=== PATIENT | female | born 1935 | race Caucasian/White ===

== ENCOUNTER 2017-04-10 16:26 | Emergency (ER) | payer OTHER ==
[2017-04-10 16:43] VITALS: BP 180/90; PULSE 82; TEMP 97.8; BMI 25.0
--- NOTE | 2017-04-10 17:18 | PDOC ---
History of Present Illness - General History Source: Patient Exam Limitations: No Limitations - History of Present Illness Initial Comments: 04/10/17 17:13 <Hugo Alvarez - Last Filed: 04/10/17 17:18> - General History Source: Patient Exam Limitations: No Limitations - History of Present Illness Initial Comments: 04/10/17 18:04 The patient is a 82 year old female presenting with her , with a significant past medical history of HTN, HLD, thyroid disease left sided weakness s/p intracranial bleed (2010), who presents to the emergency department with epitaxis onset today. She reports that her epitaxis is mostly localized in the right nostril, being intermittent in nature. The notes that they tried applying pressure to the top area of the nose and using ice in the attempts to stop the bleeding with little success. Upon presentation the bleeding had stopped. He notes that the patient is set to follow up with an ENT soon and recently saw her PMD a few days ago for a follow up. They deny any history of epitaxis. They do report that the patient has been sneezing and blowing her nose more than usual recently due to seasonal allergies. The patient denies chest pain, palpitations, shortness of breath, headache and dizziness. Denies fever, chills, nausea, vomit, diarrhea and constipation. Allergies: Sulfa Past surgical history: Intracranial bleed (2010) Social history: No alcohol, tobacco or drug use reported <Kiok Smith - Last Filed: 04/10/17 18:05> - General Chief Complaint: Nasal Bleeding Stated Complaint: INTERMITTENT EPISTAXIS SINCE LAST NIGHT Time Seen by Provider: 04/10/17 16:35 Past History - Past Medical History HTN: Yes Hypercholesterolemia: Yes Thyroid Disease: Yes Other medical history: HARD OF HEARING LEFT SIDE WEAKNESS INTRACRANIAL BLEED 2010 - Surgical History Neurologic Surgery: Yes - Psycho/Social/Smoking Cessation Hx Anxiety: No Suicidal Ideation: No Smoking History: Never smoked Have you smoked in the past 12 months: No Information on smoking cessation initiated: No Hx Alcohol Use: No Drug/Substance Use Hx: No Substance Use Type: None <Hugo Alvarez - Last Filed: 04/10/17 17:18> <Kiko Smith - Last Filed: 04/10/17 18:05> - Past Medical History Allergies/Adverse Reactions: Allergies Allergy/AdvReac Type Severity Reaction Status Date / Time Sulfa (Sulfonamide Allergy Hives Verified 04/10/17 16:29 Antibiotics) Home Medications: Ambulatory Orders Carvedilol 04/10/17 Levothyroxine [Synthroid -] 50 mcg PO DAILY 04/10/17 Lisinopril 04/10/17 Review of Systems - Review of Systems Able to Perform ROS?: Yes Comments:: 04/10/17 18:04 CONSTITUTIONAL: No reported: Fever, Chills, Diaphoresis, Generalized Weakness, Malaise, Loss of Appetite HEENT: Reported: Epistaxis No reported: Nasal Congestion, Throat Pain, Throat Swelling, Difficulty Swallowing, Mouth Swelling, Ear Pain, Eye Pain, Visual Changes CARDIOVASCULAR: No reported: Chest Pain, Syncope, Palpitations, Irregular Heart Rate, Lightheadedness, Peripheral Edema RESPIRATORY: No reported: Cough, Shortness of Breath, SOB with Exertion, Orthopnea, Wheezing , Stridor, Hemoptysis GASTROINTESTINAL: No reported: Abdominal pain, Abdominal Distension, Nausea, Vomiting, Diarrhea, Constipation, Melena, Hematochezia GENITOURINARY: No reported: Dysuria, Frequency, Urgency, Hesitancy, Flank Pain, Genital Pain MUSCULOSKELETAL: No reported: Myalgia, Arthralgia, Joint Swelling, Back pain, Neck Pain SKIN: No reported: Rash, Itching, Pallor HEMEATOLOGIC/IMMUNOLOGIC: No reported: Easy Bleeding, Easy Bruising, Lymphadenopathy, Frequent infections ENDOCRINE: No reported: Unexplained Weight Gain, Unexplained Weight Loss, Heat Intolerance , Cold Intolerance NEUROLOGIC: No reported: Headache, Focal Weakness, Paresthesias, Vertigo, Lightheadedness, Unsteady Gait, Seizure, Mental Status Changes, Incontinence PSYCHIATRIC: No reported: Anxiety, Depression <Kiko Smith - Last Filed: 04/10/17 18:05> *Physical Exam - Vital Signs Last Vital Signs Temp Pulse Resp BP Pulse Ox 97.8 F 82 18 180/90 98 04/10/17 16:28 04/10/17 16:28 04/10/17 16:28 04/10/17 16:28 04/10/17 16:28 <Hugo Alvarez - Last Filed: 04/10/17 17:18> - Vital Signs Last Vital Signs Temp Pulse Resp BP Pulse Ox 97.8 F 82 18 180/90 98 04/10/17 16:28 04/10/17 16:28 04/10/17 16:28 04/10/17 16:28 04/10/17 16:28 - Physical Exam Comments: 04/10/17 18:04 GENERAL: The patient is awake, alert, and fully oriented, Nontoxic - in no acute distress. EYES: extraocular movements intact, sclera anicteric, conjunctiva clear. ENT: nares with rusted blood in R nare, no active bleeding, no bleeding in posterior pharynx. LUNGS: Breath sounds equal, clear to auscultation bilaterally. HEART: Regular rate and rhythm, without murmur, rub or gallop. NEUROLOGICAL: No facial assymetry, Normal speech, moving all 4 extermities spontaneously and symmetrically. PSYCH: Normal mood, normal affect. SKIN: Warm, Dry, normal turgor <Kiko Smith - Last Filed: 04/10/17 18:05> Medical Decision Making - Medical Decision Making 04/10/17 17:13 82y F hx of htn present with intermittent epistaxis x 2, stoppdprior to evaluation, no symtoms of anemia. not on any a/c nor aspirin. suspect her epistaxis due to incerases sneezing/nose blowing due to seasonal allergies. no signs of posterior bleed. no current bleednig will d/c the pmd with fu return precautions were discussed I discussed the physical exam findings, ancillary test results and final diagnoses with the patient. I answered all of the patient's questions. The patient was satisfied with the care received and felt comfortable with the discharge plan and treatment plan. The patient will call their primary care physician within 24 hours to arrange follow-up and will return to the Emergency Department with any new, persistent or worsening symptoms. <Hugo Alvarez - Last Filed: 04/10/17 17:18> *DC/Admit/Observation/Transfer - Discharge Dispostion Admit: No <Hugo Alvarez - Last Filed: 04/10/17 17:18> - Attestations Scribe Attestion: 04/10/17 18:04 Documentation prepared by Kiko Smith, acting as biomedical electronics technician for Hugo Alvarez MD <Kiko Smith [place] - Last Filed: 04/10/17 18:05> Diagnosis at time of Disposition: Epistaxis - Discharge Dispostion Disposition: HOME Condition at time of disposition: Improved - Referrals Referrals: Nish Nix MD [Staff Physician] - - Patient Instructions Printed Discharge Instructions: DI for Nosebleed Additional Instructions: Return to the emergency department immediately with ANY new, persistent or worsening symptoms. Apply pressure and ice to nose if the bleeding recurs. If the bleeding persists beyond 20 minutes return to the emergency department for further management. You MUST call and follow up with your doctor tomorrow for further evaluation of your symptoms. Results were discussed with you. Please make sure your doctor reviews the results of your emergency evaluation.
== END 2017-04-10 17:24 | disposition home or self-care (01) ==
LOC: FER 16:26
DX: R04.0 Epistaxis (principal); E78.5 Hyperlipidemia, unspecified; E07.9 Disorder of thyroid, unspecified; I10 Essential (primary) hypertension; G82.20 Paraplegia, unspecified
CPT/HCPCS: 99281-25

== ENCOUNTER 2017-04-23 09:46 | Emergency (ER) | payer OTHER ==
[2017-04-23 09:50] VITALS: BP 156/99; PULSE 75; TEMP 98; BMI 25.0
--- NOTE | 2017-04-23 10:32 | PDOC ---
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 Saavedra 2 days later and was cauterized again (R nares) because it started to bleed Since that time she's had some intermittent bleeding from her right nares She saw Dr. Saavedra again yesterday and was cauterized again 7:30 this morning she started with much heavier bleeding, (R nares) prompting her to come to the emergency department She is on no blood thinners She is also spitting up some blood that is going down the back of her throat Past History - Past Medical History Allergies/Adverse Reactions: Allergies Allergy/AdvReac Type Severity Reaction Status Date / Time Sulfa (Sulfonamide Allergy Hives Verified 04/23/17 09:48 Antibiotics) Home Medications: Ambulatory Orders Carvedilol 04/10/17 Levothyroxine [Synthroid -] 50 mcg PO DAILY 04/10/17 Lisinopril 04/10/17 Amox-Tr/K Cl [Augmentin - 500Mg Tablet] 1 tab PO TID #21 tab 04/23/17 HTN: Yes Hypercholesterolemia: Yes Thyroid Disease: Yes - Surgical History Neurologic Surgery: Yes - Psycho/Social/Smoking Cessation Hx Anxiety: No Suicidal Ideation: No Smoking History: Never smoked Have you smoked in the past 12 months: No Hx Alcohol Use: No Drug/Substance Use Hx: No Substance Use Type: None *Physical Exam - Vital Signs Last Vital Signs Temp Pulse Resp BP Pulse Ox 98 F 75 18 156/99 100 04/23/17 09:47 04/23/17 09:47 04/23/17 09:47 04/23/17 09:47 04/23/17 09:47 - Physical Exam Comments: 04/23/17 10:30 Physical exam Last Vital Signs Temp Pulse Resp BP Pulse Ox 98 F 75 18 156/99 100 04/23/17 09:47 04/23/17 09:47 04/23/17 09:47 04/23/17 09:47 04/23/17 09:47 Patient is alert and answering questions Head is normocephalic and atraumatic ENT exam There is +active bleeding from the right nares There is a small trickle of blood from the left nares Blood is going down the back of the throat, and patient is coughing it up Lungs - clear Heart - regular Medical Decision Making - Medical Decision Making 04/23/17 10:31 The right nares was cleaned out thoroughly, and large clots were removed from the right nares On exam with a nasal speculum no further clots were seen An anterior Rhino Rocket nasal pack was placed in the right nares as per protocol, with 5 mL in the balloon Bacitracin ointment was placed on the Rhino Rocket packing prior to insertion, The pack was placed without difficulty Will reevaluate with anterior pack in place 04/23/17 11:47 On reevaluation, epistaxis has completely stopped with right anterior pack in place Mouth and oropharynx is completely benign, with no more blood seen Patient is no longer coughing Patient observed for a while with packing in place No evidence of further bleeding. Packing in place R nares without difficulty Well give antibiotic, and follow with Dr. Saavedra Monday in the office *DC/Admit/Observation/Transfer Diagnosis at time of Disposition: Epistaxis - Discharge Dispostion Disposition: HOME Condition at time of disposition: Improved - Prescriptions Prescriptions: Amox-Tr/K Cl [Augmentin - 500Mg Tablet] 1 tab PO TID #21 tab - Referrals Referrals: Jason Saavedra MD [Staff Physician] - - Patient Instructions Printed Discharge Instructions: DI for Nosebleed, Nosebleed Additional Instructions: Keep the nasal packing in place, do not attempt to remove it Do not pick or blow your nose, and sneeze with her mouth open Please follow-up with your ENT, Dr Savaedra, first thing on Monday for removal of packing Please return immediately if the bleeding starts up again Followup with your primary care physician in 24-48 hours Return immediately if you worsen in any way Take your medications as directed [id number] pill 3 times a day Please take a probiotic every day to prevent antibiotic associated diarrhea with this
[2017-04-23] MEDS ORDERED: AMOX TR/POT CLAV 500MG/125MG TABLETS (FP) PO ONE (11:49)
[2017-04-23] MEDS ORDERED: AMOX TR/POT CLAV 500MG/125MG TABLETS (FP) ONE (11:54)
== END 2017-04-23 11:58 | disposition home or self-care (01) ==
LOC: FER 09:46
PROC: 2Y41X5Z Packing of Nasal Region using Packing Material (ICD-10-PCS; principal; 2017-04-23)
DX: R04.0 Epistaxis (principal); I10 Essential (primary) hypertension; E78.00 Pure hypercholesterolemia, unspecified; E07.9 Disorder of thyroid, unspecified; R29.810 Facial weakness
CPT/HCPCS: 30901-25; 99281-25

== ENCOUNTER 2019-12-13 10:02 | Observation (INO) | payer OTHER ==
--- NOTE | 2019-12-13 10:40 | PDOC ---
History of Present Illness - History of Present Illness Initial Comments: 12/13/19 10:39 Ms. Alvarez is an 84 yo female w/ pmh of HTN, hypothyroidism, dementia, R intracranial hemorrhage (2010, no deficits besides dementia) who presents s/p fall at [facility]. Per who is with her patient fell at some time over night. Patient is at baseline per (AOx1). Patient denies any complaints at this time. The patient denies chest pain, shortness of breath, headache and dizziness. Denies fever, chills, nausea, vomit, diarrhea and constipation. Denies dysuria, frequency, urgency and hematuria. <Juliano Corral - Last Filed: 12/13/19 16:46> <Divine Hodgson - Last Filed: 12/14/19 21:31> - General Chief Complaint: Injury Stated Complaint: FALL Time Seen by Provider: 12/13/19 10:39 Past History - Past Medical History Anemia: No Asthma: No Cancer: No Cardiac Disorders: Yes (AFIB) CVA: Yes (H/O "brain bleed") COPD: No (on Atrovent, PE) CHF: No Dementia: No Diabetes: No GI Disorders: No Disorders: No HTN: Yes Hypercholesterolemia: Yes Liver Disease: No Seizures: No Thyroid Disease: Yes - Surgical History Abdominal Surgery: No Appendectomy: No Cardiac Surgery: No Cholecystectomy: No Lung Surgery: No Neurologic Surgery: Yes (brain bleed) Orthopedic Surgery: No - Psycho Social/Smoking Cessation Hx Smoking History: Never smoked Have you smoked in the past 12 months: No Information on smoking cessation initiated: No Hx Alcohol Use: No Drug/Substance Use Hx: No Substance Use Type: None <Juliano Corral - Last Filed: 12/13/19 16:46> <Divine Hodgson - Last Filed: 12/14/19 21:31> - Past Medical History Allergies/Adverse Reactions: Allergies Allergy/AdvReac Type Severity Reaction Status Date / Time Sulfa (Sulfonamide Allergy Hives Verified 07/11/19 11:57 Antibiotics) Home Medications: Ambulatory Orders Levothyroxine [Synthroid -] 100 mcg PO DAILY 04/10/17 Acetaminophen [Tylenol -] 650 mg PO Q6H PRN 12/13/19 Albuterol 0.083% Nebulizer Debra [Ventolin 0.083% Nebulizer Soln -] 1 neb NEB TID 12/13/19 Ascorbic Acid [Vitamin C] 1,000 mg PO DAILY 12/13/19 Atorvastatin Ca [Lipitor] 10 mg PO HS 12/13/19 Calcium Carb/Vitamin D3/Vit K1 [Calcium + D Soft Chewable Tab] 1 each PO DAILY 12/13/19 Carvedilol [Coreg -] 6.25 mg PO BID 12/13/19 Cholecalciferol (Vitamin D3) [Vitamin D3 -] 2,000 unit PO DAILY 12/13/19 Escitalopram Oxalate [Lexapro -] 5 mg PO DAILY 12/13/19 Escitalopram Oxalate [Lexapro -] 5 mg PO DAILY 12/13/19 Hydrochlorothiazide 12.5 mg PO DAILY 12/13/19 Ipratropium 0.02% Nebulizer [Atrovent] 1 neb NEB TID 12/13/19 Levothyroxine [Synthroid -] 100 mcg PO DAILY 12/13/19 Multivitamin [Multiple Vitamins] 1 each PO DAILY 12/13/19 Nystatin 1 applic TP BID 12/13/19 Review of Systems - Review of Systems Comments:: 12/13/19 10:40 History limited by patient status. <Juliano Corral - Last Filed: 12/13/19 16:46> - Review of Systems Able to Perform ROS?: No (dementia) <Divine Hodgson - Last Filed: 12/14/19 21:31> *Physical Exam - Vital Signs Last Vital Signs Temp Pulse Resp BP Pulse Ox 97.2 F L 86 12 114/67 95 12/13/19 10:10 12/13/19 10:10 12/13/19 10:10 12/13/19 10:10 12/13/19 10:24 - Physical Exam 12/13/19 10:40 GENERAL: Awake, alert, and oriented to baseline, in no acute distress HEAD: No signs of trauma, normocephalic, atraumatic EYES: PERRLA, EOMI, sclera anicteric, conjunctiva clear ENT: Auricles normal inspection, hearing grossly normal, nares patent, oropharynx clear without exudates. Moist mucosa NECK: Normal ROM, supple, no lymphadenopathy, JVD, or masses LUNGS: No distress, speaks full sentences, clear to auscultation bilaterally HEART: Regular rate and rhythm, normal S1 and S2, no murmurs, rubs or gallops, peripheral pulses normal and equal bilaterally. ABDOMEN: +Diffuse abdominal TTP. Soft, normoactive bowel sounds. No guarding, no rebound. No masses EXTREMITIES: Normal inspection, Normal range of motion, no edema. No clubbing or cyanosis. NEUROLOGICAL: Cranial nerves II through XII grossly intact. Normal speech, no focal sensorimotor deficits SKIN: Warm, Dry, normal turgor, no rashes or lesions noted. <Juliano Corral - Last Filed: 12/13/19 16:46> - Vital Signs Last Vital Signs Temp Pulse Resp BP Pulse Ox 98.2 F 78 20 140/81 96 12/14/19 20:58 12/14/19 20:58 12/14/19 20:58 12/14/19 20:58 12/14/19 17:00 <Divine Hodgson - Last Filed: 12/14/19 21:31> ED Treatment Course - LABORATORY CBC & Chemistry Diagram: 12/13/19 13:45 12/13/19 12:25 <Juliano Corral - Last Filed: 12/13/19 16:46> - LABORATORY CBC & Chemistry Diagram: 12/14/19 06:40 12/14/19 06:40 - ADDITIONAL ORDERS Additional order review: 12/13/19 12/13/19 13:45 12:34 RBC 4.21 Cancelled MCV 91.4 Cancelled MCHC 33.0 Cancelled RDW 19.0 H Cancelled MPV 9.1 Cancelled Neutrophils % 73.5 Cancelled Lymphocytes % 18.2 Cancelled Monocytes % 6.8 Cancelled Eosinophils % 0.7 Cancelled Basophils % 0.8 Cancelled - Medications Given in the ED: ED Medications Discontinued Medications Generic Name Dose Route Start Last Admin Trade Name Candidoq PRN Reason Stop Dose Admin Aspirin 162 mg 12/13/19 17:49 12/13/19 18:13 Asa - PO 12/13/19 17:50 162 mg ONCE ONE Administration Potassium Chloride 20 meq 12/14/19 10:00 12/14/19 09:53 K-Dur - PO 12/14/19 10:01 20 meq ONCE ONE Administration <Divine Hodgson - Last Filed: 12/14/19 21:31> Medical Decision Making - Medical Decision Making 12/13/19 11:37 Ms. Alvarez is an 84 yo female w/ pmh as described who presents s/p unwitnessed fall at [facility]. Patient also experiencing abdominal TTP. Will evaluate for causes and sequelae of fall with Head CT, CBC, CMP. Will also evaluate abdomen/pelvis with CT given tenderness. 12/13/19 15:22 Patient noted to have afib on EKG. Small Positive troponin likewise noted as below. Patient will be admitted for further workup and cardiology evaluation. CT head / C-spine negative. 12/13/19 15:41 Discussed irregular heart rate with patient's who reports he was aware and this was already identified "a few" weeks ago. Given positive troponin, believe patient should still come in the hospital for serial troponins and cardiology evaluation. Hospitalist paged. 12/13/19 16:46 Patient admitted to hospitalist for further evaluation. Laboratory Results - last 24 hr 12/13/19 12/13/19 12/13/19 11:30 12:25 12:34 WBC Cancelled Corrected WBC (auto) Cancelled RBC Cancelled Hgb Cancelled Hct Cancelled MCV Cancelled MCH Cancelled MCHC Cancelled RDW Cancelled Plt Count Cancelled MPV Cancelled Absolute Neuts (auto) Cancelled Neutrophils % Cancelled Lymphocytes % Cancelled Monocytes % Cancelled Eosinophils % Cancelled Basophils % Cancelled Nucleated RBC % Cancelled Platelet Estimate Cancelled Platelet Comment Cancelled Sodium Cancelled 142 Potassium Cancelled 3.9 Chloride Cancelled 101 Carbon Dioxide Cancelled 34 H Anion Gap Cancelled 7 L BUN Cancelled 24.3 H Creatinine Cancelled 0.7 Est GFR (CKD-EPI)AfAm Cancelled 91.57 Est GFR (CKD-EPI)NonAf Cancelled 79.00 Random Glucose Cancelled 84 Calcium Cancelled 9.6 Total Bilirubin Cancelled 0.7 AST Cancelled 66 H ALT Cancelled 48 Alkaline Phosphatase Cancelled 108 Creatine Kinase Cancelled 169 Creatine Kinase Index 3.4 CK-MB (CK-2) 5.8 H Troponin I Cancelled 0.27 H Total Protein Cancelled 7.4 Albumin Cancelled 3.1 L 12/13/19 13:45 WBC 10.2 H Corrected WBC (auto) RBC 4.21 Hgb 12.7 Hct 38.5 MCV 91.4 MCH 30.2 MCHC 33.0 RDW 19.0 H Plt Count 143 MPV 9.1 Absolute Neuts (auto) 7.5 Neutrophils % 73.5 Lymphocytes % 18.2 Monocytes % 6.8 Eosinophils % 0.7 Basophils % 0.8 Nucleated RBC % 0 Platelet Estimate Platelet Comment Sodium Potassium Chloride Carbon Dioxide Anion Gap BUN Creatinine Est GFR (CKD-EPI)AfAm Est GFR (CKD-EPI)NonAf Random Glucose Calcium Total Bilirubin AST ALT Alkaline Phosphatase Creatine Kinase Creatine Kinase Index CK-MB (CK-2) Troponin I Total Protein Albumin <Juliano Corral - Last Filed: 12/13/19 16:46> Discharge - Discharge Information Problems reviewed: Yes - Admission Yes <Juliano Corral - Last Filed: 12/13/19 16:46> - Admission Yes <Divine Hodgson - Last Filed: 12/14/19 21:31> - Discharge Information Clinical Impression/Diagnosis: Elevated troponin Afib Qualifiers: Atrial fibrillation type: unspecified Qualified Code(s): I48.91 - Unspecified atrial fibrillation Fall Qualifiers: Encounter type: initial encounter Qualified Code(s): W19.XXXA - Unspecified fall, initial encounter Abdominal pain Qualifiers: Abdominal location: unspecified location Qualified Code(s): R10.9 - Unspecified abdominal pain Condition: Guarded
--- NOTE | 2019-12-13 11:19 | PDOC ---
Attending Attestation - Resident Resident Name: Juliano Corral - ED Attending Attestation I have performed the following: I have examined & evaluated the patient, The case was reviewed & discussed with the resident, I agree w/resident's findings & plan - HPI HPI: 12/13/19 11:17 Ms. Alvarez is an 84 yo female w/ pmh of HTN, hypothyroidism, dementia, R intracranial hemorrhage (2010, no deficits besides dementia) who presents s/p unwitnessed fall found out of bed on the floor at [facility]. Per who is with her patient fell at some time over night. Patient is at baseline per (AOx1). Patient denies any complaints at this time. - Physicial Exam PE: 12/13/19 11:18 Vital Signs Temp Pulse Resp BP Pulse Ox 97.2 F L 86 12 114/67 95 12/13/19 10:10 12/13/19 10:10 12/13/19 10:10 12/13/19 10:10 12/13/19 10:24 Agree with the resident's HPI and PE as documented in the electronic medical record. NAD, demented, alert but oriented to person only EOMI, PERRL, nl conjunctiva, anicteric; neck supple. lungs clear, irreg rhythm , abdomen soft +diffusely tender. no rebound, guarding. Back nontender. PANDA x4, no focal neuro deficits. No peripheral edema. normal color for ethnicity, WWP. 12/13/19 11:18 12/13/19 11:18 12/13/19 17:48 - Medical Decision Making 12/13/19 13:13 Vital Signs Temp Pulse Resp BP Pulse Ox 97.2 F L 86 12 114/67 95 12/13/19 10:10 12/13/19 10:10 12/13/19 10:10 12/13/19 10:10 12/13/19 10:24 Differential diagnosis considered, ICH, subdural hematoma, epidural, contusion, closed head injury, cervical spine injury. Arrhythmia, ACS, dehydration, anemia , infection VS reviewed, wnl. EKG with right bundle branch block and A. fib new compared to prior EKG from 2010 and no documented history of irregular heart rhythm. CBC is unremarkable, no evidence of anemia. No infectious symptoms or etiology. Labs were remarkable for elevated troponin 0.27 with new EKG change of atrial fibrillation and right bundle branch block, will require telemetry monitoring as possible cardiac etiology of her fall ASA given, no head bleed Cervical spine with grade 1 retrolisthesis C4 over C5 and minor anterolisthesis C6 over 7, otherwise no gross fracture or subluxation CT head is negative for intracranial pathology or bleed, bilateral craniectomy is noted, large area encephalomalacia which is consistent with her prior head bleed. admit tele for r/o ACS, cardiac etiology, fall, medical management, unsafe for discharge impression and plan made aware to family. 12/13/19 15:23 12/13/19 15:32 12/13/19 17:49 Heart Score/ECG Review #1 ECG reviewed & interpreted by me at: 10:20 General ECG Interpretation: Normal Rate, Normal Intervals 12/13/19 13:05 atrial fibrillation at 64 bpm, RBBB, wide QRS, normal axis, nonspecific T wave abnormalities.
--- NOTE | 2019-12-13 13:16 | EKG ---
Test Reason : Blood Pressure : / mmHG Vent. Rate : 064 BPM Atrial Rate : 375 BPM P-R Int : 000 ms QRS Dur : 158 ms QT Int : 474 ms P-R-T Axes : 000 081 -31 degrees QTc Int : 489 ms ATRIAL FLUTTER WITH VARIABLE A-V BLOCK RIGHT BUNDLE BRANCH BLOCK NONSPECIFIC ST ABNORMALITY ABNORMAL ECG NO PREVIOUS ECGS AVAILABLE Confirmed by NATAN NAVARRETE MD ([id number]) on 12/13/2019 1:16:36 PM Referred By: Confirmed By:NATAN NAVARRETE MD
[2019-12-13 14:06] LABS: BASO % 0.8 % (0-2.0); EOS % 0.7 % (0-4.5); HEMATOCRIT 38.5 % (32.4-45.2); HEMOGLOBIN 12.7 GM/dL (10.7-15.3); LYMPH % 18.2 % (8-40); MCH 30.2 pg (25.7-33.7); MEAN CELL VOLUME 91.4 fl (80-96); MEAN PLT VOLUME 9.1 fl (7.5-11.1); MONO % 6.8 % (3.8-10.2); NEUT % 73.5 % (42.8-82.8); PLATELET COUNT 143 K/MM3 (134-434); RBC 4.21 M/mm3 (3.60-5.2); WHITE BLOOD COUNT 10.2 K/mm3 (4.0-10.0)
[2019-12-13 14:18] LABS: ALBUMIN 3.1 g/dl (3.4-5.0); BILIRUBIN,TOTAL 0.7 mg/dL (0.2-1); BLOOD UREA NITROGEN 24.3 mg/dL (7-18); CALCIUM 9.6 mg/dL (8.5-10.1); CREATININE 0.7 mg/dL (0.55-1.3); POTASSIUM 3.9 mmol/L (3.5-5.1); TOT PROT 7.4 g/dl (6.4-8.2)
--- NOTE | 2019-12-13 17:27 | HP ---
CHIEF COMPLAINT: Fall PCP: Dr. Frantz Montilla HISTORY OF PRESENT ILLNESS: Pt. is an 84 y.o. F w/ PMHX. of HTN, Hypothyroidism , dementia, and R. intracranial hemmorrhage (2010, no residual deficits) presents from [facility] after having an unwitnessed fall. Pt. was found by family in the morning, unclear how long Pt. was down. Per at bedside Pt. is at her baseline mental status. Pt. had recent hospital admission [address] [facility] for Pneumonia (15 days hospital course) and was sent to [facility] for rehab. Pt. endorses SOB and diffuse abdominal pain (unable to elicit further information about the pain). Pt. denies any chest pain, head ache, numbness/ tingling in extremities. Per Pt. at bedside Pt. 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 Colmenares, who agreed with her PCP that AC would have more risks than benefits because of Pt.s fall history and because of intracranial hemmorhage. ER course was notable for: (1)EKG, CT- A/P, Trop, UA/UCx. (2)Head CT, CSPine CT (3) Recent Travel: No PAST MEDICAL HISTORY: As above PAST SURGICAL HISTORY: "changed metal plate in head"(1954), 2010 intracranial hemmorage, Had cranial surgery @ 17. Social History: Smoking: denies Alcohol: on very special occasion Drugs: denies Allergies Sulfa (Sulfonamide Antibiotics) Allergy (Verified 07/11/19 11:57) Hives HOME MEDICATIONS: Home Medications Medication Instructions Recorded Levothyroxine [Synthroid -] 100 mcg PO DAILY 04/10/17 Acetaminophen [Tylenol -] 650 mg PO Q6H PRN 12/13/19 Albuterol 0.083% Nebulizer Debra 1 neb NEB TID 12/13/19 [Ventolin 0.083% Nebulizer Soln -] Ascorbic Acid [Vitamin C] 1,000 mg PO DAILY 12/13/19 Atorvastatin Ca [Lipitor] 10 mg PO HS 12/13/19 Calcium Carb/Vitamin D3/Vit K1 1 each PO DAILY 12/13/19 [Calcium + D Soft Chewable Tab] Carvedilol [Coreg -] 6.25 mg PO BID 12/13/19 Cholecalciferol (Vitamin D3) 2,000 unit PO DAILY 12/13/19 [Vitamin D3 -] Escitalopram Oxalate [Lexapro -] 5 mg PO DAILY 12/13/19 Escitalopram Oxalate [Lexapro -] 5 mg PO DAILY 12/13/19 Hydrochlorothiazide 12.5 mg PO TID 12/13/19 Ipratropium 0.02% Nebulizer 1 neb NEB TID 12/13/19 [Atrovent] Levothyroxine [Synthroid -] 100 mcg PO DAILY 12/13/19 Multivitamin [Multiple Vitamins] 1 each PO DAILY 12/13/19 Nystatin 1 applic TP BID 12/13/19 REVIEW OF SYSTEMS above PHYSICAL EXAMINATION Vital Signs - 24 hr 12/13/19 12/13/19 12/13/19 10:10 10:24 17:01 Temperature 97.2 F L 97.8 F Pulse Rate 75 Pulse Rate [ 86 78 Left Radial] Respiratory 12 17 Rate Blood Pressure 115/61 Blood Pressure 114/67 138/78 [Right Arm] O2 Sat by Pulse 96 95 96 Oximetry (%) GENERAL: Awake, alert, and oriented x 2, in no acute distress. HEAD: Normal with no signs of gross trauma. EYES: Pupils equal, round and reactive to light, extraocular movements intact, sclera anicteric, conjunctiva clear. EARS, NOSE, THROAT: Ears normal, nares patent, oropharynx clear without exudates. Moist mucous membranes. NECK: Normal range of motion, supple without lymphadenopathy, JVD LUNGS: Breath sounds equal, clear to auscultation bilaterally. No wheezes, and no crackles. No accessory muscle use. HEART: Irregular rate and rhythm, normal S1 and S2 without murmur ABDOMEN: Soft, mild diffuse tenderness, not distended, normoactive bowel sounds , no guarding, no rebound, no masses. MUSCULOSKELETAL: No CVA tenderness. UPPER EXTREMITIES: 2+ radial pulses, warm, well-perfused. No cyanosis. No clubbing. No peripheral edema. LOWER EXTREMITIES: 2+ dorsal pedal pulses, warm, well-perfused. Calf tenderness b/l to light touch. Trace edema. NEUROLOGICAL: Cranial nerves II-XII grossly intact. Normal speech. Gait not assessed. Finger to nose intact PSYCHIATRIC: Cooperative. Good eye contact. Appropriate mood and affect. SKIN: Warm, dry, normal turgor for age Laboratory Results - last 24 hr 12/13/19 12/13/19 12/13/19 11:30 12:25 12:34 WBC Cancelled Corrected WBC (auto) Cancelled RBC Cancelled Hgb Cancelled Hct Cancelled MCV Cancelled MCH Cancelled MCHC Cancelled RDW Cancelled Plt Count Cancelled MPV Cancelled Absolute Neuts (auto) Cancelled Neutrophils % Cancelled Lymphocytes % Cancelled Monocytes % Cancelled Eosinophils % Cancelled Basophils % Cancelled Nucleated RBC % Cancelled Platelet Estimate Cancelled Platelet Comment Cancelled Sodium Cancelled 142 Potassium Cancelled 3.9 Chloride Cancelled 101 Carbon Dioxide Cancelled 34 H Anion Gap Cancelled 7 L BUN Cancelled 24.3 H Creatinine Cancelled 0.7 Est GFR (CKD-EPI)AfAm Cancelled 91.57 Est GFR (CKD-EPI)NonAf Cancelled 79.00 Random Glucose Cancelled 84 Calcium Cancelled 9.6 Total Bilirubin Cancelled 0.7 AST Cancelled 66 H ALT Cancelled 48 Alkaline Phosphatase Cancelled 108 Creatine Kinase Cancelled 169 Creatine Kinase Index 3.4 CK-MB (CK-2) 5.8 H Troponin I Cancelled 0.27 H Total Protein Cancelled 7.4 Albumin Cancelled 3.1 L 12/13/19 13:45 WBC 10.2 H Corrected WBC (auto) RBC 4.21 Hgb 12.7 Hct 38.5 MCV 91.4 MCH 30.2 MCHC 33.0 RDW 19.0 H Plt Count 143 MPV 9.1 Absolute Neuts (auto) 7.5 Neutrophils % 73.5 Lymphocytes % 18.2 Monocytes % 6.8 Eosinophils % 0.7 Basophils % 0.8 Nucleated RBC % 0 Platelet Estimate Platelet Comment Sodium Potassium Chloride Carbon Dioxide Anion Gap BUN Creatinine Est GFR (CKD-EPI)AfAm Est GFR (CKD-EPI)NonAf Random Glucose Calcium Total Bilirubin AST ALT Alkaline Phosphatase Creatine Kinase Creatine Kinase Index CK-MB (CK-2) Troponin I Total Protein Albumin ASSESSMENT/PLAN: Pt. is an 84 y.o. F w/ PMHX. of HTN, HLD, Hypothyroidism, dementia, and R. intracranial hemmorrhage (2010, no residual deficits) presents from [facility] after having an unwitnessed fall. #Fall (unwitnessed) Head CT, Cspine CT and CT A/P- no acute pathology Telemetry monitoring Tend Trop; Initial 0.27 Rpt. EKG EKG: Afib, 64 bpm, wide QRS, nonspecific T wave abnormalities Physical Therapy #HTN #Hypothyroidism #HLD #Depression resume home medications #FEN encourage PO intake, gently IVF for 24 hours monitor electrolytes and replete as needed Sodium controlled diet #DVT Ppx. Hep SQ BID Visit type - Emergency Visit Emergency Visit: Yes ED Registration Date: 12/13/19 Care time: The patient presented to the Emergency Department on the above date and was hospitalized for further evaluation of their emergent condition. - New Patient This patient is new to me today: Yes Date on this admission: 12/13/19 - Critical Care Critical Care patient: No ATTENDING PHYSICIAN STATEMENT I saw and evaluated the patient. I reviewed the resident's note and discussed the case with the resident. I agree with the resident's findings and plan as documented. SUBJECTIVE: OBJECTIVE: ASSESSMENT AND PLAN:
[2019-12-13] MEDS ORDERED: ASPIRIN 81 MG CHEWABLE TABLETS PO ONE (17:49)
--- NOTE | 2019-12-13 17:54 | PN ---
Teaching Attending Note Name of Resident: Hill Meraz ATTENDING PHYSICIAN STATEMENT I saw and evaluated the patient. I reviewed the resident's note and discussed the case with the resident. I agree with the resident's findings and plan as documented. SUBJECTIVE: Patient is an 84 yo female with pmhx of HTN, hypothyroidism, dementia, R intracranial hemorrhage (2010, no deficits besides dementia; short term memory loss) who presents s/p fall at [facility]. Per who is with her patient fell at some time over night. Patient is at her baseline per (AOx1). was brought in to ED. for unwitnessed fall. OBJECTIVE: Vital Signs Temperature 97.8 F 12/13/19 17: Pulse Rate 78 12/13/19 17:01 Respiratory Rate 17 12/13/19 17: Blood Pressure 138/78 12/13/19 17: O2 Sat by Pulse Oximetry (%) 96 12/13/19 17:01 GENERAL: The patient is awake, alert, and fully oriented, in no acute distress. HEAD: Normal with no signs of trauma. EYES: PERRL, extraocular movements intact, sclera anicteric, conjunctiva clear. No ptosis. ENT: Ears normal, nares patent, oropharynx clear without exudates, moist mucous membranes. NECK: Trachea midline, full range of motion, supple. LUNGS: Breath sounds equal, clear to auscultation bilaterally, no wheezes, no crackles, no accessory muscle use. HEART: Regular rate and rhythm, S1, S2 postive, DUKE 2/6 , no rub or gallop. ABDOMEN: Soft, NT,ND, normoactive bowel sounds, no guarding, no rebound, no hepatosplenomegaly, no masses. EXTREMITIES: 2+ pulses, warm, well-perfused, no edema. NEUROLOGICAL: Cranial nerves II through XII grossly intact. Normal speech, gait not observed. PSYCH: Normal mood, normal affect. SKIN: Warm, dry, normal turgor, no rashes or lesions noted CBCD WBC 10.2 K/mm3 (4.0-10.0) H 12/13/19 13:45 RBC 4.21 M/mm3 (3.60-5.2) 12/13/19 13:45 Hgb 12.7 GM/dL (10.7-15.3) 12/13/19 13:45 Hct 38.5 % (32.4-45.2) 12/13/19 13:45 MCV 91.4 fl (80-96) 12/13/19 13:45 MCHC 33.0 g/dl (32.0-36.0) 12/13/19 13:45 RDW 19.0 % (11.6-15.6) H 12/13/19 13:45 Plt Count 143 K/MM3 (134-434) 12/13/19 13:45 MPV 9.1 fl (7.5-11.1) 12/13/19 13:45 CMP Sodium 142 mmol/L (136-145) 12/13/19 12:25 Potassium 3.9 mmol/L (3.5-5.1) 12/13/19 12:25 Chloride 101 mmol/L (98-107) 12/13/19 12:25 Carbon Dioxide 34 mmol/L (21-32) H 12/13/19 12:25 Anion Gap 7 MMOL/L (8-16) L 12/13/19 12:25 BUN 24.3 mg/dL (7-18) H 12/13/19 12:25 Creatinine 0.7 mg/dL (0.55-1.3) 12/13/19 12:25 Random Glucose 84 mg/dL (74-106) 12/13/19 12:25 Calcium 9.6 mg/dL (8.5-10.1) 12/13/19 12:25 Total Bilirubin 0.7 mg/dL (0.2-1) 12/13/19 12:25 AST 66 U/L (15-37) H 12/13/19 12:25 ALT 48 U/L (13-61) 12/13/19 12:25 Alkaline Phosphatase 108 U/L (45-117) 12/13/19 12:25 Total Protein 7.4 g/dl (6.4-8.2) 12/13/19 12:25 Albumin 3.1 g/dl (3.4-5.0) L 12/13/19 12:25 CARDIAC ENZYMES Creatine Kinase 169 U/L (26-192) 12/13/19 12:25 Troponin I 0.27 ng/ml (0.00-0.05) H 12/13/19 12:25 Current Medications Generic Name Dose Route Start Last Admin Trade Name Freq PRN Reason Stop Dose Admin Atorvastatin Calcium 10 mg 12/13/19 22:00 Lipitor - PO HS [facility] Carvedilol 6.25 mg 12/13/19 22:00 Coreg - PO BID EFRAÍN Escitalopram Oxalate 5 mg 12/14/19 10:00 Lexapro - PO DAILY [facility] Heparin Sodium (Porcine) 5,000 unit 12/13/19 22:00 Heparin - SQ BID EFRAÍN Levothyroxine Sodium 100 mcg 12/14/19 07:00 Synthroid - PO ACBK EFRAÍN Multivitamins/Minerals/Vitamin C 1 tab 12/14/19 10:00 Tab-A-Vit - PO DAILY [facility] Non-Formulary Medication 12.5 mg 12/13/19 22:00 Hydrochlorothiazide [Hydrochlorothiazide] PO TID EFRAÍN Nystatin 1 applic 12/13/19 22:00 Mycostatin Cream - TP BID [facility] Home Medications Medication Instructions Recorded Levothyroxine [Synthroid -] 100 mcg PO DAILY 04/10/17 Acetaminophen [Tylenol -] 650 mg PO Q6H PRN 12/13/19 Albuterol 0.083% Nebulizer Debra 1 neb NEB TID 12/13/19 [Ventolin 0.083% Nebulizer Soln -] Ascorbic Acid [Vitamin C] 1,000 mg PO DAILY 12/13/19 Atorvastatin Ca [Lipitor] 10 mg PO HS 12/13/19 Calcium Carb/Vitamin D3/Vit K1 1 each PO DAILY 12/13/19 [Calcium + D Soft Chewable Tab] Carvedilol [Coreg -] 6.25 mg PO BID 12/13/19 Cholecalciferol (Vitamin D3) 2,000 unit PO DAILY 12/13/19 [Vitamin D3 -] Escitalopram Oxalate [Lexapro -] 5 mg PO DAILY 12/13/19 Escitalopram Oxalate [Lexapro -] 5 mg PO DAILY 12/13/19 Hydrochlorothiazide 12.5 mg PO TID 12/13/19 Ipratropium 0.02% Nebulizer 1 neb NEB TID 12/13/19 [Atrovent] Levothyroxine [Synthroid -] 100 mcg PO DAILY 12/13/19 Multivitamin [Multiple Vitamins] 1 each PO DAILY 12/13/19 Nystatin 1 applic TP BID 12/13/19 Ct scan of the head : Bl craniectomies, large area of encephalomalacia in the right temporal, frontal, occipital and parietal lobe and a smaller focal area of encephamalacia in the left temporal lobe laterally CT of cervical spine: Grade 1 retrolithesis of C4-C5 and minimal anterolisthesis of C6 over C7, no gross fx or subluxation is seen. ASSESSMENT AND PLAN: Patient is an 84 yo female with pmhx of HTN, hypothyroidism, dementia, R intracranial hemorrhage (2010, no deficits besides dementia; short term memory loss) who presents s/p fall at [facility]. Per who is with her patient fell at some time over night. Patient is at her baseline per (AOx1). Patient denies any complaints at this time. #Troponemia: trend, cardio consult Dr. Morfin , s/p asa in ED. patient has hx of epistaxis will not continue aspirin for now, will monitor # Hx of right Intracranial hemorrhage (2010) for unknown cause as per patient's , with hx of left sided deficit # Unwitnessed fall coming from a [facility] for rehab, was hospitalized at [facility] for 2 weeks 2 weeks ago. #New onset afib x: on coreg ,lipitor ,s/p aspirin in ED. will hold off on any AC for now , since patient had a hx of epistaxis #Hypothyroidism: continue Levoxyl #hx of depression: on lexapro
[2019-12-13] MEDS ORDERED: ASPIRIN 81 MG CHEWABLE TABLETS ONE (18:09)
[2019-12-13 21:27] VITALS: BMI 23.3
[2019-12-13] MEDS ORDERED: PATIENT'S OWN MEDICATION (NON-FORMULARY) (Hydrochlorothiazide [Hydrochlorothiazide] 12.5 M PO SCH ×2 (22:00)
[2019-12-13] MEDS: ATORVASTATIN CA 10 MG TABLET (FP) PO SCH (22:12)
[2019-12-13] MEDS: CARVEDILOL 6.25 MG TABLET (FP) PO SCH (22:12)
[2019-12-13] MEDS: HEPARIN NA (PORCINE) 5,000 UNITS/ML 1ML VIAL SQ SCH (22:12)
[2019-12-14] MEDS: NYSTATIN 100,000 UNIT/GM TOPICAL CREAM 15 GM TUBE TP SCH ×3 (00:15→23:18)
[2019-12-14] MEDS: LEVOTHYROXINE NA 100 MCG TABLET (FP) PO SCH (06:22)
[2019-12-14 07:50] LABS: HEMATOCRIT 37.4 % (32.4-45.2); HEMOGLOBIN 12.6 GM/dL (10.7-15.3); MCH 30.3 pg (25.7-33.7); MCHC 33.7 g/dl (32.0-36.0); MEAN CELL VOLUME 89.9 fl (80-96); PLATELET COUNT 136 K/MM3 (134-434); RBC 4.16 M/mm3 (3.60-5.2); RDW 19.3 % (11.6-15.6); WHITE BLOOD COUNT 6.5 K/mm3 (4.0-10.0)
[2019-12-14 08:19] LABS: BLOOD UREA NITROGEN 23.8 mg/dL (7-18); CALCIUM 9.2 mg/dL (8.5-10.1); CREATININE 0.7 mg/dL (0.55-1.3); MAGNESIUM 2.3 mg/dL (1.8-2.4); PHOSPHOROUS 2.8 mg/dL (2.5-4.9); POTASSIUM 3.2 mmol/L (3.5-5.1)
[2019-12-14 08:30] LABS: INR 1.02 (0.83-1.09)
[2019-12-14] MEDS ORDERED: D5-1/2NS+40 MEQ KCL - 40 MEQ/1,000 ML INFUS.BAG IV SCH (09:30)
[2019-12-14] MEDS: ESCITALOPRAM OXALATE 10 MG TABLET PO SCH (09:52)
[2019-12-14] MEDS: MULTIVITAMINS (DAILY MVI) TABLET (FP) PO SCH (09:52)
[2019-12-14] MEDS: HEPARIN NA (PORCINE) 5,000 UNITS/ML 1ML VIAL SQ SCH ×2 (09:52→23:32)
[2019-12-14] MEDS: CARVEDILOL 6.25 MG TABLET (FP) PO SCH ×2 (09:53→23:17)
[2019-12-14] MEDS ORDERED: PATIENT'S OWN MEDICATION (NON-FORMULARY) (Escitalopram Oxalate [Lexapro -] 5 MG) PO SCH (10:00)
[2019-12-14] MEDS ORDERED: POTASSIUM CHLORIDE TABS 20 MEQ TABLET.ER (FP) PO ONE (10:00)
[2019-12-14] MEDS ORDERED: HYDROCHLOROTHIAZIDE 12.5 MG CAPSULE (FP) PO SCH (10:00)
--- NOTE | 2019-12-14 10:54 | CON.CARD ---
Consult Consult Specialty:: Cardiology Referred by:: Evert Reason for Consultation:: afib, elevated troponin. - History of Present Illness Chief Complaint: fall at [place] History of Present Illness: Patient is an 84 yo female with pmhx of HTN, hypothyroidism, dementia, R intracranial hemorrhage (2010, no deficits besides dementia; short term memory loss) who presents s/p fall at [facility]. She is unable to give a history. Noted with atrial fibrillation with controlled VR. Also noted with elevated troponin. She was recently hospitalized at [facility] for LLL pneumonia. Records reviewed by me. She was in atrial fibrillation at the time. Had barium swallow at the time which was negative. Not on AC due to falls and ICH requiring craniotomy. Echo at [facility] 11/12/19: severe LVH, normal EF. mild MR, minimal TR. - History Source History Provided By: Medical Record Limitations to Obtaining History: Dementia - Alcohol/Substance Use Hx Alcohol Use: No - Smoking History Smoking history: Never smoked Have you smoked in the past 12 months: No Home Medications - Allergies Allergies/Adverse Reactions: Allergies Allergy/AdvReac Type Severity Reaction Status Date / Time Sulfa (Sulfonamide Allergy Hives Verified 07/11/19 11:57 Antibiotics) - Home Medications Home Medications: Ambulatory Orders Levothyroxine [Synthroid -] 100 mcg PO DAILY 04/10/17 Acetaminophen [Tylenol -] 650 mg PO Q6H PRN 12/13/19 Albuterol 0.083% Nebulizer Debra [Ventolin 0.083% Nebulizer Soln -] 1 neb NEB TID 12/13/19 Ascorbic Acid [Vitamin C] 1,000 mg PO DAILY 12/13/19 Atorvastatin Ca [Lipitor] 10 mg PO HS 12/13/19 Calcium Carb/Vitamin D3/Vit K1 [Calcium + D Soft Chewable Tab] 1 each PO DAILY 12/13/19 Carvedilol [Coreg -] 6.25 mg PO BID 12/13/19 Cholecalciferol (Vitamin D3) [Vitamin D3 -] 2,000 unit PO DAILY 12/13/19 Escitalopram Oxalate [Lexapro -] 5 mg PO DAILY 12/13/19 Escitalopram Oxalate [Lexapro -] 5 mg PO DAILY 12/13/19 Hydrochlorothiazide 12.5 mg PO DAILY 12/13/19 Ipratropium 0.02% Nebulizer [Atrovent] 1 neb NEB TID 12/13/19 Levothyroxine [Synthroid -] 100 mcg PO DAILY 12/13/19 Multivitamin [Multiple Vitamins] 1 each PO DAILY 12/13/19 Nystatin 1 applic TP BID 12/13/19 Vital Signs: Vital Signs Temperature 98.0 F 12/14/19 09:51 Pulse Rate 75 12/14/19 09:51 Respiratory Rate 18 12/14/19 09:51 Blood Pressure 130/89 12/14/19 09:51 O2 Sat by Pulse Oximetry (%) 94 L 12/14/19 01:22 - Other Data Labs, Other Data: CBC, BMP 12/14/19 06:40 12/14/19 06:40 INR, PTT INR 1.02 (0.83-1.09) 12/14/19 06:40 Troponin, BNP 12/13/19 12/13/19 12/13/19 11:30 12:25 17:20 Troponin I Cancelled 0.27 H 0.30 H 12/13/19 12/14/19 23:20 06:40 Troponin I 0.34 H 0.35 H Troponin, BNP 12/13/19 12/13/19 12/13/19 11:30 12:25 17:20 Troponin I Cancelled 0.27 H 0.30 H 12/13/19 12/14/19 23:20 06:40 Troponin I 0.34 H 0.35 H Imaging - Results Chest X-ray: Report Reviewed EKG: Report Reviewed (aflutter, variable block, RBBB) Assessment/Plan Patient is an 84 yo female with pmhx of HTN, hypothyroidism, dementia, R intracranial hemorrhage (2010, no deficits besides dementia; short term memory loss) who presents s/p fall at [facility]. She is unable to give a history. Noted with atrial fibrillation with controlled VR. Also noted with elevated troponin. She was recently hospitalized at [facility] for LLL pneumonia. Records reviewed by me. She was in atrial fibrillation at the time. Had barium swallow at the time which was negative. Not on AC due to falls and ICH requiring craniotomy. Echo at [facility] 11/12/19: severe LVH, normal EF. mild MR, minimal TR. Elevated troponin -she has a nonischemic pattern -she is not a candidate for ischemia workup. Atrial fibrillation -rates are controlled. -she is a high risk of stroke candidate, does have history of remote ICH. Defer AC due to falls and traumatic ICH. -no need for repeat echo. DC telemetry Will see as needed.
--- NOTE | 2019-12-14 13:16 | EKG ---
Test Reason : Blood Pressure : / mmHG Vent. Rate : 065 BPM Atrial Rate : 312 BPM P-R Int : 000 ms QRS Dur : 156 ms QT Int : 480 ms P-R-T Axes : 000 094 018 degrees QTc Int : 499 ms POOR DATA QUALITY, INTERPRETATION MAY BE ADVERSELY AFFECTED ATRIAL FIBRILLATION RIGHT BUNDLE BRANCH BLOCK T WAVE ABNORMALITY, CONSIDER INFERIOR ISCHEMIA ABNORMAL ECG WHEN COMPARED WITH ECG OF 13-DEC-2019 10:18, ATRIAL FIBRILLATION HAS REPLACED ATRIAL FLUTTER CRITERIA FOR ANTEROSEPTAL INFARCT ARE NO LONGER PRESENT Confirmed by MARTHA OH MD ([id number]) on 12/14/2019 1:15:56 PM Referred By: Confirmed By:MARTHA OH MD
--- NOTE | 2019-12-14 15:54 | PN ---
Progress Note (short form) - Note Progress Note: Patient had an epistaxis today due to her picking her nose. nasal packing by the nurse. Vital Signs Temperature 98.2 F 12/14/19 14:00 Pulse Rate 72 12/14/19 14:00 Respiratory Rate 20 12/14/19 14:00 Blood Pressure 153/83 12/14/19 14:00 O2 Sat by Pulse Oximetry (%) 96 12/14/19 09:00 GENERAL: The patient is awake, alert, and oriented x1 with no acute distress. HEAD: Normal with no signs of trauma. EYES: PERRL, extraocular movements intact, sclera anicteric, conjunctiva clear. ENT: Ears normal, oropharynx clear without exudates, moist mucous membranes. NECK: Trachea midline, full range of motion, supple. LUNGS: Breath sounds equal, clear to auscultation bilaterally, no wheezes, no crackles, no accessory muscle use. HEART: irregular-iregular rate controlled , S1, S2 +, DUKE 2/6 no rub or gallop. ABDOMEN: Soft, NT,ND, normoactive bowel sounds, no guarding, no rebound, no hepatosplenomegaly, no masses. EXTREMITIES: 2+ pulses, warm, well-perfused, no edema. NEUROLOGICAL: Cranial nerves II through XII grossly intact. Normal speech, gait not observed. PSYCH: Normal mood, normal affect. SKIN: Warm, dry, normal turgor, no rashes or lesions noted CBCD WBC 6.5 K/mm3 (4.0-10.0) 12/14/19 06:40 RBC 4.16 M/mm3 (3.60-5.2) 12/14/19 06:40 Hgb 12.6 GM/dL (10.7-15.3) 12/14/19 06:40 Hct 37.4 % (32.4-45.2) 12/14/19 06:40 MCV 89.9 fl (80-96) 12/14/19 06:40 MCHC 33.7 g/dl (32.0-36.0) 12/14/19 06:40 RDW 19.3 % (11.6-15.6) H 12/14/19 06:40 Plt Count 136 K/MM3 (134-434) 12/14/19 06:40 MPV 9.0 fl (7.5-11.1) 12/14/19 06:40 CMP Sodium 139 mmol/L (136-145) 12/14/19 06:40 Potassium 3.2 mmol/L (3.5-5.1) L 12/14/19 06:40 Chloride 100 mmol/L (98-107) 12/14/19 06:40 Carbon Dioxide 35 mmol/L (21-32) H 12/14/19 06:40 Anion Gap 4 MMOL/L (8-16) L 12/14/19 06:40 BUN 23.8 mg/dL (7-18) H 12/14/19 06:40 Creatinine 0.7 mg/dL (0.55-1.3) 12/14/19 06:40 Random Glucose 91 mg/dL (74-106) 12/14/19 06:40 Calcium 9.2 mg/dL (8.5-10.1) 12/14/19 06:40 Total Bilirubin 0.7 mg/dL (0.2-1) 12/13/19 12:25 AST 66 U/L (15-37) H 12/13/19 12:25 ALT 48 U/L (13-61) 12/13/19 12:25 Alkaline Phosphatase 108 U/L (45-117) 12/13/19 12:25 Total Protein 7.4 g/dl (6.4-8.2) 12/13/19 12:25 Albumin 3.1 g/dl (3.4-5.0) L 12/13/19 12:25 CARDIAC ENZYMES Creatine Kinase 169 U/L (26-192) 12/13/19 12:25 Troponin I 0.35 ng/ml (0.00-0.05) H 12/14/19 06:40 Home Medications Medication Instructions Recorded Levothyroxine [Synthroid -] 100 mcg PO DAILY 04/10/17 Acetaminophen [Tylenol -] 650 mg PO Q6H PRN 12/13/19 Albuterol 0.083% Nebulizer Debra 1 neb NEB TID 12/13/19 [Ventolin 0.083% Nebulizer Soln -] Ascorbic Acid [Vitamin C] 1,000 mg PO DAILY 12/13/19 Atorvastatin Ca [Lipitor] 10 mg PO HS 12/13/19 Calcium Carb/Vitamin D3/Vit K1 1 each PO DAILY 12/13/19 [Calcium + D Soft Chewable Tab] Carvedilol [Coreg -] 6.25 mg PO BID 12/13/19 Cholecalciferol (Vitamin D3) 2,000 unit PO DAILY 12/13/19 [Vitamin D3 -] Escitalopram Oxalate [Lexapro -] 5 mg PO DAILY 12/13/19 Escitalopram Oxalate [Lexapro -] 5 mg PO DAILY 12/13/19 Hydrochlorothiazide 12.5 mg PO TID 12/13/19 Ipratropium 0.02% Nebulizer 1 neb NEB TID 12/13/19 [Atrovent] Levothyroxine [Synthroid -] 100 mcg PO DAILY 12/13/19 Multivitamin [Multiple Vitamins] 1 each PO DAILY 12/13/19 Nystatin 1 applic TP BID 12/13/19 Current Medications Generic Name Dose Route Start Last Admin Trade Name Freq PRN Reason Stop Dose Admin Atorvastatin Calcium 10 mg 12/13/19 22:00 12/13/19 22:12 Lipitor - PO 10 mg HS EFRAÍN Administration Carvedilol 6.25 mg 12/13/19 22:00 12/14/19 09:53 Coreg - PO 6.25 mg BID EFRAÍN Administration Escitalopram Oxalate 5 mg 12/14/19 10:00 12/14/19 09:52 Lexapro - PO 5 mg DAILY EFRAÍN Administration Heparin Sodium (Porcine) 5,000 unit 12/13/19 22:00 12/14/19 09:52 Heparin - SQ 5,000 unit BID EFRAÍN Administration Dextrose/Sodium Chloride 40 meq in 1,000 mls @ 75 mls/hr 12/14/19 09:30 D5-1/2ns+40 Meq Kcl - IV 12/14/19 22:49 ASDIR EFRAÍN Levothyroxine Sodium 100 mcg 12/14/19 07:00 12/14/19 06:22 Synthroid - PO 100 mcg ACBK EFRAÍN Administration Multivitamins/Minerals/Vitamin C 1 tab 12/14/19 10:00 12/14/19 09:52 Tab-A-Vit - PO 1 tab DAILY EFRAÍN Administration Nystatin 1 applic 12/13/19 22:00 12/14/19 09:53 Mycostatin Cream - TP 1 applic BID EFRAÍN Administration Ct scan of the head : Bl craniectomies, large area of encephalomalacia in the right temporal, frontal, occipital and parietal lobe and a smaller focal area of encephamalacia in the left temporal lobe laterally CT of cervical spine: Grade 1 retrolithesis of C4-C5 and minimal anterolisthesis of C6 over C7, no gross fx or subluxation is seen. ASSESSMENT AND PLAN: Patient is an 84 yo female with pmhx of HTN, hypothyroidism, dementia, R intracranial hemorrhage (2010, no deficits besides dementia; short term memory loss) who presents s/p fall at [facility]. Per who is with her patient fell at some time over night. Patient is at her baseline per (AOx1). Patient denies any complaints at this time. #Troponemia: trend, cardio consult Dr. Morfin , s/p asa in ED. patient has hx of epistaxis will not continue aspirin for now, has a nonischemic pattern as per cardi: Echo at [facility] 11/12/19: severe LVH, normal EF. mild MR, minimal TR. as per cardio : she is not a candidate for ischemia workup. # Hx of right Intracranial hemorrhage (2010) for unknown cause as per patient's , with hx of left sided deficit # Unwitnessed fall coming from [facility] for rehab, was hospitalized at [facility] for 2 weeks 2 weeks ago. #New onset afib x: on coreg ,lipitor ,s/p aspirin in ED. will hold off on any AC for now , since had an epistaxis today with hx of fall and ICH in the past. she is a high risk of stroke candidate, does have history of remote ICH. Defer AC due to falls and traumatic ICH. #Hypothyroidism: continue Levoxyl #hx of depression: on lexapro possible dc in a m Visit type - Emergency Visit Emergency Visit: Yes ED Registration Date: 12/13/19 Care time: The patient presented to the Emergency Department on the above date and was hospitalized for further evaluation of their emergent condition. - New Patient This patient is new to me today: No - Critical Care Critical Care patient: No - Discharge Referral Referred to [facility] Med P.C.: No
--- NOTE | 2019-12-14 22:09 | RAPID ---
Physical Examination Vital Signs: Vital Signs Temperature 98.2 F 12/14/19 20:58 Pulse Rate 78 12/14/19 20:58 Respiratory Rate 20 12/14/19 20:58 Blood Pressure 140/81 12/14/19 20:58 O2 Sat by Pulse Oximetry (%) 96 12/14/19 17:00 Rapid response called at 2204. Rapid response to bedside. Rapid response called for patient having profuse nosebleed. Ice pack applied to nose with improvement. Vitals: 136/94. 82HR Physical Exam: Head: NC/AC ENT: acive epistaxis from left nostril CBC, PT/INR ordered. will follow Rhino rocket applied with good effect Wrist restraints in place. Patient with episodes of epistaxis earlier in the day due to picking her nose Labs: CBC, BMP 12/14/19 06:40 12/14/19 06:40
[2019-12-14 22:27] LABS: HEMATOCRIT 33.6 % (32.4-45.2); HEMOGLOBIN 11.3 GM/dL (10.7-15.3); MCH 30.4 pg (25.7-33.7); MCHC 33.6 g/dl (32.0-36.0); MEAN CELL VOLUME 90.4 fl (80-96); MEAN PLT VOLUME 8.7 fl (7.5-11.1); PLATELET COUNT 140 K/MM3 (134-434); RBC 3.71 M/mm3 (3.60-5.2); RDW 19.6 % (11.6-15.6); WHITE BLOOD COUNT 8.5 K/mm3 (4.0-10.0)
[2019-12-14 22:51] LABS: INR 1.08 (0.83-1.09); PROTHROMBIN TIME (PATIENT) 12.8 SEC (9.7-13.0)
[2019-12-14] MEDS: ATORVASTATIN CA 10 MG TABLET (FP) PO SCH (23:17)
[2019-12-15] MEDS: LEVOTHYROXINE NA 100 MCG TABLET (FP) PO SCH (07:13)
[2019-12-15] MEDS: MULTIVITAMINS (DAILY MVI) TABLET (FP) PO SCH (09:56)
[2019-12-15] MEDS: ESCITALOPRAM OXALATE 10 MG TABLET PO SCH (09:56)
[2019-12-15] MEDS: CARVEDILOL 6.25 MG TABLET (FP) PO SCH ×2 (09:56→22:26)
[2019-12-15] MEDS: NYSTATIN 100,000 UNIT/GM TOPICAL CREAM 15 GM TUBE TP SCH ×2 (09:57→22:27)
--- NOTE | 2019-12-15 10:32 | PN ---
Teaching Attending Note Name of Resident: Hill Meraz ATTENDING PHYSICIAN STATEMENT I saw and evaluated the patient. I reviewed the resident's note and discussed the case with the resident. I agree with the resident's findings and plan as documented. SUBJECTIVE: Patient is comfortable with no acute distress, was on restraints since was picking on her nose she developed epistaxis. Vital Signs Temperature 98.7 F 12/15/19 09:53 Pulse Rate 88 12/15/19 09:53 Respiratory Rate 20 12/15/19 09:53 Blood Pressure 156/95 12/15/19 09:53 O2 Sat by Pulse Oximetry (%) 96 12/15/19 08:30 GENERAL: The patient is awake, alert, and oriented x1 with no acute distress. HEAD: Normal with no signs of trauma. EYES: PERRL, extraocular movements intact, sclera anicteric, conjunctiva clear. ENT: Ears normal, oropharynx clear without exudates, moist mucous membranes. NECK: Trachea midline, full range of motion, supple. LUNGS: Breath sounds equal, clear to auscultation bilaterally, no wheezes, no crackles, no accessory muscle use. HEART: irregular-iregular rate controlled , S1, S2 +, DUKE 2/6 no rub or gallop. ABDOMEN: Soft, NT,ND, normoactive bowel sounds, no guarding, no rebound, no hepatosplenomegaly, no masses. EXTREMITIES: 2+ pulses, warm, well-perfused, no edema. NEUROLOGICAL: Cranial nerves II through XII grossly intact. Normal speech, gait not observed. PSYCH: Normal mood, normal affect. SKIN: Warm, dry, normal turgor, no rashes or lesions noted CBCD WBC 8.5 K/mm3 (4.0-10.0) 12/14/19 22:16 RBC 3.71 M/mm3 (3.60-5.2) 12/14/19 22:16 Hgb 11.3 GM/dL (10.7-15.3) 12/14/19 22:16 Hct 33.6 % (32.4-45.2) 12/14/19 22:16 MCV 90.4 fl (80-96) 12/14/19 22:16 MCHC 33.6 g/dl (32.0-36.0) 12/14/19 22:16 RDW 19.6 % (11.6-15.6) H 12/14/19 22:16 Plt Count 140 K/MM3 (134-434) 12/14/19 22:16 MPV 8.7 fl (7.5-11.1) 12/14/19 22:16 CMP Sodium 139 mmol/L (136-145) 12/14/19 06:40 Potassium 3.2 mmol/L (3.5-5.1) L 12/14/19 06:40 Chloride 100 mmol/L (98-107) 12/14/19 06:40 Carbon Dioxide 35 mmol/L (21-32) H 12/14/19 06:40 Anion Gap 4 MMOL/L (8-16) L 12/14/19 06:40 BUN 23.8 mg/dL (7-18) H 12/14/19 06:40 Creatinine 0.7 mg/dL (0.55-1.3) 12/14/19 06:40 Random Glucose 91 mg/dL (74-106) 12/14/19 06:40 Calcium 9.2 mg/dL (8.5-10.1) 12/14/19 06:40 Total Bilirubin 0.7 mg/dL (0.2-1) 12/13/19 12:25 AST 66 U/L (15-37) H 12/13/19 12:25 ALT 48 U/L (13-61) 12/13/19 12:25 Alkaline Phosphatase 108 U/L (45-117) 12/13/19 12:25 Total Protein 7.4 g/dl (6.4-8.2) 12/13/19 12:25 Albumin 3.1 g/dl (3.4-5.0) L 12/13/19 12:25 CARDIAC ENZYMES Creatine Kinase 169 U/L (26-192) 12/13/19 12:25 Troponin I 0.35 ng/ml (0.00-0.05) H 12/14/19 06:40 Home Medications Medication Instructions Recorded Levothyroxine [Synthroid -] 100 mcg PO DAILY 04/10/17 Acetaminophen [Tylenol -] 650 mg PO Q6H PRN 12/13/19 Albuterol 0.083% Nebulizer Debra 1 neb NEB TID 12/13/19 [Ventolin 0.083% Nebulizer Soln -] Ascorbic Acid [Vitamin C] 1,000 mg PO DAILY 12/13/19 Atorvastatin Ca [Lipitor] 10 mg PO HS 12/13/19 Calcium Carb/Vitamin D3/Vit K1 1 each PO DAILY 12/13/19 [Calcium + D Soft Chewable Tab] Carvedilol [Coreg -] 6.25 mg PO BID 12/13/19 Cholecalciferol (Vitamin D3) 2,000 unit PO DAILY 12/13/19 [Vitamin D3 -] Escitalopram Oxalate [Lexapro -] 5 mg PO DAILY 12/13/19 Escitalopram Oxalate [Lexapro -] 5 mg PO DAILY 12/13/19 Hydrochlorothiazide 12.5 mg PO TID 12/13/19 Ipratropium 0.02% Nebulizer 1 neb NEB TID 12/13/19 [Atrovent] Levothyroxine [Synthroid -] 100 mcg PO DAILY 12/13/19 Multivitamin [Multiple Vitamins] 1 each PO DAILY 12/13/19 Nystatin 1 applic TP BID 12/13/19 Current Medications Generic Name Dose Route Start Last Admin Trade Name Candidoq PRN Reason Stop Dose Admin Atorvastatin Calcium 10 mg 12/13/19 22:00 12/14/19 23:17 Lipitor - PO 10 mg HS EFRAÍN Administration Carvedilol 6.25 mg 12/13/19 22:00 12/15/19 09:56 Coreg - PO 6.25 mg BID EFRAÍN Administration Escitalopram Oxalate 5 mg 12/14/19 10:00 12/15/19 09:56 Lexapro - PO 5 mg DAILY EFRAÍN Administration Levothyroxine Sodium 100 mcg 12/14/19 07:00 12/15/19 07:13 Synthroid - PO 100 mcg ACBK EFRAÍN Administration Multivitamins/Minerals/Vitamin C 1 tab 12/14/19 10:00 12/15/19 09:56 Tab-A-Vit - PO 1 tab DAILY EFRAÍN Administration Nystatin 1 applic 12/13/19 22:00 12/15/19 09:57 Mycostatin Cream - TP 1 applic BID EFRAÍN Administration Ct scan of the head : Bl craniectomies, large area of encephalomalacia in the right temporal, frontal, occipital and parietal lobe and a smaller focal area of encephamalacia in the left temporal lobe laterally CT of cervical spine: Grade 1 retrolithesis of C4-C5 and minimal anterolisthesis of C6 over C7, no gross fx or subluxation is seen. ASSESSMENT AND PLAN: Patient is an 84 yo female with pmhx of HTN, hypothyroidism, dementia, R intracranial hemorrhage (2010, no deficits besides dementia; short term memory loss) who presents s/p fall at [facility]. Per who is with her patient fell at some time over night. Patient is at her baseline per (AOx1). Patient denies any complaints at this time. #Troponemia: trend, cardio consult Dr. Morfin , s/p asa in ED. patient has hx of epistaxis will not continue aspirin for now, has a nonischemic pattern as per cardi: Echo at [facility] 11/12/19: severe LVH, normal EF. mild MR, minimal TR. as per cardio : she is not a candidate for ischemia workup. # Hx of right Intracranial hemorrhage (2010) for unknown cause as per patient's , with hx of left sided deficit # Unwitnessed fall coming from a senior care [facility] for rehab, was hospitalized at [facility] for 2 weeks 2 weeks ago. #New onset afib x: on coreg , lipitor ,s/p aspirin in ED. will hold off on any AC for now , since had an epistaxis today with hx of fall and ICH in the past. she is a high risk of stroke candidate, does have history of remote ICH. Defer AC due to falls and traumatic ICH. #Hypothyroidism: continue Levoxyl #hx of depression: on lexapro possible dc in am if no further epistaxis
--- NOTE | 2019-12-15 10:54 | PN ---
Physical Exam: SUBJECTIVE: Patient seen and examined. Rapid response called for nose bleed over night. Wrist restraints applied to prevent nose picking. Pt. was anticipated for DC today however needs 24 hours without restraints to be discharged. OBJECTIVE: Vital Signs Period Temp Pulse Resp BP Sys/Magana Pulse Ox Last 24 Hr 97.7 F-99.4 F 71-88 20-20 116-156/75-95 96-96 GENERAL: The patient is awake, alert, and oriented x1 with no acute distress. HEAD: Normal with no signs of trauma. EYES: PERRL, extraocular movements intact, sclera anicteric, conjunctiva clear. ENT: Ears normal, oropharynx clear without exudates, moist mucous membranes. NECK: Trachea midline, full range of motion, supple. LUNGS: Breath sounds equal, clear to auscultation bilaterally, no wheezes, no crackles, no accessory muscle use. HEART: irregular-iregular rate controlled , S1, S2 heard, no murmur appreciated , although reportedly 2/6 systolic murmur ABDOMEN: Soft, Diffuse tenderness to palpation to light touch, ND, normoactive bowel sounds EXTREMITIES: 2+ dorsal pedal pulses, warm, well-perfused, no edema. Diffuse lower extremity pain to light touch. NEUROLOGICAL: Cranial nerves II through XII grossly intact. Normal speech, gait not observed. PSYCH: Normal mood, normal affect. SKIN: Warm, dry, normal turgor Laboratory Results - last 24 hr 12/14/19 12/14/19 22:16 22:16 WBC 8.5 RBC 3.71 Hgb 11.3 Hct 33.6 MCV 90.4 MCH 30.4 MCHC 33.6 RDW 19.6 H Plt Count 140 MPV 8.7 PT with INR 12.80 INR 1.08 Active Medications Home Medications Medication Instructions Recorded Levothyroxine [Synthroid -] 100 mcg PO DAILY 04/10/17 Acetaminophen [Tylenol -] 650 mg PO Q6H PRN 12/13/19 Albuterol 0.083% Nebulizer Debra 1 neb NEB TID 12/13/19 [Ventolin 0.083% Nebulizer Soln -] Ascorbic Acid [Vitamin C] 1,000 mg PO DAILY 12/13/19 Atorvastatin Ca [Lipitor] 10 mg PO HS 12/13/19 Calcium Carb/Vitamin D3/Vit K1 1 each PO DAILY 12/13/19 [Calcium + D Soft Chewable Tab] Carvedilol [Coreg -] 6.25 mg PO BID 12/13/19 Cholecalciferol (Vitamin D3) 2,000 unit PO DAILY 12/13/19 [Vitamin D3 -] Escitalopram Oxalate [Lexapro -] 5 mg PO DAILY 12/13/19 Escitalopram Oxalate [Lexapro -] 5 mg PO DAILY 12/13/19 Hydrochlorothiazide 12.5 mg PO DAILY 12/13/19 Ipratropium 0.02% Nebulizer 1 neb NEB TID 12/13/19 [Atrovent] Levothyroxine [Synthroid -] 100 mcg PO DAILY 12/13/19 Multivitamin [Multiple Vitamins] 1 each PO DAILY 12/13/19 Nystatin 1 applic TP BID 12/13/19 Current Medications Atorvastatin Calcium (Lipitor -) 10 mg PO HS [facility] Last Admin: 12/14/19 23:17 Dose: 10 mg Carvedilol (Coreg -) 6.25 mg PO BID [facility] Last Admin: 12/15/19 09:56 Dose: 6.25 mg Escitalopram Oxalate (Lexapro -) 5 mg PO DAILY [facility] Last Admin: 12/15/19 09:56 Dose: 5 mg Levothyroxine Sodium (Synthroid -) 100 mcg PO ACBK [facility] Last Admin: 12/15/19 07:13 Dose: 100 mcg Multivitamins/Minerals/Vitamin C (Tab-A-Vit -) 1 tab PO DAILY [facility] Last Admin: 12/15/19 09:56 Dose: 1 tab Nystatin (Mycostatin Cream -) 1 applic TP BID [facility] Last Admin: 12/15/19 09:57 Dose: 1 applic ASSESSMENT/PLAN: Pt. is an 84 y.o. F w/ PMHX. of HTN, HLD, Hypothyroidism, dementia, and R. intracranial hemmorrhage (2010, no residual deficits) presents from [facility] after having an unwitnessed fall. #Fall (unwitnessed) Head CT, Cspine CT and CT A/P- no acute pathology Rpt. EKG EKG: Afib, 64 bpm, wide QRS, nonspecific T wave abnormalities Physical Therapy Hx of right Intracranial hemorrhage (2010) for unknown cause as per patient's , with hx of left sided deficit #Afib w/ Tropinemia D/c ASA because of Epistaxis Echo at [facility] 11/12/19: severe LVH, normal EF. mild MR, minimal TR. as per cardio : she is not a candidate for ischemia workup given Hx. of ICH and frequent falls. c/w Coreg Trop trending up; Initial 0.27--> now 0.35 however Pt.l is not a candidate for ischemic workup, will not c/w trend. d/c Telemetry monitoring as per Cardio #HTN #Hypothyroidism #HLD #Depression resume home medications #FEN encourage PO intake, gently IVF for 24 hours monitor electrolytes and replete as needed Sodium controlled diet #DVT Ppx. TEDs, because of epistaxis will hold off on AC #Dispo Pt. required restraints overnight, will need 24 hours without restraints prior to discharge. Avoid using restraints of possible. Pt. may need pharmacologic intervention if Pt. continues to pick nose. Visit type - Emergency Visit Emergency Visit: Yes ED Registration Date: 12/13/19 Care time: The patient presented to the Emergency Department on the above date and was hospitalized for further evaluation of their emergent condition. - New Patient This patient is new to me today: No - Critical Care Critical Care patient: No - Discharge Referral Referred to [facility] Med P.C.: No ATTENDING PHYSICIAN STATEMENT I saw and evaluated the patient. I reviewed the resident's note and discussed the case with the resident. I agree with the resident's findings and plan as documented. SUBJECTIVE: OBJECTIVE: ASSESSMENT AND PLAN:
[2019-12-15] MEDS: ATORVASTATIN CA 10 MG TABLET (FP) PO SCH (22:27)
[2019-12-16 07:17] LABS: HEMATOCRIT 29.5 % (32.4-45.2); HEMOGLOBIN 9.9 GM/dL (10.7-15.3); MCH 30.4 pg (25.7-33.7); MCHC 33.6 g/dl (32.0-36.0); MEAN CELL VOLUME 90.6 fl (80-96); MEAN PLT VOLUME 8.9 fl (7.5-11.1); PLATELET COUNT 133 K/MM3 (134-434); RBC 3.26 M/mm3 (3.60-5.2); RDW 19.7 % (11.6-15.6); WHITE BLOOD COUNT 6.4 K/mm3 (4.0-10.0)
[2019-12-16 07:20] LABS: BLOOD UREA NITROGEN 21.1 mg/dL (7-18); CALCIUM 8.5 mg/dL (8.5-10.1); CREATININE 0.7 mg/dL (0.55-1.3); POTASSIUM 3.5 mmol/L (3.5-5.1)
[2019-12-16] MEDS: LEVOTHYROXINE NA 100 MCG TABLET (FP) PO SCH (09:32)
[2019-12-16] MEDS: ESCITALOPRAM OXALATE 10 MG TABLET PO SCH (09:32)
[2019-12-16] MEDS: MULTIVITAMINS (DAILY MVI) TABLET (FP) PO SCH (09:32)
[2019-12-16] MEDS: NYSTATIN 100,000 UNIT/GM TOPICAL CREAM 15 GM TUBE TP SCH (09:33)
[2019-12-16] MEDS: CARVEDILOL 6.25 MG TABLET (FP) PO SCH (09:33)
[2019-12-16 10:07] VITALS: BP 119/72; PULSE 65; TEMP 98.4
--- NOTE | 2019-12-16 11:04 | DS ---
Physical Exam: SUBJECTIVE: Patient seen and examined. No acute events overnight. Pt. denies any acute complaints. OBJECTIVE: Vital Signs Period Temp Pulse Resp BP Sys/Magana Pulse Ox Last 24 Hr 97.7 F-98.4 F 59-86 16-22 113-143/60-72 94-98 PHYSICAL EXAM GENERAL: The patient is awake, alert, and oriented x1 with no acute distress. HEAD: Normal with no signs of trauma. EYES: PERRL, extraocular movements intact, sclera anicteric, conjunctiva clear. ENT: Ears normal, oropharynx clear without exudates, moist mucous membranes. NECK: Trachea midline, full range of motion, supple. LUNGS: Breath sounds equal, clear to auscultation bilaterally, no wheezes, no crackles, no accessory muscle use. HEART: irregular-iregular rate controlled , S1, S2 heard, no murmur appreciated , although reportedly 2/6 systolic murmur ABDOMEN: Soft, Diffuse tenderness to palpation to light touch, ND, normoactive bowel sounds EXTREMITIES: 2+ dorsal pedal pulses, warm, well-perfused, no edema. Diffuse lower extremity pain to light touch. NEUROLOGICAL: Cranial nerves II through XII grossly intact. Normal speech, gait not observed. PSYCH: Normal mood, normal affect. SKIN: Warm, dry, normal turgor LABS Laboratory Results - last 24 hr 12/16/19 12/16/19 05:10 05:10 WBC 6.4 RBC 3.26 L Hgb 9.9 L Hct 29.5 L MCV 90.6 MCH 30.4 MCHC 33.6 RDW 19.7 H Plt Count 133 L MPV 8.9 Sodium 140 Potassium 3.5 Chloride 105 Carbon Dioxide 31 Anion Gap 5 L BUN 21.1 H Creatinine 0.7 Est GFR (CKD-EPI)AfAm 91.57 Est GFR (CKD-EPI)NonAf 79.00 Random Glucose [address] scan of the head : Bl craniectomies, large area of encephalomalacia in the right temporal, frontal, occipital and parietal lobe and a smaller focal area of encephamalacia in the left temporal lobe laterally CT of cervical spine: Grade 1 retrolithesis of C4-C5 and minimal anterolisthesis of C6 over C7, no gross fx or subluxation is seen. HOSPITAL COURSE: Date of Admission:12/13/19 Date of Discharge: 12/16/19 Pt. is an 84 y.o. F w/ PMHX. of HTN, HLD, Hypothyroidism, dementia, and R. intracranial hemmorrhage (2010, no residual deficits) presents from [facility] after having an unwitnessed fall. Head CT and CT CSpine were negative for acute pathology. Cardiology consult (Dr. Morfin) was appreciated for EKG showing Afib. After discussion with Pt. it came to light that she had already been worked up by her home [facility] marketing research intern for Afib and it was determined that b/c of the history of frequent falls and ICH that she was not a candidate for anticoagulation or ischemia workup. Hospital course was complicated by an episode of nose bleeding after having received ASA in the ED. Emphasis to avoid ASA and AC was reiterated by Cardiology. Medication adjustments and specialist follow-up were as detailed below. Hospital course was discussed and agreed upon with Pt., family and medical staff. Minutes to complete discharge: 30 Discharge Summary Problems reviewed: Yes Reason For Visit: ATRIAL FIB ABDOMINAL PAIN FALL Current Active Problems Abdominal pain (Acute) Afib (Acute) Elevated troponin (Acute) Fall (Acute) Condition: Stable - Instructions Diet, Activity, Other Instructions: You came in because you had a fall at your Snf. We imaged you head and did not find anything immediately wrong. We had our Cloth Washer come to evaluate you and nothing was immediately wrong. You picked your nose while in the hospital and had a nose bleed. We stopped the nose bleed and observed you. Please continue taking all your medications as they were prescribed. Please follow up with your PCP within 1 week Please follow up with your Cloth Washer within [address] Kaur works with [facility] has also been provided. Please return to the ED if you are having any bleeding that wont stop, any worsening weakness, numbness/tingling, nausea, vomiting or any concerning symptoms. Referrals: Ming Kaur MD [Staff Physician] - 1 Week ON STAFF,NOT [Non Staff, Medical] - 1 Week Disposition: NURSING HOME FACILITY - Home Medications Comprehensive Discharge Medication List: Ambulatory Orders Acetaminophen [Tylenol .Regular Strength -] 650 mg PO Q6H PRN 12/13/19 Albuterol 0.083% Nebulizer Debra [Ventolin 0.083% Nebulizer Soln -] 1 neb NEB TID 12/13/19 Ascorbic Acid [Vitamin C] 1,000 mg PO DAILY 12/13/19 Atorvastatin Ca [Lipitor] 10 mg PO HS 12/13/19 Calcium Carb/Vitamin D3/Vit K1 [Calcium + D Soft Chewable Tab] 1 each PO DAILY 12/13/19 Carvedilol [Coreg -] 6.25 mg PO BID 12/13/19 Cholecalciferol (Vitamin D3) [Vitamin D -] 2,000 unit PO DAILY 12/13/19 Escitalopram Oxalate [Lexapro -] 5 mg PO DAILY 12/13/19 Escitalopram Oxalate [Lexapro -] 5 mg PO DAILY 12/13/19 Hydrochlorothiazide 12.5 mg PO DAILY 12/13/19 Ipratropium 0.02% Nebulizer [Atrovent 0.02% Nebulizer -] 1 neb NEB TID 12/13/19 Levothyroxine [Synthroid -] 100 mcg PO DAILY 12/13/19 Multivitamin [Multiple Vitamins] 1 each PO DAILY 12/13/19 Nystatin 1 applic TP BID 12/13/19 This patient is new to me today: No Emergency Visit: Yes ED Registration Date: 12/13/19 Care time: The patient presented to the Emergency Department on the above date and was hospitalized for further evaluation of their emergent condition. Critical Care patient: No - Discharge Referral Referred to [facility] Med P.C.: No ATTENDING PHYSICIAN STATEMENT I saw and evaluated the patient. I reviewed the resident's note and discussed the case with the resident. I agree with the resident's findings and plan as documented. SUBJECTIVE: OBJECTIVE: ASSESSMENT AND PLAN:
--- NOTE | 2019-12-16 16:32 | PN ---
Teaching Attending Note Name of Resident: Hill Meraz ATTENDING PHYSICIAN STATEMENT I saw and evaluated the patient. I reviewed the resident's note and discussed the case with the resident. I agree with the resident's findings and plan as documented. SUBJECTIVE: Patient is comfortable with no acute distress. Patient is stable. no epistaxis. Vital Signs Temperature 98.4 F 12/16/19 10:00 Pulse Rate 65 12/16/19 10:00 Respiratory Rate 22 H 12/16/19 10:00 Blood Pressure 119/72 12/16/19 10:00 O2 Sat by Pulse Oximetry (%) 98 12/16/19 09:00 GENERAL: The patient is awake, alert, and oriented x1 with no acute distress. HEAD: Normal with no signs of trauma. EYES: PERRL, extraocular movements intact, sclera anicteric, conjunctiva clear. ENT: Ears normal, oropharynx clear without exudates, moist mucous membranes. NECK: Trachea midline, full range of motion, supple. LUNGS: Breath sounds equal, clear to auscultation bilaterally, no wheezes, no crackles, no accessory muscle use. HEART: irregular-iregular rate controlled , S1, S2 +, DUKE 2/6 no rub or gallop. ABDOMEN: Soft, NT,ND, normoactive bowel sounds, no guarding, no rebound, no hepatosplenomegaly, no masses. EXTREMITIES: 2+ pulses, warm, well-perfused, no edema. NEUROLOGICAL: Cranial nerves II through XII grossly intact. Normal speech, gait not observed. PSYCH: Normal mood, normal affect. SKIN: Warm, dry, normal turgor, no rashes or lesions noted CBCD WBC 6.4 K/mm3 (4.0-10.0) 12/16/19 05:10 RBC 3.26 M/mm3 (3.60-5.2) L 12/16/19 05:10 Hgb 9.9 GM/dL (10.7-15.3) L 12/16/19 05:10 Hct 29.5 % (32.4-45.2) L 12/16/19 05:10 MCV 90.6 fl (80-96) 12/16/19 05:10 MCHC 33.6 g/dl (32.0-36.0) 12/16/19 05:10 RDW 19.7 % (11.6-15.6) H 12/16/19 05:10 Plt Count 133 K/MM3 (134-434) L 12/16/19 05:10 MPV 8.9 fl (7.5-11.1) 12/16/19 05:10 CMP Sodium 140 mmol/L (136-145) 12/16/19 05:10 Potassium 3.5 mmol/L (3.5-5.1) 12/16/19 05:10 Chloride 105 mmol/L (98-107) 12/16/19 05:10 Carbon Dioxide 31 mmol/L (21-32) 12/16/19 05:10 Anion Gap 5 MMOL/L (8-16) L 12/16/19 05:10 BUN 21.1 mg/dL (7-18) H 12/16/19 05:10 Creatinine 0.7 mg/dL (0.55-1.3) 12/16/19 05:10 Random Glucose 92 mg/dL (74-106) 12/16/19 05:10 Calcium 8.5 mg/dL (8.5-10.1) 12/16/19 05:10 Total Bilirubin 0.7 mg/dL (0.2-1) 12/13/19 12:25 AST 66 U/L (15-37) H 12/13/19 12:25 ALT 48 U/L (13-61) 12/13/19 12:25 Alkaline Phosphatase 108 U/L (45-117) 12/13/19 12:25 Total Protein 7.4 g/dl (6.4-8.2) 12/13/19 12:25 Albumin 3.1 g/dl (3.4-5.0) L 12/13/19 12:25 CARDIAC ENZYMES Creatine Kinase 169 U/L (26-192) 12/13/19 12:25 Troponin I 0.35 ng/ml (0.00-0.05) H 12/14/19 06:40 Home Medications Medication Instructions Recorded Levothyroxine [Synthroid -] 100 mcg PO DAILY 04/10/17 Acetaminophen [Tylenol -] 650 mg PO Q6H PRN 12/13/19 Albuterol 0.083% Nebulizer Debra 1 neb NEB TID 12/13/19 [Ventolin 0.083% Nebulizer Soln -] Ascorbic Acid [Vitamin C] 1,000 mg PO DAILY 12/13/19 Atorvastatin Ca [Lipitor] 10 mg PO HS 12/13/19 Calcium Carb/Vitamin D3/Vit K1 1 each PO DAILY 12/13/19 [Calcium + D Soft Chewable Tab] Carvedilol [Coreg -] 6.25 mg PO BID 12/13/19 Cholecalciferol (Vitamin D3) 2,000 unit PO DAILY 12/13/19 [Vitamin D3 -] Escitalopram Oxalate [Lexapro -] 5 mg PO DAILY 12/13/19 Escitalopram Oxalate [Lexapro -] 5 mg PO DAILY 12/13/19 Hydrochlorothiazide 12.5 mg PO TID 12/13/19 Ipratropium 0.02% Nebulizer 1 neb NEB TID 12/13/19 [Atrovent] Levothyroxine [Synthroid -] 100 mcg PO DAILY 12/13/19 Multivitamin [Multiple Vitamins] 1 each PO DAILY 12/13/19 Nystatin 1 applic TP BID 12/13/19 Current Medications Generic Name Dose Route Start Last Admin Trade Name Sarah PRN Reason Stop Dose Admin Atorvastatin Calcium 10 mg 12/13/19 22:00 12/14/19 23:17 Lipitor - PO 10 mg HS EFRAÍN Administration Carvedilol 6.25 mg 12/13/19 22:00 12/15/19 09:56 Coreg - PO 6.25 mg BID EFRAÍN Administration Escitalopram Oxalate 5 mg 12/14/19 10:00 12/15/19 09:56 Lexapro - PO 5 mg DAILY EFRAÍN Administration Levothyroxine Sodium 100 mcg 12/14/19 07:00 12/15/19 07:13 Synthroid - PO 100 mcg ACBK EFRAÍN Administration Multivitamins/Minerals/Vitamin C 1 tab 12/14/19 10:00 12/15/19 09:56 Tab-A-Vit - PO 1 tab DAILY EFRAÍN Administration Nystatin 1 applic 12/13/19 22:00 12/15/19 09:57 Mycostatin Cream - TP 1 applic BID EFRAÍN Administration Ct scan of the head : Bl craniectomies, large area of encephalomalacia in the right temporal, frontal, occipital and parietal lobe and a smaller focal area of encephamalacia in the left temporal lobe laterally CT of cervical spine: Grade 1 retrolithesis of C4-C5 and minimal anterolisthesis of C6 over C7, no gross fx or subluxation is seen. ASSESSMENT AND PLAN: Patient is an 84 yo female with pmhx of HTN, hypothyroidism, dementia, R intracranial hemorrhage (2010, no deficits besides dementia; short term memory loss) who presents s/p fall at [facility]. Per who is with her patient fell at some time over night. Patient is at her baseline per (AOx1). Patient denies any complaints at this time. #Troponemia: trend, cardio consult Dr. Morfin , s/p asa in ED. patient has hx of epistaxis will not continue aspirin for now, has a nonischemic pattern as per cardi: Echo at [facility] 11/12/19: severe LVH, normal EF. mild MR, minimal TR. as per cardio : she is not a candidate for ischemia workup. Patient denies any chest pain, no shortness of breath, discussed with the patient's that patient is ready for discharge back to [facility]. # Hx of right Intracranial hemorrhage (2010) for unknown cause as per patient's , with hx of left sided deficit # Unwitnessed fall coming from a retirement [facility] for rehab, was hospitalized at [facility] for 2 weeks 2 weeks ago. #New onset afib x: on coreg , lipitor ,s/p aspirin in ED. will hold off on any AC for now , since had an epistaxis today with hx of fall and ICH in the past. she is a high risk of stroke candidate, does have history of remote ICH. Defer AC due to falls and traumatic ICH. #Hypothyroidism: continue Levoxyl #hx of depression: on lexapro dc patient home, no aspirin or any ac since patient has hx of epistaxis with recent nose bleed. will not dc patient home on ac.
== END 2019-12-16 12:48 ==
LOC: JER 10:02 → JERBED 16:47 → J4W 19:16
PROVIDERS: ADMIT Internal Medicine; ATTEND Internal Medicine
PROC: 2Y41X5Z Packing of Nasal Region using Packing Material (ICD-10-PCS; principal; 2019-12-13)
PROC: 3E0337Z Introduction of Electrolytic and Water Balance Substance into Peripheral Vein, Percutaneous Approach (ICD-10-PCS; 2019-12-13)
DX: I48.91 Unspecified atrial fibrillation (principal); R77.8 Other specified abnormalities of plasma proteins; R10.9 Unspecified abdominal pain; R04.0 Epistaxis; I10 Essential (primary) hypertension; E78.5 Hyperlipidemia, unspecified; E03.9 Hypothyroidism, unspecified; F03.90 Unspecified dementia, unspecified severity, without behavioral disturbance, psychotic disturbance, mood disturbance, and anxiety; F32.9 Major depressive disorder, single episode, unspecified; Z86.79 Personal history of other diseases of the circulatory system; Z88.2 Allergy status to sulfonamides; W19.XXXA Unspecified fall, initial encounter; Z91.81 History of falling; Y93.9 Activity, unspecified; Y92.129 Unspecified place in nursing home as the place of occurrence of the external cause
CPT/HCPCS: 30901-25; 36415; 70450-TC; 71045-TC-FY; 72125-TC; 74177-TC; 80048; 80053; 82550; 82553; 83735; 84100; 84484; 85025; 85027; 85610; 93005; 93010; 97116-GP; 97161-GP; 99284-25; G0378; J1644; Q9967

== ENCOUNTER 2019-12-23 09:01 | Inpatient (IN) | payer OTHER ==
--- NOTE | 2019-12-23 09:07 | PDOC ---
History of Present Illness - General Chief Complaint: Shortness of Breath Stated Complaint: Shortness of Breath Time Seen by Provider: 12/23/19 09:05 - History of Present Illness Initial Comments: 12/23/19 09:06 Ms. Alvarez is an 84 yo female w/ pmh of HTN, hypothyroidism, dementia, R intracranial hemorrhage (2010, dementia at baseline following), afib, recently admitted 12/13-12/16 following fall w/ slightly elevated troponin noted and subsequent evaluation who presents from [place] for evaluation of worsening O2 requirements. Per [place] patient has had a known LLL pneumonia for the last week however was requiring increasing levels per [place] (5L this AM w/ 85% O2 sat) and was sent for further evaluation. Past History - Past Medical History Allergies/Adverse Reactions: Allergies Allergy/AdvReac Type Severity Reaction Status Date / Time Sulfa (Sulfonamide Allergy Hives Verified 07/11/19 11:57 Antibiotics) Home Medications: Ambulatory Orders Acetaminophen [Tylenol .Regular Strength -] 650 mg PO Q6H PRN 12/13/19 Albuterol 0.083% Nebulizer Debra [Ventolin 0.083% Nebulizer Soln -] 1 neb NEB TID 12/13/19 Ascorbic Acid [Vitamin C] 1,000 mg PO DAILY 12/13/19 Atorvastatin Ca [Lipitor] 10 mg PO HS 12/13/19 Calcium Carb/Vitamin D3/Vit K1 [Calcium + D Soft Chewable Tab] 1 each PO DAILY 12/13/19 Carvedilol [Coreg -] 6.25 mg PO BID 12/13/19 Cholecalciferol (Vitamin D3) [Vitamin D -] 2,000 unit PO DAILY 12/13/19 Escitalopram Oxalate [Lexapro -] 5 mg PO DAILY 12/13/19 Hydrochlorothiazide 12.5 mg PO DAILY 12/13/19 Ipratropium 0.02% Nebulizer [Atrovent 0.02% Nebulizer -] 1 neb NEB TID 12/13/19 Levothyroxine [Synthroid -] 100 mcg PO DAILY 12/13/19 Multivitamin [Multiple Vitamins] 1 each PO DAILY 12/13/19 Nystatin 1 applic TP BID 12/13/19 Guaifenesin/Dextromethorphan [Robitussin Cough-Chest Dm Liq] 10 ml PO QID Levofloxacin [Levaquin] 500 mg PO BID 12/23/19 Saccharomyces Boulardii [Florastor] 250 mg PO BID 12/23/19 Anemia: No Asthma: No Cancer: No Cardiac Disorders: Yes (AFIB) CVA: Yes (H/O "brain bleed") COPD: (on Atrovent, PE) CHF: No Dementia: No Diabetes: No GI Disorders: No Disorders: No HTN: Yes Hypercholesterolemia: Yes Liver Disease: No Seizures: No Thyroid Disease: Yes - Surgical History Abdominal Surgery: No Appendectomy: No Cardiac Surgery: No Cholecystectomy: No Lung Surgery: No Neurologic Surgery: Yes (brain bleed) Orthopedic Surgery: No - Psycho Social/Smoking Cessation Hx Smoking History: Never smoked Have you smoked in the past 12 months: No Hx Alcohol Use: No Drug/Substance Use Hx: No Substance Use Type: None Review of Systems - Review of Systems Comments:: 12/23/19 09:06 Unable to obtain further. *Physical Exam - Physical Exam 12/23/19 09:07 GENERAL: +On non-rebreather. Awake, alert, and oriented to baseline, in no acute distress HEAD: No signs of trauma, normocephalic, atraumatic EYES: PERRLA, EOMI, sclera anicteric, conjunctiva clear ENT: Auricles normal inspection, hearing grossly normal, nares patent, oropharynx clear without exudates. Moist mucosa NECK: Normal ROM, supple, no lymphadenopathy, JVD, or masses. LUNGS: +Diffusely coarse lung sounds appreciated throughout lung figueroa. No distress, speaks full sentences, clear to auscultation bilaterally HEART: Regular rate and rhythm, normal S1 and S2, no murmurs, rubs or gallops, peripheral pulses normal and equal bilaterally. ABDOMEN: Soft, nontender, normoactive bowel sounds. No guarding, no rebound. No masses EXTREMITIES: Normal inspection, Normal range of motion, no edema. No clubbing or cyanosis. NEUROLOGICAL: Cranial nerves II through XII grossly intact. Normal speech, no focal sensorimotor deficits SKIN: Warm, Dry, normal turgor, no rashes or lesions noted. ED Treatment Course - LABORATORY CBC & Chemistry Diagram: 12/23/19 09:20 12/23/19 09:20 Medical Decision Making - Medical Decision Making 12/23/19 10:39 Ms. Alvarez is an 84 yo female w/ pmh as described who presents for evaluation of increasing O2 requirements in setting of known pneumonia. Patient was on oral ABX outpatient; found to have L pleural effusion w/ compressive atelectasis on XR. Hospitalist paged for admission. 12/23/19 11:40 Patient admitted for further care. Discharge - Discharge Information Problems reviewed: Yes Clinical Impression/Diagnosis: Elevated troponin Pneumonia Qualifiers: Pneumonia type: due to unspecified organism Laterality: left Lung location: unspecified part of lung Qualified Code(s): J18.9 - Pneumonia, unspecified organism - Admission Yes - Follow up/Referral Referrals: Mani Colon MD [Primary Care Provider] - - Patient Discharge Instructions - Post Discharge Activity
[2019-12-23] MEDS ORDERED: PIPERACILLIN/TAZOB 3.375 GM 3.375 GM in DEXTROSE 5%-WATER - 50 ML IVPB ONE (09:38)
[2019-12-23] MEDS ORDERED: PIPERACILLIN/TAZOB 3.375 GM 3.375 GM/50 ML BAG IVPB ONE (09:44)
[2019-12-23 09:45] LABS: VENOUS PC02 51.1 mmHg (38-52); VENOUS PH 7.44 (7.31-7.41)
[2019-12-23 09:47] LABS: VENOUS PO2 < 49 mmHg (28-48)
[2019-12-23 09:57] LABS: BASO % 0.3 % (0-2.0); HEMATOCRIT 30.8 % (32.4-45.2); HEMOGLOBIN 10.3 GM/dL (10.7-15.3); LYMPH % 14.5 % (8-40); MCH 30.3 pg (25.7-33.7); MCHC 33.4 g/dl (32.0-36.0); MEAN CELL VOLUME 90.6 fl (80-96); MEAN PLT VOLUME 8.2 fl (7.5-11.1); MONO % 8.7 % (3.8-10.2); NEUT % 76.5 % (42.8-82.8); PLATELET COUNT 212 K/MM3 (134-434); RDW 19.9 % (11.6-15.6); WHITE BLOOD COUNT 6.6 K/mm3 (4.0-10.0)
[2019-12-23] MEDS ORDERED: ALBUTEROL SO4 2.5/IPRATROPIUM 0.5 INH SOL 3 ML VIAL.NEB. NEB ONE (10:10)
[2019-12-23 10:14] LABS: ALBUMIN 2.7 g/dl (3.4-5.0); BILIRUBIN,TOTAL 0.7 mg/dL (0.2-1); BLOOD UREA NITROGEN 21.5 mg/dL (7-18); CALCIUM 9.5 mg/dL (8.5-10.1); CREATININE 0.8 mg/dL (0.55-1.3); POTASSIUM 3.4 mmol/L (3.5-5.1); TOT PROT 6.2 g/dl (6.4-8.2)
[2019-12-23 10:21] LABS: INR 1.21 (0.83-1.09); PROTHROMBIN TIME (PATIENT) 14.3 SEC (9.7-13.0)
[2019-12-23 10:24] LABS: ACTIVATED PTT 32.4 SECONDS (25.2-36.5)
--- NOTE | 2019-12-23 12:33 | PDOC ---
Documentation entered by Hallie Spencer SCRIBE, acting as scribe for Arnol Shepard MD. Arnol Shepard MD: This documentation has been prepared by the Johanna sandoval Brenda, SCRIBE, under my direction and personally reviewed by me in its entirety. I confirm that the documentation accurately reflects all work, treatment, procedures, and medical decision making performed by me. Attending Attestation - Resident Resident Name: Julaino Corral - ED Attending Attestation I have performed the following: I have examined & evaluated the patient, The case was reviewed & discussed with the resident, I agree w/resident's findings & plan, Exceptions are as noted - HPI HPI: 12/23/19 09:42 The patient is an 84 year old female with a significant PMH of HTN, hypothyroidism, dementia, Right intracranial hemorrhage (2010) and Afib who presents from [facility] for worsening Oxygen requirements. As per half-way, the patient has had 1 week of pneumonia. As per , on the bedside, this has happened before and she has been hospitalized for it. Patient did not have her hearing aids, so was at bedside aiding with history. Allergies: Sulfa Past surgical history:intracranial hemorrhage Social history: No reported hx of tobacco use, alcohol use or illicit drug use. PCP: Mani Colon - Physicial Exam PE: 12/23/19 09:47 Vitals: Triage vital signs reviewed General Appearance: No acute distress, well nourished, well developed Head: Atraumatic Eyes: Pupils equal reactive round, extraocular movement intact Neck: Supple; No nuchal rigidity Chest Wall: Nontender Cardiac: (+) Irregular. No murmurs, no rubs, no gallops Lungs: (+) Wheezing. Clear to auscultation bilateral, good air movement bilaterally Abdomen: Soft, nondistended, normal bowel sounds, nontender to palpation Rectal: Exam deferred Extremities: Full range of motion to all extremities, no cyanosis, clubbing, or edema Skin: Warm and dry, no rashes or lesions, no rash, no petechiae Psych: Normal mood, normal affect - Medical Decision Making 12/23/19 17:12 84 years old with hypertension recently diagnosed with pneumonia on outpatient antibiotics presents with worsening shortness of breath and oxygen requirements We will cover with Zosyn and admit to medicine for further management Heart Score/ECG Review - ECG Impressions Comment:: 12/23/19 17:11 EKG performed at 1048 demonstrates atrial fibrillation right bundle branch block no ST elevations interpreted by me
--- NOTE | 2019-12-23 13:14 | EKG ---
Test Reason : Blood Pressure : / mmHG Vent. Rate : 078 BPM Atrial Rate : 227 BPM P-R Int : 000 ms QRS Dur : 138 ms QT Int : 414 ms P-R-T Axes : 000 070 -66 degrees QTc Int : 471 ms POOR DATA QUALITY, INTERPRETATION MAY BE ADVERSELY AFFECTED ATRIAL FIBRILLATION RIGHT BUNDLE BRANCH BLOCK ABNORMAL ECG WHEN COMPARED WITH ECG OF 13-DEC-2019 18:53, NO SIGNIFICANT CHANGE WAS FOUND Confirmed by Feliz Toussaint ([id number]) on 12/23/2019 1:14:36 PM Referred By: Confirmed By:Feliz Toussaint
--- NOTE | 2019-12-23 14:54 | HP ---
CHIEF COMPLAINT: Shortness of breath PCP: Dr. Frantz Montilla HISTORY OF PRESENT ILLNESS: Pt. is an 84 y.o. F w/ PMHX. of HTN, Hypothyroidism , dementia, A. Fib, and R. intracranial hemmorrhage (2010, no residual deficits ) presents from [facility] for increasing oxygen requirement. Pt. was diagnosed with Pneumonia 3-4 days ago by CXR and clinical symptoms and was being treated with Levaquin 500mg BID. History provided by at bedside who states that Pt. did not have a fever over the last week. Pt. had recent hospital admission 5 -6 weeks ago @ [facility] for Pneumonia (15 days hospital course requiring intubation nad 1+ L fluid removal in thoracocentesis) and was sent to [facility] for rehab. Per Pt. has been having intermittent episodes of "gurgling" in throat but had passed dysphagia screens both at [facility] and at [facility]. Per Pt. has been having decreased PO intake over the last couple days. Per Pt. is DNR but is amenable to intubation. Pt. had recent admission 10 days ago for an unwitnessed fall. Pt. unable to answer questions as Pt. was somnolent throughout entire encounter. Pt. was minimally arousable to tactile stimuli and arousable to painful stimuli. Discussed with that Pt. was alert and talking with him a few hours prior, per Pt. was tired and when he arrived she became more relaxed to finally fall asleep. ER course was notable for: (1)EKG, CT- A/P, Trop, UA/UCx. (2)Head CT, CSPine CT (3) Recent Travel: No PAST MEDICAL HISTORY: As above PAST SURGICAL HISTORY: "changed metal plate in head"(1954), 2010 intracranial hemmorage, Had cranial surgery @ 17. Social History: Smoking: denies Alcohol: on very special occasion Drugs: denies Allergies Sulfa (Sulfonamide Antibiotics) Allergy (Verified 07/11/19 11:57) Hives HOME MEDICATIONS: Home Medications Medication Instructions Recorded Acetaminophen [Tylenol .Regular 650 mg PO Q6H PRN 12/13/19 Strength -] Albuterol 0.083% Nebulizer Debra 1 neb NEB TID 12/13/19 [Ventolin 0.083% Nebulizer Soln -] Ascorbic Acid [Vitamin C] 1,000 mg PO DAILY 12/13/19 Atorvastatin Ca [Lipitor] 10 mg PO HS 12/13/19 Calcium Carb/Vitamin D3/Vit K1 1 each PO DAILY 12/13/19 [Calcium + D Soft Chewable Tab] Carvedilol [Coreg -] 6.25 mg PO BID 12/13/19 Cholecalciferol (Vitamin D3) 2,000 unit PO DAILY 12/13/19 [Vitamin D -] Escitalopram Oxalate [Lexapro -] 5 mg PO DAILY 12/13/19 Hydrochlorothiazide 12.5 mg PO DAILY 12/13/19 Ipratropium 0.02% Nebulizer 1 neb NEB TID 12/13/19 [Atrovent 0.02% Nebulizer -] Levothyroxine [Synthroid -] 100 mcg PO DAILY 12/13/19 Multivitamin [Multiple Vitamins] 1 each PO DAILY 12/13/19 Nystatin 1 applic TP BID 12/13/19 Guaifenesin/Dextromethorphan 10 ml PO QID 12/23/19 [Robitussin Cough-Chest Dm Liq] Levofloxacin [Levaquin] 500 mg PO BID 12/23/19 Saccharomyces Boulardii [Florastor] 250 mg PO BID 12/23/19 REVIEW OF SYSTEMS Unable to obtain PHYSICAL EXAMINATION Vital Signs - 24 hr 12/23/19 12/23/19 12/23/19 09:10 09:39 11:39 Temperature 98.2 F Pulse Rate 65 Respiratory 20 Rate Blood Pressure 156/87 O2 Sat by Pulse 100 85 L 100 Oximetry (%) GENERAL: Somnolent in no acute distress. HEAD: Normal with no signs of trauma. EYES: L Pupil equal, round and reactive to light, extraocular movements intact, sclera anicteric, conjunctiva clear. R. Eye Ptosis(unable to open, Pt. fighting) EARS, NOSE, THROAT: Ears normal, nares patent, oropharynx clear without exudates. Dry mucous membranes. LUNGS: Expiratory wheezing No accessory muscle use. HEART: Tachycardic irregular rate and rhythm, normal S1 and S2 without murmur ABDOMEN: Soft, nontender, not distended, normoactive bowel sounds, no guarding, no rebound, no masses. UPPER EXTREMITIES: 2+ radial pulses, warm, well-perfused. No cyanosis. No clubbing. LOWER EXTREMITIES: 2+ dorsal pedal pulses, warm, well-perfused. No calf tenderness. Trace edema. NEUROLOGICAL: Somnolent, Pt. moves all extremities, sensation to painful stimuli in tact. PSYCHIATRIC: Cooperative. Good eye contact. Appropriate mood and affect. SKIN: Warm, dry Laboratory Results - last 24 hr 12/23/19 12/23/19 12/23/19 09:20 09:20 09:20 WBC 6.6 RBC 3.40 L Hgb 10.3 L Hct 30.8 L MCV 90.6 MCH 30.3 MCHC 33.4 RDW 19.9 H Plt Count 212 D MPV 8.2 Absolute Neuts (auto) 5.0 Neutrophils % 76.5 Lymphocytes % 14.5 D Monocytes % 8.7 Eosinophils % 0.0 D Basophils % 0.3 Nucleated RBC % 0 PT with INR 14.30 H INR 1.21 H PTT (Actin FS) 32.4 VBG pH POC VBG pCO2 POC VBG pO2 VBG HCO3 VBG O2 Sat (Romelia) VBG Base Excess Sodium 140 Potassium 3.4 L Chloride 102 Carbon Dioxide 32 Anion Gap 7 L BUN 21.5 H Creatinine 0.8 Est GFR (CKD-EPI)AfAm 77.92 Est GFR (CKD-EPI)NonAf 67.23 Random Glucose 97 Lactic Acid Calcium 9.5 Total Bilirubin 0.7 AST 26 ALT 28 Alkaline Phosphatase 83 Troponin I 0.39 H Total Protein 6.2 L Albumin 2.7 L 12/23/19 12/23/19 09:20 09:20 WBC RBC Hgb Hct MCV MCH MCHC RDW Plt Count MPV Absolute Neuts (auto) Neutrophils % Lymphocytes % Monocytes % Eosinophils % Basophils % Nucleated RBC % PT with INR INR PTT (Actin FS) VBG pH 7.44 H POC VBG pCO2 51.1 POC VBG pO2 < 49 H VBG HCO3 34.0 H VBG O2 Sat (Romelia) 70.9 VBG Base Excess 8.9 H Sodium Potassium Chloride Carbon Dioxide Anion Gap BUN Creatinine Est GFR (CKD-EPI)AfAm Est GFR (CKD-EPI)NonAf Random Glucose Lactic Acid 1.4 Calcium Total Bilirubin AST ALT Alkaline Phosphatase Troponin I Total Protein Albumin ASSESSMENT/PLAN: Pt. is an 84 y.o. F w/ PMHX. of HTN, Hypothyroidism, dementia, A. Fib, and R. intracranial hemmorrhage (2010, no residual deficits) presents from [facility] for increasing oxygen requirement. #Aspiration Pneumonitis vs. Community acquired Pneumonia Pt. received ~3 days of Levaquin at [facility], will c/w Zosyn as Pt. currently does not have elevated WBC or fever, likely aspiration event. CXR: L. pleural effusion, cannot r/o LLL pneumonia or atelectasis, f/u Chest CT ID Consult to Dr. Andujar appreciated Physical therapy Supplemental O2 as needed Fall Risk precautions will give NS @ 75ml f/u Dysphagia screen, consult to Mimi London appreciated as Pt. may need formal MBS f/u MRSA Screen #Tropninemia c/w telemetry monitoring Initial troponin: 0.39, will trend EKG unchanged from last admission, prolonged QTc: 471, Wide QRS, Afib 78 bpm Pt. was discharged with troponin of 0.35 during last admission. Pt. was seen by cardiology and it was determined Pt. was not a candidate for ACS workup and not a candidate for AC (Hx. of ICH) #HFpEF #Afib #HTN #Hypothyroidism #HLD #Depression resume home medications will hold HCTZ given dry mucus membranes #FEN NS @ 75ml, use with caution as Pt. has Hx. of HFpEF monitor electrolytes and replete as needed, mildy hypokalemic to 3.4, will give 3 runs and follow up BMP in AM. Sodium controlled diet #DVT Ppx. SCDs given Hx. of ICH Visit type - Emergency Visit Emergency Visit: Yes ED Registration Date: 12/23/19 Care time: The patient presented to the Emergency Department on the above date and was hospitalized for further evaluation of their emergent condition. - New Patient This patient is new to me today: Yes Date on this admission: 12/23/19 - Critical Care Critical Care patient: No ATTENDING PHYSICIAN STATEMENT I saw and evaluated the patient. I reviewed the resident's note and discussed the case with the resident. I agree with the resident's findings and plan as documented. SUBJECTIVE: OBJECTIVE: ASSESSMENT AND PLAN:
[2019-12-23] MEDS ORDERED: SODIUM CHLORIDE 1,000 ML IV SCH (15:00)
[2019-12-23] MEDS ORDERED: ACETAMINOPHEN 325 MG TABLET (FP) PO PRN ×2 (16:52→17:09)
--- NOTE | 2019-12-23 16:57 | PN ---
Progress Note (short form) - Note Progress Note: ID CONSULT DICTATED R/O HCAP/ SEPSIS RECURRENT L PARAPNEUMONIC EFFUSION AWAIT C/S EMPIRIC ZOSYN DISCUSSED WITH AT BEDSIDE
--- NOTE | 2019-12-23 17:49 | PN ---
Teaching Attending Note Name of Resident: Hill Meraz ATTENDING PHYSICIAN STATEMENT I saw and evaluated the patient. I reviewed the resident's note and discussed the case with the resident. I agree with the resident's findings and plan as documented. SUBJECTIVE: CC: Hypoxia at [place] HPI : 84 y/o lady with h/o ICH, dementia, Falls, A fib, HTN, hypothyroidism, who presented from [facility] with increased O2 requirements. She was diagnosed wit hPNA , few days ago at the [place]. She was started on 2 L of O2 and Levaquin. today her O2 requirements increased to 4 L , so she was transferred here. is not at bedside, but Kt Morgan confirmed with him absence of fever , cough, diarrhea, or complaints of pain. He reported poor po intake. He reports Breanne is tired and has been sleeping today, and this is her base line Of note, she was admitted recently to [facility] for a fall . Also, she was admitted a month ago to [facility] for PNA and a pleural effusion was drained In ER , Cxray was performed. which showed L pleural effusion. her Sat O2 was 85 % on RA. 100 % on 3 L OBJECTIVE: NAd , sleeping, rests eye opening. became awake when she was rolled to her side. dry MM. L pupil is round and reactive to light , she resists R eye opening. CV: irreg irreg . no MRG Lungs: crackles on L side anteriorly and posteriorly. decreased breath sounds at L base . clear R lung Abd: soft, NT, ND , NL BS Ext: No edema or erythema. no fungal infection among toes Not cooperative with neuro exam ASSESSMENT AND PLAN: 84 y/o lady with h/o ICH, dementia, Falls, A fib, HTN, hypothyroidism, who presented from [facility] with increased O2 requirements. 1- Recurrent PNa with effusion . - CT of chest with R base infiltrate and L sided infiltrates with L loculated pleural effusion. - No signs of sepsis - Zosyn - will consult pulmonary for pleural effusion - cont O2 supplementation - aspiration precautions - speech eval - looks volume depleted, hold HCTZ and start low dose IVF 2- Elevated trop:cant tell if there is cp . EKG reviewed. NO change form before. - monitor on tele and trend trop 3- H/o A fib : - cont coreg. Not on any AC due to falls and h/o ICH 4- Hypothyroidism: cont synthroid. 5- H/o deplression : cont Lexapro HLOC. DNR only. d/w by Dr. Meraz.
[2019-12-23] MEDS ORDERED: PIPERACILLIN/TAZOB 3.375 GM 3.375 GM in DEXTROSE 5%-WATER - 50 ML IVPB SCH (18:00)
[2019-12-23] MEDS ORDERED: DEXTROSE 5%-WATER - 50 ML IVPB ONE (18:04)
[2019-12-23] MEDS ORDERED: PIPERACILLIN/TAZOBACTAM 3.375 GM VIAL IVPB ONE (18:04)
[2019-12-23] MEDS: PIPERACILLIN/TAZOB 3.375 GM 3.375 GM in DEXTROSE 5%-WATER - 50 ML IVPB SCH (18:14)
[2019-12-23] MEDS: KCL 10 MEQ IVPB 10 MEQ/100 ML INFUS.BAG IVPB SCH ×3 (18:14→21:45)
[2019-12-23] MEDS: ATORVASTATIN CA 10 MG TABLET (FP) PO SCH (21:16)
[2019-12-23] MEDS: HEPARIN NA (PORCINE) 5,000 UNITS/ML 1ML VIAL SQ SCH (21:16)
[2019-12-23] MEDS: CARVEDILOL 6.25 MG TABLET (FP) PO SCH (21:16)
[2019-12-23] MEDS: NYSTATIN 100,000 UNIT/GM TOPICAL CREAM 15 GM TUBE TP SCH (21:43)
[2019-12-24] MEDS ORDERED: PIPERACILLIN/TAZOBACTAM 3.375 GM VIAL IVPB ONE ×4 (03:30→22:57)
[2019-12-24] MEDS ORDERED: DEXTROSE 5%-WATER - 50 ML IVPB ONE ×4 (03:30→22:57)
[2019-12-24] MEDS: PIPERACILLIN/TAZOB 3.375 GM 3.375 GM in DEXTROSE 5%-WATER - 50 ML IVPB SCH ×3 (03:32→19:03)
[2019-12-24] MEDS: HEPARIN NA (PORCINE) 5,000 UNITS/ML 1ML VIAL SQ SCH ×3 (06:34→23:05)
[2019-12-24] MEDS: LEVOTHYROXINE NA 100 MCG TABLET (FP) PO SCH (06:34)
[2019-12-24 07:18] LABS: BASO % 0.1 % (0-2.0); EOS % 0.1 % (0-4.5); HEMATOCRIT 29.9 % (32.4-45.2); HEMOGLOBIN 9.9 GM/dL (10.7-15.3); LYMPH % 13.4 % (8-40); MCH 30.1 pg (25.7-33.7); MCHC 33.1 g/dl (32.0-36.0); MEAN CELL VOLUME 90.9 fl (80-96); MEAN PLT VOLUME 8.1 fl (7.5-11.1); MONO % 6.7 % (3.8-10.2); NEUT % 79.7 % (42.8-82.8); PLATELET COUNT 214 K/MM3 (134-434); RBC 3.29 M/mm3 (3.60-5.2); RDW 19.7 % (11.6-15.6); WHITE BLOOD COUNT 6.8 K/mm3 (4.0-10.0)
[2019-12-24 08:14] LABS: ALBUMIN 2.4 g/dl (3.4-5.0); BILIRUBIN,TOTAL 0.9 mg/dL (0.2-1); BLOOD UREA NITROGEN 17.5 mg/dL (7-18); CREATININE 0.8 mg/dL (0.55-1.3); MAGNESIUM 2.2 mg/dL (1.8-2.4); POTASSIUM 3.4 mmol/L (3.5-5.1); TOT PROT 5.8 g/dl (6.4-8.2)
[2019-12-24] MEDS: CARVEDILOL 6.25 MG TABLET (FP) PO SCH ×2 (11:12→23:05)
[2019-12-24] MEDS: LACTOBACILLUS ACIDOPHILUS 1 TABLET PO SCH (11:13)
[2019-12-24] MEDS: ESCITALOPRAM OXALATE 10 MG TABLET PO SCH (11:13)
[2019-12-24] MEDS: NYSTATIN 100,000 UNIT/GM TOPICAL CREAM 15 GM TUBE TP SCH ×2 (11:14→23:30)
--- NOTE | 2019-12-24 11:17 | CONSULT ---
Admitting History and Physical - Primary Care Physician PCP: Graham Faria - Admission History of Present Illness: Per EMR HISTORY OF PRESENT ILLNESS: Pt. is an 84 y.o. F w/ PMHX. of HTN, Hypothyroidism , dementia, A. Fib, and R. intracranial hemmorrhage (2010, no residual deficits ) presents from [facility] for increasing oxygen requirement. Pt. was diagnosed with Pneumonia 3-4 days ago by CXR and clinical symptoms and was being treated with Levaquin 500mg BID. History provided by at bedside who states that Pt. did not have a fever over the last week. Pt. had recent hospital admission 5 -6 weeks ago @ [facility] for Pneumonia (15 days hospital course requiring intubation nad 1+ L fluid removal in thoracocentesis) and was sent to [facility] for rehab. Per Pt. has been having intermittent episodes of "gurgling" in throat but had passed dysphagia screens both at [facility] and at [facility]. Per Pt. has been having decreased PO intake over the last couple days. Per Pt. is DNR but is amenable to intubation. Pt. had recent admission 10 days ago for an unwitnessed fall. Pt. unable to answer questions as Pt. was somnolent throughout entire encounter. Pt. was minimally arousable to tactile stimuli and arousable to painful stimuli. Discussed with that Pt. was alert and talking with him a few hours prior, per Pt. was tired and when he arrived she became more relaxed to finally fall asleep. Selected Entries 12/23/19 12/23/19 12/23/19 09:39 14:58 17:00 Breakfast Supper Temperature 98.2 F 97.6 F 97.8 F 12/23/19 12/23/19 12/24/19 18:00 22:00 01:48 Breakfast Supper 0 Temperature 97.4 F L 97.7 F 12/24/19 12/24/19 06:00 09:59 Breakfast 0 Supper 0 Temperature 97.8 F Laboratory Tests 12/23/19 12/24/19 09:20 06:05 WBC 6.6 6.8 Pt's served as informant-Pt with h/o head injury, coma, "plate in head" when she was a teenager. 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 Verbal and appropriate with ST memory deficits, TANANA, ambulatory with recent deterioration in balance. Swallowing w/u was (-) at [facility] and pt ate well at [facility], until recently, with SOB/gurgly throat. 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 History - Admission Reason For Visit: ELEVATED TROPONIN LEVEL,PNEUMONIA - Diagnostics X-ray: Report Reviewed CT Scan: Report Reviewed - General Mental Status: Awake and Alert, Able to Follow Commands, Forgetful, Confused Attention: Mild Impairment Ability to Follow Directions: Fair Head/Neck Control: Good - Hearing Hearing: Impaired Hearing: Impaired, Deaf, Both Hearing Aide: Yes With Patient: Yes Speech Evaluation - Communication Primary Language: [id number] Communication: Yes: Simple Responses - Speech Production Intelligibility: Yes: WNL - Speech Characteristics Voice Loudness: Normal Voice Pitch: Yes: Normal Voice Phonatory-based Quality: Yes: Normal Speech Pattern: Normal Nasal Resonance: Normal Articulation: Yes: Precise - Language/Auditory Comprehension Follows: Yes: 1 Stage Simple Commands - Swallow Evaluation/Bedside Assessment Current Nutritional Intake: Dysphagia Pureed, [place] Textured Liquids Oral Secretions: Yes: WFL Dentition: Yes: Adequate Facial Symmetry at Rest: Symmetrical Facial Symmetry on Retraction: Symmetrical Against Resistance Opening: Normal Against Resistance Closing: Normal Pucker Lips: Normal Smile: Normal Lingual Movement: Normal, Symmetric Lingual Speed of Movement: Normal Lingual Movement Strgth Against Opposition: Normal Lingual Movement Characteristics: Normal Velopharyngeal Movement: Normal Laryngeal Movement: Labored,delay initiation Rate of Intake: Slow/Holding Bolus Size: Small Labial Seal: WFL Oral Prep Time: Increased A-P Transit: Impaired Pocketing: Present Bilaterally Timing of Swallow: Delayed Coughing/Throat Clear: No Change in Voice: No Recommendations - Speech Evaluation, Impression/Plan Impression: TANANA, confused, STM deficits. r/o aspiration - Disposition Discharge to: To be Determined - Dysphagia Impressions/Plan Dysphagia Impressions: Risk of Aspiration, Ongoing Evaluation *Silent aspiration: cannot be R/O at bedside Dysphagia Treatment Plan: Small Bites, Chin Tuck/Down, Clear Pocket Food, Trial Feedings, Facilitative Feeding, Safe Rate, Elevate HOB during feed, Other ( monitor po tolerance) Recommendations: Modified Barium Swallow - Recommendations Diet Consistency: Dysphagia Pureed Medication Administration: Crushed with applesauce Liquids: [place] Thick Supplement: Magic Cup, Ensure Pudding
--- NOTE | 2019-12-24 12:05 | EKG ---
Test Reason : Blood Pressure : / mmHG Vent. Rate : 068 BPM Atrial Rate : 129 BPM P-R Int : 000 ms QRS Dur : 154 ms QT Int : 462 ms P-R-T Axes : 000 088 -32 degrees QTc Int : 491 ms ATRIAL FIBRILLATION RIGHT BUNDLE BRANCH BLOCK ANTERIOR INFARCT (CITED ON OR BEFORE 23-DEC-2019) T WAVE ABNORMALITY, CONSIDER INFERIOR ISCHEMIA ABNORMAL ECG Confirmed by MD RUI, LUCIANA ([id number]) on 12/24/2019 12:05:46 PM Referred By: Confirmed By:LUCIANA FABIAN MD
--- NOTE | 2019-12-24 13:13 | CON.PULM ---
Consult Consult Specialty:: PULMONARY Referred by:: Dr Faria Reason for Consultation:: pleural effusion - History of Present Illness Chief Complaint: lethargy History of Present Illness: 84yo female with h/o HTN, hypothyroidism, atrial fibrillation, h/o ICH, dementia , recent hospitalization for pneumonia/respiratory failure requiring intubation discharged to [facility] who was admitted for decreased PO intake and increasing lethargy. History obtained from at bedside as pt unable to provide further history at this time due to lethargy. No fevers recorded but chest imaging showing bilateral effusions L>R with possible basilar infiltrates. states that pt passed dysphagia screenings, does not cough or choke while eating. No history of asthma or COPD, is a never smoker. 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 - Allergies Allergies/Adverse Reactions: Allergies Allergy/AdvReac Type Severity Reaction Status Date / Time Sulfa (Sulfonamide Allergy Hives Verified 07/11/19 11:57 Antibiotics) - Home Medications Home Medications: Ambulatory Orders Acetaminophen [Tylenol .Regular Strength -] 650 mg PO Q6H PRN 12/13/19 Albuterol 0.083% Nebulizer Debra [Ventolin 0.083% Nebulizer Soln -] 1 neb NEB TID 12/13/19 Ascorbic Acid [Vitamin C] 1,000 mg PO DAILY 12/13/19 Atorvastatin Ca [Lipitor] 10 mg PO HS 12/13/19 Calcium Carb/Vitamin D3/Vit K1 [Calcium + D Soft Chewable Tab] 1 each PO DAILY 12/13/19 Carvedilol [Coreg -] 6.25 mg PO BID 12/13/19 Cholecalciferol (Vitamin D3) [Vitamin D -] 2,000 unit PO DAILY 12/13/19 Escitalopram Oxalate [Lexapro -] 5 mg PO DAILY 12/13/19 Hydrochlorothiazide 12.5 mg PO DAILY 12/13/19 Ipratropium 0.02% Nebulizer [Atrovent 0.02% Nebulizer -] 1 neb NEB TID 12/13/19 Levothyroxine [Synthroid -] 100 mcg PO DAILY 12/13/19 Multivitamin [Multiple Vitamins] 1 each PO DAILY 12/13/19 Nystatin 1 applic TP BID 12/13/19 Guaifenesin/Dextromethorphan [Robitussin Cough-Chest Dm Liq] 10 ml PO QID Levofloxacin [Levaquin] 500 mg PO BID 12/23/19 Saccharomyces Boulardii [Florastor] 250 mg PO BID 12/23/19 Review of Systems Unable to obtain ROS, reason: pt nonverbal Physical Exam Vital Sings: Vital Signs Temperature 97.9 F 12/24/19 09:02 Pulse Rate 59 L 12/24/19 09:02 Respiratory Rate 12/24/19 09:02 Blood Pressure 124/67 12/24/19 09:02 O2 Sat by Pulse Oximetry (%) 99 12/24/19 09:00 Constitutional: Yes: Mild Distress Eyes: Yes: Conjunctiva Clear, EOM Intact HENT: Yes: Atraumatic, Normocephalic Neck: Yes: Supple, Trachea Midline Cardiovascular: Yes: Regular Rate and Rhythm Respiratory: Yes: Diminished (decreased breath sounds at the bases) ...Clubbing: No Gastrointestinal: Yes: Normal Bowel Sounds, Soft Edema: No Neurological: Yes: Lethargy Labs: CBC, BMP 12/24/19 06:05 12/24/19 06:05 Imaging - Results Chest X-ray: Report Reviewed, Image Reviewed Cat Scan: Report Reviewed, Image Reviewed (bilateral effusions L>R, basilar atelectasis vs infiltrates) Problem List - Problems (1) Pleural effusion Code(s): J90 - PLEURAL EFFUSION, NOT ELSEWHERE CLASSIFIED (2) Pneumonia Code(s): J18.9 - PNEUMONIA, UNSPECIFIED ORGANISM Qualifiers: Pneumonia type: due to unspecified organism Laterality: left Lung location: unspecified part of lung Qualified Code(s): J18.9 - Pneumonia, unspecified organism Assessment/Plan r/o Pneumonia Acute on Chronic Diastolic Heart Failure Pleural Effusions +Troponins likely Demand Ischemia HTN Hypothyoridism Dementia h/o ICH - empiric antibiotics - f/u cultures - would get diagnostic thoracentesis to differentiate between parapneumonic effusion vs CHF - O2 to keep SpO2 >90% - PO as tolerated - aspiration precautions - rate control - DVT prophylaxis Thank you for this consult Ruel Bob MD
--- NOTE | 2019-12-24 15:57 | PN ---
Teaching Attending Note Name of Resident: Tino Godinez ATTENDING PHYSICIAN STATEMENT I saw and evaluated the patient. I reviewed the resident's note and discussed the case with the resident. I agree with the resident's findings and plan as documented. SUBJECTIVE: No events. at bedside. He reports intermittent decreased level of consciousness which is similar to previous episodes of PNA. poor po intake OBJECTIVE: NAd, awake, minimal verbal response . resistant to exam CV: irreg irreg. no MRG Lungs: clear today . decreased breath sounds at L base . Abd: soft, NT, ND , NL BS Ext: No edema or erythema. ASSESSMENT AND PLAN: 84 y/o lady with h/o ICH, dementia, Falls, A fib, HTN, hypothyroidism, who presented from [facility] with increased O2 requirements. 1- Recurrent PNA with effusion - Read of Chest CT noted. - cont Zosyn - Appreciate Dr. Bob help. diagnostic L sided thoracentesis 2- B/L Pleural effusions L > R. CT with ground glass opacities in lungs. ? pulm edema . ? heart failure - dc IVf and monitor - Get Echo . No recent one in records - diagnostic thoracentesis 3- Elevated trop:flat trend. monitor 3- H/o A fib : - cont coreg. Not on any AC due to falls and h/o ICH 4- Hypothyroidism: cont synthroid. 5- H/o deplression: cont Lexapro HLOC. DNR only. confirmed with he will bring legal proxy paperwork .
--- NOTE | 2019-12-24 16:54 | PN ---
Physical Exam: SUBJECTIVE: Patient seen and examined NAEON Nonverbal, lethargic-appearing OBJECTIVE: Vital Signs Period Temp Pulse Resp BP Sys/Magana Pulse Ox Last 24 Hr 97.3 F-97.9 F 59-85 20-20 105-147/62-95 93-99 GENERAL: The patient is somnolent, nonverbal no acute distress. HEAD: Normal with no signs of trauma. Moderate temporal wasting EYES: sclera anicteric, conjunctiva clear. No ptosis. ENT: Ears normal, nares patent, oropharynx clear without exudates, dry mucous membranes. NECK: Trachea midline, supple. LUNGS: Decreased BS to Left lung, mild crackles of left-side w/ mild wheezes, no accessory muscle use. On 3L NC HEART: Regular rate and rhythm, S1, S2 without murmur, rub or gallop. ABDOMEN: Soft, nontender, nondistended, normoactive bowel sounds, no guarding, no rebound. EXTREMITIES: 2+ pulses, warm, well-perfused, no edema. NEUROLOGICAL: Not responding to questioning, withdrawing to painful stimuli SKIN: Warm, dry, normal turgor, no rashes or lesions noted Laboratory Results - last 24 hr 12/23/19 12/23/19 12/24/19 16:40 20:35 06:05 WBC 6.8 RBC 3.29 L Hgb 9.9 L Hct 29.9 L MCV 90.9 MCH 30.1 MCHC 33.1 RDW 19.7 H Plt Count 214 MPV 8.1 Absolute Neuts (auto) 5.4 Neutrophils % 79.7 Lymphocytes % 13.4 Monocytes % 6.7 Eosinophils % 0.1 D Basophils % 0.1 Nucleated RBC % 0 Sodium Potassium Chloride Carbon Dioxide Anion Gap BUN Creatinine Est GFR (CKD-EPI)AfAm Est GFR (CKD-EPI)NonAf Random Glucose Calcium Phosphorus Magnesium Total Bilirubin AST ALT Alkaline Phosphatase Creatine Kinase 25 L Troponin I 0.47 H 0.44 H Total Protein Albumin 12/24/19 12/24/19 12/24/19 06:05 06:05 15:30 WBC RBC Hgb Hct MCV MCH MCHC RDW Plt Count MPV Absolute Neuts (auto) Neutrophils % Lymphocytes % Monocytes % Eosinophils % Basophils % Nucleated RBC % Sodium 142 Potassium 3.4 L Chloride 103 Carbon Dioxide 31 Anion Gap 8 BUN 17.5 Creatinine 0.8 Est GFR (CKD-EPI)AfAm 77.92 Est GFR (CKD-EPI)NonAf 67.23 Random Glucose 100 Calcium 9.0 Phosphorus 3.0 Magnesium 2.2 Total Bilirubin 0.9 AST 16 ALT 21 Alkaline Phosphatase 74 Creatine Kinase Troponin I 0.37 H 0.38 H 0.39 H Total Protein 5.8 L Albumin 2.4 L Active Medications Generic Name Dose Route Start Last Admin Trade Name Freq PRN Reason Stop Dose Admin Acetaminophen 650 mg 12/23/19 17:09 Tylenol - PO Q6H PRN FEVER Atorvastatin Calcium 10 mg 12/23/19 22:00 12/23/19 21:16 Lipitor - PO 10 mg HS EFRAÍN Administration Carvedilol 6.25 mg 12/23/19 22:00 12/24/19 11:12 Coreg - PO 6.25 mg BID EFRAÍN Administration Escitalopram Oxalate 5 mg 12/24/19 10:00 12/24/19 11:13 Lexapro - PO 5 mg DAILY EFRAÍN Administration Heparin Sodium (Porcine) 5,000 unit 12/23/19 22:00 12/24/19 14:25 Heparin - SQ 5,000 unit TID EFRAÍN Administration Piperacillin Sod/Tazobactam 50 mls @ 100 mls/hr 12/23/19 18:00 12/24/19 11:14 Sod 3.375 gm/ Dextrose IVPB 100 mls/hr Q8H-IV EFRAÍN Administration Protocol Lactobacillus Acidophilus 1 tab 12/24/19 10:00 12/24/19 11:13 Bacid - PO 1 tab DAILY EFRAÍN Administration Levothyroxine Sodium 100 mcg 12/24/19 07:00 12/24/19 06:34 Synthroid - PO 100 mcg ACBK EFRAÍN Administration Nystatin 1 applic 12/23/19 22:00 12/24/19 11:14 Mycostatin Cream - TP 1 applic BID EFRAÍN Administration ASSESSMENT/PLAN: 84F w/ PMHX. of HTN, Hypothyroidism, dementia, A. Fib, and R. intracranial hemmorrhage (2010, no residual deficits) presents [facility] for increasing oxygen requirement after recent LLL PNA. Admitted for recurrent PNA. Imaging showing a significant Left-sided pleural effusion. # recurrent PNA w/ Left-sided effusion --possibly 2/2 aspiration PNA - s/p ~3 days of Levaquin at [facility] - abx regimen: --zosyn --day 2 > CXR: L. pleural effusion, cannot r/o LLL pneumonia or atelectasis > CT chest: mod Left-sided and small Right-sided pleural effusion, bibasilar compressive atelectasis, 1.5 x 0.4cm nonspecific nodule of RML > ID(James) Consult > Pulm(Bob) Consult --diagnostic thoracentesis Supplemental O2 as needed # AMS --likely 2/2 sepsis - S&S(Lita) eval: --dysphagia pureed, nectar thick # Tropninemia > EKG unchanged from last admission, prolonged QTc: 471, Wide QRS, Afib 78 bpm > troponin: 0.39, 0.47, 0.44, 0.37, 0.38, 0.39 - tele # AFib - No A/C d/t recurrent falls #HFpEF #HTN - cw coreg - held HCTZ #Hypothyroidism - cw levothyroxin #HLD - cw atorvastatin #Depression - cw escitalopram #FEN - dysphagia diet with nectar-thick #DVT Ppx. SCDs given Hx #Dispo - tele - DNR, but can intubate Visit type - Emergency Visit Emergency Visit: No - New Patient This patient is new to me today: No - Critical Care Critical Care patient: No ATTENDING PHYSICIAN STATEMENT I saw and evaluated the patient. I reviewed the resident's note and discussed the case with the resident. I agree with the resident's findings and plan as documented. SUBJECTIVE: OBJECTIVE: ASSESSMENT AND PLAN:
[2019-12-24] MEDS: KCL 10 MEQ IVPB 10 MEQ/100 ML INFUS.BAG IVPB SCH ×2 (18:01→23:00)
--- NOTE | 2019-12-24 19:12 | PN ---
Progress Note, Physician History of Present Illness: POORLY RESPONSIVE BREATHING NON-LABORED AFEBRILE PULMONARY EVALUATION APPRECIATED - Current Medication List Current Medications: Active Medications Acetaminophen (Tylenol -) 650 mg PO Q6H PRN PRN Reason: FEVER Atorvastatin Calcium (Lipitor -) 10 mg PO HS [facility] Last Admin: 12/23/19 21:16 Dose: 10 mg Carvedilol (Coreg -) 6.25 mg PO BID [facility] Last Admin: 12/24/19 11:12 Dose: 6.25 mg Escitalopram Oxalate (Lexapro -) 5 mg PO DAILY [facility] Last Admin: 12/24/19 11:13 Dose: 5 mg Heparin Sodium (Porcine) (Heparin -) 5,000 unit SQ TID [facility] Last Admin: 12/24/19 14:25 Dose: 5,000 unit Piperacillin Sod/Tazobactam (Sod 3.375 gm/ Dextrose) 50 mls @ 100 mls/hr IVPB Q8H-IV [facility]; Protocol Last Admin: 12/24/19 19:03 Dose: 100 mls/hr Potassium Chloride (Potassium Chloride 10 Meq Premix Ivpb -) 10 meq in 100 mls @ 100 mls/hr IVPB Q60M [facility] Stop: 12/24/19 19:44 Last Admin: 12/24/19 18:01 Dose: 100 mls/hr Lactobacillus Acidophilus (Bacid -) 1 tab PO DAILY [facility] Last Admin: 12/24/19 11:13 Dose: 1 tab Levothyroxine Sodium (Synthroid -) 100 mcg PO ACBK [facility] Last Admin: 12/24/19 06:34 Dose: 100 mcg Nystatin (Mycostatin Cream -) 1 applic TP BID [facility] Last Admin: 12/24/19 11:14 Dose: 1 applic - Objective Vital Signs: Vital Signs Temperature 97.3 F L 12/24/19 15:25 Pulse Rate 73 12/24/19 15:25 Respiratory Rate 20 12/24/19 15:25 Blood Pressure 105/62 12/24/19 15:25 O2 Sat by Pulse Oximetry (%) 99 12/24/19 09:00 Constitutional: Yes: No Distress Cardiovascular: Yes: Regular Rate and Rhythm, S1, S2 Respiratory: Yes: Diminished, Other (POOR INSPIRATORY EFFORT) Gastrointestinal: Yes: Normal Bowel Sounds, Soft Labs: CBC, BMP 12/24/19 06:05 12/24/19 06:05 INR, PTT INR 1.21 (0.83-1.09) H 12/23/19 09:20 Assessment/Plan RECURRENT L PARAPNEUMONIC EFFUSION R/O PNEUMONIA FOR DIAGNOSTIC/THERAPUTIC THORACENTESIS CONTINUE ZOSYN DISCUSSED WITH AT BEDSIDE
[2019-12-24] MEDS: ATORVASTATIN CA 10 MG TABLET (FP) PO SCH (23:30)
[2019-12-25] MEDS: KCL 10 MEQ IVPB 10 MEQ/100 ML INFUS.BAG IVPB SCH (00:34)
[2019-12-25] MEDS ORDERED: PIPERACILLIN/TAZOBACTAM 3.375 GM VIAL IVPB ONE ×3 (01:55→16:52)
[2019-12-25] MEDS ORDERED: DEXTROSE 5%-WATER - 50 ML IVPB ONE ×3 (01:55→16:53)
[2019-12-25] MEDS: PIPERACILLIN/TAZOB 3.375 GM 3.375 GM in DEXTROSE 5%-WATER - 50 ML IVPB SCH ×3 (01:56→17:25)
[2019-12-25 07:11] LABS: HEMATOCRIT 31.1 % (32.4-45.2); HEMOGLOBIN 10.5 GM/dL (10.7-15.3); MCH 30.8 pg (25.7-33.7); MCHC 33.8 g/dl (32.0-36.0); MEAN CELL VOLUME 91.3 fl (80-96); PLATELET COUNT 246 K/MM3 (134-434); RDW 20.2 % (11.6-15.6); WHITE BLOOD COUNT 7.3 K/mm3 (4.0-10.0)
[2019-12-25] MEDS: LEVOTHYROXINE NA 100 MCG TABLET (FP) PO SCH (07:15)
[2019-12-25 07:49] LABS: BLOOD UREA NITROGEN 17.6 mg/dL (7-18); CALCIUM 8.7 mg/dL (8.5-10.1); MAGNESIUM 2.1 mg/dL (1.8-2.4); PHOSPHOROUS 2.2 mg/dL (2.5-4.9); POTASSIUM 3.5 mmol/L (3.5-5.1)
--- NOTE | 2019-12-25 09:27 | PN ---
Teaching Attending Note Name of Resident: Tino Godinez ATTENDING PHYSICIAN STATEMENT I saw and evaluated the patient. I reviewed the resident's note and discussed the case with the resident. I agree with the resident's findings and plan as documented. SUBJECTIVE: Patient is lying in bed, confused, at bedside. OBJECTIVE: Vital Signs Temperature 97.7 F 12/25/19 01:41 Pulse Rate 74 12/25/19 06:45 Respiratory Rate 18 12/25/19 01:41 Blood Pressure 142/88 12/25/19 06:45 O2 Sat by Pulse Oximetry (%) 100 12/24/19 21:00 GENERAL: The patient is confused, but in no acute distress. HEAD: Normal with no signs of trauma. EYES: PERRL, extraocular movements intact, sclera anicteric, conjunctiva clear. ENT: Ears normal, oropharynx clear without exudates, moist mucous membranes. NECK: Trachea midline, full range of motion, supple. LUNGS: decreased BS BL , no wheezes, no crackles, no accessory muscle use. HEART: irRegular-irregular , S1, S2 +, DUKE 2/6 , no rub or gallop. ABDOMEN: Soft, NT,ND, normoactive bowel sounds, no guarding, no rebound, no hepatosplenomegaly, no masses. EXTREMITIES: 2+ pulses, warm, well-perfused, no edema. NEUROLOGICAL: Cranial nerves II through XII grossly intact. gait not observed. PSYCH: Normal mood, normal affect. SKIN: Warm, dry, normal turgor, no rashes or lesions noted CBCD WBC 7.3 K/mm3 (4.0-10.0) 12/25/19 06:20 RBC 3.40 M/mm3 (3.60-5.2) L 12/25/19 06:20 Hgb 10.5 GM/dL (10.7-15.3) L 12/25/19 06:20 Hct 31.1 % (32.4-45.2) L 12/25/19 06:20 MCV 91.3 fl (80-96) 12/25/19 06:20 MCHC 33.8 g/dl (32.0-36.0) 12/25/19 06:20 RDW 20.2 % (11.6-15.6) H 12/25/19 06:20 Plt Count 246 K/MM3 (134-434) 12/25/19 06:20 MPV 8.0 fl (7.5-11.1) 12/25/19 06:20 CMP Sodium 140 mmol/L (136-145) 12/25/19 06:20 Potassium 3.5 mmol/L (3.5-5.1) 12/25/19 06:20 Chloride 104 mmol/L (98-107) 12/25/19 06:20 Carbon Dioxide 30 mmol/L (21-32) 12/25/19 06:20 Anion Gap 6 MMOL/L (8-16) L 12/25/19 06:20 BUN 17.6 mg/dL (7-18) 12/25/19 06:20 Creatinine 1.0 mg/dL (0.55-1.3) 12/25/19 06:20 Random Glucose 108 mg/dL (74-106) H 12/25/19 06:20 Calcium 8.7 mg/dL (8.5-10.1) 12/25/19 06:20 Total Bilirubin 0.9 mg/dL (0.2-1) 12/24/19 06:05 AST 16 U/L (15-37) 12/24/19 06:05 ALT 21 U/L (13-61) 12/24/19 06:05 Alkaline Phosphatase 74 U/L (45-117) 12/24/19 06:05 Total Protein 5.8 g/dl (6.4-8.2) L 12/24/19 06:05 Albumin 2.4 g/dl (3.4-5.0) L 12/24/19 06:05 CARDIAC ENZYMES Creatine Kinase 25 U/L (26-192) L 12/23/19 16:40 Troponin I 0.35 ng/ml (0.00-0.05) H 12/24/19 21:05 Current Medications Generic Name Dose Route Start Last Admin Trade Name Freq PRN Reason Stop Dose Admin Acetaminophen 650 mg 12/23/19 17:09 Tylenol - PO Q6H PRN FEVER Atorvastatin Calcium 10 mg 12/23/19 22:00 12/24/19 23:30 Lipitor - PO 10 mg HS EFRAÍN Administration Carvedilol 6.25 mg 12/23/19 22:00 12/24/19 23:05 Coreg - PO 6.25 mg BID EFRAÍN Administration Escitalopram Oxalate 5 mg 12/24/19 10:00 12/24/19 11:13 Lexapro - PO 5 mg DAILY EFRAÍN Administration Heparin Sodium (Porcine) 5,000 unit 12/23/19 22:00 12/24/19 23:05 Heparin - SQ 5,000 unit TID EFRAÍN Administration Piperacillin Sod/Tazobactam 50 mls @ 100 mls/hr 12/23/19 18:00 12/25/19 01:56 Sod 3.375 gm/ Dextrose IVPB 100 mls/hr Q8H-IV EFRAÍN Administration Protocol Lactobacillus Acidophilus 1 tab 12/24/19 10:00 12/24/19 11:13 Bacid - PO 1 tab DAILY EFRAÍN Administration Levothyroxine Sodium 100 mcg 12/24/19 07:00 12/25/19 07:15 Synthroid - PO 100 mcg ACBK EFRAÍN Administration Nystatin 1 applic 12/23/19 22:00 12/24/19 23:30 Mycostatin Cream - TP 1 applic BID EFRAÍN Administration Home Medications Medication Instructions Recorded Acetaminophen [Tylenol .Regular 650 mg PO Q6H PRN 12/13/19 Strength -] Albuterol 0.083% Nebulizer Debra 1 neb NEB TID 12/13/19 [Ventolin 0.083% Nebulizer Soln -] Ascorbic Acid [Vitamin C] 1,000 mg PO DAILY 12/13/19 Atorvastatin Ca [Lipitor] 10 mg PO HS 12/13/19 Calcium Carb/Vitamin D3/Vit K1 1 each PO DAILY 12/13/19 [Calcium + D Soft Chewable Tab] Carvedilol [Coreg -] 6.25 mg PO BID 12/13/19 Cholecalciferol (Vitamin D3) 2,000 unit PO DAILY 12/13/19 [Vitamin D -] Escitalopram Oxalate [Lexapro -] 5 mg PO DAILY 12/13/19 Hydrochlorothiazide 12.5 mg PO ASDIR 12/13/19 Ipratropium 0.02% Nebulizer 1 neb NEB QID 12/13/19 [Atrovent 0.02% Nebulizer -] Levothyroxine [Synthroid -] 100 mcg PO DAILY 12/13/19 Multivitamin [Multiple Vitamins] 1 each PO DAILY 12/13/19 Nystatin 1 applic TP BID 12/13/19 Guaifenesin/Dextromethorphan 10 ml PO QID 12/23/19 [Robitussin Cough-Chest Dm Liq] Levofloxacin [Levaquin] 500 mg PO BID 12/23/19 Saccharomyces Boulardii [Florastor] 250 mg PO BID 12/23/19 Microbiology 12/23/19 09:20 Blood - Peripheral Venous Blood Culture - Preliminary NO GROWTH OBTAINED AFTER 24 HOURS, INCUBATION TO CONTINUE FOR 4 DAYS. 12/23/19 09:20 Blood - Peripheral Venous Blood Culture - Preliminary NO GROWTH OBTAINED AFTER 24 HOURS, INCUBATION TO CONTINUE FOR 4 DAYS. ASSESSMENT AND PLAN: Patient is an 84yof with PMHx of ICH, dementia, Falls, A fib, HTN, hypothyroidism, who presented from [facility] with increased O2 requirements. # Recurrent PNA with effusion going for thoracocentesis by IR today , cont Gloriasyn , pulm on the case # B/L Pleural effusions L > R. CT with ground glass opacities in lungs. going for Thoracocentesis # Elevated trop:flat trend. monitor # H/o A fib : cont coreg. Not on any AC due to falls and h/o ICH # Hypothyroidism: cont synthroid. # H/o deplression: cont Lexapro DNR only. confirmed with he will bring legal proxy paperwork .
[2019-12-25] MEDS: LACTOBACILLUS ACIDOPHILUS 1 TABLET PO SCH (10:51)
[2019-12-25] MEDS: CARVEDILOL 6.25 MG TABLET (FP) PO SCH ×2 (10:51→21:43)
[2019-12-25] MEDS: ESCITALOPRAM OXALATE 10 MG TABLET PO SCH (10:52)
[2019-12-25] MEDS: NYSTATIN 100,000 UNIT/GM TOPICAL CREAM 15 GM TUBE TP SCH ×2 (10:52→21:50)
[2019-12-25 14:35] LABS: BF WBC & OTHER NUCLEATED CELLS 389 /mm3
--- NOTE | 2019-12-25 14:40 | PN ---
Progress Note (short form) - Note Progress Note: PULMONARY More alert per at bedside. For thoracentesis. Vital Signs Period Temp Pulse Resp BP Sys/Magana Pulse Ox Last 24 Hr 97.3 F-97.9 F 72-77 18-20 105-144/62-88 90-100 Gen: NAD at rest Heart: RRR Lung: decreased breath sounds at the bases Abd: soft, nontender Ext: no edema CBC, BMP 12/25/19 06:20 12/25/19 06:20 Active Medications Acetaminophen (Tylenol -) 650 mg PO Q6H PRN PRN Reason: FEVER Atorvastatin Calcium (Lipitor -) 10 mg PO HS [facility] Last Admin: 12/24/19 23:30 Dose: 10 mg Carvedilol (Coreg -) 6.25 mg PO BID [facility] Last Admin: 12/25/19 10:51 Dose: 6.25 mg Escitalopram Oxalate (Lexapro -) 5 mg PO DAILY [facility] Last Admin: 12/25/19 10:52 Dose: 5 mg Heparin Sodium (Porcine) (Heparin -) 5,000 unit SQ TID [facility] Last Admin: 12/24/19 23:05 Dose: 5,000 unit Piperacillin Sod/Tazobactam (Sod 3.375 gm/ Dextrose) 50 mls @ 100 mls/hr IVPB Q8H-IV EFRAÍN; Protocol Last Admin: 12/25/19 11:04 Dose: 100 mls/hr Lactobacillus Acidophilus (Bacid -) 1 tab PO DAILY [facility] Last Admin: 12/25/19 10:51 Dose: 1 tab Levothyroxine Sodium (Synthroid -) 100 mcg PO ACBK [facility] Last Admin: 12/25/19 07:15 Dose: 100 mcg Nystatin (Mycostatin Cream -) 1 applic TP BID [facility] Last Admin: 12/25/19 10:52 Dose: 1 applic A/P r/o Pneumonia Acute on Chronic Diastolic Heart Failure Pleural Effusions +Troponins likely Demand Ischemia HTN Hypothyoridism Dementia h/o ICH - f/u pleural fluid cell count, chemistries, cultures, cytology - empiric antibiotics - f/u cultures - O2 to keep SpO2 >90% - PO as tolerated - aspiration precautions - rate control - DVT prophylaxis Problem List - Problems (1) Pleural effusion Code(s): J90 - PLEURAL EFFUSION, NOT ELSEWHERE CLASSIFIED (2) Pneumonia Code(s): J18.9 - PNEUMONIA, UNSPECIFIED ORGANISM Qualifiers: Pneumonia type: due to unspecified organism Laterality: left Lung location: unspecified part of lung Qualified Code(s): J18.9 - Pneumonia, unspecified organism
[2019-12-25 15:16] LABS: BODY FLUID MONOCYTE 5 %
[2019-12-25 15:17] LABS: BODY FLUID MACROPHAGES 40 %; BODY FLUID MESOTHELIAL 8 %
--- NOTE | 2019-12-25 15:28 | PN ---
Physical Exam: SUBJECTIVE: Patient seen and examined FRANCISCA Saying "that's enough!" during physical exam OBJECTIVE: Vital Signs Period Temp Pulse Resp BP Sys/Magana Pulse Ox Last 24 Hr 97.3 F-97.9 F 72-77 18-20 105-144/62-88 90-100 GENERAL: The patient is somnolent, nonverbal no acute distress. HEAD: Normal with no signs of trauma. Moderate temporal wasting EYES: sclera anicteric, conjunctiva clear. No ptosis. ENT: Ears normal, nares patent, oropharynx clear without exudates, dry mucous membranes. NECK: Trachea midline, supple. LUNGS: Decreased BS to Left lung, mild crackles of left-side w/ mild wheezes, no accessory muscle use. On 3L NC HEART: Regular rate and rhythm, S1, S2 without murmur, rub or gallop. ABDOMEN: Soft, nontender, nondistended, normoactive bowel sounds, no guarding, no rebound. EXTREMITIES: 2+ pulses, warm, well-perfused, no edema. NEUROLOGICAL: Not responding to questioning, withdrawing to painful stimuli SKIN: Warm, dry, normal turgor, no rashes or lesions noted Laboratory Results - last 24 hr 12/24/19 12/24/19 12/24/19 06:05 15:30 21:05 WBC RBC Hgb Hct MCV MCH MCHC RDW Plt Count MPV Sodium 142 Potassium 3.4 L Chloride 103 Carbon Dioxide 31 Anion Gap 8 BUN 17.5 Creatinine 0.8 Est GFR (CKD-EPI)AfAm 77.92 Est GFR (CKD-EPI)NonAf 67.23 Random Glucose 100 Calcium 9.0 Phosphorus 3.0 Magnesium 2.2 Total Bilirubin 0.9 AST 16 ALT 21 Alkaline Phosphatase 74 Troponin I 0.37 H 0.39 H 0.35 H Total Protein 5.8 L Albumin 2.4 L TSH 16.80 H Fluid Source Fluid WBC Fluid RBC Fluid Neutrophils Fluid Lymphocytes Pleural Monocytes Pleural Macrophages Pleural Mesothelial 12/25/19 12/25/19 12/25/19 06:20 06:20 11:40 WBC 7.3 RBC 3.40 L Hgb 10.5 L Hct 31.1 L MCV 91.3 MCH 30.8 MCHC 33.8 RDW 20.2 H Plt Count 246 MPV 8.0 Sodium 140 Potassium 3.5 Chloride 104 Carbon Dioxide 30 Anion Gap 6 L BUN 17.6 Creatinine 1.0 Est GFR (CKD-EPI)AfAm 59.49 Est GFR (CKD-EPI)NonAf 51.33 Random Glucose 108 H Calcium 8.7 Phosphorus 2.2 L Magnesium 2.1 Total Bilirubin AST ALT Alkaline Phosphatase Troponin I Total Protein Albumin TSH Fluid Source Pleural Fluid WBC 389 Fluid RBC 2714 Fluid Neutrophils 10 Fluid Lymphocytes 37 Pleural Monocytes 5 Pleural Macrophages 40 Pleural Mesothelial 8 Active Medications Generic Name Dose Route Start Last Admin Trade Name Freq PRN Reason Stop Dose Admin Acetaminophen 650 mg 12/23/19 17:09 Tylenol - PO Q6H PRN FEVER Atorvastatin Calcium 10 mg 12/23/19 22:00 12/24/19 23:30 Lipitor - PO 10 mg HS EFRAÍN Administration Calcium Acetate 667 mg 12/25/19 17:30 Phoslo - PO TIDCM EFRAÍN Carvedilol 6.25 mg 12/23/19 22:00 12/25/19 10:51 Coreg - PO 6.25 mg BID EFRAÍN Administration Escitalopram Oxalate 5 mg 12/24/19 10:00 12/25/19 10:52 Lexapro - PO 5 mg DAILY EFRAÍN Administration Heparin Sodium (Porcine) 5,000 unit 12/23/19 22:00 12/24/19 23:05 Heparin - SQ 5,000 unit TID EFRAÍN Administration Piperacillin Sod/Tazobactam 50 mls @ 100 mls/hr 12/23/19 18:00 12/25/19 11:04 Sod 3.375 gm/ Dextrose IVPB 100 mls/hr Q8H-IV EFRAÍN Administration Protocol Potassium Chloride 10 meq in 100 mls @ 100 mls/hr 12/25/19 15:30 Potassium Chloride 10 Meq Premix Ivpb - IVPB 12/25/19 17:29 Q60M EFRANÍ Lactobacillus Acidophilus 1 tab 12/24/19 10:00 12/25/19 10:51 Bacid - PO 1 tab DAILY EFRAÍN Administration Levothyroxine Sodium 100 mcg 12/24/19 07:00 12/25/19 07:15 Synthroid - PO 100 mcg ACBK EFRAÍN Administration Nystatin 1 applic 12/23/19 22:00 12/25/19 10:52 Mycostatin Cream - TP 1 applic BID EFRAÍN Administration ASSESSMENT/PLAN: 84F w/ PMHX. of HTN, Hypothyroidism, dementia, A. Fib, and R. intracranial hemmorrhage (2011, no residual deficits) presents from [facility] for increasing oxygen requirement after recent LLL PNA. Admitted for recurrent PNA. Imaging showing a significant Left-sided pleural effusion. S/p thoracentesis(12/25/19) # recurrent PNA w/ Left-sided effusion --possibly 2/2 aspiration PNA - s/p thoracentesis(12/25/19) - s/p ~3 days of Levaquin at [facility] > thoracentesis studies: > gram stain --pending > cytology --pending > pleural fluid --pending - abx regimen: --zosyn --day 3 > CXR: L. pleural effusion, cannot r/o LLL pneumonia or atelectasis > CT chest: mod Left-sided and small Right-sided pleural effusion, bibasilar compressive atelectasis, 1.5 x 0.4cm nonspecific nodule of RML > ID(James) Consult --cw abx --fu thoracentesis > Pulm(Paulino) Consult --diagnostic thoracentesis Supplemental O2 as needed # AMS --likely 2/2 sepsis - S&S(Lita) eval: --dysphagia pureed, nectar thick # Tropninemia > EKG unchanged from last admission, prolonged QTc: 471, Wide QRS, Afib 78 bpm > troponin: 0.39, 0.47, 0.44, 0.37, 0.38, 0.39 - tele # AFib - No A/C d/t recurrent falls #HFpEF #HTN - cw coreg - held HCTZ #Hypothyroidism - cw levothyroxin #HLD - cw atorvastatin #Depression - cw escitalopram #FEN - dysphagia diet with nectar-thick #DVT Ppx. SCDs given Hx #Dispo - tele - DNR, but can intubate Visit type - Emergency Visit Emergency Visit: No - New Patient This patient is new to me today: No - Critical Care Critical Care patient: No ATTENDING PHYSICIAN STATEMENT I saw and evaluated the patient. I reviewed the resident's note and discussed the case with the resident. I agree with the resident's findings and plan as documented. SUBJECTIVE: OBJECTIVE: ASSESSMENT AND PLAN:
[2019-12-25] MEDS ORDERED: KCL 10 MEQ IVPB 10 MEQ/100 ML INFUS.BAG IVPB SCH (15:30)
[2019-12-25] MEDS ORDERED: NAPH,MB-DB/K PH,MBDB POWDER PACKET PO ONE (16:00)
--- NOTE | 2019-12-25 16:10 | ECHO ---
Name: ASHU CORDON Exam:Adult Echocardiogram Study Date: 12/25/2019 02:32 PM Age: 84 yrs Reason For Study: EVAL EF Height: 64 in Weight: 130 lb BSA: 1.6 m2 MMode/2D Measurements & Calculations IVSd: 2.5 cm Ao root diam: 2.8 cm LVIDd: 3.2 cm LA dimension: 4.2 cm LVIDs: 2.1 cm ACS: 2.0 cm LVPWd: 2.0 cm EDV(Teich): 39.8 ml LVOT diam: 2.0 cm ESV(Teich): 14.8 ml LAV (MOD-bp): 85.8 ml TAPSE: 1.4 cm RV S Vipul: 6.1 cm/sec Doppler Measurements & Calculations MV E max vipul: 84.9 cm/sec AI max vipul: 137.0 cm/sec MV A max vipul: 25.2 cm/sec AI max P.5 mmHg MV E/A: 3.4 MV dec time: 0.19 sec LV V1 max P.9 mmHg MR max vipul: 429.4 cm/sec LV V1 mean P.7 mmHg MR max P.7 mmHg LV V1 max: 98.5 cm/sec LV V1 mean: 58.6 cm/sec LV V1 VTI: 18.1 cm SV(LVOT): 55.2 ml TR max vipul: 212.3 cm/sec TR max P.9 mmHg PA V2 max: 66.5 cm/sec PI end-d vipul: 150.7 cm/sec PA max P.8 mmHg PA acc time: 0.10 sec Med Peak E' Vipul: 3.0 cm/sec PA pr(Accel): 34.6 mmHg Med E/e': 28.5 Lat Peak E' Vipul: 3.5 cm/sec Lat E/e': 24.6 Procedure A two-dimensional transthoracic echocardiogram with color flow and Doppler was performed. Left Ventricle There is severe concentric left ventricular hypertrophy. The left ventricular ejection fraction is no rmal. The left ventricular wall motion is normal. Right Ventricle The right ventricle is not well visualized. Atria The left atrium is moderately dilated. The right atrium is moderately dilated. Mitral Valve There is mild mitral valve thickening. There is no mitral valve stenosis. There is moderate mitral regurgitation. Tricuspid Valve There is mild tricuspid valve thickening. There is no tricuspid stenosis. There is mild tricuspid regurgitation. Right ventricular systolic pressure is normal. Aortic Valve The aortic valve is not well visualized. No hemodynamically significant valvular aortic stenosis. Mod erate aortic regurgitation. Pulmonic Valve The pulmonic valve is not well visualized. There is no pulmonic valvular stenosis. Mild pulmonic valv ular regurgitation. Great Vessels The aortic root is normal size. Pericardium/Pleura There is a mild pericardial effusion. Interpretation Summary There is severe concentric left ventricular hypertrophy. The left ventricular ejection fraction is normal. The left ventricular wall motion is normal. There is a mild pericardial effusion. The left atrium is moderately dilated. The right atrium is moderately dilated. There is moderate mitral regurgitation. Moderate aortic regurgitation. There is mild tricuspid regurgitation. Right ventricular systolic pressure is normal. Mild pulmonic valvular regurgitation. MD Alejandro Stovall 12/25/2019 04:09 PM
[2019-12-25] MEDS ORDERED: CALCIUM ACETATE 667 MG CAPSULE (FP) PO SCH (17:30)
[2019-12-25] MEDS: HEPARIN NA (PORCINE) 5,000 UNITS/ML 1ML VIAL SQ SCH (21:43)
[2019-12-25] MEDS: ATORVASTATIN CA 10 MG TABLET (FP) PO SCH (21:43)
[2019-12-25] MEDS ORDERED: POTASSIUM CHLORIDE ORAL LIQUID 20 MEQ/15 ML PO SCH (22:00)
[2019-12-26] MEDS ORDERED: DEXTROSE 5%-WATER - 50 ML IVPB ONE ×3 (01:13→16:56)
[2019-12-26] MEDS ORDERED: PIPERACILLIN/TAZOBACTAM 3.375 GM VIAL IVPB ONE ×3 (01:13→16:56)
[2019-12-26] MEDS: PIPERACILLIN/TAZOB 3.375 GM 3.375 GM in DEXTROSE 5%-WATER - 50 ML IVPB SCH ×3 (01:51→17:07)
[2019-12-26] MEDS: HEPARIN NA (PORCINE) 5,000 UNITS/ML 1ML VIAL SQ SCH ×3 (06:13→21:18)
[2019-12-26] MEDS: LEVOTHYROXINE NA 100 MCG TABLET (FP) PO SCH (06:13)
[2019-12-26 07:17] LABS: HEMATOCRIT 31.5 % (32.4-45.2); HEMOGLOBIN 10.4 GM/dL (10.7-15.3); MCH 30.3 pg (25.7-33.7); MCHC 33.2 g/dl (32.0-36.0); MEAN CELL VOLUME 91.4 fl (80-96); MEAN PLT VOLUME 8.1 fl (7.5-11.1); PLATELET COUNT 240 K/MM3 (134-434); RBC 3.45 M/mm3 (3.60-5.2); RDW 20.2 % (11.6-15.6)
[2019-12-26 07:47] LABS: ALBUMIN 2.3 g/dl (3.4-5.0); CALCIUM 8.1 mg/dL (8.5-10.1); CREATININE 0.8 mg/dL (0.55-1.3); MAGNESIUM 2.2 mg/dL (1.8-2.4); PHOSPHOROUS 2.4 mg/dL (2.5-4.9); POTASSIUM 3.4 mmol/L (3.5-5.1)
--- NOTE | 2019-12-26 08:50 | PN ---
Teaching Attending Note Name of Resident: Tino Godinez ATTENDING PHYSICIAN STATEMENT I saw and evaluated the patient. I reviewed the resident's note and discussed the case with the resident. I agree with the resident's findings and plan as documented. SUBJECTIVE: Patient is lying in bed confused and looks tired and weak Vital Signs Temperature 97.9 F 12/26/19 06:00 Pulse Rate 60 12/26/19 06:00 Respiratory Rate 18 12/26/19 06:00 Blood Pressure 149/86 12/26/19 06:00 O2 Sat by Pulse Oximetry (%) 100 12/26/19 08:18 GENERAL: The patient is confused, but in no acute distress. HEAD: Normal with no signs of trauma. EYES: PERRL, extraocular movements intact, sclera anicteric, conjunctiva clear. ENT: Ears normal, oropharynx clear without exudates, moist mucous membranes. NECK: Trachea midline, full range of motion, supple. LUNGS: decreased BS BL , no wheezes, no crackles, no accessory muscle use. HEART: irRegular-irregular with rate controlled, S1, S2 +, DUKE 2/6 , no rub or gallop. ABDOMEN: Soft, NT,ND, normoactive bowel sounds, no guarding, no rebound, no hepatosplenomegaly, no masses. EXTREMITIES: 2+ pulses, warm, well-perfused, no edema. NEUROLOGICAL: Cranial nerves II through XII grossly intact. gait not observed. PSYCH: Normal mood, normal affect. SKIN: Warm, dry, normal turgor, no rashes or lesions noted CBCD WBC 7.0 K/mm3 (4.0-10.0) 12/26/19 06:22 RBC 3.45 M/mm3 (3.60-5.2) L 12/26/19 06:22 Hgb 10.4 GM/dL (10.7-15.3) L 12/26/19 06:22 Hct 31.5 % (32.4-45.2) L 12/26/19 06:22 MCV 91.4 fl (80-96) 12/26/19 06:22 MCHC 33.2 g/dl (32.0-36.0) 12/26/19 06:22 RDW 20.2 % (11.6-15.6) H 12/26/19 06:22 Plt Count 240 K/MM3 (134-434) 12/26/19 06:22 MPV 8.1 fl (7.5-11.1) 12/26/19 06:22 CMP Sodium 142 mmol/L (136-145) 12/26/19 06:22 Potassium 3.4 mmol/L (3.5-5.1) L 12/26/19 06:22 Chloride 107 mmol/L (98-107) 12/26/19 06:22 Carbon Dioxide 30 mmol/L (21-32) 12/26/19 06:22 Anion Gap 5 MMOL/L (8-16) L 12/26/19 06:22 BUN 15.0 mg/dL (7-18) 12/26/19 06:22 Creatinine 0.8 mg/dL (0.55-1.3) 12/26/19 06:22 Random Glucose 88 mg/dL (74-106) 12/26/19 06:22 Calcium 8.1 mg/dL (8.5-10.1) L 12/26/19 06:22 Total Bilirubin 0.9 mg/dL (0.2-1) 12/24/19 06:05 AST 16 U/L (15-37) 12/24/19 06:05 ALT 21 U/L (13-61) 12/24/19 06:05 Alkaline Phosphatase 74 U/L (45-117) 12/24/19 06:05 Total Protein 5.8 g/dl (6.4-8.2) L 12/24/19 06:05 Albumin 2.3 g/dl (3.4-5.0) L 12/26/19 06:22 CARDIAC ENZYMES Creatine Kinase 25 U/L (26-192) L 12/23/19 16:40 Troponin I 0.35 ng/ml (0.00-0.05) H 12/24/19 21:05 Current Medications Generic Name Dose Route Start Last Admin Trade Name Freq PRN Reason Stop Dose Admin Acetaminophen 650 mg 12/23/19 17:09 Tylenol - PO Q6H PRN FEVER Atorvastatin Calcium 10 mg 12/23/19 22:00 12/25/19 21:43 Lipitor - PO 10 mg HS EFRAÍN Administration Carvedilol 6.25 mg 12/23/19 22:00 12/25/19 21:43 Coreg - PO 6.25 mg BID EFRAÍN Administration Escitalopram Oxalate 5 mg 12/24/19 10:00 12/25/19 10:52 Lexapro - PO 5 mg DAILY EFRAÍN Administration Heparin Sodium (Porcine) 5,000 unit 12/23/19 22:00 12/26/19 06:13 Heparin - SQ 5,000 unit TID EFRAÍN Administration Piperacillin Sod/Tazobactam 50 mls @ 100 mls/hr 12/23/19 18:00 12/26/19 01:51 Sod 3.375 gm/ Dextrose IVPB 100 mls/hr Q8H-IV EFRAÍN Administration Protocol Lactobacillus Acidophilus 1 tab 12/24/19 10:00 12/25/19 10:51 Bacid - PO 1 tab DAILY EFRAÍN Administration Levothyroxine Sodium 100 mcg 12/24/19 07:00 12/26/19 06:13 Synthroid - PO 100 mcg ACBK EFRAÍN Administration Nystatin 1 applic 12/23/19 22:00 12/25/19 21:50 Mycostatin Cream - TP 1 applic BID EFRAÍN Administration Potassium Chloride 20 meq 12/26/19 08:30 Potassium Chloride Oral Liquid PO 12/26/19 20:31 Q6H [facility] Potassium Phos/Sodium Phos 1 packet 12/26/19 08:24 Phos-Nak Packet - PO 12/26/19 08:25 ONCE ONE Home Medications Medication Instructions Recorded Acetaminophen [Tylenol .Regular 650 mg PO Q6H PRN 12/13/19 Strength -] Albuterol 0.083% Nebulizer Debra 1 neb NEB TID 12/13/19 [Ventolin 0.083% Nebulizer Soln -] Ascorbic Acid [Vitamin C] 1,000 mg PO DAILY 12/13/19 Atorvastatin Ca [Lipitor] 10 mg PO HS 12/13/19 Calcium Carb/Vitamin D3/Vit K1 1 each PO DAILY 12/13/19 [Calcium + D Soft Chewable Tab] Carvedilol [Coreg -] 6.25 mg PO BID 12/13/19 Cholecalciferol (Vitamin D3) 2,000 unit PO DAILY 12/13/19 [Vitamin D -] Escitalopram Oxalate [Lexapro -] 5 mg PO DAILY 12/13/19 Hydrochlorothiazide 12.5 mg PO ASDIR 12/13/19 Ipratropium 0.02% Nebulizer 1 neb NEB QID 12/13/19 [Atrovent 0.02% Nebulizer -] Levothyroxine [Synthroid -] 100 mcg PO DAILY 12/13/19 Multivitamin [Multiple Vitamins] 1 each PO DAILY 12/13/19 Nystatin 1 applic TP BID 12/13/19 Guaifenesin/Dextromethorphan 10 ml PO QID 12/23/19 [Robitussin Cough-Chest Dm Liq] Levofloxacin [Levaquin] 500 mg PO BID 12/23/19 Saccharomyces Boulardii [Florastor] 250 mg PO BID 12/23/19 Microbiology 12/23/19 09:20 Blood - Peripheral Venous Blood Culture - Preliminary NO GROWTH OBTAINED AFTER 24 HOURS, INCUBATION TO CONTINUE FOR 4 DAYS. 12/23/19 09:20 Blood - Peripheral Venous Blood Culture - Preliminary NO GROWTH OBTAINED AFTER 24 HOURS, INCUBATION TO CONTINUE FOR 4 DAYS. ASSESSMENT AND PLAN: Patient is an 84yof with PMHx of ICH, dementia, Falls, A fib, HTN, hypothyroidism, who presented from [facility] with increased O2 requirements. # Recurrent PNA with effusion s/p thoracocentesis by IR , cont Zosyn , pulm on the case, will continue to monitor, CXr to be repeated # B/L Pleural effusions L > R. CT with ground glass opacities in lungs. s/p Thoracocentesis # Elevated trop:flat trend. monitor # H/o A fib rate controlled : cont coreg. Not on any AC due to falls and h/o ICH # Hypothyroidism: cont synthroid. # H/o depression: cont Lexapro DNR only. confirmed with he will bring legal proxy paperwork .
[2019-12-26] MEDS ORDERED: NAPH,MB-DB/K PH,MBDB POWDER PACKET PO ONE (09:00)
[2019-12-26] MEDS: LACTOBACILLUS ACIDOPHILUS 1 TABLET PO SCH (09:42)
[2019-12-26] MEDS: POTASSIUM CHLORIDE ORAL LIQUID 20 MEQ/15 ML PO SCH ×3 (09:42→21:18)
[2019-12-26] MEDS: ESCITALOPRAM OXALATE 10 MG TABLET PO SCH (09:43)
[2019-12-26] MEDS: CARVEDILOL 6.25 MG TABLET (FP) PO SCH ×2 (09:43→21:18)
[2019-12-26] MEDS: NYSTATIN 100,000 UNIT/GM TOPICAL CREAM 15 GM TUBE TP SCH ×2 (09:44→21:28)
--- NOTE | 2019-12-26 11:57 | PN ---
Progress Note (short form) - Note Progress Note: PULMONARY s/p thoracentesis draining 900mL serosanguinous fluid. Chemistries pending. Vital Signs Period Temp Pulse Resp BP Sys/Magana Pulse Ox Last 24 Hr 97 F-97.9 F 60-74 18-18 129-149/66-86 90-100 Gen: NAD at rest Heart: RRR Lung: decreased breath sounds at the bases Abd: soft, nontender Ext: no edema CBC, BMP 12/26/19 06:22 12/26/19 06:22 Active Medications Acetaminophen (Tylenol -) 650 mg PO Q6H PRN PRN Reason: FEVER Atorvastatin Calcium (Lipitor -) 10 mg PO HS [facility] Last Admin: 12/25/19 21:43 Dose: 10 mg Carvedilol (Coreg -) 6.25 mg PO BID [facility] Last Admin: 12/26/19 09:43 Dose: 6.25 mg Escitalopram Oxalate (Lexapro -) 5 mg PO DAILY [facility] Last Admin: 12/26/19 09:43 Dose: 5 mg Heparin Sodium (Porcine) (Heparin -) 5,000 unit SQ TID [facility] Last Admin: 12/26/19 06:13 Dose: 5,000 unit Piperacillin Sod/Tazobactam (Sod 3.375 gm/ Dextrose) 50 mls @ 100 mls/hr IVPB Q8H-IV [facility]; Protocol Last Admin: 12/26/19 09:44 Dose: 100 mls/hr Lactobacillus Acidophilus (Bacid -) 1 tab PO DAILY [facility] Last Admin: 12/26/19 09:42 Dose: 1 tab Levothyroxine Sodium (Synthroid -) 100 mcg PO ACBK [facility] Last Admin: 12/26/19 06:13 Dose: 100 mcg Nystatin (Mycostatin Cream -) 1 applic TP BID [facility] Last Admin: 12/26/19 09:44 Dose: 1 applic Potassium Chloride (Potassium Chloride Oral Liquid) 20 meq PO Q6H [facility] Stop: 12/26/19 20:31 Last Admin: 12/26/19 09:42 Dose: 20 meq A/P r/o Pneumonia Acute on Chronic Diastolic Heart Failure Pleural Effusions +Troponins likely Demand Ischemia HTN Hypothyoridism Dementia h/o ICH - f/u pleural fluid chemistries, cultures, cytology - empiric antibiotics - f/u cultures - O2 to keep SpO2 >90% - PO as tolerated - aspiration precautions - rate control - DVT prophylaxis Problem List - Problems (1) Pleural effusion Code(s): J90 - PLEURAL EFFUSION, NOT ELSEWHERE CLASSIFIED (2) Pneumonia Code(s): J18.9 - PNEUMONIA, UNSPECIFIED ORGANISM Qualifiers: Pneumonia type: due to unspecified organism Laterality: left Lung location: unspecified part of lung Qualified Code(s): J18.9 - Pneumonia, unspecified organism
--- NOTE | 2019-12-26 13:15 | PN ---
Progress Note, SAMPLE CLERK - Note Progress Note: Selected Entries 12/25/19 12/25/19 12/25/19 01:41 14:00 22:00 Temperature 97.7 F 97.9 F 97.8 F 12/26/19 12/26/19 12/26/19 01:24 06:00 10:53 Temperature 97.7 F 97.9 F 97 F L Laboratory Tests 12/26/19 06:22 WBC 7.0 Accepting little by mouth stating "I don't want anymore" Speech precise, euphonic. Overtly tolerating diet. MBS to upgrade diet.
[2019-12-26 16:08] LABS: BODY FLUID ALBUMIN 0.9 g/dL (Not Estab.)
--- NOTE | 2019-12-26 16:51 | PN ---
Physical Exam: SUBJECTIVE: Patient seen and examined NAEON. Tolerated thoracentesis yesterday. OBJECTIVE: Vital Signs Period Temp Pulse Resp BP Sys/Magana Pulse Ox Last 24 Hr 97 F-99 F 60-74 18-20 122-149/67-86 90-100 GENERAL: The patient is somnolent, nonverbal no acute distress. HEAD: Normal with no signs of trauma. Moderate temporal wasting EYES: sclera anicteric, conjunctiva clear. No ptosis. ENT: Ears normal, nares patent, oropharynx clear without exudates, dry mucous membranes. NECK: Trachea midline, supple. LUNGS: Decreased BS to Left lung, mild crackles of left-side w/ mild wheezes, no accessory muscle use. On 2L NC HEART: Regular rate and rhythm, S1, S2 without murmur, rub or gallop. ABDOMEN: Soft, nontender, nondistended, normoactive bowel sounds, no guarding, no rebound. EXTREMITIES: 2+ pulses, warm, well-perfused, no edema. NEUROLOGICAL: Not responding to questioning, withdrawing to painful stimuli SKIN: Warm, dry, normal turgor, no rashes or lesions noted Laboratory Results - last 24 hr 12/25/19 12/26/19 12/26/19 11:40 06:22 06:22 WBC 7.0 RBC 3.45 L Hgb 10.4 L Hct 31.5 L MCV 91.4 MCH 30.3 MCHC 33.2 RDW 20.2 H Plt Count 240 MPV 8.1 Sodium 142 Potassium 3.4 L Chloride 107 Carbon Dioxide 30 Anion Gap 5 L BUN 15.0 Creatinine 0.8 Est GFR (CKD-EPI)AfAm 77.92 Est GFR (CKD-EPI)NonAf 67.23 Random Glucose 88 Calcium 8.1 L Phosphorus 2.4 L Magnesium 2.2 LD Total 226 Albumin 2.3 L Fluid Glucose 120 Fluid Total Protein 1.8 Fluid Albumin 0.9 Body Fluid LDH Source 61 Fluid Amylase 26 Fluid Triglycerides 14 Active Medications Generic Name Dose Route Start Last Admin Trade Name Freq PRN Reason Stop Dose Admin Acetaminophen 650 mg 12/23/19 17:09 Tylenol - PO Q6H PRN FEVER Atorvastatin Calcium 10 mg 12/23/19 22:00 12/25/19 21:43 Lipitor - PO 10 mg HS EFRAÍN Administration Carvedilol 6.25 mg 12/23/19 22:00 12/26/19 09:43 Coreg - PO 6.25 mg BID EFRAÍN Administration Escitalopram Oxalate 5 mg 12/24/19 10:00 12/26/19 09:43 Lexapro - PO 5 mg DAILY EFRAÍN Administration Heparin Sodium (Porcine) 5,000 unit 12/23/19 22:00 12/26/19 15:17 Heparin - SQ 5,000 unit TID EFRAÍN Administration Piperacillin Sod/Tazobactam 50 mls @ 100 mls/hr 12/23/19 18:00 12/26/19 09:44 Sod 3.375 gm/ Dextrose IVPB 100 mls/hr Q8H-IV EFRAÍN Administration Protocol Lactobacillus Acidophilus 1 tab 12/24/19 10:00 12/26/19 09:42 Bacid - PO 1 tab DAILY EFRAÍN Administration Levothyroxine Sodium 100 mcg 12/24/19 07:00 12/26/19 06:13 Synthroid - PO 100 mcg ACBK EFRAÍN Administration Nystatin 1 applic 12/23/19 22:00 12/26/19 09:44 Mycostatin Cream - TP 1 applic BID EFRAÍN Administration Potassium Chloride 20 meq 12/26/19 08:30 12/26/19 15:17 Potassium Chloride Oral Liquid PO 12/26/19 20:31 20 meq Q6H EFRAÍN Administration ASSESSMENT/PLAN: 84F w/ PMHX. of HTN, Hypothyroidism, dementia, A. Fib, and R. intracranial hemmorrhage (2010, no residual deficits) presents from [facility] for increasing oxygen requirement after recent LLL PNA. Admitted for recurrent PNA. Imaging showing a significant Left-sided pleural effusion. S/p thoracentesis(12/25/19) # recurrent PNA w/ Left-sided effusion --possibly 2/2 aspiration PNA - s/p thoracentesis(12/25/19) - s/p ~3 days of Levaquin at [facility] > thoracentesis studies: > gram stain --pending > cytology --pending > pleural fluid: glucose 120, total protein 1.8, Alb 0.9, LDH 61, Amylase 26 , TG 14 > CMP: glucose 88, Alb 2.3, LDH 226 - abx regimen: --zosyn --day 4 > CXR: L. pleural effusion, cannot r/o LLL pneumonia or atelectasis > CT chest: mod Left-sided and small Right-sided pleural effusion, bibasilar compressive atelectasis, 1.5 x 0.4cm nonspecific nodule of RML > ID(James) Consult --cw abx --fu thoracentesis > Pulm(Bob) Consult --diagnostic thoracentesis Supplemental O2 as needed # AMS --likely 2/2 sepsis - S&S(Lita) eval: --dysphagia pureed, nectar thick # Tropninemia > EKG unchanged from last admission, prolonged QTc: 471, Wide QRS, Afib 78 bpm > troponin: 0.39, 0.47, 0.44, 0.37, 0.38, 0.39 - tele # AFib - No A/C d/t recurrent falls #HFpEF - coreg #HTN - cw coreg - held HCTZ #Hypothyroidism - cw levothyroxin #HLD - cw atorvastatin #Depression - cw escitalopram #FEN - dysphagia diet with nectar-thick #DVT Ppx. SCDs given Hx #Dispo - tele - DNR, but can intubate Visit type - Emergency Visit Emergency Visit: No - New Patient This patient is new to me today: No - Critical Care Critical Care patient: No ATTENDING PHYSICIAN STATEMENT I saw and evaluated the patient. I reviewed the resident's note and discussed the case with the resident. I agree with the resident's findings and plan as documented. SUBJECTIVE: OBJECTIVE: ASSESSMENT AND PLAN:
[2019-12-26] MEDS: ATORVASTATIN CA 10 MG TABLET (FP) PO SCH (21:18)
--- NOTE | 2019-12-26 21:26 | PN ---
Progress Note, Physician History of Present Illness: MORE RESPONSIVE BREATHING NON-LABORED AFEBRILE S/P THORACENTESIS - Current Medication List Current Medications: Active Medications Acetaminophen (Tylenol -) 650 mg PO Q6H PRN PRN Reason: FEVER Atorvastatin Calcium (Lipitor -) 10 mg PO HS [facility] Last Admin: 12/25/19 21:43 Dose: 10 mg Carvedilol (Coreg -) 6.25 mg PO BID [facility] Last Admin: 12/26/19 09:43 Dose: 6.25 mg Escitalopram Oxalate (Lexapro -) 5 mg PO DAILY [facility] Last Admin: 12/26/19 09:43 Dose: 5 mg Heparin Sodium (Porcine) (Heparin -) 5,000 unit SQ TID [facility] Last Admin: 12/26/19 15:17 Dose: 5,000 unit Piperacillin Sod/Tazobactam (Sod 3.375 gm/ Dextrose) 50 mls @ 100 mls/hr IVPB Q8H-IV [facility]; Protocol Last Admin: 12/26/19 17:07 Dose: 100 mls/hr Lactobacillus Acidophilus (Bacid -) 1 tab PO DAILY [facility] Last Admin: 12/26/19 09:42 Dose: 1 tab Levothyroxine Sodium (Synthroid -) 100 mcg PO ACBK [facility] Last Admin: 12/26/19 06:13 Dose: 100 mcg Nystatin (Mycostatin Cream -) 1 applic TP BID [facility] Last Admin: 12/26/19 09:44 Dose: 1 applic - Objective Vital Signs: Vital Signs Temperature 97.7 F 12/26/19 18:00 Pulse Rate 85 12/26/19 18:00 Respiratory Rate 20 12/26/19 18:00 Blood Pressure 131/87 12/26/19 18:00 O2 Sat by Pulse Oximetry (%) 100 12/26/19 08:18 Constitutional: Yes: No Distress Cardiovascular: Yes: Regular Rate and Rhythm, S1, S2 Respiratory: Yes: Diminished Gastrointestinal: Yes: Normal Bowel Sounds, Soft Labs: CBC, BMP 12/26/19 06:22 12/26/19 06:22 INR, PTT INR 1.21 (0.83-1.09) H 12/23/19 09:20 Assessment/Plan RECURRENT L PARAPNEUMONIC EFFUSION R/O PNEUMONIA S/P THORACENTESIS CONTINUE ZOSYN AWAIT C/S
[2019-12-27] MEDS ORDERED: PIPERACILLIN/TAZOBACTAM 3.375 GM VIAL IVPB ONE ×3 (01:44→17:17)
[2019-12-27] MEDS ORDERED: DEXTROSE 5%-WATER - 50 ML IVPB ONE ×3 (01:44→17:18)
[2019-12-27] MEDS: PIPERACILLIN/TAZOB 3.375 GM 3.375 GM in DEXTROSE 5%-WATER - 50 ML IVPB SCH ×3 (02:15→17:20)
[2019-12-27] MEDS: HEPARIN NA (PORCINE) 5,000 UNITS/ML 1ML VIAL SQ SCH ×3 (06:28→21:43)
[2019-12-27] MEDS: LEVOTHYROXINE NA 100 MCG TABLET (FP) PO SCH (06:28)
[2019-12-27 07:38] LABS: HEMATOCRIT 30.1 % (32.4-45.2); MCH 30.3 pg (25.7-33.7); MCHC 33.1 g/dl (32.0-36.0); MEAN CELL VOLUME 91.4 fl (80-96); MEAN PLT VOLUME 7.9 fl (7.5-11.1); PLATELET COUNT 232 K/MM3 (134-434); RBC 3.29 M/mm3 (3.60-5.2); RDW 20.6 % (11.6-15.6); WHITE BLOOD COUNT 6.8 K/mm3 (4.0-10.0)
[2019-12-27 08:05] LABS: BLOOD UREA NITROGEN 22.6 mg/dL (7-18); CALCIUM 8.1 mg/dL (8.5-10.1); MAGNESIUM 2.3 mg/dL (1.8-2.4); PHOSPHOROUS 1.9 mg/dL (2.5-4.9); POTASSIUM 3.8 mmol/L (3.5-5.1)
--- NOTE | 2019-12-27 09:25 | PN ---
Teaching Attending Note Name of Resident: Tino Godinez ATTENDING PHYSICIAN STATEMENT I saw and evaluated the patient. I reviewed the resident's note and discussed the case with the resident. I agree with the resident's findings and plan as documented. SUBJECTIVE: Patient is looking better, more responsive, opens her eyes. Vital Signs Temperature 97.8 F 12/27/19 06:00 Pulse Rate 67 12/27/19 06:00 Respiratory Rate 17 12/27/19 06:00 Blood Pressure 152/78 12/27/19 06:00 O2 Sat by Pulse Oximetry (%) 98 12/26/19 21:00 GENERAL: The patient is confused, but in no acute distress. HEAD: Normal with no signs of trauma. EYES: PERRL, extraocular movements intact, sclera anicteric, conjunctiva clear. ENT: Ears normal, oropharynx clear without exudates, moist mucous membranes. NECK: Trachea midline, full range of motion, supple. LUNGS: decreased BS BL , no wheezes, no crackles, no accessory muscle use. HEART: irRegular-irregular rate is controlled , S1, S2 +, DUKE 2/6 , no rub or gallop. ABDOMEN: Soft, NT,ND, normoactive bowel sounds, no guarding, no rebound, no hepatosplenomegaly, no masses. EXTREMITIES: 2+ pulses, warm, well-perfused, no edema. NEUROLOGICAL: Cranial nerves II through XII grossly intact. gait not observed. PSYCH: Normal mood, normal affect. SKIN: Warm, dry, normal turgor, no rashes or lesions noted CBCD WBC 6.8 K/mm3 (4.0-10.0) 12/27/19 06:50 RBC 3.29 M/mm3 (3.60-5.2) L 12/27/19 06:50 Hgb 10.0 GM/dL (10.7-15.3) L 12/27/19 06:50 Hct 30.1 % (32.4-45.2) L 12/27/19 06:50 MCV 91.4 fl (80-96) 12/27/19 06:50 MCHC 33.1 g/dl (32.0-36.0) 12/27/19 06:50 RDW 20.6 % (11.6-15.6) H 12/27/19 06:50 Plt Count 232 K/MM3 (134-434) 12/27/19 06:50 MPV 7.9 fl (7.5-11.1) 12/27/19 06:50 CMP Sodium 145 mmol/L (136-145) 12/27/19 06:50 Potassium 3.8 mmol/L (3.5-5.1) 12/27/19 06:50 Chloride 109 mmol/L (98-107) H 12/27/19 06:50 Carbon Dioxide 31 mmol/L (21-32) 12/27/19 06:50 Anion Gap 4 MMOL/L (8-16) L 12/27/19 06:50 BUN 22.6 mg/dL (7-18) H 12/27/19 06:50 Creatinine 1.0 mg/dL (0.55-1.3) 12/27/19 06:50 Random Glucose 92 mg/dL (74-106) 12/27/19 06:50 Calcium 8.1 mg/dL (8.5-10.1) L 12/27/19 06:50 Total Bilirubin 0.9 mg/dL (0.2-1) 12/24/19 06:05 AST 16 U/L (15-37) 12/24/19 06:05 ALT 21 U/L (13-61) 12/24/19 06:05 Alkaline Phosphatase 74 U/L (45-117) 12/24/19 06:05 Total Protein 5.8 g/dl (6.4-8.2) L 12/24/19 06:05 Albumin 2.3 g/dl (3.4-5.0) L 12/26/19 06:22 CARDIAC ENZYMES Creatine Kinase 25 U/L (26-192) L 12/23/19 16:40 Troponin I 0.35 ng/ml (0.00-0.05) H 12/24/19 21:05 Home Medications Medication Instructions Recorded Acetaminophen [Tylenol .Regular 650 mg PO Q6H PRN 12/13/19 Strength -] Albuterol 0.083% Nebulizer Debra 1 neb NEB TID 12/13/19 [Ventolin 0.083% Nebulizer Soln -] Ascorbic Acid [Vitamin C] 1,000 mg PO DAILY 12/13/19 Atorvastatin Ca [Lipitor] 10 mg PO HS 12/13/19 Calcium Carb/Vitamin D3/Vit K1 1 each PO DAILY 12/13/19 [Calcium + D Soft Chewable Tab] Carvedilol [Coreg -] 6.25 mg PO BID 12/13/19 Cholecalciferol (Vitamin D3) 2,000 unit PO DAILY 12/13/19 [Vitamin D -] Escitalopram Oxalate [Lexapro -] 5 mg PO DAILY 12/13/19 Hydrochlorothiazide 12.5 mg PO ASDIR 12/13/19 Ipratropium 0.02% Nebulizer 1 neb NEB QID 12/13/19 [Atrovent 0.02% Nebulizer -] Levothyroxine [Synthroid -] 100 mcg PO DAILY 12/13/19 Multivitamin [Multiple Vitamins] 1 each PO DAILY 12/13/19 Nystatin 1 applic TP BID 12/13/19 Guaifenesin/Dextromethorphan 10 ml PO QID 12/23/19 [Robitussin Cough-Chest Dm Liq] Levofloxacin [Levaquin] 500 mg PO BID 12/23/19 Saccharomyces Boulardii [Florastor] 250 mg PO BID 12/23/19 Current Medications Generic Name Dose Route Start Last Admin Trade Name Freq PRN Reason Stop Dose Admin Acetaminophen 650 mg 12/23/19 17:09 Tylenol - PO Q6H PRN FEVER Atorvastatin Calcium 10 mg 12/23/19 22:00 12/26/19 21:18 Lipitor - PO 10 mg HS EFRAÍN Administration Carvedilol 6.25 mg 12/23/19 22:00 12/26/19 21:18 Coreg - PO 6.25 mg BID EFRAÍN Administration Escitalopram Oxalate 5 mg 12/24/19 10:00 12/26/19 09:43 Lexapro - PO 5 mg DAILY EFRAÍN Administration Heparin Sodium (Porcine) 5,000 unit 12/23/19 22:00 12/27/19 06:28 Heparin - SQ 5,000 unit TID EFRAÍN Administration Piperacillin Sod/Tazobactam 50 mls @ 100 mls/hr 12/23/19 18:00 12/27/19 02:15 Sod 3.375 gm/ Dextrose IVPB 100 mls/hr Q8H-IV ERFAÍN Administration Protocol Potassium Phosphate 15 mm/ 255 mls @ 62.5 mls/hr 12/27/19 09:30 Sodium Chloride IVPB 12/27/19 13:34 ONCE ONE Lactobacillus Acidophilus 1 tab 12/24/19 10:00 12/26/19 09:42 Bacid - PO 1 tab DAILY EFRAÍN Administration Levothyroxine Sodium 100 mcg 12/24/19 07:00 12/27/19 06:28 Synthroid - PO 100 mcg ACBK EFRAÍN Administration Nystatin 1 applic 12/23/19 22:00 12/26/19 21:28 Mycostatin Cream - TP 1 applic BID EFRAÍN Administration Microbiology 12/23/19 09:20 Blood - Peripheral Venous Blood Culture - Preliminary NO GROWTH OBTAINED AFTER 24 HOURS, INCUBATION TO CONTINUE FOR 4 DAYS. 12/23/19 09:20 Blood - Peripheral Venous Blood Culture - Preliminary NO GROWTH OBTAINED AFTER 24 HOURS, INCUBATION TO CONTINUE FOR 4 DAYS. ASSESSMENT AND PLAN: Patient is an 84yof with PMHx of ICH, dementia, Falls, A fib, HTN, hypothyroidism, who presented from [facility] with increased O2 requirements. # Recurrent PNA with effusion s/p thoracocentesis by IR , cont Zosyn , pulm on the case. looks transudative, continue IV zosyn as per iD # B/L Pleural effusions L > R. CT with ground glass opacities in lungs. s/p Thoracocentesis # Elevated trop:flat trend. monitor # H/o A fib : cont coreg. Not on any AC due to falls and h/o ICH and has a hx of epistaxis , even will bleed on aspirin # Hypothyroidism: cont synthroid. # H/o depression: cont Lexapro DNR only. confirmed with who is the legal proxy .
[2019-12-27] MEDS ORDERED: POTASSIUM PHOSPHATE 15 MM in SODIUM CHLORIDE 250 ML IVPB ONE (09:30)
[2019-12-27] MEDS: ESCITALOPRAM OXALATE 10 MG TABLET PO SCH (09:36)
[2019-12-27] MEDS: LACTOBACILLUS ACIDOPHILUS 1 TABLET PO SCH (09:36)
[2019-12-27] MEDS: CARVEDILOL 6.25 MG TABLET (FP) PO SCH ×2 (09:37→21:42)
[2019-12-27] MEDS: NYSTATIN 100,000 UNIT/GM TOPICAL CREAM 15 GM TUBE TP SCH ×2 (09:37→21:44)
--- NOTE | 2019-12-27 10:40 | PN ---
Progress Note, [facility] - Note Progress Note: Selected Entries 12/25/19 12/25/19 12/25/19 01:41 14:00 22:00 Temperature 97.7 F 97.9 F 97.8 F 12/26/19 12/26/19 12/26/19 01:24 06:00 10:53 Temperature 97.7 F 97.9 F 97 F L Laboratory Tests 12/26/19 06:22 WBC 7.0 Selected Entries 12/26/19 12/26/19 12/26/19 01:24 06:00 10:53 Diet Tolerated Supper Temperature 97.7 F 97.9 F 97 F L 12/26/19 12/26/19 12/26/19 14:00 18:00 21:00 Diet Tolerated Fair Supper 50% Temperature 99 F 97.7 F 98 F 12/27/19 12/27/19 12/27/19 02:00 06:00 10:00 Diet Tolerated Poor Supper Temperature 97.4 F L 97.8 F 98 F Laboratory Tests 12/25/19 12/26/19 12/27/19 06:20 06:22 06:50 WBC 7.3 7.0 6.8 Reported to be quite lethargic. Arousable for me but sleepy. Accepting little by mouth stating "I don't want anymore" Speech precise, euphonic. Overtly tolerating diet. MBS to upgrade diet.
--- NOTE | 2019-12-27 13:14 | PN ---
Progress Note (short form) - Note Progress Note: Drowsy but arousable. Breathing is non-labored. No acute events overnight. Intake & Output 12/24/19 12/25/19 12/26/19 12/27/19 23:59 23:59 23:59 23:59 Intake Total 1350 250 360 190 Balance 1350 250 360 190 Weight 128 lb 6 oz 126 lb Last Vital Signs Temp Pulse Resp BP Pulse Ox 98 F 65 18 150/74 99 12/27/19 10:00 12/27/19 10:00 12/27/19 10:00 12/27/19 10:00 12/27/19 10:00 Active Medications Acetaminophen (Tylenol -) 650 mg PO Q6H PRN PRN Reason: FEVER Atorvastatin Calcium (Lipitor -) 10 mg PO HS [facility] Last Admin: 12/26/19 21:18 Dose: 10 mg Carvedilol (Coreg -) 6.25 mg PO BID [facility] Last Admin: 12/27/19 09:37 Dose: 6.25 mg Escitalopram Oxalate (Lexapro -) 5 mg PO DAILY [facility] Last Admin: 12/27/19 09:36 Dose: 5 mg Heparin Sodium (Porcine) (Heparin -) 5,000 unit SQ TID [facility] Last Admin: 12/27/19 06:28 Dose: 5,000 unit Piperacillin Sod/Tazobactam (Sod 3.375 gm/ Dextrose) 50 mls @ 100 mls/hr IVPB Q8H-IV [facility]; Protocol Last Admin: 12/27/19 09:36 Dose: 100 mls/hr Potassium Phosphate 15 mm/ (Sodium Chloride) 255 mls @ 62.5 mls/hr IVPB ONCE ONE Stop: 12/27/19 13:34 Last Admin: 12/27/19 11:04 Dose: 62.5 mls/hr Lactobacillus Acidophilus (Bacid -) 1 tab PO DAILY [facility] Last Admin: 12/27/19 09:36 Dose: 1 tab Levothyroxine Sodium (Synthroid -) 100 mcg PO ACBK [facility] Last Admin: 12/27/19 06:28 Dose: 100 mcg Nystatin (Mycostatin Cream -) 1 applic TP BID [facility] Last Admin: 12/27/19 09:37 Dose: 1 applic Gen: Drowsy, NAD at rest Heart: RRR Lung: decreased breath sounds at the bases Abd: soft, nontender Ext: no edema Laboratory Results - last 24 hr 12/25/19 12/27/19 12/27/19 11:40 06:50 06:50 WBC 6.8 RBC 3.29 L Hgb 10.0 L Hct 30.1 L MCV 91.4 MCH 30.3 MCHC 33.1 RDW 20.6 H Plt Count 232 MPV 7.9 Sodium 145 Potassium 3.8 Chloride 109 H Carbon Dioxide 31 Anion Gap 4 L BUN 22.6 H Creatinine 1.0 Est GFR (CKD-EPI)AfAm 59.49 Est GFR (CKD-EPI)NonAf 51.33 Random Glucose 92 Calcium 8.1 L Phosphorus 1.9 L Magnesium 2.3 Fluid Glucose 120 Fluid Total Protein 1.8 Fluid Albumin 0.9 Body Fluid LDH Source 61 Fluid Amylase 26 Fluid Triglycerides 14 Problem List - Problems (1) Pleural effusion Code(s): J90 - PLEURAL EFFUSION, NOT ELSEWHERE CLASSIFIED (2) Pneumonia Code(s): J18.9 - PNEUMONIA, UNSPECIFIED ORGANISM Qualifiers: Pneumonia type: due to unspecified organism Laterality: left Lung location: unspecified part of lung Qualified Code(s): J18.9 - Pneumonia, unspecified organism A/P r/o Pneumonia Acute on Chronic Diastolic Heart Failure Pleural Effusions +Troponins likely Demand Ischemia HTN Hypothyoridism Dementia h/o ICH - f/u cultures, cytology - empiric antibiotics - O2 to keep SpO2 >90% - PO as tolerated - aspiration precautions - rate control - DVT prophylaxis Dr Levy
--- NOTE | 2019-12-27 15:57 | PATH ---
Cytology Non-Gynecological Report Patient Name: ASHU CORDON Med. Rec. #: [id number] /Age/Gender: 1935 (Age: 84) / F Account: [id number] Location: 4 TELEMETRY U Taken: 12/25/2019 Received: 12/26/2019 Reported: 12/27/2019 Physicians: Samantha Lee M.D. Specimen(s) Received A: PLEURAL FLUID B: PLEURAL FLUID Clinical History Pleural effusion Final Diagnosis A-B. PLEURAL FLUID, THORACENTESIS: SATISFACTORY FOR EVALUATION NO MALIGNANT CELLS IDENTIFIED. MESOTHELIAL CELLS, MACROPHAGES, AND FEW LYMPHOCYTES PRESENT. Electronically Signed Aleksandra Do M.D. Gross Description A. Approximately 50 cc of yellow fluid received fixed in 50% alcohol. One cytofunnel prepared and Pap stained. One cellblock prepared. B. Approximately 1000 cc of yellow fluid received fresh. One cytofunnel prepared and Pap stained. One cellblock prepared.
--- NOTE | 2019-12-27 17:43 | PN ---
Physical Exam: SUBJECTIVE: Patient seen and examined NAEON Irritable OBJECTIVE: Vital Signs Period Temp Pulse Resp BP Sys/Magana Pulse Ox Last 24 Hr 97.4 F-98 F 65-85 17-20 104-152/58-87 98-99 GENERAL: The patient is somnolent, nonverbal no acute distress. HEAD: Normal with no signs of trauma. Moderate temporal wasting EYES: sclera anicteric, conjunctiva clear. No ptosis. ENT: Ears normal, nares patent, oropharynx clear without exudates, dry mucous membranes. NECK: Trachea midline, supple. LUNGS: Decreased BS to Left lung, mild crackles of left-side w/ mild wheezes, no accessory muscle use. On 2L NC HEART: Regular rate and rhythm, S1, S2 without murmur, rub or gallop. ABDOMEN: Soft, nontender, nondistended, normoactive bowel sounds, no guarding, no rebound. EXTREMITIES: 2+ pulses, warm, well-perfused, no edema. NEUROLOGICAL: Not responding to questioning, withdrawing to painful stimuli SKIN: Warm, dry, normal turgor, no rashes or lesions noted Laboratory Results - last 24 hr 12/27/19 12/27/19 06:50 06:50 WBC 6.8 RBC 3.29 L Hgb 10.0 L Hct 30.1 L MCV 91.4 MCH 30.3 MCHC 33.1 RDW 20.6 H Plt Count 232 MPV 7.9 Sodium 145 Potassium 3.8 Chloride 109 H Carbon Dioxide 31 Anion Gap 4 L BUN 22.6 H Creatinine 1.0 Est GFR (CKD-EPI)AfAm 59.49 Est GFR (CKD-EPI)NonAf 51.33 Random Glucose 92 Calcium 8.1 L Phosphorus 1.9 L Magnesium 2.3 Active Medications Generic Name Dose Route Start Last Admin Trade Name Freq PRN Reason Stop Dose Admin Acetaminophen 650 mg 12/23/19 17:09 Tylenol - PO Q6H PRN FEVER Atorvastatin Calcium 10 mg 12/23/19 22:00 12/26/19 21:18 Lipitor - PO 10 mg HS EFRAÍN Administration Carvedilol 6.25 mg 12/23/19 22:00 12/27/19 09:37 Coreg - PO 6.25 mg BID EFRAÍN Administration Escitalopram Oxalate 5 mg 12/24/19 10:00 12/27/19 09:36 Lexapro - PO 5 mg DAILY EFRAÍN Administration Heparin Sodium (Porcine) 5,000 unit 12/23/19 22:00 12/27/19 15:22 Heparin - SQ Not Given TID EFRAÍN Piperacillin Sod/Tazobactam 50 mls @ 100 mls/hr 12/23/19 18:00 12/27/19 17:20 Sod 3.375 gm/ Dextrose IVPB 100 mls/hr Q8H-IV EFRAÍN Administration Protocol Lactobacillus Acidophilus 1 tab 12/24/19 10:00 12/27/19 09:36 Bacid - PO 1 tab DAILY EFRAÍN Administration Levothyroxine Sodium 100 mcg 12/24/19 07:00 12/27/19 06:28 Synthroid - PO 100 mcg ACBK EFRAÍN Administration Nystatin 1 applic 12/23/19 22:00 12/27/19 09:37 Mycostatin Cream - TP 1 applic BID EFRAÍN Administration ASSESSMENT/PLAN: 84F w/ PMHX. of HTN, Hypothyroidism, dementia, A. Fib, and R. intracranial hemmorrhage (2010, no residual deficits) presents from [facility] for increasing oxygen requirement after recent LLL PNA. Admitted for recurrent PNA. Imaging showing a significant Left-sided pleural effusion. S/p thoracentesis(12/25/19) # recurrent PNA w/ Left-sided effusion --possibly 2/2 aspiration PNA - s/p thoracentesis(12/25/19) - s/p ~3 days of Levaquin at [facility] > thoracentesis studies: > gram stain --pending > cytology --pending > pleural fluid: glucose 120, total protein 1.8, Alb 0.9, LDH 61, Amylase 26 , TG 14 > CMP: glucose 88, Alb 2.3, LDH 226 - abx regimen: --zosyn --day 5 > CXR: L. pleural effusion, cannot r/o LLL pneumonia or atelectasis > CT chest: mod Left-sided and small Right-sided pleural effusion, bibasilar compressive atelectasis, 1.5 x 0.4cm nonspecific nodule of RML > ID(James) Consult --cw abx --fu thoracentesis > Pulm(Bob) Consult --diagnostic thoracentesis Supplemental O2 as needed # AMS --likely 2/2 sepsis - S&S(Lita) eval: --dysphagia pureed, nectar thick # Tropninemia > EKG unchanged from last admission, prolonged QTc: 471, Wide QRS, Afib 78 bpm > troponin: 0.39, 0.47, 0.44, 0.37, 0.38, 0.39 - tele # AFib - No A/C d/t recurrent falls #HFpEF - coreg #HTN - cw coreg - held HCTZ #Hypothyroidism - cw levothyroxin #HLD - cw atorvastatin #Depression - cw escitalopram #FEN - dysphagia diet with nectar-thick --> chopped w/ extra gravy, thin liquid #DVT Ppx. SCDs given Hx #Dispo - tele - DNR, but can intubate Visit type - Emergency Visit Emergency Visit: No - New Patient This patient is new to me today: No - Critical Care Critical Care patient: No ATTENDING PHYSICIAN STATEMENT I saw and evaluated the patient. I reviewed the resident's note and discussed the case with the resident. I agree with the resident's findings and plan as documented. SUBJECTIVE: OBJECTIVE: ASSESSMENT AND PLAN:
[2019-12-27] MEDS: ATORVASTATIN CA 10 MG TABLET (FP) PO SCH (21:42)
[2019-12-28] MEDS ORDERED: DEXTROSE 5%-WATER - 50 ML IVPB ONE ×3 (00:53→17:21)
[2019-12-28] MEDS ORDERED: PIPERACILLIN/TAZOBACTAM 3.375 GM VIAL IVPB ONE ×3 (00:53→17:21)
[2019-12-28] MEDS: PIPERACILLIN/TAZOB 3.375 GM 3.375 GM in DEXTROSE 5%-WATER - 50 ML IVPB SCH ×3 (02:14→17:31)
[2019-12-28] MEDS: HEPARIN NA (PORCINE) 5,000 UNITS/ML 1ML VIAL SQ SCH ×3 (06:34→21:48)
[2019-12-28] MEDS: LEVOTHYROXINE NA 100 MCG TABLET (FP) PO SCH (06:37)
[2019-12-28 08:15] LABS: HEMATOCRIT 30.1 % (32.4-45.2); MCH 30.3 pg (25.7-33.7); MCHC 33.1 g/dl (32.0-36.0); MEAN CELL VOLUME 91.7 fl (80-96); MEAN PLT VOLUME 8.1 fl (7.5-11.1); PLATELET COUNT 259 K/MM3 (134-434); RBC 3.28 M/mm3 (3.60-5.2); RDW 20.4 % (11.6-15.6); WHITE BLOOD COUNT 8.1 K/mm3 (4.0-10.0)
[2019-12-28 08:43] LABS: BLOOD UREA NITROGEN 27.4 mg/dL (7-18); CALCIUM 8.3 mg/dL (8.5-10.1); CREATININE 0.9 mg/dL (0.55-1.3); MAGNESIUM 2.4 mg/dL (1.8-2.4); PHOSPHOROUS 2.4 mg/dL (2.5-4.9)
[2019-12-28] MEDS: ESCITALOPRAM OXALATE 10 MG TABLET PO SCH (09:09)
[2019-12-28] MEDS: CARVEDILOL 6.25 MG TABLET (FP) PO SCH ×3 (09:09→21:51)
[2019-12-28] MEDS: NYSTATIN 100,000 UNIT/GM TOPICAL CREAM 15 GM TUBE TP SCH ×2 (09:09→21:49)
[2019-12-28] MEDS: LACTOBACILLUS ACIDOPHILUS 1 TABLET PO SCH (09:09)
--- NOTE | 2019-12-28 11:48 | PN ---
Progress Note, Physician History of Present Illness: MORE RESPONSIVE BREATHING NON-LABORED AFEBRILE S/P THORACENTESIS LOOKS TRANSUDATIVE PRO 1.8 LDH 61 GRAM STAIN, C/S NEGATIVE - Current Medication List Current Medications: Active Medications Acetaminophen (Tylenol -) 650 mg PO Q6H PRN PRN Reason: FEVER Atorvastatin Calcium (Lipitor -) 10 mg PO HS [facility] Last Admin: 12/27/19 21:42 Dose: 10 mg Carvedilol (Coreg -) 6.25 mg PO BID [facility] Last Admin: 12/28/19 09:09 Dose: 6.25 mg Escitalopram Oxalate (Lexapro -) 5 mg PO DAILY [facility] Last Admin: 12/28/19 09:09 Dose: 5 mg Heparin Sodium (Porcine) (Heparin -) 5,000 unit SQ TID [facility] Last Admin: 12/28/19 06:34 Dose: Not Given Piperacillin Sod/Tazobactam (Sod 3.375 gm/ Dextrose) 50 mls @ 100 mls/hr IVPB Q8H-IV [facility]; Protocol Last Admin: 12/28/19 09:03 Dose: 100 mls/hr Lactobacillus Acidophilus (Bacid -) 1 tab PO DAILY [facility] Last Admin: 12/28/19 09:09 Dose: 1 tab Levothyroxine Sodium (Synthroid -) 100 mcg PO ACBK [facility] Last Admin: 12/28/19 06:37 Dose: 100 mcg Nystatin (Mycostatin Cream -) 1 applic TP BID [facility] Last Admin: 12/28/19 09:09 Dose: 1 applic - Objective Vital Signs: Vital Signs Temperature 97.5 F L 12/28/19 02:23 Pulse Rate 82 12/28/19 02:23 Respiratory Rate 18 12/28/19 02:23 Blood Pressure 118/75 12/28/19 02:23 O2 Sat by Pulse Oximetry (%) 94 L 12/27/19 20:22 Constitutional: Yes: No Distress Eyes: Yes: Conjunctiva Clear Cardiovascular: Yes: Regular Rate and Rhythm, S1, S2 Respiratory: Yes: Diminished Gastrointestinal: Yes: Normal Bowel Sounds, Soft. No: Tenderness Edema: No Labs: CBC, BMP 12/28/19 06:12 12/28/19 06:12 INR, PTT INR 1.21 (0.83-1.09) H 12/23/19 09:20 Assessment/Plan RECURRENT L PARAPNEUMONIC EFFUSION R/O PNEUMONIA S/P THORACENTESIS TRANSUDATIVE CONTINUE ZOSYN AWAIT C/S
--- NOTE | 2019-12-28 12:40 | PN ---
Progress Note (short form) - Note Progress Note: Patient is awake, and family at bedside. looks comfortable Vital Signs Temperature 97.5 F L 12/28/19 02:23 Pulse Rate 82 12/28/19 02:23 Respiratory Rate 18 12/28/19 02:23 Blood Pressure 118/75 12/28/19 02:23 O2 Sat by Pulse Oximetry (%) 94 L 12/27/19 20:22 GENERAL: The patient is mildly confused unable to fully assess, but in no acute distress. HEAD: Normal with no signs of trauma. EYES: PERRL, extraocular movements intact, sclera anicteric, conjunctiva clear. ENT: Ears normal, oropharynx clear without exudates, moist mucous membranes. NECK: Trachea midline, full range of motion, supple. LUNGS: decreased BS BL , no wheezes, no crackles, no accessory muscle use. HEART: irRegular-irregular rate controlled, S1, S2 +, DUKE 2/6 , no rub or gallop. ABDOMEN: Soft, NT,ND, normoactive bowel sounds, no guarding, no rebound, no hepatosplenomegaly, no masses. EXTREMITIES: 2+ pulses, warm, well-perfused, no edema. NEUROLOGICAL: Cranial nerves II through XII grossly intact. gait not observed. SKIN: Warm, dry, normal turgor, no rashes or lesions noted CBCD WBC 8.1 K/mm3 (4.0-10.0) 12/28/19 06:12 RBC 3.28 M/mm3 (3.60-5.2) L 12/28/19 06:12 Hgb 10.0 GM/dL (10.7-15.3) L 12/28/19 06:12 Hct 30.1 % (32.4-45.2) L 12/28/19 06:12 MCV 91.7 fl (80-96) 12/28/19 06:12 MCHC 33.1 g/dl (32.0-36.0) 12/28/19 06:12 RDW 20.4 % (11.6-15.6) H 12/28/19 06:12 Plt Count 259 K/MM3 (134-434) 12/28/19 06:12 MPV 8.1 fl (7.5-11.1) 12/28/19 06:12 CMP Sodium 146 mmol/L (136-145) H 12/28/19 06:12 Potassium 4.0 mmol/L (3.5-5.1) 12/28/19 06:12 Chloride 111 mmol/L (98-107) H 12/28/19 06:12 Carbon Dioxide 29 mmol/L (21-32) 12/28/19 06:12 Anion Gap 6 MMOL/L (8-16) L 12/28/19 06:12 BUN 27.4 mg/dL (7-18) H 12/28/19 06:12 Creatinine 0.9 mg/dL (0.55-1.3) 12/28/19 06:12 Random Glucose 86 mg/dL (74-106) 12/28/19 06:12 Calcium 8.3 mg/dL (8.5-10.1) L 12/28/19 06:12 Total Bilirubin 0.9 mg/dL (0.2-1) 12/24/19 06:05 AST 16 U/L (15-37) 12/24/19 06:05 ALT 21 U/L (13-61) 12/24/19 06:05 Alkaline Phosphatase 74 U/L (45-117) 12/24/19 06:05 Total Protein 5.8 g/dl (6.4-8.2) L 12/24/19 06:05 Albumin 2.3 g/dl (3.4-5.0) L 12/26/19 06:22 CARDIAC ENZYMES Creatine Kinase 25 U/L (26-192) L 12/23/19 16:40 Troponin I 0.35 ng/ml (0.00-0.05) H 12/24/19 21:05 Home Medications Medication Instructions Recorded Acetaminophen [Tylenol .Regular 650 mg PO Q6H PRN 12/13/19 Strength -] Albuterol 0.083% Nebulizer Debra 1 neb NEB TID 12/13/19 [Ventolin 0.083% Nebulizer Soln -] Ascorbic Acid [Vitamin C] 1,000 mg PO DAILY 12/13/19 Atorvastatin Ca [Lipitor] 10 mg PO HS 12/13/19 Calcium Carb/Vitamin D3/Vit K1 1 each PO DAILY 12/13/19 [Calcium + D Soft Chewable Tab] Carvedilol [Coreg -] 6.25 mg PO BID 12/13/19 Cholecalciferol (Vitamin D3) 2,000 unit PO DAILY 12/13/19 [Vitamin D -] Escitalopram Oxalate [Lexapro -] 5 mg PO DAILY 12/13/19 Hydrochlorothiazide 12.5 mg PO ASDIR 12/13/19 Ipratropium 0.02% Nebulizer 1 neb NEB QID 12/13/19 [Atrovent 0.02% Nebulizer -] Levothyroxine [Synthroid -] 100 mcg PO DAILY 12/13/19 Multivitamin [Multiple Vitamins] 1 each PO DAILY 12/13/19 Nystatin 1 applic TP BID 12/13/19 Guaifenesin/Dextromethorphan 10 ml PO QID 12/23/19 [Robitussin Cough-Chest Dm Liq] Levofloxacin [Levaquin] 500 mg PO BID 12/23/19 Saccharomyces Boulardii [Florastor] 250 mg PO BID 12/23/19 Current Medications Generic Name Dose Route Start Last Admin Trade Name Freq PRN Reason Stop Dose Admin Acetaminophen 650 mg 12/23/19 17:09 Tylenol - PO Q6H PRN FEVER Atorvastatin Calcium 10 mg 12/23/19 22:00 12/27/19 21:42 Lipitor - PO 10 mg HS EFRAÍN Administration Carvedilol 6.25 mg 12/23/19 22:00 12/28/19 09:09 Coreg - PO 6.25 mg BID EFRAÍN Administration Escitalopram Oxalate 5 mg 12/24/19 10:00 12/28/19 09:09 Lexapro - PO 5 mg DAILY EFRAÍN Administration Heparin Sodium (Porcine) 5,000 unit 12/23/19 22:00 12/28/19 06:34 Heparin - SQ Not Given TID EFRAÍN Piperacillin Sod/Tazobactam 50 mls @ 100 mls/hr 12/23/19 18:00 12/28/19 09:03 Sod 3.375 gm/ Dextrose IVPB 100 mls/hr Q8H-IV EFRAÍN Administration Protocol Lactobacillus Acidophilus 1 tab 12/24/19 10:00 12/28/19 09:09 Bacid - PO 1 tab DAILY EFRAÍN Administration Levothyroxine Sodium 100 mcg 12/24/19 07:00 12/28/19 06:37 Synthroid - PO 100 mcg ACBK EFRAÍN Administration Nystatin 1 applic 12/23/19 22:00 12/28/19 09:09 Mycostatin Cream - TP 1 applic BID EFRAÍN Administration Microbiology 12/23/19 09:20 Blood - Peripheral Venous Blood Culture - Preliminary NO GROWTH OBTAINED AFTER 24 HOURS, INCUBATION TO CONTINUE FOR 4 DAYS. 12/23/19 09:20 Blood - Peripheral Venous Blood Culture - Preliminary NO GROWTH OBTAINED AFTER 24 HOURS, INCUBATION TO CONTINUE FOR 4 DAYS. MBS: trial of chopped diet with extra gravy. Food may need to be mashed. Thin liquid Dietary consult to review patient's dietary requests . CXR repeat: large heart with unfolded aorta and Degenerative spine and shoulder changes. left base has become denser compatible with fluid, atelectasis and or infiltrate, with mild congestion ASSESSMENT AND PLAN: Patient is an 84yof with PMHx of ICH, dementia, Falls, A fib, HTN, hypothyroidism, who presented from [facility] with increased O2 requirements. # Recurrent PNA with effusion s/p thoracocentesis by IR , cont Zosyn ,as per ID , fluid is transudative , pulm/id on the case # s/p Thoracocentesis with b/l Pleural effusions L > R. CT with ground glass opacities in lungs. # Elevated trop:flat trend. monitor # H/o A fib : cont coreg. Not on any AC due to falls and h/o ICH and hx of epistaxis # Hypothyroidism: cont synthroid. # H/x depression: cont Lexapro DNR only. as per who is the proxy Visit type - Emergency Visit Emergency Visit: Yes ED Registration Date: 12/23/19 Care time: The patient presented to the Emergency Department on the above date and was hospitalized for further evaluation of their emergent condition. - New Patient This patient is new to me today: No - Critical Care Critical Care patient: No - Discharge Referral Referred to [facility] Med P.C.: No
[2019-12-28] MEDS ORDERED: FUROSEMIDE 40 MG/4 ML INJECTABLE VIAL IVPUSH ONE (14:51)
--- NOTE | 2019-12-28 14:51 | PN ---
Progress Note (short form) - Note Progress Note: PULMONARY Pleural fluid consistent with transudate. Pt somnolent but arousable. Vital Signs Period Temp Pulse Resp BP Sys/Magana Pulse Ox Last 24 Hr 97.2 F-97.5 F 77-86 18-20 112-137/53-97 94-96 Gen: NAD at rest Heart: RRR Lung: decreased breath sounds at the bases Abd: soft, nontender Ext: no edema CBC, BMP 12/28/19 06:12 12/28/19 06:12 Active Medications Acetaminophen (Tylenol -) 650 mg PO Q6H PRN PRN Reason: FEVER Atorvastatin Calcium (Lipitor -) 10 mg PO HS [facility] Last Admin: 12/27/19 21:42 Dose: 10 mg Carvedilol (Coreg -) 6.25 mg PO BID [facility] Last Admin: 12/28/19 09:09 Dose: 6.25 mg Escitalopram Oxalate (Lexapro -) 5 mg PO DAILY [facility] Last Admin: 12/28/19 09:09 Dose: 5 mg Heparin Sodium (Porcine) (Heparin -) 5,000 unit SQ TID [facility] Last Admin: 12/28/19 14:35 Dose: Not Given Piperacillin Sod/Tazobactam (Sod 3.375 gm/ Dextrose) 50 mls @ 100 mls/hr IVPB Q8H-IV [facility]; Protocol Last Admin: 12/28/19 09:03 Dose: 100 mls/hr Lactobacillus Acidophilus (Bacid -) 1 tab PO DAILY [facility] Last Admin: 12/28/19 09:09 Dose: 1 tab Levothyroxine Sodium (Synthroid -) 100 mcg PO ACBK [facility] Last Admin: 12/28/19 06:37 Dose: 100 mcg Nystatin (Mycostatin Cream -) 1 applic TP BID [facility] Last Admin: 12/28/19 09:09 Dose: 1 applic A/P Acute on Chronic Diastolic Heart Failure Pleural Effusions +Troponins likely Demand Ischemia HTN Hypothyoridism Dementia h/o ICH - trial of lasix - monitor urine output, creatinine - f/u pleural fluid cytology - on empiric antibiotics - O2 to keep SpO2 >90% - PO as tolerated - aspiration precautions - rate control - DVT prophylaxis Problem List - Problems (1) Pleural effusion Code(s): J90 - PLEURAL EFFUSION, NOT ELSEWHERE CLASSIFIED (2) Pneumonia Code(s): J18.9 - PNEUMONIA, UNSPECIFIED ORGANISM Qualifiers: Pneumonia type: due to unspecified organism Laterality: left Lung location: unspecified part of lung Qualified Code(s): J18.9 - Pneumonia, unspecified organism
[2019-12-28] MEDS: ATORVASTATIN CA 10 MG TABLET (FP) PO SCH (21:48)
[2019-12-29] MEDS ORDERED: DEXTROSE 5%-WATER - 50 ML IVPB ONE ×3 (01:05→17:21)
[2019-12-29] MEDS ORDERED: PIPERACILLIN/TAZOBACTAM 3.375 GM VIAL IVPB ONE ×3 (01:05→17:21)
[2019-12-29] MEDS: PIPERACILLIN/TAZOB 3.375 GM 3.375 GM in DEXTROSE 5%-WATER - 50 ML IVPB SCH ×3 (01:26→17:25)
[2019-12-29] MEDS: LEVOTHYROXINE NA 100 MCG TABLET (FP) PO SCH (08:00)
[2019-12-29] MEDS ORDERED: SODIUM CHLORIDE NASAL SPRAY 44 ML BOTTLE NS PRN (08:53)
[2019-12-29] MEDS: HEPARIN NA (PORCINE) 5,000 UNITS/ML 1ML VIAL SQ SCH ×3 (08:58→22:36)
--- NOTE | 2019-12-29 09:30 | PN ---
Physical Exam: SUBJECTIVE: Patient seen and examined at bedside. Minimally responsive. OBJECTIVE: Vital Signs Period Temp Pulse Resp BP Sys/Magana Pulse Ox Last 24 Hr 97.2 F-98.3 F 52-83 20-20 103-133/53-72 96-96 GENERAL: The patient is somnolent, nonverbal. No acute distress. HEAD: Normal with no signs of trauma. Temporal wasting noted. EYES: Sclera anicteric, conjunctiva clear. ENT:Ooropharynx clear without exudates, Dry mucous membranes. NECK: Trachea midline, supple without lymphadnopathy. LUNGS: Decreased bibasilar breath sounds. No accessory muscle use. On 2L nasasl [place] HEART: Regular rate and rhythm, S1, S2 without murmur, rub or gallop. ABDOMEN: Soft, nontender, nondistended, normoactive bowel sounds. EXTREMITIES: 2+ radial, DP pulses, warm, well-perfused. No edema. NEUROLOGICAL: Somnolent, withdrawing to painful stimuli. SKIN: Warm, dry. Active Medications Generic Name Dose Route Start Last Admin Trade Name Freq PRN Reason Stop Dose Admin Acetaminophen 650 mg 12/23/19 17:09 Tylenol - PO Q6H PRN FEVER Atorvastatin Calcium 10 mg 12/23/19 22:00 12/28/19 21:48 Lipitor - PO 10 mg HS [facility]N Administration Carvedilol 6.25 mg 12/23/19 22:00 12/28/19 21:51 Coreg - PO Not Given BID EFRAÍN Escitalopram Oxalate 5 mg 12/24/19 10:00 12/28/19 09:09 Lexapro - PO 5 mg DAILY [facility] Administration Heparin Sodium (Porcine) 5,000 unit 12/23/19 22:00 12/29/19 08:58 Heparin - SQ Not Given TID EFRAÍN Piperacillin Sod/Tazobactam 50 mls @ 100 mls/hr 12/23/19 18:00 12/29/19 01:26 Sod 3.375 gm/ Dextrose IVPB 100 mls/hr Q8H-IV [facility] Administration Protocol Lactobacillus Acidophilus 1 tab 12/24/19 10:00 12/28/19 09:09 Bacid - PO 1 tab DAILY [facility] Administration Levothyroxine Sodium 100 mcg 12/24/19 07:00 12/29/19 08:00 Synthroid - PO 100 mcg ACBK EF[facility] Administration Nystatin 1 applic 12/23/19 22:00 12/28/19 21:49 Mycostatin Cream - TP 1 applic BID EFRA[facility]N Administration Sodium Chloride 2 spray 12/29/19 08:53 [place] Nasal [place] - NS BID PRN NASAL CONGESTION ASSESSMENT/PLAN: Patient is an 84 year old female with history of dementia, right intracranial hemorrhagic stroke, hypertension, hypothyroidism, Afib, presents with complaint of shortness of breath. Recurrent pneumonia with left sided effusion -s/p thoracentesis(12/25/19); transudative effusion - CT chest reveals moderate left sided and small right sided pleural effusions, bibasilar compressive atelectasis. 1.5 x 0.4cm nonspecific nodule on right middle lobe noted. -Zosyn 3.375 grams Q8 hours IV. Day #7 -Lasix 20mg IV PUSH (day #2 trial of Lasix) - ID consult appreciated - Pulmonology consult appreciated Tropninemia -EKG reveals Afib at 78 bpm. Unchanged from prior admission. -Troponin peaked at 0.47. Likely demand ischemia - Continue telemetry monitoring AFib -Not on anticoagulation due to history of recurrent falls -Currently rate controlled. Continue Coreg. HFpEF, Hypertension -Continue Coreg -HCTZ held in setting of sepsis. Hypothyroidism -Continue Levothyroxin Hyperlipidemia -Continue Atorvastatin Depression -Continue Escitalopram FEN -No IV fluids indicated -Follow BMP -Chopped diet w/ extra gravy, thin liquids Prophylaxis -SCDs bilateral lower extremities Disposition Continue care in Telemetry floor Patient is DNR Visit type - Emergency Visit Emergency Visit: Yes ED Registration Date: 12/23/19 Care time: The patient presented to the Emergency Department on the above date and was hospitalized for further evaluation of their emergent condition. - New Patient This patient is new to me today: Yes Date on this admission: 12/29/19 - Critical Care Critical Care patient: No - Discharge Referral Referred to [facility] No ATTENDING PHYSICIAN STATEMENT I saw and evaluated the patient. I reviewed the resident's note and discussed the case with the resident. I agree with the resident's findings and plan as documented. SUBJECTIVE: OBJECTIVE: ASSESSMENT AND PLAN:
[2019-12-29] MEDS ORDERED: NAPH,MB-DB/K PH,MBDB POWDER PACKET PO ONE (10:00)
[2019-12-29] MEDS: CARVEDILOL 6.25 MG TABLET (FP) PO SCH ×2 (10:20→22:42)
[2019-12-29] MEDS: ESCITALOPRAM OXALATE 10 MG TABLET PO SCH (10:20)
[2019-12-29] MEDS: LACTOBACILLUS ACIDOPHILUS 1 TABLET PO SCH (10:21)
[2019-12-29] MEDS: NYSTATIN 100,000 UNIT/GM TOPICAL CREAM 15 GM TUBE TP SCH ×2 (13:14→22:41)
[2019-12-29] MEDS ORDERED: FUROSEMIDE 40 MG/4 ML INJECTABLE VIAL IVPUSH ONE (13:27)
--- NOTE | 2019-12-29 13:27 | PN ---
Progress Note (short form) - Note Progress Note: PULMONARY Pt somnolent but arousable. Vital Signs Period Temp Pulse Resp BP Sys/Magana Pulse Ox Last 24 Hr 97.4 F-98.3 F 52-83 20-20 103-131/53-90 96-96 Intake & Output 12/26/19 12/27/19 12/28/19 12/29/19 23:59 23:59 23:59 23:59 Intake Total 360 565 565 170 Output Total 100 Balance 360 465 565 170 Weight 57.153 kg 56.971 kg Gen: NAD at rest Heart: RRR Lung: decreased breath sounds at the bases Abd: soft, nontender Ext: no edema CBC, BMP 12/28/19 06:12 12/28/19 06:12 Active Medications Acetaminophen (Tylenol -) 650 mg PO Q6H PRN PRN Reason: FEVER Atorvastatin Calcium (Lipitor -) 10 mg PO HS [facility] Last Admin: 12/28/19 21:48 Dose: 10 mg Carvedilol (Coreg -) 6.25 mg PO BID [facility] Last Admin: 12/29/19 10:20 Dose: 6.25 mg Escitalopram Oxalate (Lexapro -) 5 mg PO DAILY [facility] Last Admin: 12/29/19 10:20 Dose: 5 mg Heparin Sodium (Porcine) (Heparin -) 5,000 unit SQ TID [facility] Last Admin: 12/29/19 13:14 Dose: Not Given Piperacillin Sod/Tazobactam (Sod 3.375 gm/ Dextrose) 50 mls @ 100 mls/hr IVPB Q8H-IV [facility]; Protocol Last Admin: 12/29/19 10:20 Dose: 100 mls/hr Lactobacillus Acidophilus (Bacid -) 1 tab PO DAILY [facility] Last Admin: 12/29/19 10:21 Dose: 1 tab Levothyroxine Sodium (Synthroid -) 100 mcg PO ACBK [facility] Last Admin: 12/29/19 08:00 Dose: 100 mcg Nystatin (Mycostatin Cream -) 1 applic TP BID [facility] Last Admin: 12/29/19 13:14 Dose: 1 applic Sodium Chloride ([place] Nasal [place] -) 2 spray NS BID PRN PRN Reason: NASAL CONGESTION A/P Acute on Chronic Diastolic Heart Failure Pleural Effusions +Troponins likely Demand Ischemia HTN Hypothyoridism Dementia h/o ICH - trial of lasix - monitor urine output, creatinine - repeat CXR in AM - f/u pleural fluid cytology - on empiric antibiotics - O2 to keep SpO2 >90% - PO as tolerated - aspiration precautions - rate control - DVT prophylaxis Problem List - Problems (1) Pleural effusion Code(s): J90 - PLEURAL EFFUSION, NOT ELSEWHERE CLASSIFIED (2) Pneumonia Code(s): J18.9 - PNEUMONIA, UNSPECIFIED ORGANISM Qualifiers: Pneumonia type: due to unspecified organism Laterality: left Lung location: unspecified part of lung Qualified Code(s): J18.9 - Pneumonia, unspecified organism
--- NOTE | 2019-12-29 17:09 | PN ---
Progress Note, Physician History of Present Illness: LETHARGIC IN BED DEVELOPED EPISTAXIS BREATHING NON-LABORED AFEBRILE S/P THORACENTESIS C/S NEGATIVE - Current Medication List Current Medications: Active Medications Acetaminophen (Tylenol -) 650 mg PO Q6H PRN PRN Reason: FEVER Atorvastatin Calcium (Lipitor -) 10 mg PO HS [facility] Last Admin: 12/28/19 21:48 Dose: 10 mg Carvedilol (Coreg -) 6.25 mg PO BID [facility] Last Admin: 12/29/19 10:20 Dose: 6.25 mg Escitalopram Oxalate (Lexapro -) 5 mg PO DAILY [facility] Last Admin: 12/29/19 10:20 Dose: 5 mg Heparin Sodium (Porcine) (Heparin -) 5,000 unit SQ TID [facility] Last Admin: 12/29/19 13:14 Dose: Not Given Piperacillin Sod/Tazobactam (Sod 3.375 gm/ Dextrose) 50 mls @ 100 mls/hr IVPB Q8H-IV [facility]; Protocol Last Admin: 12/29/19 10:20 Dose: 100 mls/hr Lactobacillus Acidophilus (Bacid -) 1 tab PO DAILY [facility] Last Admin: 12/29/19 10:21 Dose: 1 tab Levothyroxine Sodium (Synthroid -) 100 mcg PO ACBK [facility] Last Admin: 12/29/19 08:00 Dose: 100 mcg Nystatin (Mycostatin Cream -) 1 applic TP BID [facility] Last Admin: 12/29/19 13:14 Dose: 1 applic Sodium Chloride ([place] Nasal [place] -) 2 spray NS BID PRN PRN Reason: NASAL CONGESTION - Objective Vital Signs: Vital Signs Temperature 97.4 F L 12/29/19 16:12 Pulse Rate 76 12/29/19 16:12 Respiratory Rate 20 12/29/19 09:04 Blood Pressure 95/57 L 12/29/19 16:12 O2 Sat by Pulse Oximetry (%) 96 12/29/19 09:04 Constitutional: Yes: No Distress Cardiovascular: Yes: Regular Rate and Rhythm Respiratory: Yes: Diminished Gastrointestinal: Yes: Normal Bowel Sounds, Soft Edema: No Labs: CBC, BMP 12/28/19 06:12 12/28/19 06:12 INR, PTT INR 1.21 (0.83-1.09) H 12/23/19 09:20 Assessment/Plan RECURRENT L PARAPNEUMONIC EFFUSION R/O PNEUMONIA S/P THORACENTESIS TRANSUDATIVE CONTINUE ZOSYN DISCUSSED WITH AT BEDSIDE
--- NOTE | 2019-12-29 18:45 | PN ---
Teaching Attending Note Name of Resident: Aneesh Gordon ATTENDING PHYSICIAN STATEMENT I saw and evaluated the patient. I reviewed the resident's note and discussed the case with the resident. I agree with the resident's findings and plan as documented. SUBJECTIVE: Patient is comfortable with no acute distress. lying in bed the at bedside. Vital Signs Temperature 97.4 F L 12/29/19 16:12 Pulse Rate 76 12/29/19 16:12 Respiratory Rate 20 12/29/19 09:04 Blood Pressure 95/57 L 12/29/19 16:12 O2 Sat by Pulse Oximetry (%) 96 12/29/19 09:04 GENERAL: The patient is mildly confused unable to fully assess, but in no acute distress. HEAD: Normal with no signs of trauma. EYES: PERRL, extraocular movements intact, sclera anicteric, conjunctiva clear. ENT: Ears normal, oropharynx clear without exudates, moist mucous membranes. NECK: Trachea midline, full range of motion, supple. LUNGS: decreased BS BL , no wheezes, no crackles, no accessory muscle use. HEART: irRegular-irregular rate controlled, S1, S2 +, [place] 2/6 , no rub or gallop. ABDOMEN: Soft, NT,ND, normoactive bowel sounds, no guarding, no rebound, no hepatosplenomegaly, no masses. EXTREMITIES: 2+ pulses, warm, well-perfused, no edema. NEUROLOGICAL: Cranial nerves II through XII grossly intact. gait not observed. SKIN: Warm, dry, normal turgor, no rashes or lesions noted CBCD WBC 8.1 K/mm3 (4.0-10.0) 12/28/19 06:12 RBC 3.28 M/mm3 (3.60-5.2) L 12/28/19 06:12 Hgb 10.0 GM/dL (10.7-15.3) L 12/28/19 06:12 Hct 30.1 % (32.4-45.2) L 12/28/19 06:12 MCV 91.7 fl (80-96) 12/28/19 06:12 MCHC 33.1 g/dl (32.0-36.0) 12/28/19 06:12 RDW 20.4 % (11.6-15.6) H 12/28/19 06:12 Plt Count 259 K/MM3 (134-434) 12/28/19 06:12 MPV 8.1 fl (7.5-11.1) 12/28/19 06:12 CMP Sodium 146 mmol/L (136-145) H 12/28/19 06:12 Potassium 4.0 mmol/L (3.5-5.1) 12/28/19 06:12 Chloride 111 mmol/L (98-107) H 12/28/19 06:12 Carbon Dioxide 29 mmol/L (21-32) 12/28/19 06:12 Anion Gap 6 MMOL/L (8-16) L 12/28/19 06:12 BUN 27.4 mg/dL (7-18) H 12/28/19 06:12 Creatinine 0.9 mg/dL (0.55-1.3) 12/28/19 06:12 Random Glucose 86 mg/dL (74-106) 12/28/19 06:12 Calcium 8.3 mg/dL (8.5-10.1) L 12/28/19 06:12 Total Bilirubin 0.9 mg/dL (0.2-1) 12/24/19 06:05 AST 16 U/L (15-37) 12/24/19 06:05 ALT 21 U/L (13-61) 12/24/19 06:05 Alkaline Phosphatase 74 U/L (45-117) 12/24/19 06:05 Total Protein 5.8 g/dl (6.4-8.2) L 12/24/19 06:05 Albumin 2.3 g/dl (3.4-5.0) L 12/26/19 06:22 CARDIAC ENZYMES Creatine Kinase 25 U/L (26-192) L 12/23/19 16:40 Troponin I 0.35 ng/ml (0.00-0.05) H 12/24/19 21:05 Current Medications Generic Name Dose Route Start Last Admin Trade Name Freq PRN Reason Stop Dose Admin Acetaminophen 650 mg 12/23/19 17:09 Tylenol - PO Q6H PRN FEVER Atorvastatin Calcium 10 mg 12/23/19 22:00 12/28/19 21:48 Lipitor - PO 10 mg HS EFRAÍN Administration Carvedilol 6.25 mg 12/23/19 22:00 12/29/19 10:20 Coreg - PO 6.25 mg BID EFRAÍN Administration Escitalopram Oxalate 5 mg 12/24/19 10:00 12/29/19 10:20 Lexapro - PO 5 mg DAILY EF[facility]ÍN Administration Heparin Sodium (Porcine) 5,000 unit 12/23/19 22:00 12/29/19 13:14 Heparin - SQ Not Given TID EF[facility]N Piperacillin Sod/Tazobactam 50 mls @ 100 mls/hr 12/23/19 18:00 12/29/19 17:25 Sod 3.375 gm/ Dextrose IVPB 100 mls/hr Q8H-IV [facility]N Administration Protocol Lactobacillus Acidophilus 1 tab 12/24/19 10:00 12/29/19 10:21 Bacid - PO 1 tab DAILY [facility]N Administration Levothyroxine Sodium 100 mcg 12/24/19 07:00 12/29/19 08:00 Synthroid - PO 100 mcg ACBK [facility]N Administration Nystatin 1 applic 12/23/19 22:00 12/29/19 13:14 Mycostatin Cream - TP 1 applic BID [facility]N Administration Sodium Chloride 2 spray 12/29/19 08:53 [place] Nasal [place] - NS BID PRN NASAL CONGESTION Home Medications Medication Instructions Recorded Acetaminophen [Tylenol .Regular 650 mg PO Q6H PRN 12/13/19 Strength -] Albuterol 0.083% Nebulizer Debra 1 neb NEB TID 12/13/19 [Ventolin 0.083% Nebulizer Soln -] Ascorbic Acid [Vitamin C] 1,000 mg PO DAILY 12/13/19 Atorvastatin Ca [Lipitor] 10 mg PO HS 12/13/19 Calcium Carb/Vitamin D3/Vit K1 1 each PO DAILY 12/13/19 [Calcium + D Soft Chewable Tab] Carvedilol [Coreg -] 6.25 mg PO BID 12/13/19 Cholecalciferol (Vitamin D3) 2,000 unit PO DAILY 12/13/19 [Vitamin D -] Escitalopram Oxalate [Lexapro -] 5 mg PO DAILY 12/13/19 Hydrochlorothiazide 12.5 mg PO ASDIR 12/13/19 Ipratropium 0.02% Nebulizer 1 neb NEB QID 12/13/19 [Atrovent 0.02% Nebulizer -] Levothyroxine [Synthroid -] 100 mcg PO DAILY 12/13/19 Multivitamin [Multiple Vitamins] 1 each PO DAILY 12/13/19 Nystatin 1 applic TP BID 12/13/19 Guaifenesin/Dextromethorphan 10 ml PO QID 12/23/19 [Robitussin Cough-Chest Dm Liq] Levofloxacin [Levaquin] 500 mg PO BID 12/23/19 Saccharomyces Boulardii [Florastor] 250 mg PO BID 12/23/19 Microbiology 12/23/19 09:20 Blood - Peripheral Venous Blood Culture - Preliminary NO GROWTH OBTAINED AFTER 24 HOURS, INCUBATION TO CONTINUE FOR 4 DAYS. 12/23/19 09:20 Blood - Peripheral Venous Blood Culture - Preliminary NO GROWTH OBTAINED AFTER 24 HOURS, INCUBATION TO CONTINUE FOR 4 DAYS. MBS: trial of chopped diet with extra gravy. Food may need to be mashed. Thin liquid Dietary consult to review patient's dietary requests . CXR repeat: large heart with unfolded aorta and Degenerative spine and shoulder changes. left base has become denser compatible with fluid, atelectasis and or infiltrate, with mild congestion ASSESSMENT AND PLAN: Patient is an 84yof with PMHx of ICH, dementia, Falls, A fib, HTN, hypothyroidism, who presented from [facility] with increased O2 requirements. # Recurrent PNA with effusion s/p thoracocentesis by IR , cont Zosyn ,as per ID , fluid is transudative , pulm/id on the case # s/p Thoracocentesis with b/l Pleural effusions L > R. CT with ground glass opacities in lungs. # Elevated trop:flat trend. monitor # H/o A fib : cont coreg. Not on any AC due to falls and h/o ICH and hx of epistaxis # Hypothyroidism: cont synthroid. # H/x depression: cont Lexapro DNR only. as per who is the proxy will discuss with ID regarding antibiotic and discharge plan in am
[2019-12-29] MEDS: ATORVASTATIN CA 10 MG TABLET (FP) PO SCH (22:42)
[2019-12-30] MEDS ORDERED: DEXTROSE 5%-WATER - 50 ML IVPB ONE ×2 (00:50→08:24)
[2019-12-30] MEDS ORDERED: PIPERACILLIN/TAZOBACTAM 3.375 GM VIAL IVPB ONE ×2 (00:50→08:24)
[2019-12-30] MEDS: PIPERACILLIN/TAZOB 3.375 GM 3.375 GM in DEXTROSE 5%-WATER - 50 ML IVPB SCH ×2 (01:07→09:09)
[2019-12-30] MEDS: HEPARIN NA (PORCINE) 5,000 UNITS/ML 1ML VIAL SQ SCH ×2 (06:32→14:05)
[2019-12-30] MEDS: LEVOTHYROXINE NA 100 MCG TABLET (FP) PO SCH (06:32)
[2019-12-30 06:50] VITALS: TEMP 97.3
[2019-12-30 07:42] LABS: HEMATOCRIT 29.2 % (32.4-45.2); HEMOGLOBIN 9.5 GM/dL (10.7-15.3); MCH 30.2 pg (25.7-33.7); MCHC 32.6 g/dl (32.0-36.0); MEAN CELL VOLUME 92.6 fl (80-96); PLATELET COUNT 257 K/MM3 (134-434); RBC 3.16 M/mm3 (3.60-5.2); RDW 20.8 % (11.6-15.6); WHITE BLOOD COUNT 9.7 K/mm3 (4.0-10.0)
[2019-12-30 07:58] LABS: ALBUMIN 2.4 g/dl (3.4-5.0); BILIRUBIN,TOTAL 0.7 mg/dL (0.2-1); BLOOD UREA NITROGEN 21.1 mg/dL (7-18); CALCIUM 8.6 mg/dL (8.5-10.1); CREATININE 0.9 mg/dL (0.55-1.3); MAGNESIUM 2.5 mg/dL (1.8-2.4); PHOSPHOROUS 2.3 mg/dL (2.5-4.9); POTASSIUM 3.5 mmol/L (3.5-5.1); TOT PROT 5.8 g/dl (6.4-8.2)
[2019-12-30] MEDS: NYSTATIN 100,000 UNIT/GM TOPICAL CREAM 15 GM TUBE TP SCH (09:09)
[2019-12-30] MEDS: LACTOBACILLUS ACIDOPHILUS 1 TABLET PO SCH (09:10)
[2019-12-30] MEDS: ESCITALOPRAM OXALATE 10 MG TABLET PO SCH (09:10)
[2019-12-30] MEDS: CARVEDILOL 6.25 MG TABLET (FP) PO SCH (09:10)
[2019-12-30] MEDS ORDERED: POTASSIUM PHOSPHATE 15 MM in SODIUM CHLORIDE 250 ML IVPB ONE (09:30)
[2019-12-30] MEDS ORDERED: NAPH,MB-DB/K PH,MBDB POWDER PACKET PO ONE (11:26)
--- NOTE | 2019-12-30 12:47 | PN ---
Progress Note (short form) - Note Progress Note: Awake and alert. NAD on RA. at the bedside. Some dry cough. Afebrile. Intake & Output 12/27/19 12/28/19 12/29/19 12/30/19 23:59 23:59 23:59 23:59 Intake Total 565 565 345 80 Output Total 100 Balance 465 565 345 80 Weight 125 lb 9.6 oz 112 lb 12.8 oz Last Vital Signs Temp Pulse Resp BP Pulse Ox 97.3 F L 62 18 102/90 98 12/30/19 06:00 12/30/19 10:00 12/30/19 10:00 12/30/19 10:00 12/30/19 08:38 Active Medications Acetaminophen (Tylenol -) 650 mg PO Q6H PRN PRN Reason: FEVER Atorvastatin Calcium (Lipitor -) 10 mg PO HS [facility] Last Admin: 12/29/19 22:42 Dose: 10 mg Carvedilol (Coreg -) 6.25 mg PO BID [facility] Last Admin: 12/30/19 09:10 Dose: 6.25 mg Escitalopram Oxalate (Lexapro -) 5 mg PO DAILY [facility] Last Admin: 12/30/19 09:10 Dose: 5 mg Heparin Sodium (Porcine) (Heparin -) 5,000 unit SQ TID [facility] Last Admin: 12/30/19 06:32 Dose: Not Given Potassium Phosphate 15 mm/ (Sodium Chloride) 255 mls @ 62.5 mls/hr IVPB ONCE ONE Stop: 12/30/19 13:34 Last Admin: 12/30/19 10:48 Dose: 62.5 mls/hr Lactobacillus Acidophilus (Bacid -) 1 tab PO DAILY [facility] Last Admin: 12/30/19 09:10 Dose: 1 tab Levothyroxine Sodium (Synthroid -) 100 mcg PO ACBK [facility] Last Admin: 12/30/19 06:32 Dose: 100 mcg Nystatin (Mycostatin Cream -) 1 applic TP BID [facility] Last Admin: 12/30/19 09:09 Dose: 1 applic Sodium Chloride ([place] Nasal [place] -) 2 spray NS BID PRN PRN Reason: NASAL CONGESTION Last Admin: 12/30/19 09:08 Dose: 2 spray Gen: NAD at rest Heart: RRR Lung: decreased breath sounds at the bases Abd: soft, nontender Ext: no edema Laboratory Results - last 24 hr 12/30/19 12/30/19 06:50 06:50 WBC 9.7 RBC 3.16 L Hgb 9.5 L Hct 29.2 L MCV 92.6 MCH 30.2 MCHC 32.6 RDW 20.8 H Plt Count 257 MPV 8.0 Sodium 147 H Potassium 3.5 Chloride 111 H Carbon Dioxide 32 Anion Gap 4 L BUN 21.1 H Creatinine 0.9 Est GFR (CKD-EPI)AfAm 67.57 Est GFR (CKD-EPI)NonAf 58.30 Random Glucose 95 Calcium 8.6 Phosphorus 2.3 L Magnesium 2.5 H Total Bilirubin 0.7 AST 27 ALT 19 Alkaline Phosphatase 66 Total Protein 5.8 L Albumin 2.4 L Problem List - Problems (1) Pleural effusion Code(s): J90 - PLEURAL EFFUSION, NOT ELSEWHERE CLASSIFIED (2) Pneumonia Code(s): J18.9 - PNEUMONIA, UNSPECIFIED ORGANISM Qualifiers: Pneumonia type: due to unspecified organism Laterality: left Lung location: unspecified part of lung Qualified Code(s): J18.9 - Pneumonia, unspecified organism A/P Acute on Chronic Diastolic Heart Failure Pleural Effusion: Transudative: Likely parapneumonic +Troponins likely Demand Ischemia HTN Hypothyoridism Dementia h/o ICH - f/u pleural fluid cytology - Currently off ABX - O2 to keep SpO2 >90% - PO as tolerated - aspiration precautions - rate control - DVT prophylaxis - DC planning Dr Levy
[2019-12-30] MEDS ORDERED: POTASSIUM PHOSPHATE 15 MM in DEXTROSE 5%-WATER - 250 ML IVPB ONE (13:42)
[2019-12-30] MEDS ORDERED: DEXTROSE 5%-WATER - 1,000 ML IV SCH (14:00)
--- NOTE | 2019-12-30 14:14 | PN ---
Teaching Attending Note Name of Resident: Tino Godinez ATTENDING PHYSICIAN STATEMENT I saw and evaluated the patient. I reviewed the resident's note and discussed the case with the resident. I agree with the resident's findings and plan as documented. SUBJECTIVE: Vital Signs Temperature 97.3 F L 12/30/19 06:00 Pulse Rate 62 12/30/19 10:00 Respiratory Rate 18 12/30/19 10:00 Blood Pressure 102/90 12/30/19 10:00 O2 Sat by Pulse Oximetry (%) 98 12/30/19 08:38 GENERAL: The patient is mildly confused unable to fully assess, but in no acute distress. HEAD: Normal with no signs of trauma. EYES: PERRL, extraocular movements intact, sclera anicteric, conjunctiva clear. ENT: Ears normal, oropharynx clear without exudates, moist mucous membranes. NECK: Trachea midline, full range of motion, supple. LUNGS: decreased BS BL , no wheezes, no crackles, no accessory muscle use. HEART: irRegular-irregular rate controlled, S1, S2 +, DUKE 2/6 , no rub or gallop. ABDOMEN: Soft, NT,ND, normoactive bowel sounds, no guarding, no rebound, no hepatosplenomegaly, no masses. EXTREMITIES: 2+ pulses, warm, well-perfused, no edema. NEUROLOGICAL: Cranial nerves II through XII grossly intact. gait not observed. SKIN: Warm, dry, normal turgor, no rashes or lesions noted CBCD WBC 9.7 K/mm3 (4.0-10.0) 12/30/19 06:50 RBC 3.16 M/mm3 (3.60-5.2) L 12/30/19 06:50 Hgb 9.5 GM/dL (10.7-15.3) L 12/30/19 06:50 Hct 29.2 % (32.4-45.2) L 12/30/19 06:50 MCV 92.6 fl (80-96) 12/30/19 06:50 MCHC 32.6 g/dl (32.0-36.0) 12/30/19 06:50 RDW 20.8 % (11.6-15.6) H 12/30/19 06:50 Plt Count 257 K/MM3 (134-434) 12/30/19 06:50 MPV 8.0 fl (7.5-11.1) 12/30/19 06:50 CMP Sodium 147 mmol/L (136-145) H 12/30/19 06:50 Potassium 3.5 mmol/L (3.5-5.1) 12/30/19 06:50 Chloride 111 mmol/L (98-107) H 12/30/19 06:50 Carbon Dioxide 32 mmol/L (21-32) 12/30/19 06:50 Anion Gap 4 MMOL/L (8-16) L 12/30/19 06:50 BUN 21.1 mg/dL (7-18) H 12/30/19 06:50 Creatinine 0.9 mg/dL (0.55-1.3) 12/30/19 06:50 Random Glucose 95 mg/dL (74-106) 12/30/19 06:50 Calcium 8.6 mg/dL (8.5-10.1) 12/30/19 06:50 Total Bilirubin 0.7 mg/dL (0.2-1) 12/30/19 06:50 AST 27 U/L (15-37) 12/30/19 06:50 ALT 19 U/L (13-61) 12/30/19 06:50 Alkaline Phosphatase 66 U/L (45-117) 12/30/19 06:50 Total Protein 5.8 g/dl (6.4-8.2) L 12/30/19 06:50 Albumin 2.4 g/dl (3.4-5.0) L 12/30/19 06:50 CARDIAC ENZYMES Creatine Kinase 25 U/L (26-192) L 12/23/19 16:40 Troponin I 0.35 ng/ml (0.00-0.05) H 12/24/19 21:05 Home Medications Medication Instructions Recorded Acetaminophen [Tylenol .Regular 650 mg PO Q6H PRN 12/13/19 Strength -] Albuterol 0.083% Nebulizer Debra 1 neb NEB TID 12/13/19 [Ventolin 0.083% Nebulizer Soln -] Ascorbic Acid [Vitamin C] 1,000 mg PO DAILY 12/13/19 Atorvastatin Ca [Lipitor] 10 mg PO HS 12/13/19 Calcium Carb/Vitamin D3/Vit K1 1 each PO DAILY 12/13/19 [Calcium + D Soft Chewable Tab] Carvedilol [Coreg -] 6.25 mg PO BID 12/13/19 Cholecalciferol (Vitamin D3) 2,000 unit PO DAILY 12/13/19 [Vitamin D -] Escitalopram Oxalate [Lexapro -] 5 mg PO DAILY 12/13/19 Hydrochlorothiazide 12.5 mg PO ASDIR 12/13/19 Ipratropium 0.02% Nebulizer 1 neb NEB QID 12/13/19 [Atrovent 0.02% Nebulizer -] Levothyroxine [Synthroid -] 100 mcg PO DAILY 12/13/19 Multivitamin [Multiple Vitamins] 1 each PO DAILY 12/13/19 Nystatin 1 applic TP BID 12/13/19 Guaifenesin/Dextromethorphan 10 ml PO QID 12/23/19 [Robitussin Cough-Chest Dm Liq] Levofloxacin [Levaquin] 500 mg PO BID 12/23/19 Saccharomyces Boulardii [Florastor] 250 mg PO BID 12/23/19 Current Medications Generic Name Dose Route Start Last Admin Trade Name Freq PRN Reason Stop Dose Admin Acetaminophen 650 mg 12/23/19 17:09 Tylenol - PO Q6H PRN FEVER Atorvastatin Calcium 10 mg 12/23/19 22:00 12/29/19 22:42 Lipitor - PO 10 mg HS EFRAÍN Administration Carvedilol 6.25 mg 12/23/19 22:00 12/30/19 09:10 Coreg - PO 6.25 mg BID EFRAÍN Administration Escitalopram Oxalate 5 mg 12/24/19 10:00 12/30/19 09:10 Lexapro - PO 5 mg DAILY EFRAÍN Administration Heparin Sodium (Porcine) 5,000 unit 12/23/19 22:00 12/30/19 06:32 Heparin - SQ Not Given TID EFRAÍN Dextrose 1,000 mls @ 75 mls/hr 12/30/19 14:00 D5w - IV Q13H EFRAÍN Lactobacillus Acidophilus 1 tab 12/24/19 10:00 12/30/19 09:10 Bacid - PO 1 tab DAILY EFRAÍN Administration Levothyroxine Sodium 100 mcg 12/24/19 07:00 12/30/19 06:32 Synthroid - PO 100 mcg ACBK EFRAÍN Administration Nystatin 1 applic 12/23/19 22:00 12/30/19 09:09 Mycostatin Cream - TP 1 applic BID EFRAÍN Administration Sodium Chloride 2 spray 12/29/19 08:53 12/30/19 09:08 [place] Nasal [place] - NS 2 spray BID PRN Administration NASAL CONGESTION Microbiology 12/23/19 09:20 Blood - Peripheral Venous Blood Culture - Preliminary NO GROWTH OBTAINED AFTER 24 HOURS, INCUBATION TO CONTINUE FOR 4 DAYS. 12/23/19 09:20 Blood - Peripheral Venous Blood Culture - Preliminary NO GROWTH OBTAINED AFTER 24 HOURS, INCUBATION TO CONTINUE FOR 4 DAYS. MBS: trial of chopped diet with extra gravy. Food may need to be mashed. Thin liquid Dietary consult to review patient's dietary requests . CXR repeat: large heart with unfolded aorta and Degenerative spine and shoulder changes. left base has become denser compatible with fluid, atelectasis and or infiltrate, with mild congestion ASSESSMENT AND PLAN: Patient is an 84yof with PMHx of ICH, dementia, Falls, A fib, HTN, hypothyroidism, who presented from [facility] with increased O2 requirements. # Recurrent PNA with effusion s/p thoracocentesis by IR , as per ID , no further antibiotic is needed, fluid is transudative , pulm/id on the case, cleared by pulmonary. # s/p Thoracocentesis with b/l Pleural effusions L > R. CT with ground glass opacities in lungs. # Elevated trop:flat trend. monitor # H/o A fib : cont coreg. Not on any AC due to falls and h/o ICH and hx of epistaxis # Hypothyroidism: cont synthroid. # H/x depression: cont Lexapro #Hypophosphotemia: will replete #mild elevation of sodium : will hydrate her prior to discharge today. DNR only. as per who is the proxy
--- NOTE | 2019-12-30 15:57 | DS ---
Physical Exam: SUBJECTIVE: Patient seen and examined OBJECTIVE: Vital Signs Period Temp Pulse Resp BP Sys/Magana Pulse Ox Last 24 Hr 97.3 F-97.5 F 62-85 18-20 95-125/50-90 98-99 PHYSICAL EXAM GENERAL: The patient is somnolent, nonverbal no acute distress. HEAD: Normal with no signs of trauma. Moderate temporal wasting EYES: sclera anicteric, conjunctiva clear. No ptosis. ENT: Ears normal, nares patent, oropharynx clear without exudates, dry mucous membranes. NECK: Trachea midline, supple. LUNGS: Decreased BS to Left lung, mild crackles of left-side w/ mild wheezes, no accessory muscle use. On 2L NC HEART: Regular rate and rhythm, S1, S2 without murmur, rub or gallop. ABDOMEN: Soft, nontender, nondistended, normoactive bowel sounds, no guarding, no rebound. EXTREMITIES: 2+ pulses, warm, well-perfused, no edema. NEUROLOGICAL: Not responding to questioning, withdrawing to painful stimuli SKIN: Warm, dry, normal turgor, no rashes or lesions noted LABS Laboratory Results - last 24 hr 12/30/19 12/30/19 06:50 06:50 WBC 9.7 RBC 3.16 L Hgb 9.5 L Hct 29.2 L MCV 92.6 MCH 30.2 MCHC 32.6 RDW 20.8 H Plt Count 257 MPV 8.0 Sodium 147 H Potassium 3.5 Chloride 111 H Carbon Dioxide 32 Anion Gap 4 L BUN 21.1 H Creatinine 0.9 Est GFR (CKD-EPI)AfAm 67.57 Est GFR (CKD-EPI)NonAf 58.30 Random Glucose 95 Calcium 8.6 Phosphorus 2.3 L Magnesium 2.5 H Total Bilirubin 0.7 AST 27 ALT 19 Alkaline Phosphatase 66 Total Protein 5.8 L Albumin 2.4 L HOSPITAL COURSE: Date of Admission:12/23/19 Date of Discharge: 12/30/19 84F w/ PMHX. of HTN, Hypothyroidism, dementia, A. Fib, and R. intracranial hemmorrhage (2010, no residual deficits) presents from [facility] for increasing oxygen requirement after recent LLL PNA. Admitted for recurrent PNA. Imaging showing a significant Left-sided pleural effusion. S/p thoracentesis(12/25/19). Studies suggestive of transudative pleural effusion. Received Zosyn x7d. S&S evaluation determined diet to be chopped. Cardio evaluated d/t troponinemmia, thought to be 2/2 demand. Has known Afib, no A/C dt recurrent falls. Stable for transfer back to SNF. Minutes to complete discharge: 32 Discharge Summary Problems reviewed: Yes Reason For Visit: ELEVATED TROPONIN LEVEL,PNEUMONIA Current Active Problems Elevated troponin (Acute) Pleural effusion (Acute) Pneumonia (Acute) Condition: Stable - Instructions Diet, Activity, Other Instructions: You were evaluated in the hospital for increased lethargy and increased oxygenation needs. Imaging showed pleural effusion (collection of fluid) of the left lung. You underwent a procedure to remove excess fluids. You were given intravenous antibiotics for 7 days. You were able oxygenate well on room air. You are stable for discharge back to fdc facility. MEDICATIONS: - Continue with your home medications as previously prescribed Additional Instructions: - Diet: Chopped Diet with extra gravy, thin liquids Be sure to drink plenty of water, and remain well hydrated. Please follow-up with the Physicians below: - Primary Care Physician: to discuss your recent hospitalization - Receiver(Paulino): to discuss your recurrent Left-sided pleural effusion, and continue following your pulmonary nodule Please seek immediate medical evaluation if you experience: - increased shortness of breath - worsening confusion Referrals: Mani Colon MD [Primary Care Provider] - Ruel Bob MD, MD [Staff Physician] - Disposition: RESIDENTIAL FACILITY - Home Medications Comprehensive Discharge Medication List: Ambulatory Orders Acetaminophen [Tylenol .Regular Strength -] 650 mg PO Q6H PRN 12/13/19 Albuterol 0.083% Nebulizer Debra [Ventolin 0.083% Nebulizer Soln -] 1 neb NEB TID 12/13/19 Ascorbic Acid [Vitamin C] 1,000 mg PO DAILY 12/13/19 Atorvastatin Ca [Lipitor] 10 mg PO HS 12/13/19 Calcium Carb/Vitamin D3/Vit K1 [Calcium + D Soft Chewable Tab] 1 each PO DAILY 12/13/19 Carvedilol [Coreg -] 6.25 mg PO BID 12/13/19 Cholecalciferol (Vitamin D3) [Vitamin D -] 2,000 unit PO DAILY 12/13/19 Escitalopram Oxalate [Lexapro -] 5 mg PO DAILY 12/13/19 Hydrochlorothiazide 12.5 mg PO ASDIR 12/13/19 Ipratropium 0.02% Nebulizer [Atrovent 0.02% Nebulizer -] 1 neb NEB QID 12/13/19 Levothyroxine [Synthroid -] 100 mcg PO DAILY 12/13/19 Multivitamin [Multiple Vitamins] 1 each PO DAILY 12/13/19 Nystatin 1 applic TP BID 12/13/19 Guaifenesin/Dextromethorphan [Robitussin Cough-Chest Dm Liq] 10 ml PO QID Saccharomyces Boulardii [Florastor] 250 mg PO BID 12/23/19 This patient is new to me today: No Emergency Visit: No Critical Care patient: No - Discharge Referral Referred to [facility] Med P.C[facility] No ATTENDING PHYSICIAN STATEMENT I saw and evaluated the patient. I reviewed the resident's note and discussed the case with the resident. I agree with the resident's findings and plan as documented. SUBJECTIVE: OBJECTIVE: ASSESSMENT AND PLAN:
[2019-12-30 16:49] VITALS: BMI 19.8
[2019-12-30 17:17] VITALS: BP 107/64; PULSE 81
== END 2019-12-30 19:27 | DRG 177 ==
LOC: JER 09:01 → JERBED 10:52 → J4W 16:10
PROVIDERS: ADMIT Internal Medicine; ATTEND Internal Medicine
PROC: 0W9B3ZX Drainage of Left Pleural Cavity, Percutaneous Approach, Diagnostic (ICD-10-PCS; principal; 2019-12-25)
DX: J69.0 Pneumonitis due to inhalation of food and vomit (principal); I50.33 Acute on chronic diastolic (congestive) heart failure; I24.8 Other forms of acute ischemic heart disease; J98.11 Atelectasis; J90 Pleural effusion, not elsewhere classified; I11.0 Hypertensive heart disease with heart failure; F03.90 Unspecified dementia, unspecified severity, without behavioral disturbance, psychotic disturbance, mood disturbance, and anxiety; E03.9 Hypothyroidism, unspecified; I48.91 Unspecified atrial fibrillation; E78.5 Hyperlipidemia, unspecified; F32.9 Major depressive disorder, single episode, unspecified; E87.6 Hypokalemia; E83.39 Other disorders of phosphorus metabolism
CPT/HCPCS: 36415; 71045-TC-FY; 71250-TC; 74230-TC-FY; 76942; 80048; 80053; 82040; 82042; 82150; 82465; 82550; 82803; 82945; 83605; 83615; 83735; 83986; 84100; 84157; 84443; 84478; 84484; 85025; 85027; 85610; 85730; 87040; 87070; 87075; 87081; 87102; 87116; 87205; 87206; 87210; 88108; 88305-TC; 92611-GN; 93005; 93010; 93306-TC; 97161-GP; 99283-25; J1644; J7030

== ENCOUNTER 2020-01-16 16:54 | Inpatient (IN) | payer OTHER ==
[2020-01-16] MEDS ORDERED: SODIUM CHLORIDE 0.9% 500 ML INFUS.BAG IV ONE ×2 (17:16→17:18)
--- NOTE | 2020-01-16 17:21 | PDOC ---
History of Present Illness - History of Present Illness Initial Comments: The pt is an 84F w/ a history of HTN, hypothyroidism, dementia, R intracranial hemorrhage (2010) recent dx of a-fib (no AC 2/2 fall risk) who presents from [facility] on the [place] for evaluation of lethargy and SOB. The pt was reportedly at her normal mental baseline this AM. She went to PT and was noted to be SOB and lethargic shortly into her session. History limited from pt as she is currently limited verbal, her states she is near her mental baseline but appears more lethargic now. 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) COPD: Yes CHF: No Dementia: Yes Diabetes: No GI Disorders: No Disorders: No HTN: Yes Hypercholesterolemia: Yes Liver Disease: No Seizures: No Thyroid Disease: Yes (hypo) - Surgical History Abdominal Surgery: No Appendectomy: No Cardiac Surgery: No Cholecystectomy: No Lung Surgery: No Neurologic Surgery: Yes (right brain bleed) Orthopedic Surgery: No - Psycho Social/Smoking Cessation Hx Smoking History: Never smoked Have you smoked in the past 12 months: No Hx Alcohol Use: No Drug/Substance Use Hx: No Substance Use Type: None <Yandel Shepard - Last Filed: 01/16/20 19:47> <Thai Olmstead - Last Filed: 01/24/20 01:11> - Past Medical History Allergies/Adverse Reactions: Allergies Allergy/AdvReac Type Severity Reaction Status Date / Time Sulfa (Sulfonamide Allergy Hives Verified 01/16/20 17:52 Antibiotics) Home Medications: Ambulatory Orders Acetaminophen [Tylenol .Regular Strength -] 650 mg PO Q6H PRN 12/13/19 Albuterol 0.083% Nebulizer Debra [Ventolin 0.083% Nebulizer Soln -] 1 neb NEB TID 12/13/19 Ascorbic Acid [Vitamin C] 1,000 mg PO DAILY 12/13/19 Atorvastatin Ca [Lipitor] 10 mg PO HS 12/13/19 Calcium Carb/Vitamin D3/Vit K1 [Calcium + D Soft Chewable Tab] 1 each PO DAILY 12/13/19 Carvedilol [Coreg -] 6.25 mg PO BID 12/13/19 Cholecalciferol (Vitamin D3) [Vitamin D -] 2,000 unit PO DAILY 12/13/19 Escitalopram Oxalate [Lexapro -] 5 mg PO DAILY 12/13/19 Hydrochlorothiazide 12.5 mg PO ASDIR 12/13/19 Ipratropium 0.02% Nebulizer [Atrovent 0.02% Nebulizer -] 1 neb NEB QID 12/13/19 Levothyroxine [Synthroid -] 100 mcg PO DAILY 12/13/19 Multivitamin [Multiple Vitamins] 1 each PO DAILY 12/13/19 Nystatin 1 applic TP BID 12/13/19 Guaifenesin/Dextromethorphan [Robitussin Cough-Chest Dm Liq] 10 ml PO QID Saccharomyces Boulardii [Florastor] 250 mg PO BID 12/23/19 Review of Systems - Review of Systems Able to Perform ROS?: No (2/2 medical condition) <Yandel Shepard - Last Filed: 01/16/20 19:47> *Physical Exam - Physical Exam GENERAL: Awake, alert, follows simple commands HEAD: No signs of trauma, normocephalic, atraumatic EYES: PERRLA, EOMI, sclera anicteric, conjunctiva clear ENT: Hearing grossly normal, nares patent, oropharynx clear without exudates. Dry mucosa LUNGS: Decreased breath sounds at left base, crackles at L mid and upper lung figueroa, clear lung sounds on R HEART: Bradycardia, irregularly irregular, no murmurs appreciated ABDOMEN: Soft, nontender, normoactive bowel sounds. No guarding, no rebound EXTREMITIES: Moves all extremities independently NEUROLOGICAL: Cranial nerves II through XII grossly intact. Appropriate speech, no focal sensorimotor deficits SKIN: Warm, Dry 01/16/20 17:19 <Yandel Shepard - Last Filed: 01/16/20 19:47> - Vital Signs Last Vital Signs Temp Pulse Resp BP Pulse Ox 97.0 F L 82 20 108/63 98 01/23/20 22:00 01/23/20 22:00 01/23/20 22:00 01/23/20 22:00 01/23/20 21:00 <Thai Olmstead - Last Filed: 01/24/20 01:11> ED Treatment Course - LABORATORY CBC & Chemistry Diagram: 01/16/20 17:05 01/16/20 17:05 - RADIOLOGY Radiology Studies Ordered: Category Date Time Status CHEST X-RAY PORTABLE* [RAD] Stat Radiology 01/16/20 17:16 Ordered <Yandel Shepard - Last Filed: 01/16/20 19:47> - LABORATORY CBC & Chemistry Diagram: 01/23/20 06:15 01/23/20 06:15 - ADDITIONAL ORDERS Additional order review: 01/16/20 17:05 Blood Culture - Final Blood - Peripheral Venous NO GROWTH AFTER 5 DAYS INCUBATION 01/16/20 17:05 Blood Culture - Final Blood - Peripheral Venous NO GROWTH AFTER 5 DAYS INCUBATION 01/16/20 17:05 RBC 2.72 L MCV 93.3 MCHC 31.7 L RDW 20.4 H MPV 8.8 Neutrophils % 74.2 Lymphocytes % 14.9 Monocytes % 8.6 Eosinophils % 1.7 D Basophils % 0.6 D - Medications Given in the ED: ED Medications Discontinued Medications Generic Name Dose Route Start Last Admin Trade Name Freq PRN Reason Stop Dose Admin Albumin Human 12.5 gm 01/22/20 17:15 01/22/20 18:09 Albumin Human 25% - IVPB 01/22/20 18:46 Not Given Q30M EFRAÍN Calcium Gluconate 1,000 mg 01/21/20 10:30 01/21/20 11:32 Calcium Gluconate 10% - IVPB 01/21/20 10:31 1,000 mg ONCE ONE Administration Carvedilol 3.125 mg 01/17/20 10:00 01/19/20 22:08 Coreg - PO 3.125 mg BID EFRAÍN Administration Furosemide 20 mg 01/21/20 10:00 01/23/20 12:19 Lasix - PO 20 mg DAILY EFRAÍN Administration Furosemide 20 mg 01/20/20 16:13 01/20/20 16:23 Lasix - PO 01/20/20 16:14 20 mg ONCE ONE Administration Furosemide 20 mg 01/22/20 17:28 01/22/20 18:08 Lasix Injection - IVPUSH 01/22/20 17:29 20 mg ONCE ONE Administration Heparin Sodium (Porcine) 5,000 unit 01/16/20 22:00 01/17/20 00:01 Heparin - SQ Not Given TID EFRAÍN Piperacillin Sod/Tazobactam 100 mls @ 200 mls/hr 01/16/20 17:45 01/16/20 17: 52 Sod 4.5 gm/ Dextrose IVPB 01/16/20 18:14 200 mls/hr ONCE ONE Administration Protocol Sodium Chloride 1,000 mls @ 42 mls/hr 01/16/20 22:00 01/17/20 01:33 Normal Saline - IV Not Given ASDIR EFRAÍN Iron Sucrose 200 mg/ Sodium 100 mls @ 100 mls/hr 01/17/20 19:00 01/17/20 23: 32 Chloride IVPB 01/17/20 19:59 100 mls/hr ONCE ONE Administration Piperacillin Sod/Tazobactam 50 mls @ 100 mls/hr 01/21/20 10:45 01/22/20 10:40 Sod 2.25 gm/ Dextrose IVPB 01/22/20 10:44 100 mls/hr Q8H-IV EFRAÍN Administration Protocol Sodium Chloride 250 mls @ 250 mls/hr 01/21/20 13:50 01/21/20 14:45 Normal Saline - IV 01/21/20 14:49 250 mls/hr ASDIR STA Administration Sodium Chloride 250 mls @ 250 mls/hr 01/22/20 10:59 01/22/20 11:07 Normal Saline - IV 01/22/20 11:58 250 mls/hr ASDIR STA Administration Levothyroxine Sodium 100 mcg 01/17/20 07:00 01/17/20 06:32 Synthroid - PO Not Given DAILY@0700 [facility] Sodium Chloride 250 ml 01/16/20 17:18 01/16/20 17:24 Normal Saline - IV 01/16/20 17:19 250 ml ONCE ONE Administration Vancomycin HCl 1,000 mg 01/16/20 17:51 01/16/20 18:04 Vancomycin (Pre-Docked) IVPB 01/16/20 17:52 1,000 mg ONCE ONE Administration Protocol <Thai Olmstead - Last Filed: 01/24/20 01:11> Medical Decision Making - Medical Decision Making The pt is an 84F w/ a history of HTN, hypothyroidism, dementia, R intracranial hemorrhage (2010) recent dx of a-fib (no AC 2/2 fall risk) who presents from [facility] on the [place] for evaluation of lethargy and SOB. Pt DNR/DNI Per discussion with , pt would not want to be externally paced or resuscitated. Pt amicable to medical treatment, including Atropine/Abx/IVF etc. ED Course Sepsis labs sent ECG CXR Pt on Vanc/Zosyn at [facility], will continue here Case discussed with Dr. Whitney, hold Coreg today ECG w/ a-fib and intermittent a-flutter w/ variable block; HR 54; QTc 453; no KWAKU; abn ecg 01/16/20 17:32 No leukocytosis Anemia noted, near baseline, will not transfuse at this time Lytes overall unremarkable Cr near baseline Trop I 0.33, pt with previous elevated Troponins, near those levels BNP elevated CXR w/ significant L pleural effusion Plan for admission for pleural effusion, bradycardia, elevated Troponin Pt signed out to [facility] Admitting 01/16/20 19:47 <Yandel Shepard - Last Filed: 01/16/20 19:47> - Medical Decision Making 01/24/20 01:11 I have seen and evaluated the patient. I agree with the resident's note as well as management and care <Thai Olmstead - Last Filed: 01/24/20 01:11> Discharge - Discharge Information Problems reviewed: Yes - Admission Yes <Yandel Shepard - Last Filed: 01/16/20 19:47> <Thai Olmstead - Last Filed: 01/24/20 01:11> - Discharge Information Clinical Impression/Diagnosis: Pleural effusion, Elevated troponin Atrial flutter Qualifiers: Atrial flutter type: unspecified Qualified Code(s): I48.92 - Unspecified atrial flutter Condition: Fair
[2020-01-16] MEDS ORDERED: PIPERACILLIN/TAZOB 4.5 GM 4.5 GM in DEXTROSE 5%-WATER 100 ML IVPB ONE (17:45)
[2020-01-16 17:48] LABS: BASO % 0.6 % (0-2.0); EOS % 1.7 % (0-4.5); HEMATOCRIT 25.4 % (32.4-45.2); HEMOGLOBIN 8.1 GM/dL (10.7-15.3); LYMPH % 14.9 % (8-40); MCH 29.6 pg (25.7-33.7); MCHC 31.7 g/dl (32.0-36.0); MEAN CELL VOLUME 93.3 fl (80-96); MEAN PLT VOLUME 8.8 fl (7.5-11.1); MONO % 8.6 % (3.8-10.2); NEUT % 74.2 % (42.8-82.8); PLATELET COUNT 157 K/MM3 (134-434); RBC 2.72 M/mm3 (3.60-5.2); RDW 20.4 % (11.6-15.6); WHITE BLOOD COUNT 7.3 K/mm3 (4.0-10.0)
[2020-01-16] MEDS ORDERED: VANCOMYCIN 1 GM in D5W (PRE-DOCKED) 1,000 MG/250 ML IVPB ONE (17:51)
[2020-01-16] MEDS ORDERED: PIPERACILLIN/TAZOB 4.5 GM 4.5 GM/100 ML BAG IVPB ONE (17:52)
[2020-01-16] MEDS ORDERED: VANCOMYCIN 1 GRAM (PRE-DOCKED) 1,000 MG/250 ML BAG IVPB ONE (17:52)
[2020-01-16 17:55] LABS: VENOUS PH 7.39 (7.31-7.41)
[2020-01-16 17:56] LABS: VENOUS PC02 48.4 mmHg (38-52); VENOUS PO2 < 49 mmHg (28-48)
[2020-01-16 18:03] LABS: INR 1.12 (0.83-1.09); PROTHROMBIN TIME (PATIENT) 13.2 SEC (9.7-13.0)
[2020-01-16 18:06] LABS: ACTIVATED PTT 33.3 SECONDS (25.2-36.5)
[2020-01-16 18:28] LABS: ALBUMIN 2.2 g/dl (3.4-5.0); BILIRUBIN,TOTAL 0.4 mg/dL (0.2-1); BLOOD UREA NITROGEN 27.8 mg/dL (7-18); CALCIUM 8.8 mg/dL (8.5-10.1); N-TERMINAL BNP 9707.6 pg/ml (5-450); POTASSIUM 4.4 mmol/L (3.5-5.1); TOT PROT 5.7 g/dl (6.4-8.2)
--- NOTE | 2020-01-16 21:33 | PN ---
Teaching Attending Note Name of Resident: Giselle Reyna ATTENDING PHYSICIAN STATEMENT I saw and evaluated the patient. I reviewed the resident's note and discussed the case with the resident. I agree with the resident's findings and plan as documented. SUBJECTIVE: 84-year-old woman with hypertension, hypothyroidism, dementia, history of right intracranial hemorrhage in 2010, recent diagnosis of atrial fibrillation not on anticoagulation due to fall risk, recently admitted for left pleural effusion drain on 12/25/2019 which turned out to be transudate of effusion with negative cultures and cytology was negative for malignant cells, brought in from [facility] on [facility] after she was thought to be more lethargic than her baseline. Imaging of chest was performed and noted to have recurrent left pleural effusion and was started on vancomycin and Zosyn empirically. There is no mention of productive cough, fever, or significant shortness of breath. Only symptom was altered mentation. OBJECTIVE: Last Vital Signs Temp Pulse Resp BP Pulse Ox 97.9 F 54 L 16 115/62 100 01/16/20 17:42 01/16/20 17:42 01/16/20 17:42 01/16/20 17:42 01/16/20 17:42 Physical exam showed an elderly, frail woman in no apparent distress, nontoxic- appearing and no respiratory distress. There were no rhonchi appreciated and no cough that was observed. Lungs are clear to auscultation anteriorly. Cardiovascular exam showed S1, S2 normal rate and rhythm no murmurs appreciated. Soft abdomen, nontender with normal bowel sounds. Lower extremities had ecchymosis bueno bilaterally. Abnormal Lab Results 01/16/20 01/16/20 01/16/20 17:05 17:05 17:05 RBC 2.72 L Hgb 8.1 L Hct 25.4 L MCHC 31.7 L RDW 20.4 H PT with INR 13.20 H INR 1.12 H POC VBG pO2 VBG O2 Sat (Romelia) VBG Base Excess Chloride Anion Gap BUN AST Alkaline Phosphatase Troponin I 0.33 H B-Natriuretic Peptide Total Protein Albumin 01/16/20 01/16/20 17:05 17:05 RBC Hgb Hct MCHC RDW PT with INR INR POC VBG pO2 < 49 H VBG O2 Sat (Romelia) 62.0 L VBG Base Excess 4.2 H Chloride 109 H Anion Gap 3 L BUN 27.8 H AST 40 H Alkaline Phosphatase 120 H Troponin I B-Natriuretic Peptide 9707.6 H Total Protein 5.7 L Albumin 2.2 L Chest x-ray from 01/16/2020 was reviewed and there was a progressive left pleural effusion with atelectasis or infiltrate, sclerotic prominent knob with tracheal deviation to the right and some minimal atelectasis in the right upper lobe. EKG was noted for atrial fibrillation versus a flutter with right bundle branch block ASSESSMENT AND PLAN: 84-year-old woman with recurrent left-sided pleural effusion, recent drainage from 12/25/2019 showed transitive exudate. Unclear with etiology of pleural effusion is however noted to have significant hypoalbuminemia and proteinemia which may contribute to decreased oncotic pressures and high propensity for recurrent pleural effusion. Negative cultures and no malignant cells to suggest infectious or malignant etiology. Should send UA and rule out significant proteinuria. Transthoracic echocardiogram from 12/25/2019 did not show significant heart failure which might contributed to pleural effusion. At this time due to paucity of cough, shortness of breath, fevers, leukocytosis do not suspect pneumonia and would not treat with antibiotics at this time and less patient develops clinical manifestations of infection. Patient would benefit from repeat thoracocentesis at this time, would consider pleurodesis in light of frequent recurrence of pleural effusion. Noted to have chronic troponinemia which was previously evaluated by cardiology and thought to be secondary to demand and less likely ACS. At this time troponin is unchanged from baseline and low suspicion for any acute cardiac occurrences. Admit to [facility] Urine analysis Monitor vital signs closely Supplemental oxygen as needed Monitor pulse oximetry Pulmonary consult for left pleural effusion drainage IR for possible pleurodesis #Anemianormocytic, chronic however worsened from baseline Monitor CBC TSH was noted to be 16.8 on 12/24/2019 raising concern for possibly uncontrolled hypothyroidism. May be contributing to patient's altered mental status at her correction and possibly increasing risk of falls Would continue with home dose levothyroxine and send free T4, repeat TSH #Atrial fibrillation. Noted to be bradycardic, possibly overmedicated from Coreg. May be contributing to her fall risk as well as altered mentation Would hold beta-danitza at this time Off of anticoagulation due to risk of falls Consider aspirin #DVT prophylaxisheparin subcutaneously #Advanced directivesdocumented to be DNR only as per her who is documented to be proxy. Must obtain documentation from her correction during the day.
--- NOTE | 2020-01-16 21:46 | HP ---
CHIEF COMPLAINT: dyspnea PCP: at [facility] HISTORY OF PRESENT ILLNESS: 84 y.o. F PMH HTN, hypothyroidism, dementia, A-fib (recent diagnosis), R-ICH in 2010 presenting from [facility] for dyspnea & lethargy. The patient had a recent admission 12/23-12/30 2019 for L transudative pleural effusion; s/p pleuracentesis , and vanc/ zosyn course. History limited 2/2 patient dementia; states she is minimally verbal at baseline but responds to yes/no questions; denies any pain. This visit chest XR showing recurrent large progressive L pleural effusion. The patient has been afebrile. As per ED note patient started on vanc / zosyn in [facility]; given 1 dose of each in ED. Patient also noted to be in a- fib w/ episode of poss flutter on admission. No sick contacts at living facility. ER course was notable for: (1) vanc/zosyn x1 dose (2) EKG: a-fib, intermittent a-flutter w/ variable block; HR 54; QTc 453; no ST changes (3) bradycardia to 50s Recent Travel: no PAST MEDICAL HISTORY: as per hpi PAST SURGICAL HISTORY: neurosurgery in 1954, 2010 intracranial hemmorage evac Social History: Smoking: denies Alcohol:denies Drugs: denies Allergies Sulfa (Sulfonamide Antibiotics) Allergy (Verified 01/16/20 17:52) Hives HOME MEDICATIONS: Home Medications Medication Instructions Recorded Acetaminophen [Tylenol .Regular 650 mg PO Q6H PRN 12/13/19 Strength -] Albuterol 0.083% Nebulizer Debra 1 neb NEB TID 12/13/19 [Ventolin 0.083% Nebulizer Soln -] Ascorbic Acid [Vitamin C] 1,000 mg PO DAILY 12/13/19 Atorvastatin Ca [Lipitor] 10 mg PO HS 12/13/19 Calcium Carb/Vitamin D3/Vit K1 1 each PO DAILY 12/13/19 [Calcium + D Soft Chewable Tab] Carvedilol [Coreg -] 6.25 mg PO BID 12/13/19 Cholecalciferol (Vitamin D3) 2,000 unit PO DAILY 12/13/19 [Vitamin D -] Escitalopram Oxalate [Lexapro -] 5 mg PO DAILY 12/13/19 Hydrochlorothiazide 12.5 mg PO ASDIR 12/13/19 Ipratropium 0.02% Nebulizer 1 neb NEB QID 12/13/19 [Atrovent 0.02% Nebulizer -] Levothyroxine [Synthroid -] 100 mcg PO DAILY 12/13/19 Multivitamin [Multiple Vitamins] 1 each PO DAILY 12/13/19 Nystatin 1 applic TP BID 12/13/19 Guaifenesin/Dextromethorphan 10 ml PO QID 12/23/19 [Robitussin Cough-Chest Dm Liq] Saccharomyces Boulardii [Florastor] 250 mg PO BID 12/23/19 REVIEW OF SYSTEMS CONSTITUTIONAL: Absent: fever, chills, diaphoresis, generalized weakness, malaise, loss of appetite, weight change HEENT: Absent: rhinorrhea, nasal congestion, throat pain, throat swelling, difficulty swallowing, mouth swelling, ear pain, eye pain, visual changes CARDIOVASCULAR: Absent: chest pain, syncope, palpitations, irregular heart rate, lightheadedness , peripheral edema RESPIRATORY: shortness of breath, dyspnea with exertion Absent: cough, orthopnea, wheezing, stridor, hemoptysis GASTROINTESTINAL: Absent: abdominal pain, abdominal distension, nausea, vomiting, diarrhea, constipation, melena, hematochezia GENITOURINARY: Absent: dysuria, frequency, urgency, hesitancy, hematuria, flank pain, genital pain MUSCULOSKELETAL: Absent: myalgia, arthralgia, joint swelling, back pain, neck pain SKIN: Absent: rash, itching, pallor HEMATOLOGIC/IMMUNOLOGIC: Absent: easy bleeding, easy bruising, lymphadenopathy, frequent infections ENDOCRINE: Absent: unexplained weight gain, unexplained weight loss, heat intolerance, cold intolerance NEUROLOGIC: mental status changes Absent: headache, focal weakness or paresthesias, dizziness, unsteady gait, seizure, bladder or bowel incontinence PHYSICAL EXAMINATION Vital Signs - 24 hr 01/16/20 01/16/20 17:16 17:42 Temperature 97.9 F 97.9 F Pulse Rate 54 L Respiratory 16 Rate Blood Pressure 115/62 O2 Sat by Pulse 100 Oximetry (%) GENERAL: not oriented but alert. HEENT: NCAT PERRLA MMM LUNGS: Diminshed breath sounds @ L base; + rhonchi L base. No accessory muscle use. HEART: Bradycardic, normal S1 and S2 without murmur, rub or gallop. ABDOMEN: Soft, nontender, not distended, normoactive bowel sounds. EXTREMITIES: 2+ pulses, warm, well-perfused. No peripheral edema. NEUROLOGICAL: unable to assess SKIN: Multiple small hematomas noted anterior shins b/l. Laboratory Results - last 24 hr 01/16/20 01/16/20 01/16/20 17:05 17:05 17:05 WBC 7.3 RBC 2.72 L Hgb 8.1 L Hct 25.4 L MCV 93.3 MCH 29.6 MCHC 31.7 L RDW 20.4 H Plt Count 157 D MPV 8.8 Absolute Neuts (auto) 5.4 Neutrophils % 74.2 Lymphocytes % 14.9 Monocytes % 8.6 Eosinophils % 1.7 D Basophils % 0.6 D Nucleated RBC % 0 PT with INR 13.20 H INR 1.12 H PTT (Actin FS) 33.3 VBG pH POC VBG pCO2 POC VBG pO2 VBG HCO3 VBG O2 Sat (Romelia) VBG Base Excess Sodium Potassium Chloride Carbon Dioxide Anion Gap BUN Creatinine Est GFR (CKD-EPI)AfAm Est GFR (CKD-EPI)NonAf Random Glucose Lactic Acid Calcium Total Bilirubin AST ALT Alkaline Phosphatase Troponin I 0.33 H B-Natriuretic Peptide Total Protein Albumin Influenza A (Rapid) Influenza B (Rapid) 01/16/20 01/16/20 01/16/20 17:05 17:05 17:05 WBC RBC Hgb Hct MCV MCH MCHC RDW Plt Count MPV Absolute Neuts (auto) Neutrophils % Lymphocytes % Monocytes % Eosinophils % Basophils % Nucleated RBC % PT with INR INR PTT (Actin FS) VBG pH 7.39 POC VBG pCO2 48.4 POC VBG pO2 < 49 H VBG HCO3 28.9 VBG O2 Sat (Romelia) 62.0 L VBG Base Excess 4.2 H Sodium 142 Potassium 4.4 Chloride 109 H Carbon Dioxide 30 Anion Gap 3 L BUN 27.8 H Creatinine 1.0 Est GFR (CKD-EPI)AfAm 59.49 Est GFR (CKD-EPI)NonAf 51.33 Random Glucose 103 Lactic Acid 1.2 Calcium 8.8 Total Bilirubin 0.4 AST 40 H ALT 45 Alkaline Phosphatase 120 H Troponin I B-Natriuretic Peptide 9707.6 H Total Protein 5.7 L Albumin 2.2 L Influenza A (Rapid) Influenza B (Rapid) 01/16/20 18:55 WBC RBC Hgb Hct MCV MCH MCHC RDW Plt Count MPV Absolute Neuts (auto) Neutrophils % Lymphocytes % Monocytes % Eosinophils % Basophils % Nucleated RBC % PT with INR INR PTT (Actin FS) VBG pH POC VBG pCO2 POC VBG pO2 VBG HCO3 VBG O2 Sat (Romelia) VBG Base Excess Sodium Potassium Chloride Carbon Dioxide Anion Gap BUN Creatinine Est GFR (CKD-EPI)AfAm Est GFR (CKD-EPI)NonAf Random Glucose Lactic Acid Calcium Total Bilirubin AST ALT Alkaline Phosphatase Troponin I B-Natriuretic Peptide Total Protein Albumin Influenza A (Rapid) Negative Influenza B (Rapid) Negative ASSESSMENT/PLAN: 84 y.o. F PMH HTN, hypothyroidism, dementia, A-fib (recent diagnosis), R-ICH in 2010 presenting from [facility] for dyspnea. #Recurrent transudative left sided pleural effusion -CXR showing left sided progressive pl eff (transudative)- consider cardiac etiology, pt also w/ hypoalbuminemia -no leukocytosis, afebrile -BNP 9000s -pathology from pleurocentesis 12/25/2019 shows no malignant cells; + mesothelial cells, macrophages and few lymphocytes present -observe off abx for now, patient has completed vanc & zosyn course during last visit & received 1 dose vanc/ zosyn tonight in ED -ID consulted-- Dr. Ramirez -Pul Dr. Levy consulted -f/u cultures-- sputum, blood & urine -urine ag for legionella/ s. pneumo #Bradycardia -EKG: a-fib, intermittent a-flutter w/ variable block; HR 54; QTc 453; no ST changes -last visit HR range 60-80s -50s now in ED -holding home anti htn meds -cardio consulted-- Dr. Kaur -monitor on tele #A-fib -patient bradycardic; holding home coreg -high riskstroke candidate, history of remote ICH. Defer AC due to falls and traumatic ICH as per cardio -Dr. Kaur consulted -tele monitoring #Elevated trops -patient has chronically elevated trops, last discharge trop 0.35 -now 0.33 -cardio aware, no need to trend -repeat EKG in AM #Anemia -Hgb drop by 1.4g/dL since last visit -f/u iron studies, ferritin, transferrin, reticulocytes -B12, folate -stool for occult blood -monitor cbc #Hypothyroidism -continue synthroid -f/u TSH, T4 #FEN -no standing fluids -trend lytes replete prn -NPO pending pulm intervention #PPX -scds; hx of ICH & reported 1 episode epistaxis in ED by nursing staff #Dispo telemetry floor *Spoke with patient's , states he would like patient to be DNR but NOT DNI. Will be visiting in the morning and will sign DNR form. Visit type - Emergency Visit Emergency Visit: Yes ED Registration Date: 01/16/20 Care time: The patient presented to the Emergency Department on the above date and was hospitalized for further evaluation of their emergent condition. - New Patient This patient is new to me today: Yes Date on this admission: 01/17/20 - Critical Care Critical Care patient: No ATTENDING PHYSICIAN STATEMENT I saw and evaluated the patient. I reviewed the resident's note and discussed the case with the resident. I agree with the resident's findings and plan as documented. SUBJECTIVE: OBJECTIVE: ASSESSMENT AND PLAN:
[2020-01-16] MEDS ORDERED: SODIUM CHLORIDE 1,000 ML IV SCH (22:00)
[2020-01-16] MEDS ORDERED: HEPARIN NA (PORCINE) 5,000 UNITS/ML 1ML VIAL SQ SCH (22:00)
[2020-01-17 01:54] VITALS: BMI 20.2
[2020-01-17] MEDS ORDERED: ACETAMINOPHEN 325 MG TABLET (FP) PO PRN ×2 (02:32→06:54)
[2020-01-17] MEDS ORDERED: guaiFENesin/D-METHORPHAN HB 10 ML UNIT-DOSE CUPS PO PRN (07:00)
[2020-01-17] MEDS ORDERED: LEVOTHYROXINE NA 100 MCG TABLET (FP) PO SCH (07:00)
[2020-01-17 07:28] LABS: BASO % 0.7 % (0-2.0); EOS % 1.2 % (0-4.5); HEMATOCRIT 28.1 % (32.4-45.2); HEMOGLOBIN 9.1 GM/dL (10.7-15.3); LYMPH % 9.3 % (8-40); MCH 30.1 pg (25.7-33.7); MCHC 32.3 g/dl (32.0-36.0); MEAN CELL VOLUME 93.1 fl (80-96); MEAN PLT VOLUME 8.4 fl (7.5-11.1); MONO % 8.8 % (3.8-10.2); PLATELET COUNT 168 K/MM3 (134-434); RBC 3.02 M/mm3 (3.60-5.2); RDW 20.1 % (11.6-15.6); RETICULOCYTES 3.01 % (0.5-1.5); WHITE BLOOD COUNT 8.5 K/mm3 (4.0-10.0)
[2020-01-17] MEDS: IPRATROPIUM BR 0.02% 0.5 MG/2.5 ML VIAL.NEB. NEB SCH ×4 (07:40→21:00)
[2020-01-17] MEDS: ALBUTEROL SO4 0.083% IH SOL 2.5 MG/3 ML VIAL.NEB. NEB SCH ×3 (07:40→21:00)
[2020-01-17 08:17] LABS: ALBUMIN 2.4 g/dl (3.4-5.0); BILIRUBIN,TOTAL 0.5 mg/dL (0.2-1); CALCIUM 8.6 mg/dL (8.5-10.1); CREATININE 0.8 mg/dL (0.55-1.3); POTASSIUM 3.8 mmol/L (3.5-5.1)
[2020-01-17] MEDS ORDERED: PATIENT'S OWN MEDICATION (NON-FORMULARY) (Calcium Carb/Vitamin D3/Vit K1 [Calcium + D Soft PO SCH (10:00)
[2020-01-17] MEDS ORDERED: DEXTROMETHORPHAN PO SCH (10:00)
[2020-01-17] MEDS ORDERED: GUAIFENESIN PO SCH (10:00)
[2020-01-17] MEDS ORDERED: [UNRECOGNIZED DRUG - OTHER] PO SCH (10:00)
[2020-01-17] MEDS ORDERED: SACCHAROMYCES BOULARDII 250 MG PO SCH (10:00)
[2020-01-17] MEDS: ESCITALOPRAM OXALATE 10 MG TABLET PO SCH (10:42)
[2020-01-17] MEDS: CARVEDILOL 3.125 MG TABLET (FP) PO SCH ×2 (10:43→23:33)
[2020-01-17] MEDS: LEVOTHYROXINE NA 150 MCG TABLET PO SCH (10:43)
[2020-01-17] MEDS: NYSTATIN 100,000 UNIT/GM TOPICAL CREAM 15 GM TUBE TP SCH ×2 (10:48→23:39)
[2020-01-17] MEDS: CALCIUM 500MG/VIT-D 200 UNITS COMBO TABLET (FP) PO SCH (10:49)
[2020-01-17] MEDS: ASCORBIC ACID 500 MG TABLET (FP) PO SCH (10:49)
[2020-01-17] MEDS: CHOLECALCIFEROL (VIT D3) 1,000 UNIT (25 MCG) TABLET PO SCH (10:49)
[2020-01-17] MEDS: MULTIVITAMINS (DAILY MVI) TABLET (FP) PO SCH (10:49)
--- NOTE | 2020-01-17 10:57 | EKG ---
Test Reason : Blood Pressure : / mmHG Vent. Rate : 073 BPM Atrial Rate : 330 BPM P-R Int : 000 ms QRS Dur : 150 ms QT Int : 446 ms P-R-T Axes : 000 071 263 degrees QTc Int : 491 ms ATRIAL FLUTTER WITH VARIABLE A-V BLOCK RIGHT BUNDLE BRANCH BLOCK CANNOT RULE OUT INFERIOR INFARCT , AGE UNDETERMINED NONSPECIFIC ST ABNORMALITY ABNORMAL ECG Confirmed by NATAN NAVARRETE MD ([id number]) on 01/17/2020 10:57:46 AM Referred By: MADIHA AGUIRRE Confirmed By:NATAN NAVARRETE MD
--- NOTE | 2020-01-17 10:59 | PN ---
Progress Note (short form) - Note Progress Note: ID CONSULT DICTATED RECURRENT L PLEURAL EFFUSION HX TRANSUDATIVE EFFUSION OBS OBSERVE OFF ANTIBIOTICS PULM/ IR EVALUATION FOR POSSIBLE REPEAT DIAGNOSTIC/ THERAPUTIC THORACENTESIS
--- NOTE | 2020-01-17 11:52 | EKG ---
Test Reason : Blood Pressure : / mmHG Vent. Rate : 054 BPM Atrial Rate : 326 BPM P-R Int : 000 ms QRS Dur : 148 ms QT Int : 478 ms P-R-T Axes : 000 071 154 degrees QTc Int : 453 ms ATRIAL FLUTTER WITH VARIABLE A-V BLOCK RIGHT BUNDLE BRANCH BLOCK SEPTAL INFARCT (CITED ON OR BEFORE 23-DEC-2019) NONSPECIFIC ST ABNORMALITY ABNORMAL ECG Confirmed by NATAN NAVARRETE MD ([id number]) on 01/17/2020 11:51:44 AM Referred By: Confirmed By:NATAN NAVARRETE MD
--- NOTE | 2020-01-17 12:01 | PN ---
Progress Note (short form) - Note Progress Note: PULMONARY CONSULTATION DICTATED 01/17/19 IMP DYSPNEA RECURRENT LEFT PLEURAL EFFUSION CHF AFIB H/O ICH DEMENTIA HYPOTHYROID PLAN THORACENETSIS O2 NEEDED CARDIOLOGY EVALUATION RATE CONTROL DR LIMON Problem List - Problems (1) Dyspnea Code(s): R06.00 - DYSPNEA, UNSPECIFIED (2) Pleural effusion Code(s): J90 - PLEURAL EFFUSION, NOT ELSEWHERE CLASSIFIED (3) Afib Code(s): I48.91 - UNSPECIFIED ATRIAL FIBRILLATION Qualifiers: Atrial fibrillation type: unspecified Qualified Code(s): I48.91 - Unspecified atrial fibrillation
--- NOTE | 2020-01-17 12:05 | CONS ---
INFECTIOUS DISEASE CONSULTATION DATE OF CONSULTATION: DATE OF DICTATION: 01/17/2020 HISTORY: The patient is an 84-year-old female who is evaluated for recurrent pleural effusion. History was obtained from the chart as she cannot give a history to dementia. The patient has a history of recurrent, left-sided pleural effusion. She has had several recent hospitalizations. She was hospitalized at another facility in October 2019, at which time a thoracentesis was performed. She was found to have a transudative effusion. In the interim, she has had 2 recent [facility] admissions most recently from December 23 through December 30. At that time, she had undergone a diagnostic/therapeutic thoracentesis. It was found to be transudative. Gram stain of the fluid was negative. Routine culture and sensitivity, AFB, and fungal cultures were negative. Presently, she is awake, but she is not verbally responsive. This has been her baseline. She is a resident of a [facility] facility. She is now admitted with worsening shortness of breath and decreased mental status with increased lethargy. She had apparently been okay in the morning and developed symptoms after having physical therapy. She had [facility] doses of [facility]com[facility] and [facility]osyn at the [facility]. No reports of high-grade fever or shaking chills, purulent sputum production, hemoptysis, or vomiting. PAST MEDICAL HISTORY: Positive for recurrent, left, parapneumonic effusion transudative, history of healthcare-acquired pneumonia, atrial fibrillation, hypertension, hyperlipidemia, hypothyroidism, history of right intracranial hemorrhage 2010, dementia. ALLERGIES: SULFA. MEDICATIONS: Include Tylenol, albuterol, Lipitor, carvedilol, Synthroid. SOCIAL HISTORY: She resides in a [facility] facility. She is dependent in activities of daily living. No active tobacco or alcohol use. LABORATORY DATA: White count 8.5, hematocrit 28.1, platelet count 168, creatinine 0.8. Influenza swab negative. Blood cultures pending. SYSTEMS REVIEW: Neurologic: Positive for dementia and history of hemorrhagic stroke. Cardiac: Positive atrial fibrillation. Respiratory: As per HPI. Gastrointestinal: Negative vomiting or diarrhea. Genitourinary: Negative for urinary tract infection. PHYSICAL EXAMINATION: General: She is chronically ill-appearing. She is not verbally responsive. Vital Signs: Temperature 97.7, blood pressure 144/79, pulse 80 regular, respirations 18 per minute. HEENT: Sclerae anicteric. Heart: Sounds S1, S2. Irregular. Lungs: Decreased breath sounds bilaterally left greater than right. Abdomen: Soft and nontender. Extremities: 1+ edema. IMPRESSION: 1. Recurrent, left, parapneumonic effusion. 2. History of dementia. PLAN: Chest x-ray shows marked reaccumulation of left parapneumonic effusion as compared to her chest x-ray from December 30, 2019. Suspect she has recurrent transudative effusion. No symptoms or signs to suggest pulmonary infection at this time. Would observe off antibiotic therapy. Obtain Pulmonary and Interventional Radiology evaluation for possible repeat diagnostic/therapeutic thoracentesis. Thank you for the kind referral. NATAN RUBI M.D. [id number]
--- NOTE | 2020-01-17 13:11 | CON.CARD ---
Consult Consult Specialty:: Cardiology Referred by:: Nimo Reason for Consultation:: Atrial fibrillation and shortness of breath - History of Present Illness Chief Complaint: Shortness of breath History of Present Illness: The patient is an 84-year-old female with dementia, hypertension, hypothyroidism , intracranial hemorrhage 2014, multiple falls, atrial fibrillation, not anticoagulated because of falls and prior intracranial bleed, [facility] of [facility] and lethargy. The patient seems to be quite comfortable. She is supine in bed in no apparent distress. Breathing quite comfortably. Offering no specific complaints. 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 - Allergies Allergies/Adverse Reactions: Allergies Allergy/AdvReac Type Severity Reaction Status Date / Time Sulfa (Sulfonamide Allergy Hives Verified 01/16/20 17:52 Antibiotics) - Home Medications Home Medications: Ambulatory Orders Acetaminophen [Tylenol .Regular Strength -] 650 mg PO Q6H PRN 12/13/19 Albuterol 0.083% Nebulizer Debra [Ventolin 0.083% Nebulizer Soln -] 1 neb NEB TID 12/13/19 Ascorbic Acid [Vitamin C] 1,000 mg PO DAILY 12/13/19 Atorvastatin Ca [Lipitor] 10 mg PO HS 12/13/19 Calcium Carb/Vitamin D3/Vit K1 [Calcium + D Soft Chewable Tab] 1 each PO DAILY 12/13/19 Carvedilol [Coreg -] 6.25 mg PO BID 12/13/19 Cholecalciferol (Vitamin D3) [Vitamin D -] 2,000 unit PO DAILY 12/13/19 Escitalopram Oxalate [Lexapro -] 5 mg PO DAILY 12/13/19 Hydrochlorothiazide 12.5 mg PO ASDIR 12/13/19 Ipratropium 0.02% Nebulizer [Atrovent 0.02% Nebulizer -] 1 neb NEB QID 12/13/19 Levothyroxine [Synthroid -] 100 mcg PO DAILY 12/13/19 Multivitamin [Multiple Vitamins] 1 each PO DAILY 12/13/19 Nystatin 1 applic TP BID 12/13/19 Guaifenesin/Dextromethorphan [Robitussin Cough-Chest Dm Liq] 10 ml PO QID Saccharomyces Boulardii [Florastor] 250 mg PO BID 12/23/19 Review of Systems - Review of Systems Constitutional: reports: Lethargy, Weakness Eyes: reports: No Symptoms HENT: reports: No Symptoms Neck: reports: No Symptoms Cardiovascular: reports: No Symptoms Respiratory: reports: SOB Gastrointestinal: reports: No Symptoms Genitourinary: reports: No Symptoms Breasts: reports: No Symptoms Reported Musculoskeletal: reports: No Symptoms Integumentary: reports: No Symptoms Neurological: reports: No Symptoms Endocrine: reports: No Symptoms Hematology/Lymphatic: reports: No Symptoms Psychiatric: reports: No Symptoms Vital Signs: Vital Signs Temperature 97.0 F L 01/17/20 09:00 Pulse Rate 80 01/17/20 09:00 Respiratory Rate 18 01/17/20 09:00 Blood Pressure 128/83 01/17/20 09:00 O2 Sat by Pulse Oximetry (%) 93 L 01/17/20 09:00 Constitutional: Yes: No Distress, Calm, Cachectic Eyes: Yes: WNL HENT: Yes: WNL, Atraumatic, Normocephalic Neck: Yes: WNL, Supple, Trachea Midline Respiratory: Yes: Other (Decreased breath sounds on the left base, fair air movement, poor inspiratory effort.) Gastrointestinal: Yes: WNL, Normal Bowel Sounds, Soft Renal/: Yes: WNL Cardiovascular: Yes: Pulse Irregular JVD: No Carotid Bruit: No PMI: Non-Displaced Heart Sounds: Yes: S1, S2 Murmur: Yes: Systolic Murmur, Grade 2 Musculoskeletal: Yes: WNL Extremities: Yes: WNL Edema: No Peripheral Pulses: 1+ Left Carotid, 1+ Right Carotid, 1+ Left Femoral, 1+ Right Femoral, 1+ Left Popliteal, 1+ Right Popliteal, 1+ Left Doralis Pedis, 1+ Right Dorsalis Pedis Neurological: Yes: Alert Psychiatric: Yes: Alert - Other Data Labs, Other Data: CBC, BMP 01/17/20 06:20 01/17/20 06:20 INR, PTT INR 1.12 (0.83-1.09) H 01/16/20 17:05 Troponin, BNP 01/16/20 01/16/20 17:05 17:05 Troponin I 0.33 H B-Natriuretic Peptide 9707.6 H Troponin, BNP 01/16/20 01/16/20 17:05 17:05 Troponin I 0.33 H B-Natriuretic Peptide 9707.6 H Assessment/Plan The patient is an 84-year-old female with dementia, hypertension, hypothyroidism , intracranial hemorrhage 2013, multiple falls, atrial fibrillation, not anticoagulated because of falls and prior intracranial bleed, [facility] with shortness of breath and lethargy. The patient seems to be quite comfortable. She is supine in bed in no apparent distress. Breathing quite comfortably. Offering no specific complaints. The patient is clinically and symptomatically better. Hemodynamically stable. Ventricular rates are well controlled in atrial fibrillation. Give Lasix 40 mg p.o. daily. Continue the other medications as currently. No need for further cardiac work-up at this point. Conservative cardiac care Cardiac stable. Please do not hesitate to call us as needed
--- NOTE | 2020-01-17 13:39 | CONS ---
PULMONARY CONSULTATION DATE OF CONSULTATION: 01/17/2020 REFERRING PHYSICIAN: Rosalva Hicks MD HISTORY: History is obtained from the patient's and medical records. Patient has dementia. Patient is an 84-year-old white female with past medical of hypertension, hypothyroidism, dementia, history of right intracranial hemorrhage in 2010, history of recently diagnosed atrial fibrillation not on anticoagulation secondary to increased physical falls. Recently hospitalized at [facility] secondary to shortness of breath. At that time, she was noted to have a large left pleural effusion. She subsequently underwent a thoracentesis, which revealed pleural fluid chemistries were consistent with transudate. [facility] and for the past few days or so has been having increasing shortness of breath. She presented back to [facility] ER and was noted to have increasing left pleural effusion. She was also noted to be more lethargic. Patient was placed on antibiotic therapy at [facility], vancomycin and Zosyn. She was evaluated on this hospitalization by Infectious Disease antibiotic was discontinued. PAST MEDICAL HISTORY: Again includes hypertension, hypothyroidism, left pleural effusion status post thoracentesis consistent with pleural fluid consistent with transudate, dementia, history of right intracranial hemorrhage 2010, atrial fibrillation recently diagnosed. REVIEW OF SYSTEMS: Unable to obtain. CURRENT MEDICATIONS: Include Tylenol, Lexapro, Robitussin DM, albuterol, Coreg, Lipitor, Tab-A-Rowan, Mycostatin, Synthroid, vitamin C, and vitamin D3. PHYSICAL EXAMINATION: General: Patient is an elderly female awake, nonverbal in no acute distress. Vital Signs: She is afebrile. Heart rate is 80 and irregular, O2 saturation is 93% on 2 L nasal cannula, respiratory rate is 18. HEENT: Normocephalic, atraumatic. Neck: Supple. Heart: Irregular irregular. S1, S2. Chest: Poor inspiratory effort. Diminished breath sounds on the left. Abdomen: Soft. Bowel sounds are positive. Extremities: No cyanosis or edema. LABORATORIES: WBC is 8.5, hemoglobin 9.1, hematocrit 28.1 with a platelet count of 168,000, INR is 1.12. Chemistries; BUN 24, creatinine 0.1, albumin 2.4. Chest CT from December 23, 2019, reveals a moderate sized left-sided and small right pleural effusion, opacification of the left lower lobe bronchus, ground-glass attenuation of upper and lower lobes bilaterally, and a 1.5 x 0.4-cm elliptical-shaped opacity in the right middle lobe. IMPRESSION: 1. Dyspnea secondary to recurrent left pleural effusion, transudate from previous thoracentesis. 2. Congestive heart failure. 3. Atrial fibrillation. 4. History of intracerebral hemorrhage. 5. Dementia. 6. Hypothyroidism. PLAN: Diagnostic and therapeutic thoracentesis. Supplemental O2 as needed. Consider Cardiology evaluation. Further recommendations following results of pleural fluid chemistries. JANICE LIMON M.D. [id number] MTDD
--- NOTE | 2020-01-17 14:57 | PN ---
Teaching Attending Note Name of Resident: Roberto Lyon ATTENDING PHYSICIAN STATEMENT I saw and evaluated the patient. I reviewed the resident's note and discussed the case with the resident. I agree with the resident's findings and plan as documented. SUBJECTIVE: OBJECTIVE: ASSESSMENT AND PLAN:
--- NOTE | 2020-01-17 16:01 | PN ---
Teaching Attending Note Name of Resident: Roberto Lyon ATTENDING PHYSICIAN STATEMENT I saw and evaluated the patient. I reviewed the resident's note and discussed the case with the resident. I agree with the resident's findings and plan as documented. SUBJECTIVE: Patient looks lethargic OBJECTIVE: Vital Signs Temperature 97.0 F L 01/17/20 09:00 Pulse Rate 80 01/17/20 09:00 Respiratory Rate 18 01/17/20 09:00 Blood Pressure 128/83 01/17/20 09:00 O2 Sat by Pulse Oximetry (%) 93 L 01/17/20 09:00 General: Elderly female not in distress HEENT: Mucous membranes, no anemia, no jaundice, PERRLA, no nystagmus Neck: No JVD, supple, no bruit, thyroid palpably normal, normal carotid pulsations. Chest: Nontender, decreased air entry on left side CVS: S1-S2 regularno murmur/gallop/rub Abdomen: Nondistended, soft, bowel sounds present. 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 CBC, BMP 01/17/20 06:20 01/17/20 06:20 Active Medications Acetaminophen (Tylenol -) 650 mg PO Q6H PRN PRN Reason: PAIN LEVEL 6-10 Albuterol Sulfate (Ventolin 0.083% Nebulizer Soln -) 1 amp NEB RTID [facility] Last Admin: 01/17/20 13:19 Dose: 1 amp Ascorbic Acid (Vitamin C -) 1,000 mg PO DAILY [facility] Last Admin: 01/17/20 10:49 Dose: Not Given Atorvastatin Calcium (Lipitor -) 10 mg PO [facility] Calcium Carbonate/Cholecalciferol (Os-Fuad 500+D -) 1 tab PO DAILY [facility] Last Admin: 01/17/20 10:49 Dose: Not Given Carvedilol (Coreg -) 3.125 mg PO BID [facility] Last Admin: 01/17/20 10:43 Dose: 3.125 mg Cholecalciferol (Vitamin D3 -) 2,000 unit PO DAILY [facility] Last Admin: 01/17/20 10:49 Dose: Not Given Escitalopram Oxalate (Lexapro -) 5 mg PO DAILY [facility] Last Admin: 01/17/20 10:42 Dose: 5 mg Guaifenesin (Robitussin Dm -) 10 ml PO Q6H PRN PRN Reason: COUGH Ipratropium [place] (Atrovent 0.02% Nebulizer -) 1 amp NEB RQID [facility] Last Admin: 01/17/20 15:26 Dose: Not Given Levothyroxine Sodium (Synthroid -) 150 mcg PO DAILY@0700 [facility] Last Admin: 01/17/20 10:43 Dose: 150 mcg Multivitamins/Minerals/Vitamin C (Tab-A-Vit -) 1 tab PO DAILY [facility] Last Admin: 01/17/20 10:49 Dose: Not Given Nystatin (Mycostatin Cream -) 1 applic TP BID [facility] Last Admin: 01/17/20 10:48 Dose: Not Given ASSESSMENT AND PLAN:84-year-old woman with hypertension, hypothyroidism, dementia, history of right intracranial hemorrhage in 2010, recent diagnosis of atrial fibrillation not on anticoagulation due to fall risk, recently admitted for left pleural effusion drain on 12/25/2019 which turned out to be transudate of effusion with negative cultures and cytology was negative for malignant cells , brought in from [facility] on [address] after she was thought to be more lethargic than her baseline. Imaging of chest was performed and noted to have recurrent left pleural effusion . Problem List - Problems (1) Pleural effusion Assessment/Plan: Recurrent pleural effusion recently popped up respiratory failure, pulmonary consult, IR guided pleural tap at present no indication of antibiotic. Problems reviewed: Yes Code(s): J90 - PLEURAL EFFUSION, NOT ELSEWHERE CLASSIFIED (2) Atrial flutter Assessment/Plan: Not on anticoagulation due to frequent fall at present rate controlled. Problems reviewed: Yes Code(s): I48.92 - UNSPECIFIED ATRIAL FLUTTER Qualifiers: Atrial flutter type: unspecified Qualified Code(s): I48.92 - Unspecified atrial flutter (3) COPD (chronic obstructive pulmonary disease) Assessment/Plan: Compensated continue all home medications. Problems reviewed: Yes Code(s): J44.9 - CHRONIC OBSTRUCTIVE PULMONARY DISEASE, UNSPECIFIED (4) Hypothyroid Assessment/Plan: Continue all home medication Problems reviewed: Yes Code(s): E03.9 - HYPOTHYROIDISM, UNSPECIFIED (5) Depressed Assessment/Plan: Continue Lexapro Problems reviewed: Yes Code(s): F32.9 - MAJOR DEPRESSIVE DISORDER, SINGLE EPISODE, UNSPECIFIED
--- NOTE | 2020-01-17 18:11 | PN ---
Physical Exam: SUBJECTIVE: Patient seen and examined OBJECTIVE: Vital Signs Period Temp Pulse Resp BP Sys/Magana Pulse Ox Last 24 Hr 97.0 F-97.7 F 57-80 18-18 125-144/57-83 93-94 GENERAL: lethargic difficult hearing , follow commands HEENT: NCAT/ PERRLA/ dry MM LUNGS: decrese breath sound sat the bases HEART: IRR IRR , normal S1 and S2 without murmur, rub or gallop. ABDOMEN: Soft, nontender, not distended, normoactive bowel sounds. EXTREMITIES: 2+ pulses, warm, well-perfused. No peripheral edema. NEUROLOGICAL: unable to assess SKIN: Multiple small hematomas noted anterior shins b/l. Laboratory Results - last 24 hr 01/16/20 01/16/20 01/16/20 17:05 17:05 17:05 WBC RBC Hgb Hct MCV MCH MCHC RDW Plt Count MPV Absolute Neuts (auto) Neutrophils % Lymphocytes % Monocytes % Eosinophils % Basophils % Nucleated RBC % Retic Count PT with INR 13.20 H INR 1.12 H PTT (Actin FS) 33.3 Sodium 142 Potassium 4.4 Chloride 109 H Carbon Dioxide 30 Anion Gap 3 L BUN 27.8 H Creatinine 1.0 Est GFR (CKD-EPI)AfAm 59.49 Est GFR (CKD-EPI)NonAf 51.33 Random Glucose 103 Lactic Acid Calcium 8.8 Iron TIBC Iron Saturation Unsaturated IBC Ferritin Total Bilirubin 0.4 AST 40 H ALT 45 Alkaline Phosphatase 120 H Troponin I 0.33 H B-Natriuretic Peptide 9707.6 H Total Protein 5.7 L Albumin 2.2 L Vitamin B12 Serum Folate TSH Thyroxine (T4) Stool Occult Blood Influenza A (Rapid) Influenza B (Rapid) 01/16/20 01/16/20 01/17/20 17:05 18:55 06:20 WBC 8.5 RBC 3.02 L Hgb 9.1 L Hct 28.1 L MCV 93.1 MCH 30.1 MCHC 32.3 RDW 20.1 H Plt Count 168 MPV 8.4 Absolute Neuts (auto) 6.8 Neutrophils % 80.0 Lymphocytes % 9.3 D Monocytes % 8.8 Eosinophils % 1.2 Basophils % 0.7 Nucleated RBC % 0 Retic Count 3.01 H PT with INR INR PTT (Actin FS) Sodium Potassium Chloride Carbon Dioxide Anion Gap BUN Creatinine Est GFR (CKD-EPI)AfAm Est GFR (CKD-EPI)NonAf Random Glucose Lactic Acid 1.2 Calcium Iron TIBC Iron Saturation Unsaturated IBC Ferritin Total Bilirubin AST ALT Alkaline Phosphatase Troponin I B-Natriuretic Peptide Total Protein Albumin Vitamin B12 Serum Folate TSH Thyroxine (T4) Stool Occult Blood Influenza A (Rapid) Negative Influenza B (Rapid) Negative 01/17/20 01/17/20 06:20 13:30 WBC RBC Hgb Hct MCV MCH MCHC RDW Plt Count MPV Absolute Neuts (auto) Neutrophils % Lymphocytes % Monocytes % Eosinophils % Basophils % Nucleated RBC % Retic Count PT with INR INR PTT (Actin FS) Sodium 139 Potassium 3.8 Chloride 110 H Carbon Dioxide 29 Anion Gap 0 L BUN 24.0 H Creatinine 0.8 Est GFR (CKD-EPI)AfAm 77.92 Est GFR (CKD-EPI)NonAf 67.23 Random Glucose 91 Lactic Acid Calcium 8.6 Iron 21 L TIBC 291 Iron Saturation 7 L Unsaturated IBC 270 Ferritin 82.5 Total Bilirubin 0.5 AST 29 ALT 39 Alkaline Phosphatase 127 H Troponin I B-Natriuretic Peptide Total Protein 6.0 L Albumin 2.4 L Vitamin B12 908 Serum Folate 12 TSH 14.50 H Thyroxine (T4) 6.5 Stool Occult Blood Negative Influenza A (Rapid) Influenza B (Rapid) Active Medications Generic Name Dose Route Start Last Admin Trade Name Freq PRN Reason Stop Dose Admin Acetaminophen 650 mg 01/17/20 06:54 Tylenol - PO Q6H PRN PAIN LEVEL 6-10 Albuterol Sulfate 1 amp 01/17/20 08:00 01/17/20 13:19 Ventolin 0.083% Nebulizer Soln - NEB 1 amp RTID EF[facility] Administration Ascorbic Acid 1,000 mg 01/17/20 10:00 01/17/20 10:49 Vitamin C - PO Not Given DAILY [facility] Atorvastatin Calcium 10 mg 01/17/20 22:00 Lipitor - PO HS [facility] Calcium Carbonate/Cholecalciferol 1 tab 01/17/20 10:00 01/17/20 10:49 Os-Fuad 500+D - PO Not Given DAILY [facility] Carvedilol 3.125 mg 01/17/20 10:00 01/17/20 10:43 Coreg - PO 3.125 mg BID EFRA[facility] Administration Cholecalciferol 2,000 unit 01/17/20 10:00 01/17/20 10:49 Vitamin D3 - PO Not Given DAILY [facility] Escitalopram Oxalate 5 mg 01/17/20 10:00 01/17/20 10:42 Lexapro - PO 5 mg DAILY [facility] Administration Guaifenesin 10 ml 01/17/20 07:00 Robitussin Dm - PO Q6H PRN COUGH Ipratropium [place] 1 amp 01/17/20 08:00 01/17/20 15:26 Atrovent 0.02% Nebulizer - NEB Not Given RQID [facility] Levothyroxine Sodium 150 mcg 01/17/20 08:45 01/17/20 10:43 Synthroid - PO 150 mcg DAILY@0700 [facility] Administration Multivitamins/Minerals/Vitamin C 1 tab 01/17/20 10:00 01/17/20 10:49 Tab-A-Vit - PO Not Given DAILY [facility] Nystatin 1 applic 01/17/20 10:00 01/17/20 10:48 Mycostatin Cream - TP Not Given BID [facility] CBC, BMP 01/17/20 06:20 01/17/20 06:20 ASSESSMENT/PLAN: 84 y.o. F PMH HTN, hypothyroidism, dementia, A-fib (recent diagnosis), R-ICH in 2010 presenting from [facility] for dyspnea. #Recurrent transudative left sided pleural effusion for throacosentesis today * CXR showing left sided progressive pl eff (transudative)- consider cardiac etiology, pt also w/ hypoalbuminemia * no leukocytosis, afebrile, BNP 9000s * pathology from pleurocentesis 12/25/2019 shows no malignant cells; + mesothelial cells, macrophages and few lymphocytes present * observe off abx for now, patient has completed vanc & zosyn course during last visit & received 1 dose vanc/ zosyn tonight in ED * ID consulted-- Dr. Ramirez * Pulm Dr. Levy consulted * f/u cultures-- sputum, blood & urine * urine ag for legionella/ s. pneumo #Bradycardia, resolved -EKG: a-fib, intermittent a-flutter w/ variable block; HR 54; QTc 453; no ST changes -last visit HR range 60-80s -50s now in ED -holding home anti htn meds -cardio consulted-- Dr. Kaur -monitor on tele #A-fib * patient bradycardic; decrease coreg to 3.125 BiD * high riskstroke candidate, history of remote ICH. Defer AC due to falls and traumatic ICH as per cardio * Dr. 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 Will be visiting in the morning and will sign DNR form. Visit type - Emergency Visit Emergency Visit: Yes ED Registration Date: 01/16/20 Care time: The patient presented to the Emergency Department on the above date and was hospitalized for further evaluation of their emergent condition. - New Patient This patient is new to me today: Yes Date on this admission: 01/17/20 - Critical Care Critical Care patient: No ATTENDING PHYSICIAN STATEMENT I saw and evaluated the patient. I reviewed the resident's note and discussed the case with the resident. I agree with the resident's findings and plan as documented. SUBJECTIVE: OBJECTIVE: ASSESSMENT AND PLAN:
[2020-01-17] MEDS ORDERED: IRON SUCROSE INJECTION 200 MG in SODIUM CHLORIDE 90 ML IVPB ONE (19:00)
[2020-01-17] MEDS: ATORVASTATIN CA 10 MG TABLET (FP) PO SCH (23:33)
[2020-01-18] MEDS: LEVOTHYROXINE NA 150 MCG TABLET PO SCH (06:30)
[2020-01-18 07:40] LABS: BASO % 0.5 % (0-2.0); EOS % 1.3 % (0-4.5); HEMATOCRIT 25.3 % (32.4-45.2); HEMOGLOBIN 8.1 GM/dL (10.7-15.3); LYMPH % 14.7 % (8-40); MCH 29.8 pg (25.7-33.7); MCHC 31.9 g/dl (32.0-36.0); MEAN CELL VOLUME 93.3 fl (80-96); MEAN PLT VOLUME 8.8 fl (7.5-11.1); MONO % 11.8 % (3.8-10.2); NEUT % 71.7 % (42.8-82.8); PLATELET COUNT 154 K/MM3 (134-434); RBC 2.71 M/mm3 (3.60-5.2); RDW 20.4 % (11.6-15.6); WHITE BLOOD COUNT 7.6 K/mm3 (4.0-10.0)
[2020-01-18] MEDS: ALBUTEROL SO4 0.083% IH SOL 2.5 MG/3 ML VIAL.NEB. NEB SCH ×3 (08:00→20:35)
[2020-01-18] MEDS: IPRATROPIUM BR 0.02% 0.5 MG/2.5 ML VIAL.NEB. NEB SCH ×4 (08:00→20:35)
[2020-01-18 08:08] LABS: ALBUMIN 2.1 g/dl (3.4-5.0); BILIRUBIN,TOTAL 0.4 mg/dL (0.2-1); BLOOD UREA NITROGEN 22.7 mg/dL (7-18); CALCIUM 8.5 mg/dL (8.5-10.1); CREATININE 0.7 mg/dL (0.55-1.3); MAGNESIUM 2.3 mg/dL (1.8-2.4); PHOSPHOROUS 2.4 mg/dL (2.5-4.9); POTASSIUM 4.3 mmol/L (3.5-5.1); TOT PROT 5.4 g/dl (6.4-8.2)
--- NOTE | 2020-01-18 08:29 | PN ---
Progress Note, Physician Chief Complaint: Patient is more alert communicating denies any shortness of breath - Current Medication List Current Medications: Active Medications Acetaminophen (Tylenol -) 650 mg PO Q6H PRN PRN Reason: PAIN LEVEL 6-10 Albuterol Sulfate (Ventolin 0.083% Nebulizer Soln -) 1 amp NEB RTID [facility] Last Admin: 01/17/20 21:00 Dose: 1 amp Ascorbic Acid (Vitamin C -) 1,000 mg PO DAILY [facility] Last Admin: 01/17/20 10:49 Dose: Not Given Atorvastatin Calcium (Lipitor -) 10 mg PO HS [facility] Last Admin: 01/17/20 23:33 Dose: 10 mg Calcium Carbonate/Cholecalciferol (Os-Fuad 500+D -) 1 tab PO DAILY [facility] Last Admin: 01/17/20 10:49 Dose: Not Given Carvedilol (Coreg -) 3.125 mg PO BID [facility] Last Admin: 01/17/20 23:33 Dose: 3.125 mg Cholecalciferol (Vitamin D3 -) 2,000 unit PO DAILY [facility] Last Admin: 01/17/20 10:49 Dose: Not Given Escitalopram Oxalate (Lexapro -) 5 mg PO DAILY [facility] Last Admin: 01/17/20 10:42 Dose: 5 mg Guaifenesin (Robitussin Dm -) 10 ml PO Q6H PRN PRN Reason: COUGH Ipratropium [place] (Atrovent 0.02% Nebulizer -) 1 amp NEB RQID [facility] Last Admin: 01/17/20 21:00 Dose: 1 amp Levothyroxine Sodium (Synthroid -) 150 mcg PO DAILY@0700 [facility] Last Admin: 01/18/20 06:30 Dose: 150 mcg Multivitamins/Minerals/Vitamin C (Tab-A-Vit -) 1 tab PO DAILY [facility] Last Admin: 01/17/20 10:49 Dose: Not Given Nystatin (Mycostatin Cream -) 1 applic TP BID [facility] Last Admin: 01/17/20 23:39 Dose: 1 applic - Objective Vital Signs: Vital Signs Temperature 98.0 F 01/18/20 06:00 Pulse Rate 78 01/18/20 06:00 Respiratory Rate 20 01/18/20 06:00 Blood Pressure 112/60 01/18/20 06:00 O2 Sat by Pulse Oximetry (%) 94 L 01/17/20 21:00 General: Elderly female not in distress HEENT: Mucous membranes, no anemia, no jaundice, PERRLA, no nystagmus Neck: No JVD, supple, no bruit, thyroid palpably normal, normal carotid pulsations. Chest: Nontender, decreased air entry on left side CVS: S1-S2 regularno murmur/gallop/rub Abdomen: Nondistended, soft, bowel sounds present. 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 Code(s): J90 - PLEURAL EFFUSION, NOT ELSEWHERE CLASSIFIED (2) Atrial flutter Assessment/Plan: Not on anticoagulation due to frequent fall at present rate controlled. Code(s): I48.92 - UNSPECIFIED ATRIAL FLUTTER Qualifiers: Atrial flutter type: unspecified Qualified Code(s): I48.92 - Unspecified atrial flutter (3) COPD (chronic obstructive pulmonary disease) Assessment/Plan: Compensated continue all home medications. Code(s): J44.9 - CHRONIC OBSTRUCTIVE PULMONARY DISEASE, UNSPECIFIED (4) Hypothyroid Assessment/Plan: Continue all home medication Code(s): E03.9 - HYPOTHYROIDISM, UNSPECIFIED (5) Depressed Assessment/Plan: Continue Lexapro Code(s): F32.9 - MAJOR DEPRESSIVE DISORDER, SINGLE EPISODE, UNSPECIFIED
[2020-01-18] MEDS ORDERED: PT OWN MED DRAWER 7, Y5N ONE (09:46)
[2020-01-18] MEDS: ASCORBIC ACID 500 MG TABLET (FP) PO SCH (10:14)
[2020-01-18] MEDS: CARVEDILOL 3.125 MG TABLET (FP) PO SCH ×2 (10:15→21:41)
[2020-01-18] MEDS: ESCITALOPRAM OXALATE 10 MG TABLET PO SCH (10:15)
[2020-01-18] MEDS: MULTIVITAMINS (DAILY MVI) TABLET (FP) PO SCH (10:17)
[2020-01-18] MEDS: CALCIUM 500MG/VIT-D 200 UNITS COMBO TABLET (FP) PO SCH (10:17)
[2020-01-18] MEDS: CHOLECALCIFEROL (VIT D3) 1,000 UNIT (25 MCG) TABLET PO SCH (10:17)
[2020-01-18] MEDS: NYSTATIN 100,000 UNIT/GM TOPICAL CREAM 15 GM TUBE TP SCH ×2 (10:17→21:47)
--- NOTE | 2020-01-18 10:43 | PN ---
Progress Note, Physician History of Present Illness: pulmonary sleepy on o2 vm,-resp distress. pt s/p left thoracentesis with removal 1.25 liters w/o complications. - Current Medication List Current Medications: Active Medications Acetaminophen (Tylenol -) 650 mg PO Q6H PRN PRN Reason: PAIN LEVEL 6-10 Albuterol Sulfate (Ventolin 0.083% Nebulizer Soln -) 1 amp NEB RTID [facility] Last Admin: 01/17/20 21:00 Dose: 1 amp Ascorbic Acid (Vitamin C -) 1,000 mg PO DAILY [facility] Last Admin: 01/18/20 10:14 Dose: 1,000 mg Atorvastatin Calcium (Lipitor -) 10 mg PO HS [facility] Last Admin: 01/17/20 23:33 Dose: 10 mg Calcium Carbonate/Cholecalciferol (Os-Fuad 500+D -) 1 tab PO DAILY [facility] Last Admin: 01/18/20 10:17 Dose: 1 tab Carvedilol (Coreg -) 3.125 mg PO BID [facility] Last Admin: 01/18/20 10:15 Dose: 3.125 mg Cholecalciferol (Vitamin D3 -) 2,000 unit PO DAILY [facility] Last Admin: 01/18/20 10:17 Dose: 2,000 unit Escitalopram Oxalate (Lexapro -) 5 mg PO DAILY [facility] Last Admin: 01/18/20 10:15 Dose: 5 mg Guaifenesin (Robitussin Dm -) 10 ml PO Q6H PRN PRN Reason: COUGH Ipratropium [place] (Atrovent 0.02% Nebulizer -) 1 amp NEB RQID [facility] Last Admin: 01/17/20 21:00 Dose: 1 amp Levothyroxine Sodium (Synthroid -) 150 mcg PO DAILY@0700 [facility] Last Admin: 01/18/20 06:30 Dose: 150 mcg Multivitamins/Minerals/Vitamin C (Tab-A-Vit -) 1 tab PO DAILY [facility] Last Admin: 01/18/20 10:17 Dose: 1 tab Nystatin (Mycostatin Cream -) 1 applic TP BID [facility] Last Admin: 01/18/20 10:17 Dose: 1 applic - Objective Vital Signs: Vital Signs Temperature 98.0 F 01/18/20 06:00 Pulse Rate 78 01/18/20 06:00 Respiratory Rate 20 01/18/20 06:00 Blood Pressure 112/60 01/18/20 06:00 O2 Sat by Pulse Oximetry (%) 94 L 01/17/20 21:00 Constitutional: Yes: Thin, Other (sleepy) Eyes: Yes: WNL HENT: Yes: WNL Neck: Yes: WNL Cardiovascular: Yes: Pulse Irregular, S1, S2 Respiratory: Yes: Diminished Gastrointestinal: Yes: Normal Bowel Sounds, Soft Extremities: Yes: WNL Edema: No Labs: CBC, BMP 01/18/20 05:32 01/18/20 05:32 INR, PTT INR 1.12 (0.83-1.09) H 01/16/20 17:05 Problem List - Problems (1) Dyspnea Code(s): R06.00 - DYSPNEA, UNSPECIFIED (2) Pleural effusion Code(s): J90 - PLEURAL EFFUSION, NOT ELSEWHERE CLASSIFIED (3) Afib Code(s): I48.91 - UNSPECIFIED ATRIAL FIBRILLATION Qualifiers: Atrial fibrillation type: unspecified Qualified Code(s): I48.91 - Unspecified atrial fibrillation Assessment/Plan IMP DYSPNEA RECURRENT LEFT PLEURAL EFFUSION CHF AFIB H/O ICH DEMENTIA HYPOTHYROID PLAN LASIX O2 NEEDED RATE CONTROL PLEURAL FLUIDS CELL CT,CHEMISTRIES PENDING DR LIMON Problem List - Problems (1) Dyspnea Code(s): R06.00 - DYSPNEA, UNSPECIFIED (2) Pleural effusion Code(s): J90 - PLEURAL EFFUSION, NOT ELSEWHERE CLASSIFIED (3) Afib Code(s): I48.91 - UNSPECIFIED ATRIAL FIBRILLATION Qualifiers: Atrial fibrillation type: unspecified Qualified Code(s): I48.91 - Unspecified atrial fibrillation
[2020-01-18] MEDS: ATORVASTATIN CA 10 MG TABLET (FP) PO SCH (21:41)
[2020-01-19] MEDS: LEVOTHYROXINE NA 150 MCG TABLET PO SCH (06:21)
[2020-01-19 07:27] LABS: BLOOD UREA NITROGEN 20.3 mg/dL (7-18); CALCIUM 8.4 mg/dL (8.5-10.1); CREATININE 0.7 mg/dL (0.55-1.3); POTASSIUM 3.9 mmol/L (3.5-5.1)
[2020-01-19 07:58] LABS: BASO % 0.5 % (0-2.0); EOS % 0.8 % (0-4.5); HEMATOCRIT 27.2 % (32.4-45.2); HEMOGLOBIN 8.5 GM/dL (10.7-15.3); MCH 29.5 pg (25.7-33.7); MCHC 31.3 g/dl (32.0-36.0); MEAN CELL VOLUME 94.3 fl (80-96); MEAN PLT VOLUME 9.1 fl (7.5-11.1); MONO % 10.2 % (3.8-10.2); NEUT % 79.5 % (42.8-82.8); PLATELET COUNT 180 K/MM3 (134-434); RBC 2.88 M/mm3 (3.60-5.2); RDW 19.9 % (11.6-15.6); WHITE BLOOD COUNT 9.4 K/mm3 (4.0-10.0)
--- NOTE | 2020-01-19 08:04 | PN ---
Progress Note, Physician Chief Complaint: Patient is more alert communicating denies any shortness of breath - Current Medication List Current Medications: Active Medications Acetaminophen (Tylenol -) 650 mg PO Q6H PRN PRN Reason: PAIN LEVEL 6-10 Albuterol Sulfate (Ventolin 0.083% Nebulizer Soln -) 1 amp NEB RTID [facility] Last Admin: 01/18/20 20:35 Dose: 1 amp Ascorbic Acid (Vitamin C -) 1,000 mg PO DAILY [facility] Last Admin: 01/18/20 10:14 Dose: 1,000 mg Atorvastatin Calcium (Lipitor -) 10 mg PO HS [facility] Last Admin: 01/18/20 21:41 Dose: 10 mg Calcium Carbonate/Cholecalciferol (Os-Fuad 500+D -) 1 tab PO DAILY [facility] Last Admin: 01/18/20 10:17 Dose: 1 tab Carvedilol (Coreg -) 3.125 mg PO BID [facility] Last Admin: 01/18/20 21:41 Dose: 3.125 mg Cholecalciferol (Vitamin D3 -) 2,000 unit PO DAILY [facility] Last Admin: 01/18/20 10:17 Dose: 2,000 unit Escitalopram Oxalate (Lexapro -) 5 mg PO DAILY [facility] Last Admin: 01/18/20 10:15 Dose: 5 mg Guaifenesin (Robitussin Dm -) 10 ml PO Q6H PRN PRN Reason: COUGH Ipratropium [place] (Atrovent 0.02% Nebulizer -) 1 amp NEB RQID [facility] Last Admin: 01/18/20 20:35 Dose: 1 amp Levothyroxine Sodium (Synthroid -) 150 mcg PO DAILY@0700 [facility] Last Admin: 01/19/20 06:21 Dose: 150 mcg Multivitamins/Minerals/Vitamin C (Tab-A-Vit -) 1 tab PO DAILY [facility] Last Admin: 01/18/20 10:17 Dose: 1 tab Nystatin (Mycostatin Cream -) 1 applic TP BID [facility] Last Admin: 01/18/20 21:47 Dose: 1 applic - Objective Vital Signs: Vital Signs Temperature 97.7 F 01/19/20 02:00 Pulse Rate 83 01/19/20 06:00 Respiratory Rate 20 01/19/20 06:00 Blood Pressure 121/68 01/19/20 06:00 O2 Sat by Pulse Oximetry (%) 97 01/18/20 21:00 General: Elderly female not in distress HEENT: Mucous membranes, no anemia, no jaundice, PERRLA, no nystagmus Neck: No JVD, supple, no bruit, thyroid palpably normal, normal carotid pulsations. Chest: Nontender, decreased air entry on left side CVS: S1-S2 regularno murmur/gallop/rub Abdomen: Nondistended, soft, bowel sounds present. Extremities: No edema., No cough tenderness, pulses present INTERNAL MEDICINE PHYSICIAN ASSISTANT: Confused, no gross motor sensory deficit Labs: CBC, BMP 01/19/20 05:30 INR, PTT INR 1.12 (0.83-1.09) H 01/16/20 17:05 Problem List - Problems (1) Pleural effusion Assessment/Plan: Recurrent pleural effusion recently worked up, cytology culture everything was negative underwent therapeutic paracentesis 1.25 L was removed on Monday repeat chest x-ray shows no pneumothorax we will follow-up at present no indication of antibiotic. Code(s): J90 - PLEURAL EFFUSION, NOT ELSEWHERE CLASSIFIED (2) Atrial flutter Assessment/Plan: Not on anticoagulation due to frequent fall at present rate controlled. Problems reviewed: Yes Code(s): I48.92 - UNSPECIFIED ATRIAL FLUTTER Qualifiers: Atrial flutter type: unspecified Qualified Code(s): I48.92 - Unspecified atrial flutter (3) COPD (chronic obstructive pulmonary disease) Assessment/Plan: Compensated continue all home medications. Problems reviewed: Yes Code(s): J44.9 - CHRONIC OBSTRUCTIVE PULMONARY DISEASE, UNSPECIFIED (4) Hypothyroid Assessment/Plan: Continue all home medication Problems reviewed: Yes Code(s): E03.9 - HYPOTHYROIDISM, UNSPECIFIED (5) Depressed Assessment/Plan: Continue Lexapro Problems reviewed: Yes Code(s): F32.9 - MAJOR DEPRESSIVE DISORDER, SINGLE EPISODE, UNSPECIFIED (6) Hypotension (arterial) Assessment/Plan: Yesterday had episode of hypotension, now improved Problems reviewed: Yes Code(s): I95.9 - HYPOTENSION, UNSPECIFIED Assessment/Plan If patient remains stable already cleared by cardiology can be discharged back to long term once cleared by pulmonary consult.
[2020-01-19] MEDS: IPRATROPIUM BR 0.02% 0.5 MG/2.5 ML VIAL.NEB. NEB SCH ×4 (08:15→20:15)
[2020-01-19] MEDS: ALBUTEROL SO4 0.083% IH SOL 2.5 MG/3 ML VIAL.NEB. NEB SCH ×3 (08:15→20:15)
[2020-01-19] MEDS: ASCORBIC ACID 500 MG TABLET (FP) PO SCH (10:27)
[2020-01-19] MEDS: CARVEDILOL 3.125 MG TABLET (FP) PO SCH ×2 (10:29→22:08)
[2020-01-19] MEDS: ESCITALOPRAM OXALATE 10 MG TABLET PO SCH (10:30)
[2020-01-19] MEDS: MULTIVITAMINS (DAILY MVI) TABLET (FP) PO SCH (10:30)
[2020-01-19] MEDS: CALCIUM 500MG/VIT-D 200 UNITS COMBO TABLET (FP) PO SCH (10:32)
[2020-01-19] MEDS: NYSTATIN 100,000 UNIT/GM TOPICAL CREAM 15 GM TUBE TP SCH ×2 (10:32→22:09)
[2020-01-19] MEDS: CHOLECALCIFEROL (VIT D3) 1,000 UNIT (25 MCG) TABLET PO SCH (10:32)
--- NOTE | 2020-01-19 10:59 | PN ---
Progress Note, Physician History of Present Illness: PULMONARY ALERT,COMFORTABLE,SOB IMPROVING - Current Medication List Current Medications: Active Medications Acetaminophen (Tylenol -) 650 mg PO Q6H PRN PRN Reason: PAIN LEVEL 6-10 Albuterol Sulfate (Ventolin 0.083% Nebulizer Soln -) 1 amp NEB RTID [facility] Last Admin: 01/19/20 08:15 Dose: 1 amp Ascorbic Acid (Vitamin C -) 1,000 mg PO DAILY [facility] Last Admin: 01/19/20 10:27 Dose: 1,000 mg Atorvastatin Calcium (Lipitor -) 10 mg PO HS [facility] Last Admin: 01/18/20 21:41 Dose: 10 mg Calcium Carbonate/Cholecalciferol (Os-Fuad 500+D -) 1 tab PO DAILY [facility] Last Admin: 01/19/20 10:32 Dose: 1 tab Carvedilol (Coreg -) 3.125 mg PO BID [facility] Last Admin: 01/19/20 10:29 Dose: 3.125 mg Cholecalciferol (Vitamin D3 -) 2,000 unit PO DAILY [facility] Last Admin: 01/19/20 10:32 Dose: 2,000 unit Escitalopram Oxalate (Lexapro -) 5 mg PO DAILY [facility] Last Admin: 01/19/20 10:30 Dose: 5 mg Guaifenesin (Robitussin Dm -) 10 ml PO Q6H PRN PRN Reason: COUGH Ipratropium [place] (Atrovent 0.02% Nebulizer -) 1 amp NEB RQID [facility] Last Admin: 01/19/20 08:15 Dose: 1 amp Levothyroxine Sodium (Synthroid -) 150 mcg PO DAILY@0700 [facility] Last Admin: 01/19/20 06:21 Dose: 150 mcg Multivitamins/Minerals/Vitamin C (Tab-A-Vit -) 1 tab PO DAILY [facility] Last Admin: 01/19/20 10:30 Dose: 1 tab Nystatin (Mycostatin Cream -) 1 applic TP BID [facility] Last Admin: 01/19/20 10:32 Dose: 1 applic - Objective Vital Signs: Vital Signs Temperature 98.9 F 01/19/20 08:58 Pulse Rate 82 01/19/20 08:58 Respiratory Rate 20 01/19/20 08:58 Blood Pressure 118/72 01/19/20 08:58 O2 Sat by Pulse Oximetry (%) 97 01/18/20 21:00 Constitutional: Yes: Calm, Thin Eyes: Yes: WNL HENT: Yes: WNL Neck: Yes: WNL Cardiovascular: Yes: Pulse Irregular, S1, S2 Respiratory: Yes: Diminished (DECREASED BS LEFT BASE) Gastrointestinal: Yes: Normal Bowel Sounds, Soft Extremities: Yes: WNL Edema: No Labs: CBC, BMP 01/19/20 05:30 01/19/20 05:30 INR, PTT INR 1.12 (0.83-1.09) H 01/16/20 17:05 Problem List - Problems (1) Dyspnea Code(s): R06.00 - DYSPNEA, UNSPECIFIED (2) Pleural effusion Code(s): J90 - PLEURAL EFFUSION, NOT ELSEWHERE CLASSIFIED (3) Afib Code(s): I48.91 - UNSPECIFIED ATRIAL FIBRILLATION Qualifiers: Atrial fibrillation type: unspecified Qualified Code(s): I48.91 - Unspecified atrial fibrillation Assessment/Plan IMP DYSPNEA RECURRENT LEFT PLEURAL EFFUSION PREVIOUSLY TRANSUDATE CHF AFIB H/O ICH DEMENTIA HYPOTHYROID PLAN LASIX O2 NEEDED RATE CONTROL PLEURAL FLUIDS CELL CT,CHEMISTRIES PENDING DR LIMON Problem List - Problems (1) Dyspnea Code(s): R06.00 - DYSPNEA, UNSPECIFIED (2) Pleural effusion Code(s): J90 - PLEURAL EFFUSION, NOT ELSEWHERE CLASSIFIED (3) Afib Code(s): I48.91 - UNSPECIFIED ATRIAL FIBRILLATION Qualifiers: Atrial fibrillation type: unspecified Qualified Code(s): I48.91 - Unspecified atrial fibrillation
[2020-01-19] MEDS ORDERED: SODIUM CHLORIDE 1,000 ML IV STA (14:55)
[2020-01-19] MEDS: ATORVASTATIN CA 10 MG TABLET (FP) PO SCH (22:08)
[2020-01-20] MEDS: LEVOTHYROXINE NA 150 MCG TABLET PO SCH (06:29)
[2020-01-20 07:04] LABS: BASO % 0.3 % (0-2.0); EOS % 0.3 % (0-4.5); HEMATOCRIT 26.7 % (32.4-45.2); HEMOGLOBIN 8.4 GM/dL (10.7-15.3); LYMPH % 8.2 % (8-40); MCH 29.2 pg (25.7-33.7); MCHC 31.3 g/dl (32.0-36.0); MEAN CELL VOLUME 93.2 fl (80-96); MONO % 9.6 % (3.8-10.2); NEUT % 81.6 % (42.8-82.8); PLATELET COUNT 171 K/MM3 (134-434); RBC 2.86 M/mm3 (3.60-5.2); RDW 20.2 % (11.6-15.6); WHITE BLOOD COUNT 12.2 K/mm3 (4.0-10.0)
[2020-01-20 07:30] LABS: CALCIUM 8.7 mg/dL (8.5-10.1); CREATININE 0.7 mg/dL (0.55-1.3); POTASSIUM 4.1 mmol/L (3.5-5.1)
[2020-01-20] MEDS: ALBUTEROL SO4 0.083% IH SOL 2.5 MG/3 ML VIAL.NEB. NEB SCH ×3 (07:33→20:00)
[2020-01-20] MEDS: IPRATROPIUM BR 0.02% 0.5 MG/2.5 ML VIAL.NEB. NEB SCH ×4 (07:33→20:00)
--- NOTE | 2020-01-20 08:17 | PN ---
Physical Exam: SUBJECTIVE: Patient seen and examined at bed [place] , laying in bed on NAD , sat 96 % on NC , denies any chest pain, fever , chills, S/P thoracosentesis cleared by pulmonary and cardiology to be dc to group home recommend lasix maintinance dose 20 mg daily as tolerated cxr worsening OBJECTIVE: Vital Signs Period Temp Pulse Resp BP Sys/Magana Pulse Ox Last 24 Hr 97.6 F-98.9 F 82-99 20-20 106-121/47-72 92-97 GENERAL: lethargic difficult hearing , follow commands HEENT: NCAT/ PERRLA/ dry MM LUNGS: decrese breath sound sat the bases HEART: IRR IRR , normal S1 and S2 without murmur, rub or gallop. ABDOMEN: Soft, nontender, not distended, normoactive bowel sounds. EXTREMITIES: 2+ pulses, warm, well-perfused. No peripheral edema. NEUROLOGICAL: unable to assess SKIN: Multiple small hematomas noted anterior shins b/l. Laboratory Results - last 24 hr 01/19/20 01/20/20 01/20/20 05:30 06:15 06:15 WBC 9.4 12.2 H RBC 2.88 L 2.86 L Hgb 8.5 L 8.4 L Hct 27.2 L 26.7 L MCV 94.3 93.2 MCH 29.5 29.2 MCHC 31.3 L 31.3 L RDW 19.9 H 20.2 H Plt Count 180 171 MPV 9.1 9.0 Absolute Neuts (auto) 7.5 10.0 H Neutrophils % 79.5 81.6 Lymphocytes % 9.0 D 8.2 Monocytes % 10.2 9.6 Eosinophils % 0.8 0.3 Basophils % 0.5 0.3 Nucleated RBC % 0 0 Sodium 140 Potassium 4.1 Chloride 108 H Carbon Dioxide 26 Anion Gap 6 L BUN 19.0 H Creatinine 0.7 Est GFR (CKD-EPI)AfAm 91.57 Est GFR (CKD-EPI)NonAf 79.00 Random Glucose 99 Calcium 8.7 Active Medications Generic Name Dose Route Start Last Admin Trade Name Freq PRN Reason Stop Dose Admin Acetaminophen 650 mg 01/17/20 06:54 Tylenol - PO Q6H PRN PAIN LEVEL 6-10 Albuterol Sulfate 1 amp 01/17/20 08:00 01/19/20 20:15 Ventolin 0.083% Nebulizer Soln - NEB 1 amp RTID [facility] Administration Ascorbic Acid 1,000 mg 01/17/20 10:00 01/19/20 10:27 Vitamin C - PO 1,000 mg DAILY [facility] Administration Atorvastatin Calcium 10 mg 01/17/20 22:00 01/19/20 22:08 Lipitor - PO 10 mg HS [facility] Administration Calcium Carbonate/Cholecalciferol 1 tab 01/17/20 10:00 01/19/20 10:32 Os-Fuad 500+D - PO 1 tab DAILY [facility] Administration Carvedilol 3.125 mg 01/17/20 10:00 01/19/20 22:08 Coreg - PO 3.125 mg BID [facility] Administration Cholecalciferol 2,000 unit 01/17/20 10:00 01/19/20 10:32 Vitamin D3 - PO 2,000 unit DAILY [facility] Administration Escitalopram Oxalate 5 mg 01/17/20 10:00 01/19/20 10:30 Lexapro - PO 5 mg DAILY [facility] Administration Guaifenesin 10 ml 01/17/20 07:00 Robitussin Dm - PO Q6H PRN COUGH Ipratropium [place] 1 amp 01/17/20 08:00 01/19/20 20:15 Atrovent 0.02% Nebulizer - NEB 1 amp RQID [facility] Administration Levothyroxine Sodium 150 mcg 01/17/20 08:45 01/20/20 06:29 Synthroid - PO 150 mcg DAILY@0700 [facility] Administration Multivitamins/Minerals/Vitamin C 1 tab 01/17/20 10:00 01/19/20 10:30 Tab-A-Vit - PO 1 tab DAILY [facility] Administration Nystatin 1 applic 01/17/20 10:00 01/19/20 22:09 Mycostatin Cream - TP 1 applic BID [facility] Administration CBC, BMP 01/20/20 06:15 01/20/20 06:15 ASSESSMENT/PLAN: 84 y.o. F PMH HTN, hypothyroidism, dementia, A-fib (recent diagnosis), R-ICH in 2010 presenting from [facility] for dyspnea. #Recurrent transudative left sided pleural effusion S/P thoracosentesis cxr today worsening will start lasix 20 daily * CXR showing left sided progressive pl eff (transudative)- consider cardiac etiology, pt also w/ hypoalbuminemia * no leukocytosis, afebrile, BNP 9000s * pathology from pleurocentesis 12/25/2019 shows no malignant cells; + mesothelial cells, macrophages and few lymphocytes present * observe off abx for now, patient has completed vanc & zosyn course during last visit & received 1 dose vanc/ zosyn tonight in ED * ID consulted-- Dr. Ramirez monitor off abx * Pulm Dr. Levy consulted * f/u cultures-- sputum, blood & urine * urine ag for legionella/ s. pneumo #Bradycardia, resolved cont BB home dose tele monitor , evaluated by cardiology , cont current management #A-fib * patient bradycardic; decrease coreg to 3.125 BiD * high riskstroke candidate, history of remote ICH. Defer AC due to falls and traumatic ICH as per cardio * Dr. Kaur consulted * tele monitoring #Elevated trops likley demand iscemia , no EKG changes . 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 - New Patient This patient is new to me today: No - Critical Care Critical Care patient: No - Discharge Referral Referred to [facility] No ATTENDING PHYSICIAN STATEMENT I saw and evaluated the patient. I reviewed the resident's note and discussed the case with the resident. I agree with the resident's findings and plan as documented. SUBJECTIVE: OBJECTIVE: ASSESSMENT AND PLAN:
--- NOTE | 2020-01-20 10:19 | PN ---
Progress Note, Physician Chief Complaint: Patient is more alert communicating denies any shortness of breath - Current Medication List Current Medications: Active Medications Acetaminophen (Tylenol -) 650 mg PO Q6H PRN PRN Reason: PAIN LEVEL 6-10 Albuterol Sulfate (Ventolin 0.083% Nebulizer Soln -) 1 amp NEB RTID [facility] Last Admin: 01/19/20 20:15 Dose: 1 amp Ascorbic Acid (Vitamin C -) 1,000 mg PO DAILY [facility] Last Admin: 01/19/20 10:27 Dose: 1,000 mg Atorvastatin Calcium (Lipitor -) 10 mg PO HS [facility] Last Admin: 01/19/20 22:08 Dose: 10 mg Calcium Carbonate/Cholecalciferol (Os-Fuad 500+D -) 1 tab PO DAILY [facility] Last Admin: 01/19/20 10:32 Dose: 1 tab Carvedilol (Coreg -) 6.25 mg PO BID [facility] Cholecalciferol (Vitamin D3 -) 2,000 unit PO DAILY [facility] Last Admin: 01/19/20 10:32 Dose: 2,000 unit Escitalopram Oxalate (Lexapro -) 5 mg PO DAILY [facility] Last Admin: 01/19/20 10:30 Dose: 5 mg Guaifenesin (Robitussin Dm -) 10 ml PO Q6H PRN PRN Reason: COUGH Ipratropium [place] (Atrovent 0.02% Nebulizer -) 1 amp NEB RQID [facility] Last Admin: 01/19/20 20:15 Dose: 1 amp Levothyroxine Sodium (Synthroid -) 150 mcg PO DAILY@0700 [facility] Last Admin: 01/20/20 06:29 Dose: 150 mcg Multivitamins/Minerals/Vitamin C (Tab-A-Vit -) 1 tab PO DAILY [facility] Last Admin: 01/19/20 10:30 Dose: 1 tab Nystatin (Mycostatin Cream -) 1 applic TP BID [facility] Last Admin: 01/19/20 22:09 Dose: 1 applic - Objective Vital Signs: Vital Signs Temperature 98.2 F 01/20/20 01:00 Pulse Rate 83 01/20/20 01:00 Respiratory Rate 20 01/20/20 01:00 Blood Pressure 121/68 01/20/20 01:00 O2 Sat by Pulse Oximetry (%) 92 L 01/19/20 21:00 General: Elderly female not in distress HEENT: Mucous membranes, no anemia, no jaundice, PERRLA, no nystagmus Neck: No JVD, supple, no bruit, thyroid palpably normal, normal carotid pulsations. Chest: Nontender, decreased air entry on left side CVS: S1-S2 regularno murmur/gallop/rub Abdomen: Nondistended, soft, bowel sounds present. Extremities: No edema., No cough tenderness, pulses present DIRECTOR BIOMEDICAL ENGINEERING: Confused, no gross motor sensory deficit Labs: CBC, BMP 01/20/20 06:15 01/20/20 06:15 INR, PTT INR 1.12 (0.83-1.09) H 01/16/20 17:05 Problem List - Problems (1) Pleural effusion Code(s): J90 - PLEURAL EFFUSION, NOT ELSEWHERE CLASSIFIED (2) Atrial flutter Code(s): I48.92 - UNSPECIFIED ATRIAL FLUTTER Qualifiers: Atrial flutter type: unspecified Qualified Code(s): I48.92 - Unspecified atrial flutter (3) COPD (chronic obstructive pulmonary disease) Code(s): J44.9 - CHRONIC OBSTRUCTIVE PULMONARY DISEASE, UNSPECIFIED (4) Hypothyroid Code(s): E03.9 - HYPOTHYROIDISM, UNSPECIFIED (5) Depressed Code(s): F32.9 - MAJOR DEPRESSIVE DISORDER, SINGLE EPISODE, UNSPECIFIED (6) Hypotension (arterial) Code(s): I95.9 - HYPOTENSION, UNSPECIFIED
[2020-01-20] MEDS: CALCIUM 500MG/VIT-D 200 UNITS COMBO TABLET (FP) PO SCH (10:31)
[2020-01-20] MEDS: ESCITALOPRAM OXALATE 10 MG TABLET PO SCH (10:31)
[2020-01-20] MEDS: ASCORBIC ACID 500 MG TABLET (FP) PO SCH (10:31)
[2020-01-20] MEDS: MULTIVITAMINS (DAILY MVI) TABLET (FP) PO SCH (10:31)
[2020-01-20] MEDS: CHOLECALCIFEROL (VIT D3) 1,000 UNIT (25 MCG) TABLET PO SCH (10:31)
[2020-01-20] MEDS: NYSTATIN 100,000 UNIT/GM TOPICAL CREAM 15 GM TUBE TP SCH ×2 (10:32→21:44)
[2020-01-20] MEDS: CARVEDILOL 6.25 MG TABLET (FP) PO SCH ×2 (10:33→21:43)
--- NOTE | 2020-01-20 12:47 | PN ---
Progress Note (short form) - Note Progress Note: PULMONARY Somnolent but arousable. Saturating 96% on nasal cannula. Vital Signs Period Temp Pulse Resp BP Sys/Magana Pulse Ox Last 24 Hr 97.6 F-98.6 F 81-99 20-20 106-121/47-77 92-98 Gen: NAD at rest Heart: irregular Lung: decreased breath sounds at the bases Abd: soft, nontender Ext: no edema CBC, BMP 01/20/20 06:15 01/20/20 06:15 Active Medications Acetaminophen (Tylenol -) 650 mg PO Q6H PRN PRN Reason: PAIN LEVEL 6-10 Albuterol Sulfate (Ventolin 0.083% Nebulizer Soln -) 1 amp NEB RTID [facility] Last Admin: 01/20/20 07:33 Dose: 1 amp Ascorbic Acid (Vitamin C -) 1,000 mg PO DAILY [facility] Last Admin: 01/20/20 10:31 Dose: 1,000 mg Atorvastatin Calcium (Lipitor -) 10 mg PO HS [facility] Last Admin: 01/19/20 22:08 Dose: 10 mg Calcium Carbonate/Cholecalciferol (Os-Fuad 500+D -) 1 tab PO DAILY [facility] Last Admin: 01/20/20 10:31 Dose: 1 tab Carvedilol (Coreg -) 6.25 mg PO BID [facility] Last Admin: 01/20/20 10:33 Dose: 6.25 mg Cholecalciferol (Vitamin D3 -) 2,000 unit PO DAILY [facility] Last Admin: 01/20/20 10:31 Dose: 2,000 unit Escitalopram Oxalate (Lexapro -) 5 mg PO DAILY [facility] Last Admin: 01/20/20 10:31 Dose: 5 mg Guaifenesin (Robitussin Dm -) 10 ml PO Q6H PRN PRN Reason: COUGH Ipratropium [place] (Atrovent 0.02% Nebulizer -) 1 amp NEB RQID [facility] Last Admin: 01/20/20 07:33 Dose: 1 amp Levothyroxine Sodium (Synthroid -) 150 mcg PO DAILY@0700 [facility] Last Admin: 01/20/20 06:29 Dose: 150 mcg Multivitamins/Minerals/Vitamin C (Tab-A-Vit -) 1 tab PO DAILY [facility] Last Admin: 01/20/20 10:31 Dose: 1 tab Nystatin (Mycostatin Cream -) 1 applic TP BID [facility] Last Admin: 01/20/20 10:32 Dose: 1 applic A/P Acute on Chronic Diastolic Heart Failure Atrial Fibrillation Recurrent Left Pleural Effusion s/p Thoracentesis Hypothyroidism Dementia Anemia - would place on maintenance dose of lasix - monitor urine output, creatinine - O2 to keep Spo2 >90% - rate control - DVT prophylaxis - can d/c to SNF from pulmonary standpoint
--- NOTE | 2020-01-20 14:48 | PN ---
Teaching Attending Note Name of Resident: Roberto Lyon ATTENDING PHYSICIAN STATEMENT I saw and evaluated the patient. I reviewed the resident's note and discussed the case with the resident. I agree with the resident's findings and plan as documented. SUBJECTIVE: Patient remained at baseline no acute respiratory distress, alert remained afebrile OBJECTIVE: Vital Signs Temperature 98.0 F 01/20/20 09:00 Pulse Rate 81 01/20/20 09:00 Respiratory Rate 20 01/20/20 09:00 Blood Pressure 121/77 01/20/20 09:00 O2 Sat by Pulse Oximetry (%) 98 01/20/20 09:00 General: Elderly female not in distress HEENT: Mucous membranes, no anemia, no jaundice, PERRLA, no nystagmus Neck: No JVD, supple, no bruit, thyroid palpably normal, normal carotid pulsations. Chest: Nontender, decreased air entry on left side CVS: S1-S2 regularno murmur/gallop/rub Abdomen: Nondistended, soft, bowel sounds present. Extremities: No edema., No cough tenderness, pulses present PLUMBING INSPECTOR: Confused, no gross motor sensory deficit CBC, BMP 01/20/20 06:15 01/20/20 06:15 Active Medications Acetaminophen (Tylenol -) 650 mg PO Q6H PRN PRN Reason: PAIN LEVEL 6-10 Albuterol Sulfate (Ventolin 0.083% Nebulizer Soln -) 1 amp NEB RTID [facility] Last Admin: 01/20/20 07:33 Dose: 1 amp Ascorbic Acid (Vitamin C -) 1,000 mg PO DAILY [facility] Last Admin: 01/20/20 10:31 Dose: 1,000 mg Atorvastatin Calcium (Lipitor -) 10 mg PO HS [facility] Last Admin: 01/19/20 22:08 Dose: 10 mg Calcium Carbonate/Cholecalciferol (Os-Fuad 500+D -) 1 tab PO DAILY [facility] Last Admin: 01/20/20 10:31 Dose: 1 tab Carvedilol (Coreg -) 6.25 mg PO BID [facility] Last Admin: 01/20/20 10:33 Dose: 6.25 mg Cholecalciferol (Vitamin D3 -) 2,000 unit PO DAILY [facility] Last Admin: 01/20/20 10:31 Dose: 2,000 unit Escitalopram Oxalate (Lexapro -) 5 mg PO DAILY [facility] Last Admin: 01/20/20 10:31 Dose: 5 mg Guaifenesin (Robitussin Dm -) 10 ml PO Q6H PRN PRN Reason: COUGH Ipratropium [place] (Atrovent 0.02% Nebulizer -) 1 amp NEB RQID [facility] Last Admin: 01/20/20 07:33 Dose: 1 amp Levothyroxine Sodium (Synthroid -) 150 mcg PO DAILY@0700 [facility] Last Admin: 01/20/20 06:29 Dose: 150 mcg Multivitamins/Minerals/Vitamin C (Tab-A-Vit -) 1 tab PO DAILY [facility] Last Admin: 01/20/20 10:31 Dose: 1 tab Nystatin (Mycostatin Cream -) 1 applic TP BID [facility] Last Admin: 01/20/20 10:32 Dose: 1 applic ASSESSMENT AND PLAN:84-year-old woman with hypertension, hypothyroidism, dementia, history of right intracranial hemorrhage in 2010, recent diagnosis of atrial fibrillation not on anticoagulation due to fall risk, recently admitted for left pleural effusion drain on 12/25/2019 which turned out to be transudate of effusion with negative cultures and cytology was negative for malignant cells , brought in from [facility] after she found more lethargic than her baseline. Imaging of chest was performed and noted to have recurrent left pleural effusion , patient underwent left-sided thoracocentesis on Monday 1.25 L removed patient clinically improved evaluated by pulmonary and cardiology consult cleared to [place] home.. Plan: Patient is hemodynamically stable O2 sat improved, cleared by cardiology and pulmonary to DC back to [facility], today elevated total white blood cell count 12,000, no fever or tachycardia will observe if stable can be transferred back tomorrow morning. Problem List - Problems (1) Pleural effusion Assessment/Plan: Recurrent pleural effusion recently worked up, cytology culture everything was negative underwent therapeutic paracentesis 1.25 L was removed on Monday repeat chest x-ray shows no pneumothorax we will follow-up at present no indication of antibiotic. Pulmonary cleared the patient for discharge back to [facility] Code(s): J90 - PLEURAL EFFUSION, NOT ELSEWHERE CLASSIFIED (2) Atrial flutter Assessment/Plan: Not on anticoagulation due to frequent fall at present rate controlled. Code(s): I48.92 - UNSPECIFIED ATRIAL FLUTTER Qualifiers: Atrial flutter type: unspecified Qualified Code(s): I48.92 - Unspecified atrial flutter (3) COPD (chronic obstructive pulmonary disease) Assessment/Plan: Compensated continue all home medications. Code(s): J44.9 - CHRONIC OBSTRUCTIVE PULMONARY DISEASE, UNSPECIFIED (4) Hypothyroid Assessment/Plan: Continue all home medication Code(s): E03.9 - HYPOTHYROIDISM, UNSPECIFIED (5) Depressed Assessment/Plan: Continue Lexapro Code(s): F32.9 - MAJOR DEPRESSIVE DISORDER, SINGLE EPISODE, UNSPECIFIED (6) Hypotension (arterial) Assessment/Plan: Yesterday had episode of hypotension, now stable Code(s): I95.9 - HYPOTENSION, UNSPECIFIED
[2020-01-20] MEDS ORDERED: FUROSEMIDE 20 MG TABLET (FP) PO ONE (16:13)
[2020-01-20] MEDS: ATORVASTATIN CA 10 MG TABLET (FP) PO SCH (21:43)
--- NOTE | 2020-01-21 05:56 | PN ---
Physical Exam: SUBJECTIVE: Patient seen and examined at bed [place] , laying in bed lethargic , sat 96 % on NC , denies any chest pain, fever , chills, S/P thoracosentesis had fever 100.8 this am and wbc elevation , will send bowman cx repeat cxr and start her on OZsyn , consult ID skip maintinance dose 20 mg daily as tolerated will hold as she is hypotensive today cxr same compare to yesterday OBJECTIVE: Vital Signs Period Temp Pulse Resp BP Sys/Magana Pulse Ox Last 24 Hr 98.0 F-99.4 F 80-93 20-20 105-143/65-87 97-98 GENERAL: lethargic difficult hearing , follow commands HEENT: NCAT/ PERRLA/ dry MM LUNGS: decrese breath sound sat the bases HEART: IRR IRR , normal S1 and S2 without murmur, rub or gallop. ABDOMEN: Soft, nontender, not distended, normoactive bowel sounds. EXTREMITIES: 2+ pulses, warm, well-perfused. No peripheral edema. NEUROLOGICAL: unable to assess SKIN: Multiple small hematomas noted anterior shins b/l. Laboratory Results - last 24 hr 01/20/20 01/20/20 06:15 06:15 WBC 12.2 H RBC 2.86 L Hgb 8.4 L Hct 26.7 L MCV 93.2 MCH 29.2 MCHC 31.3 L RDW 20.2 H Plt Count 171 MPV 9.0 Absolute Neuts (auto) 10.0 H Neutrophils % 81.6 Lymphocytes % 8.2 Monocytes % 9.6 Eosinophils % 0.3 Basophils % 0.3 Nucleated RBC % 0 Sodium 140 Potassium 4.1 Chloride 108 H Carbon Dioxide 26 Anion Gap 6 L BUN 19.0 H Creatinine 0.7 Est GFR (CKD-EPI)AfAm 91.57 Est GFR (CKD-EPI)NonAf 79.00 Random Glucose 99 Calcium 8.7 Active Medications Generic Name Dose Route Start Last Admin Trade Name Freq PRN Reason Stop Dose Admin Acetaminophen 650 mg 01/17/20 06:54 Tylenol - PO Q6H PRN PAIN LEVEL 6-10 Albuterol Sulfate 1 amp 01/17/20 08:00 01/20/20 20:00 Ventolin 0.083% Nebulizer Soln - NEB 1 amp RTID EFRAÍN Administration Ascorbic Acid 1,000 mg 01/17/20 10:00 01/20/20 10:31 Vitamin C - PO 1,000 mg DAILY EFRAÍN Administration Atorvastatin Calcium 10 mg 01/17/20 22:00 01/20/20 21:43 Lipitor - PO 10 mg HS EFRAÍN Administration Calcium Carbonate/Cholecalciferol 1 tab 01/17/20 10:00 01/20/20 10:31 Os-Fuad 500+D - PO 1 tab DAILY EFRAÍN Administration Carvedilol 6.25 mg 01/20/20 10:00 01/20/20 21:43 Coreg - PO 6.25 mg BID EFRAÍN Administration Cholecalciferol 2,000 unit 01/17/20 10:00 01/20/20 10:31 Vitamin D3 - PO 2,000 unit DAILY EFRAÍN Administration Escitalopram Oxalate 5 mg 01/17/20 10:00 01/20/20 10:31 Lexapro - PO 5 mg DAILY EFRAÍN Administration Furosemide 20 mg 01/21/20 10:00 Lasix - PO DAILY EFRAÍN Guaifenesin 10 ml 01/17/20 07:00 Robitussin Dm - PO Q6H PRN COUGH Ipratropium [place] 1 amp 01/17/20 08:00 01/20/20 20:00 Atrovent 0.02% Nebulizer - NEB 1 amp RQID EFRAÍN Administration Levothyroxine Sodium 150 mcg 01/17/20 08:45 01/20/20 06:29 Synthroid - PO 150 mcg DAILY@0700 EFRAÍN Administration Multivitamins/Minerals/Vitamin C 1 tab 01/17/20 10:00 01/20/20 10:31 Tab-A-Vit - PO 1 tab DAILY EFRAÍN Administration Nystatin 1 applic 01/17/20 10:00 01/20/20 21:44 Mycostatin Cream - TP 1 applic BID EFRAÍN Administration CBC, BMP 01/21/20 06:25 01/21/20 06:25 ASSESSMENT/PLAN: 84 y.o. F PMH HTN, hypothyroidism, dementia, A-fib (recent diagnosis), R-ICH in 2010 presenting from [facility] for dyspnea. # Fever 100.8 this am , R.O aspiraion PNA vs empyema * bowman cx , blood , urine and sputum * tylenol for fever * start on Zosyn * consult ID #Recurrent transudative left sided pleural effusion S/P thoracosentesis cxr today worsening will start lasix 20 daily * CXR showing left sided progressive pl eff (transudative)- consider cardiac etiology, pt also w/ hypoalbuminemia * no leukocytosis, afebrile, BNP 9000s * pathology from pleurocentesis 12/25/2019 shows no malignant cells; + mesothelial cells, macrophages and few lymphocytes present * observe off abx for now, patient has completed vanc & zosyn course during last visit & received 1 dose vanc/ zosyn tonight in ED * ID consulted-- Dr. Ramirez monitor off abx * Pulm Dr. Levy consulted * f/u cultures-- sputum, blood & urine * urine ag for legionella/ s. pneumo #Bradycardia, resolved cont BB home dose tele monitor , evaluated by cardiology , cont current management # Hyperkalemia 5.3 , ordered EKG , no acute changes , albuterol inhaler and gluconate ca IVpush once , repeat level in AM #A-fib * patient bradycardic; decrease coreg to 6.250 BiD * high risk stroke candidate, history of remote ICH. Defer AC due to falls and traumatic ICH as per cardio * Dr. Kaur consulted * tele monitoring #Elevated trops likley demand iscemia , no EKG changes . 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 - New Patient This patient is new to me today: No - Critical Care Critical Care patient: No - Discharge Referral Referred to [facility] No ATTENDING PHYSICIAN STATEMENT I saw and evaluated the patient. I reviewed the resident's note and discussed the case with the resident. I agree with the resident's findings and plan as documented. SUBJECTIVE: OBJECTIVE: ASSESSMENT AND PLAN:
[2020-01-21] MEDS: LEVOTHYROXINE NA 150 MCG TABLET PO SCH (06:43)
[2020-01-21 07:04] LABS: BASO % 0.3 % (0-2.0); EOS % 0.1 % (0-4.5); HEMATOCRIT 29.5 % (32.4-45.2); HEMOGLOBIN 9.3 GM/dL (10.7-15.3); LYMPH % 5.9 % (8-40); MCH 29.4 pg (25.7-33.7); MCHC 31.6 g/dl (32.0-36.0); MEAN CELL VOLUME 93.1 fl (80-96); MEAN PLT VOLUME 9.7 fl (7.5-11.1); MONO % 8.2 % (3.8-10.2); NEUT % 85.5 % (42.8-82.8); PLATELET COUNT 220 K/MM3 (134-434); RBC 3.17 M/mm3 (3.60-5.2); RDW 20.8 % (11.6-15.6); WHITE BLOOD COUNT 16.1 K/mm3 (4.0-10.0)
[2020-01-21 07:46] LABS: ALBUMIN 2.2 g/dl (3.4-5.0); BILIRUBIN,TOTAL 0.8 mg/dL (0.2-1); CALCIUM 9.1 mg/dL (8.5-10.1); CREATININE 0.9 mg/dL (0.55-1.3); PHOSPHOROUS 2.7 mg/dL (2.5-4.9); POTASSIUM 5.3 mmol/L (3.5-5.1); TOT PROT 6.4 g/dl (6.4-8.2)
[2020-01-21 07:47] LABS: MAGNESIUM 2.4 mg/dL (1.8-2.4)
[2020-01-21] MEDS: IPRATROPIUM BR 0.02% 0.5 MG/2.5 ML VIAL.NEB. NEB SCH ×4 (08:06→21:53)
[2020-01-21] MEDS: ALBUTEROL SO4 0.083% IH SOL 2.5 MG/3 ML VIAL.NEB. NEB SCH ×3 (08:07→20:52)
[2020-01-21] MEDS ORDERED: ALBUTEROL SO4 0.083% IH SOL 2.5 MG/3 ML VIAL.NEB. NEB ONE (09:45)
[2020-01-21] MEDS: ESCITALOPRAM OXALATE 10 MG TABLET PO SCH (09:45)
[2020-01-21] MEDS: CARVEDILOL 6.25 MG TABLET (FP) PO SCH ×2 (09:47→21:30)
[2020-01-21] MEDS: CALCIUM 500MG/VIT-D 200 UNITS COMBO TABLET (FP) PO SCH (09:47)
[2020-01-21] MEDS: CHOLECALCIFEROL (VIT D3) 1,000 UNIT (25 MCG) TABLET PO SCH (09:47)
[2020-01-21] MEDS: ASCORBIC ACID 500 MG TABLET (FP) PO SCH (09:48)
[2020-01-21] MEDS: MULTIVITAMINS (DAILY MVI) TABLET (FP) PO SCH (09:48)
[2020-01-21] MEDS: FUROSEMIDE 20 MG TABLET (FP) PO SCH (09:48)
[2020-01-21] MEDS: NYSTATIN 100,000 UNIT/GM TOPICAL CREAM 15 GM TUBE TP SCH ×2 (09:49→21:33)
--- NOTE | 2020-01-21 10:25 | EKG ---
Test Reason : Blood Pressure : / mmHG Vent. Rate : 085 BPM Atrial Rate : 085 BPM P-R Int : 158 ms QRS Dur : 146 ms QT Int : 416 ms P-R-T Axes : 000 055 -43 degrees QTc Int : 495 ms ATRIAL FLUTTER WITH VARIABLE A-V BLOCK RIGHT BUNDLE BRANCH BLOCK ABNORMAL ECG WHEN COMPARED WITH ECG OF 17-JAN-2020 09:15, NO SIGNIFICANT CHANGE WAS FOUND Confirmed by Ming Kaur MD ([id number]) on 01/21/2020 10:25:25 AM [facility] Confirmed By:Ming Kaur MD
[2020-01-21] MEDS ORDERED: CALCIUM GLUCONATE 10% - 1,000 MG/10 ML VIAL IVPB ONE (10:30)
[2020-01-21] MEDS ORDERED: PIPERACILLIN/TAZOB 2.25 GM 2.25 GM in DEXTROSE 5%-WATER - 50 ML IVPB SCH (10:45)
[2020-01-21] MEDS ORDERED: DEXTROSE 5%-WATER - 50 ML IVPB ONE ×2 (10:52→16:47)
[2020-01-21] MEDS ORDERED: PIPERACILLIN/TAZOBACTAM 2.25 GM VIAL IVPB ONE ×2 (10:52→16:47)
--- NOTE | 2020-01-21 10:53 | PN ---
Progress Note, Physician History of Present Illness: pulmonary drowsy,on vm,-resp distress,t-100.8 - Current Medication List Current Medications: Active Medications Acetaminophen (Tylenol -) 650 mg PO Q6H PRN PRN Reason: PAIN LEVEL 6-10 Last Admin: 01/21/20 09:45 Dose: 650 mg Albuterol Sulfate (Ventolin 0.083% Nebulizer Soln -) 1 amp NEB RTID [facility] Last Admin: 01/20/20 20:00 Dose: 1 amp Ascorbic Acid (Vitamin C -) 1,000 mg PO DAILY [facility] Last Admin: 01/21/20 09:48 Dose: 1,000 mg Atorvastatin Calcium (Lipitor -) 10 mg PO HS [facility] Last Admin: 01/20/20 21:43 Dose: 10 mg Calcium Carbonate/Cholecalciferol (Os-Fuad 500+D -) 1 tab PO DAILY [facility] Last Admin: 01/21/20 09:47 Dose: 1 tab Carvedilol (Coreg -) 6.25 mg PO BID [facility] Last Admin: 01/21/20 09:47 Dose: 6.25 mg Cholecalciferol (Vitamin D3 -) 2,000 unit PO DAILY [facility] Last Admin: 01/21/20 09:47 Dose: 2,000 unit Escitalopram Oxalate (Lexapro -) 5 mg PO DAILY [facility] Last Admin: 01/21/20 09:45 Dose: 5 mg Furosemide (Lasix -) 20 mg PO DAILY [facility] Last Admin: 01/21/20 09:48 Dose: 20 mg Guaifenesin (Robitussin Dm -) 10 ml PO Q6H PRN PRN Reason: COUGH Piperacillin Sod/Tazobactam (Sod 2.25 gm/ Dextrose) 50 mls @ 100 mls/hr IVPB Q8H-IV EFRAÍN; Protocol Piperacillin Sod/Tazobactam (Sod 2.25 gm/ Dextrose) 50 mls @ 100 mls/hr IVPB Q8H-IV EFRAÍN; Protocol Stop: 01/22/20 10:44 Ipratropium [place] (Atrovent 0.02% Nebulizer -) 1 amp NEB RQID [facility] Last Admin: 01/20/20 20:00 Dose: 1 amp Levothyroxine Sodium (Synthroid -) 150 mcg PO DAILY@0700 [facility] Last Admin: 01/21/20 06:43 Dose: 150 mcg Multivitamins/Minerals/Vitamin C (Tab-A-Vit -) 1 tab PO DAILY [facility] Last Admin: 01/21/20 09:48 Dose: 1 tab Nystatin (Mycostatin Cream -) 1 applic TP BID [facility] Last Admin: 01/21/20 09:49 Dose: 1 applic - Objective Vital Signs: Vital Signs Temperature 100.8 F H 01/21/20 10:00 Pulse Rate 87 01/21/20 10:00 Respiratory Rate 22 H 01/21/20 10:00 Blood Pressure 129/65 01/21/20 10:00 O2 Sat by Pulse Oximetry (%) 97 01/21/20 09:00 Constitutional: Yes: Thin, Other (drowsy) Eyes: Yes: WNL HENT: Yes: WNL Neck: Yes: WNL Cardiovascular: Yes: Pulse Irregular, S1, S2 Respiratory: Yes: Diminished, Rales (bibasilar rales) Gastrointestinal: Yes: Normal Bowel Sounds, Soft Extremities: Yes: WNL Edema: No Labs: CBC, BMP 01/21/20 06:25 01/21/20 06:25 INR, PTT INR 1.12 (0.83-1.09) H 01/16/20 17:05 Problem List - Problems (1) Dyspnea Code(s): R06.00 - DYSPNEA, UNSPECIFIED (2) Pleural effusion Code(s): J90 - PLEURAL EFFUSION, NOT ELSEWHERE CLASSIFIED (3) Afib Code(s): I48.91 - UNSPECIFIED ATRIAL FIBRILLATION Qualifiers: Atrial fibrillation type: unspecified Qualified Code(s): I48.91 - Unspecified atrial fibrillation Assessment/Plan IMP DYSPNEA RECURRENT LEFT PLEURAL EFFUSION PREVIOUSLY TRANSUDATE CHF AFIB H/O ICH DEMENTIA HYPOTHYROID FEVER PLAN LASIX O2 NEEDED RATE CONTROL CULTURES PLEURAL FLUIDS CELL CT,CHEMISTRIES PENDING DR LIMON Problem List - Problems (1) Dyspnea Code(s): R06.00 - DYSPNEA, UNSPECIFIED (2) Pleural effusion Code(s): J90 - PLEURAL EFFUSION, NOT ELSEWHERE CLASSIFIED (3) Afib Code(s): I48.91 - UNSPECIFIED ATRIAL FIBRILLATION Qualifiers: Atrial fibrillation type: unspecified Qualified Code(s): I48.91 - Unspecified atrial fibrillation
--- NOTE | 2020-01-21 11:51 | PN ---
Teaching Attending Note Name of Resident: Roberto Lyon ATTENDING PHYSICIAN STATEMENT I saw and evaluated the patient. I reviewed the resident's note and discussed the case with the resident. I agree with the resident's findings and plan as documented. SUBJECTIVE: Patient lethargic but appears comfortable. OBJECTIVE: Vital Signs Period Temp Pulse Resp BP Sys/Magana Pulse Ox Last 24 Hr 98.1 F-100.8 F 80-93 20-22 105-143/65-87 97-97 HEART: Irregular LUNGS: Decreased BS, few rales ABDOMEN: Soft, non-distended, normal BS EXTREMITIES: No edema Laboratory Results - last 24 hr 01/21/20 01/21/20 06:25 06:25 WBC 16.1 H RBC 3.17 L Hgb 9.3 L Hct 29.5 L MCV 93.1 MCH 29.4 MCHC 31.6 L RDW 20.8 H Plt Count 220 D MPV 9.7 Absolute Neuts (auto) 13.8 H Neutrophils % 85.5 H Lymphocytes % 5.9 L D Monocytes % 8.2 Eosinophils % 0.1 Basophils % 0.3 Nucleated RBC % 0 Sodium 140 Potassium 5.3 H Chloride 109 H Carbon Dioxide 26 Anion Gap 5 L BUN 20.0 H Creatinine 0.9 Est GFR (CKD-EPI)AfAm 67.57 Est GFR (CKD-EPI)NonAf 58.30 Random Glucose 112 H Calcium 9.1 Phosphorus 2.7 Magnesium 2.4 Total Bilirubin 0.8 AST 53 H ALT 24 Alkaline Phosphatase 116 Total Protein 6.4 Albumin 2.2 L Current Medications Generic Name Dose Route Start Last Admin Trade Name Freq PRN Reason Stop Dose Admin Acetaminophen 650 mg 01/17/20 06:54 01/21/20 09:45 Tylenol - PO 650 mg Q6H PRN Administration PAIN LEVEL 6-10 Albuterol Sulfate 1 amp 01/17/20 08:00 01/21/20 08:07 Ventolin 0.083% Nebulizer Soln - NEB 1 amp RTID EFRAÍN Administration Ascorbic Acid 1,000 mg 01/17/20 10:00 01/21/20 09:48 Vitamin C - PO 1,000 mg DAILY EFRAÍN Administration Atorvastatin Calcium 10 mg 01/17/20 22:00 01/20/20 21:43 Lipitor - PO 10 mg HS EFRAÍN Administration Calcium Carbonate/Cholecalciferol 1 tab 01/17/20 10:00 01/21/20 09:47 Os-Fuad 500+D - PO 1 tab DAILY EFRAÍN Administration Carvedilol 6.25 mg 01/20/20 10:00 01/21/20 09:47 Coreg - PO 6.25 mg BID EFRAÍN Administration Cholecalciferol 2,000 unit 01/17/20 10:00 01/21/20 09:47 Vitamin D3 - PO 2,000 unit DAILY EFRAÍN Administration Escitalopram Oxalate 5 mg 01/17/20 10:00 01/21/20 09:45 Lexapro - PO 5 mg DAILY EFRAÍN Administration Furosemide 20 mg 01/21/20 10:00 01/21/20 09:48 Lasix - PO 20 mg DAILY EFRAÍN Administration Guaifenesin 10 ml 01/17/20 07:00 Robitussin Dm - PO Q6H PRN COUGH Piperacillin Sod/Tazobactam 50 mls @ 100 mls/hr 01/21/20 10:45 Sod 2.25 gm/ Dextrose IVPB Q8H-IV EFRAÍN Protocol Piperacillin Sod/Tazobactam 50 mls @ 100 mls/hr 01/21/20 10:45 Sod 2.25 gm/ Dextrose IVPB 01/22/20 10:44 Q8H-IV EFRAÍN Protocol Ipratropium [place] 1 amp 01/17/20 08:00 01/21/20 08:06 Atrovent 0.02% Nebulizer - NEB 1 amp RQID EFRAÍN Administration Levothyroxine Sodium 150 mcg 01/17/20 08:45 01/21/20 06:43 Synthroid - PO 150 mcg DAILY@0700 EFRAÍN Administration Multivitamins/Minerals/Vitamin C 1 tab 01/17/20 10:00 01/21/20 09:48 Tab-A-Vit - PO 1 tab DAILY EFRAÍN Administration Nystatin 1 applic 01/17/20 10:00 01/21/20 09:49 Mycostatin Cream - TP 1 applic BID EFRAÍN Administration ASSESSMENT AND PLAN: This is an 84 year old woman with a history of HTN, hyperlipidemia, atrial fib, chronic diastolic heart failure, hypothyroidism, dementia, intracranial hemorrhage who was sent to the ED from [facility] for evaluation of dyspnea. 1. Recurrent left pleural effusion - s/p thoracentesis - negative for malignancy - Had temp 100.8 this morning with increasing WBC - Zosyn started empirically 2. Acute on chronic diastolic heart failure - Improved - Continue Lasix 3. Atrial fibrillation, permanent - Rate controlled - Continue Coreg - Not on anticoagulation secondary to fall risk 4. HTN - Continue Coreg, Lasix 5. Hyperlipidemia - Continue Lipitor 6. Anemia - Hgb stable 7. Hypothyroidism - TSH high so Synthroid has been increased 8. History of intracranial hemorrhage 9. Dementia
[2020-01-21] MEDS: PIPERACILLIN/TAZOB 2.25 GM 2.25 GM in DEXTROSE 5%-WATER - 50 ML IVPB SCH ×2 (12:05→17:03)
[2020-01-21 12:43] LABS: EPI CELLS 7.8 /HPF (0-5/HPF); HYALINE CASTS 19 /lpf (0-8); PH,URINE 5.5 (5.0-8.0); URINE APPEARANCE CLOUDY; URINE BACTERIA 9.8 /hpf (NEGATIVE); URINE BILIRUBIN NEGATIVE (NEGATIVE); URINE COLOR DK YELLOW; URINE GLUCOSE (UA) NEGATIVE (NEGATIVE); URINE KETONE NEGATIVE (NEGATIVE); URINE LEUK ESTERASE 2+ (NEGATIVE); URINE NITRITE NEGATIVE (NEGATIVE); URINE PROTEIN 2+ (NEGATIVE); URINE UROBILINOGEN 0.2 mg/dL (0.2-1.0); URINE WBC 208 /hpf (0-5)
[2020-01-21] MEDS ORDERED: SODIUM CHLORIDE 250 ML IV STA (13:50)
[2020-01-21 13:53] LABS: YEAST FEW (NEGATIVE)
[2020-01-21] MEDS: ATORVASTATIN CA 10 MG TABLET (FP) PO SCH (21:30)
[2020-01-22] MEDS ORDERED: DEXTROSE 5%-WATER - 50 ML IVPB ONE ×3 (01:39→16:50)
[2020-01-22] MEDS ORDERED: PIPERACILLIN/TAZOBACTAM 2.25 GM VIAL IVPB ONE ×2 (01:39→10:37)
[2020-01-22] MEDS: PIPERACILLIN/TAZOB 2.25 GM 2.25 GM in DEXTROSE 5%-WATER - 50 ML IVPB SCH ×2 (01:41→10:40)
[2020-01-22] MEDS: LEVOTHYROXINE NA 150 MCG TABLET PO SCH (06:38)
--- NOTE | 2020-01-22 07:34 | PN ---
Physical Exam: SUBJECTIVE: Patient seen and examined at bed side , laying in bed lethargic, dypnea , sat 96 % on NC , denies any chest pain, fever , chills, S/P thoracosentesis low grade fever . on Zosyn , follow up cx hold lasix for low BP , 250 CC NS bolus x1 DNR but want intubation if needed wbc trending down Hg drop 1.5 gm , will send occult blood cxr worseing compare to yesterday OBJECTIVE: Vital Signs Period Temp Pulse Resp BP Sys/Magana Pulse Ox Last 24 Hr 97.0 F-100.8 F 47-87 18-22 88-130/47-65 96-97 GENERAL: lethargic difficult hearing , follow commands HEENT: NCAT/ PERRLA/ dry MM LUNGS: decrease breath sound sat the bases HEART: IRR IRR , normal S1 and S2 without murmur, rub or gallop. ABDOMEN: Soft, non tender, not distended, normoactive bowel sounds. EXTREMITIES: 2+ pulses, warm, well-perfused. No peripheral edema. NEUROLOGICAL: unable to assess SKIN: Multiple small hematomas noted anterior shins b/l. Laboratory Results - last 24 hr 01/21/20 01/21/20 06:25 11:21 Sodium 140 Potassium 5.3 H Chloride 109 H Carbon Dioxide 26 Anion Gap 5 L BUN 20.0 H Creatinine 0.9 Est GFR (CKD-EPI)AfAm 67.57 Est GFR (CKD-EPI)NonAf 58.30 Random Glucose 112 H Calcium 9.1 Phosphorus 2.7 Magnesium 2.4 Total Bilirubin 0.8 AST 53 H ALT 24 Alkaline Phosphatase 116 Total Protein 6.4 Albumin 2.2 L Urine Color Dk yellow Urine Appearance Cloudy Urine pH 5.5 Ur Specific [place] 1.027 Urine Protein 2+ H Urine Glucose (UA) Negative Urine Ketones Negative Urine Blood Negative Urine Nitrite Negative Urine Bilirubin Negative Urine Urobilinogen 0.2 Ur Leukocyte Esterase 2+ H Urine WBC (Auto) 208 Urine Casts (Auto) 19 U Epithel Cells (Auto) 7.8 Urine Bacteria (Auto) 9.8 Urine Yeast (Auto) Few Active Medications Generic Name Dose Route Start Last Admin Trade Name Freq PRN Reason Stop Dose Admin Acetaminophen 650 mg 01/17/20 06:54 01/21/20 09:45 Tylenol - PO 650 mg Q6H PRN Administration PAIN LEVEL 6-10 Albuterol Sulfate 1 amp 01/17/20 08:00 01/21/20 20:52 Ventolin 0.083% Nebulizer Soln - NEB 1 amp RTID EFRAÍN Administration Ascorbic Acid 1,000 mg 01/17/20 10:00 01/21/20 09:48 Vitamin C - PO 1,000 mg DAILY EFRAÍN Administration Atorvastatin Calcium 10 mg 01/17/20 22:00 01/21/20 21:30 Lipitor - PO 10 mg HS EFRAÍN Administration Calcium Carbonate/Cholecalciferol 1 tab 01/17/20 10:00 01/21/20 09:47 Os-Fuad 500+D - PO 1 tab DAILY EFRAÍN Administration Carvedilol 6.25 mg 01/20/20 10:00 01/21/20 21:30 Coreg - PO 6.25 mg BID EFRAÍN Administration Cholecalciferol 2,000 unit 01/17/20 10:00 01/21/20 09:47 Vitamin D3 - PO 2,000 unit DAILY EFRAÍN Administration Escitalopram Oxalate 5 mg 01/17/20 10:00 01/21/20 09:45 Lexapro - PO 5 mg DAILY EFRAÍN Administration Furosemide 20 mg 01/21/20 10:00 01/21/20 09:48 Lasix - PO 20 mg DAILY EFRAÍN Administration Guaifenesin 10 ml 01/17/20 07:00 Robitussin Dm - PO Q6H PRN COUGH Piperacillin Sod/Tazobactam 50 mls @ 100 mls/hr 01/21/20 10:45 Sod 2.25 gm/ Dextrose IVPB Q8H-IV EFRAÍN Protocol Piperacillin Sod/Tazobactam 50 mls @ 100 mls/hr 01/21/20 10:45 01/22/20 01:41 Sod 2.25 gm/ Dextrose IVPB 01/22/20 10:44 100 mls/hr Q8H-IV EFRAÍN Administration Protocol Ipratropium [place] 1 amp 01/17/20 08:00 01/21/20 21:53 Atrovent 0.02% Nebulizer - NEB 1 amp RQID EFRAÍN Administration Levothyroxine Sodium 150 mcg 01/17/20 08:45 01/22/20 06:38 Synthroid - PO 150 mcg DAILY@0700 EFRAÍN Administration Multivitamins/Minerals/Vitamin C 1 tab 01/17/20 10:00 01/21/20 09:48 Tab-A-Vit - PO 1 tab DAILY EFRAÍN Administration Nystatin 1 applic 01/17/20 10:00 01/21/20 21:33 Mycostatin Cream - TP 1 applic BID EFRAÍN Administration CBC, BMP 01/22/20 10:10 01/22/20 10:10 ASSESSMENT/PLAN: 84 y.o. F PMH HTN, hypothyroidism, dementia, A-fib (recent diagnosis), R-ICH in 2010 presenting from [facility] for dyspnea. # Fever 100.8...97.4 , this am , R.O aspiration PNA vs empyema * bowman cx , blood , urine and sputum negative so far , uA legionella AG negative * tylenol for fever * start on Zosyn * consult ID #Recurrent transudative left sided pleural effusion S/P thoracosentesis cxr today worsening will start lasix 20 daily * pathology from pleurocentesis 12/25/2019 shows no malignant cells; + mesothelial cells, macrophages and few lymphocytes present * received 1 dose vanc/ zosyn tonight in ED cont zosyn * ID consulted * Pulm Dr. Levy consulted * f/u cultures-- sputum, blood & urine negative thus far * urine ag for legionella/ s. pneumo #Bradycardia, resolved cont BB home dose tele monitor , evaluated by cardiology , cont current management # Hyperkalemia resolved #A-fib * patient bradycardic; cont coreg to 6.25 BID * high risk stroke candidate, history of remote ICH. Defer AC due to falls and traumatic ICH as per cardio * Dr. Kaur consulted * tele monitoring #Elevated trops * likley demand iscemia , no EKG changes . 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 - New Patient This patient is new to me today: No - Critical Care Critical Care patient: No ATTENDING PHYSICIAN STATEMENT I saw and evaluated the patient. I reviewed the resident's note and discussed the case with the resident. I agree with the resident's findings and plan as documented. SUBJECTIVE: OBJECTIVE: ASSESSMENT AND PLAN:
[2020-01-22] MEDS: IPRATROPIUM BR 0.02% 0.5 MG/2.5 ML VIAL.NEB. NEB SCH ×4 (07:35→20:41)
[2020-01-22] MEDS: ALBUTEROL SO4 0.083% IH SOL 2.5 MG/3 ML VIAL.NEB. NEB SCH ×3 (07:35→20:41)
[2020-01-22 10:38] LABS: BASO % 0.1 % (0-2.0); EOS % 0.2 % (0-4.5); HEMATOCRIT 24.9 % (32.4-45.2); HEMOGLOBIN 7.7 GM/dL (10.7-15.3); LYMPH % 6.7 % (8-40); MCH 28.9 pg (25.7-33.7); MCHC 30.7 g/dl (32.0-36.0); MEAN PLT VOLUME 8.6 fl (7.5-11.1); MONO % 7.1 % (3.8-10.2); NEUT % 85.9 % (42.8-82.8); PLATELET COUNT 208 K/MM3 (134-434); RBC 2.65 M/mm3 (3.60-5.2); RDW 20.5 % (11.6-15.6); WHITE BLOOD COUNT 12.4 K/mm3 (4.0-10.0)
[2020-01-22] MEDS: ASCORBIC ACID 500 MG TABLET (FP) PO SCH (10:41)
[2020-01-22] MEDS: CHOLECALCIFEROL (VIT D3) 1,000 UNIT (25 MCG) TABLET PO SCH (10:41)
[2020-01-22] MEDS: CALCIUM 500MG/VIT-D 200 UNITS COMBO TABLET (FP) PO SCH (10:41)
[2020-01-22] MEDS: CARVEDILOL 6.25 MG TABLET (FP) PO SCH (10:41)
[2020-01-22] MEDS: MULTIVITAMINS (DAILY MVI) TABLET (FP) PO SCH (10:41)
[2020-01-22] MEDS: NYSTATIN 100,000 UNIT/GM TOPICAL CREAM 15 GM TUBE TP SCH ×2 (10:42→21:18)
[2020-01-22] MEDS: ESCITALOPRAM OXALATE 10 MG TABLET PO SCH (10:42)
[2020-01-22] MEDS ORDERED: SODIUM CHLORIDE 250 ML IV STA (10:59)
--- NOTE | 2020-01-22 10:59 | PN ---
Progress Note, Physician History of Present Illness: pulmonary lethargic,non-verbal,-resp distress - Current Medication List Current Medications: Active Medications Acetaminophen (Tylenol -) 650 mg PO Q6H PRN PRN Reason: PAIN LEVEL 6-10 Last Admin: 01/21/20 09:45 Dose: 650 mg Albuterol Sulfate (Ventolin 0.083% Nebulizer Soln -) 1 amp NEB RTID [facility] Last Admin: 01/22/20 07:35 Dose: 1 amp Ascorbic Acid (Vitamin C -) 1,000 mg PO DAILY [facility] Last Admin: 01/22/20 10:41 Dose: 1,000 mg Atorvastatin Calcium (Lipitor -) 10 mg PO HS [facility] Last Admin: 01/21/20 21:30 Dose: 10 mg Calcium Carbonate/Cholecalciferol (Os-Fuad 500+D -) 1 tab PO DAILY [facility] Last Admin: 01/22/20 10:41 Dose: 1 tab Carvedilol (Coreg -) 6.25 mg PO BID [facility] Last Admin: 01/22/20 10:41 Dose: 6.25 mg Cholecalciferol (Vitamin D3 -) 2,000 unit PO DAILY [facility] Last Admin: 01/22/20 10:41 Dose: 2,000 unit Escitalopram Oxalate (Lexapro -) 5 mg PO DAILY [facility] Last Admin: 01/22/20 10:42 Dose: 5 mg Furosemide (Lasix -) 20 mg PO DAILY [facility] Last Admin: 01/21/20 09:48 Dose: 20 mg Guaifenesin (Robitussin Dm -) 10 ml PO Q6H PRN PRN Reason: COUGH Piperacillin Sod/Tazobactam (Sod 2.25 gm/ Dextrose) 50 mls @ 100 mls/hr IVPB Q8H-IV [facility]; Protocol Ipratropium [place] (Atrovent 0.02% Nebulizer -) 1 amp NEB RQID [facility] Last Admin: 01/22/20 07:35 Dose: 1 amp Levothyroxine Sodium (Synthroid -) 150 mcg PO DAILY@0700 [facility] Last Admin: 01/22/20 06:38 Dose: 150 mcg Multivitamins/Minerals/Vitamin C (Tab-A-Vit -) 1 tab PO DAILY [facility] Last Admin: 01/22/20 10:41 Dose: 1 tab Nystatin (Mycostatin Cream -) 1 applic TP BID [facility] Last Admin: 01/22/20 10:42 Dose: 1 applic - Objective Vital Signs: Vital Signs Temperature 97.4 F L 01/22/20 06:00 Pulse Rate 80 01/22/20 06:00 Respiratory Rate 18 01/22/20 06:00 Blood Pressure 114/53 L 01/22/20 06:00 O2 Sat by Pulse Oximetry (%) 96 01/21/20 21:00 Constitutional: Yes: Thin, Other (lethargic) Eyes: Yes: WNL HENT: Yes: WNL Neck: Yes: WNL Cardiovascular: Yes: Pulse Irregular, S1, S2 Respiratory: Yes: Diminished (poor insoiratory effort) Gastrointestinal: Yes: Normal Bowel Sounds, Soft Extremities: Yes: WNL Edema: No Labs: CBC, BMP 01/22/20 10:10 INR, PTT INR 1.12 (0.83-1.09) H 01/16/20 17:05 - ....Imaging Chest X-ray: Report Reviewed, Image Reviewed (mika pulmonary vascular congestion) Problem List - Problems (1) Dyspnea Code(s): R06.00 - DYSPNEA, UNSPECIFIED (2) Pleural effusion Code(s): J90 - PLEURAL EFFUSION, NOT ELSEWHERE CLASSIFIED (3) Afib Code(s): I48.91 - UNSPECIFIED ATRIAL FIBRILLATION Qualifiers: Atrial fibrillation type: unspecified Qualified Code(s): I48.91 - Unspecified atrial fibrillation Assessment/Plan IMP DYSPNEA RECURRENT LEFT PLEURAL EFFUSION PREVIOUSLY TRANSUDATE CHF AFIB H/O ICH DEMENTIA HYPOTHYROID FEVER PLAN LASIX O2 NEEDED RATE CONTROL DR LIMON Problem List - Problems (1) Dyspnea Code(s): R06.00 - DYSPNEA, UNSPECIFIED (2) Pleural effusion Code(s): J90 - PLEURAL EFFUSION, NOT ELSEWHERE CLASSIFIED (3) Afib Code(s): I48.91 - UNSPECIFIED ATRIAL FIBRILLATION Qualifiers: Atrial fibrillation type: unspecified Qualified Code(s): I48.91 - Unspecified atrial fibrillation
[2020-01-22 11:11] LABS: ALBUMIN 1.8 g/dl (3.4-5.0); BILIRUBIN,TOTAL 0.3 mg/dL (0.2-1); CREATININE 0.8 mg/dL (0.55-1.3); POTASSIUM 4.3 mmol/L (3.5-5.1); TOT PROT 5.4 g/dl (6.4-8.2)
--- NOTE | 2020-01-22 11:49 | PN ---
Progress Note, Physician History of Present Illness: pt seen and examined today, lethargic, minimally responsive. at bedside. - Current Medication List Current Medications: Active Medications Acetaminophen (Tylenol -) 650 mg PO Q6H PRN PRN Reason: PAIN LEVEL 6-10 Last Admin: 01/21/20 09:45 Dose: 650 mg Albuterol Sulfate (Ventolin 0.083% Nebulizer Soln -) 1 amp NEB RTID [facility] Last Admin: 01/22/20 07:35 Dose: 1 amp Ascorbic Acid (Vitamin C -) 1,000 mg PO DAILY [facility] Last Admin: 01/22/20 10:41 Dose: 1,000 mg Atorvastatin Calcium (Lipitor -) 10 mg PO HS [facility] Last Admin: 01/21/20 21:30 Dose: 10 mg Calcium Carbonate/Cholecalciferol (Os-Fuad 500+D -) 1 tab PO DAILY [facility] Last Admin: 01/22/20 10:41 Dose: 1 tab Carvedilol (Coreg -) 6.25 mg PO BID [facility] Last Admin: 01/22/20 10:41 Dose: 6.25 mg Cholecalciferol (Vitamin D3 -) 2,000 unit PO DAILY [facility] Last Admin: 01/22/20 10:41 Dose: 2,000 unit Escitalopram Oxalate (Lexapro -) 5 mg PO DAILY [facility] Last Admin: 01/22/20 10:42 Dose: 5 mg Furosemide (Lasix -) 20 mg PO DAILY [facility] Last Admin: 01/21/20 09:48 Dose: 20 mg Guaifenesin (Robitussin Dm -) 10 ml PO Q6H PRN PRN Reason: COUGH Piperacillin Sod/Tazobactam (Sod 2.25 gm/ Dextrose) 50 mls @ 100 mls/hr IVPB Q8H-IV EFRAÍN; Protocol Sodium Chloride (Normal Saline -) 250 mls @ 250 mls/hr IV ASDIR STA Stop: 01/22/20 11:58 Last Admin: 01/22/20 11:07 Dose: 250 mls/hr Ipratropium [place] (Atrovent 0.02% Nebulizer -) 1 amp NEB RQID [facility] Last Admin: 01/22/20 07:35 Dose: 1 amp Levothyroxine Sodium (Synthroid -) 150 mcg PO DAILY@0700 [facility] Last Admin: 01/22/20 06:38 Dose: 150 mcg Multivitamins/Minerals/Vitamin C (Tab-A-Vit -) 1 tab PO DAILY [facility] Last Admin: 01/22/20 10:41 Dose: 1 tab Nystatin (Mycostatin Cream -) 1 applic TP BID [facility] Last Admin: 01/22/20 10:42 Dose: 1 applic - Objective Vital Signs: Vital Signs Temperature 97.4 F L 01/22/20 06:00 Pulse Rate 80 01/22/20 06:00 Respiratory Rate 18 01/22/20 06:00 Blood Pressure 114/53 L 01/22/20 06:00 O2 Sat by Pulse Oximetry (%) 96 01/21/20 21:00 Constitutional: Yes: No Distress, Calm Eyes: Yes: Conjunctiva Clear, EOM Intact HENT: Yes: Atraumatic, Normocephalic Cardiovascular: Yes: Pulse Irregular, S1, S2. No: Regular Rate and Rhythm, Bradycardia, Tachycardia, Bruit, JVD, Gallop, Murmur, Rub, S3, S4, Varicosities Respiratory: Yes: Regular, Diminished. No: Rales, Rhonchi, SOB, Wheezes Gastrointestinal: Yes: Normal Bowel Sounds, Soft Extremities: Yes: WNL Edema: No Peripheral Pulses WNL: Yes Peripheral Pulses: Left Doralis Pedis: 2+, Right Dorsalis Pedis: 2+ Neurological: Yes: Alert, Oriented Psychiatric: Yes: Alert, Oriented Labs: CBC, BMP 01/22/20 10:10 01/22/20 10:10 INR, PTT INR 1.12 (0.83-1.09) H 01/16/20 17:05 - ....Imaging Chest X-ray: Report Reviewed, Image Reviewed EKG: Report Reviewed, Image Reviewed Other: Report Reviewed, Image Reviewed (tele-afib, hr adequately controlled) Assessment/Plan The patient is an 84-year-old female with dementia, hypertension, hypothyroidism , intracranial hemorrhage 2014, multiple falls, atrial fibrillation, not anticoagulated because of falls and prior intracranial bleed, [facility] with shortness of breath and lethargy. Recurrent pleural effusion -s/p thoracentesis with re-accumulation -hypoalbuminemia -suspect third spacing secondary to low oncotic pressure -receiving Lasix 20mg po daily -Blood pressures running low and labs c/w intravascular depletion likely secondary to above -cont gentle diuresis as tolerated -repeat thoracentesis if needed -can consider Albumin infusion to support oncotic pressure and BP to allow more aggressive diuresis Afib -HR adequately controlled -not on AC due to risk > benefit -cont coreg at current dose for now
--- NOTE | 2020-01-22 16:35 | PN ---
Progress Note (short form) - Note Progress Note: asked to f/u she developed fever and leukocytosis yesterday started on zosyn with improvement cxray shows worsening congestion no vomiting or diarrhea ate breakfast this am now fast asleep does awaken when called by her Vital Signs Period Temp Pulse Resp BP Sys/Magana Pulse Ox Last 24 Hr 97.0 F-99.6 F 72-89 16-18 88-114/47-75 96-96 cor-rrr lungs decreased bs at bases abd soft, nt ext no edema CBC, BMP 01/22/20 10:10 01/22/20 10:10 Microbiology 01/21/20 12:00 Blood - Peripheral Venous Blood Culture - Preliminary NO GROWTH OBTAINED AFTER 24 HOURS, INCUBATION TO CONTINUE FOR 4 DAYS. 01/21/20 11:55 Blood - Peripheral Venous Blood Culture - Preliminary NO GROWTH OBTAINED AFTER 24 HOURS, INCUBATION TO CONTINUE FOR 4 DAYS. 01/21/20 11:21 Urine - Urine - Catheterized Urine Culture - Final NO GROWTH OBTAINED 01/16/20 17:05 Blood - Peripheral Venous Blood Culture - Final NO GROWTH AFTER 5 DAYS INCUBATION 01/16/20 17:05 Blood - Peripheral Venous Blood Culture - Final NO GROWTH AFTER 5 DAYS INCUBATION 01/21/20 11:21 Urine For Antigen Detection Legionella Antigen - Final 01/21/20 11:21 Urine For Antigen Detection Streptococcus pneumoniae Antigen (M - Final cxray- increased congestion a/p fever/leukocytosis cannot r/o pneumonia continue zosyn overall prognosis is poor
[2020-01-22] MEDS ORDERED: PIPERACILLIN/TAZOBACTAM 3.375 GM VIAL IVPB ONE (16:50)
[2020-01-22] MEDS: PIPERACILLIN/TAZOB 3.375 GM 3.375 GM in DEXTROSE 5%-WATER - 50 ML IVPB SCH (17:03)
[2020-01-22] MEDS ORDERED: FUROSEMIDE 20 MG TABLET (FP) PO ONE (17:05)
[2020-01-22] MEDS ORDERED: ALBUMIN HUMAN 25% 100 ML VIAL IVPB SCH (17:15)
[2020-01-22] MEDS ORDERED: FUROSEMIDE 40 MG/4 ML INJECTABLE VIAL IVPUSH ONE (17:28)
--- NOTE | 2020-01-22 17:33 | PN ---
Teaching Attending Note Name of Resident: Roberto Lyon ATTENDING PHYSICIAN STATEMENT I saw and evaluated the patient. I reviewed the resident's note and discussed the case with the resident. I agree with the resident's findings and plan as documented. SUBJECTIVE: Patient seen and examined at bedside, tired appearing, lethargic, but responds (with at bedside) and verbalizes, mild hypotension at times , VS otherwise stable currently. No fevers. OBJECTIVE: GA AAox1, verbalizes when repeatedly asked by ?withdrawn from depression , tired appearing, protecting airways HEENT nC/AT, EOMI, dry MM, no JVD Chest poor inspiratory effort, decreased BS L side, adequate air entry R side CVS Irregularly irregular, normal rate, DUKE+ Abd Soft, NT, ND, BS+ Ext No LE edema, no calf tenderness, thin extremities Vital Signs - 24 hr 01/21/20 01/21/20 01/21/20 18:00 21:00 22:00 Temperature 97.0 F L 97.2 F L Pulse Rate 81 72 Respiratory 18 18 18 Rate Blood Pressure 88/58 L 90/47 L O2 Sat by Pulse 96 Oximetry (%) 01/22/20 01/22/20 01/22/20 01:35 06:00 09:00 Temperature 97.3 F L 97.4 F L Pulse Rate 78 80 Respiratory 18 18 18 Rate Blood Pressure 109/60 114/53 L O2 Sat by Pulse 96 Oximetry (%) 01/22/20 01/22/20 10:00 14:05 Temperature 99.6 F 99.2 F Pulse Rate 88 89 Respiratory 18 16 Rate Blood Pressure 88/57 L 108/75 O2 Sat by Pulse Oximetry (%) Microbiology 01/21/20 12:00 Blood - Peripheral Venous Blood Culture - Preliminary NO GROWTH OBTAINED AFTER 24 HOURS, INCUBATION TO CONTINUE FOR 4 DAYS. 01/21/20 11:55 Blood - Peripheral Venous Blood Culture - Preliminary NO GROWTH OBTAINED AFTER 24 HOURS, INCUBATION TO CONTINUE FOR 4 DAYS. 01/21/20 11:21 Urine - Urine - Catheterized Urine Culture - Final NO GROWTH OBTAINED 01/16/20 17:05 Blood - Peripheral Venous Blood Culture - Final NO GROWTH AFTER 5 DAYS INCUBATION 01/16/20 17:05 Blood - Peripheral Venous Blood Culture - Final NO GROWTH AFTER 5 DAYS INCUBATION 01/21/20 11:21 Urine For Antigen Detection Legionella Antigen - Final 01/21/20 11:21 Urine For Antigen Detection Streptococcus pneumoniae Antigen (M - Final Laboratory Results - last 24 hr 01/22/20 01/22/20 10:10 10:10 WBC 12.4 H RBC 2.65 L Hgb 7.7 L Hct 24.9 L D MCV 94.0 MCH 28.9 MCHC 30.7 L RDW 20.5 H Plt Count 208 MPV 8.6 D Absolute Neuts (auto) 10.6 H Neutrophils % 85.9 H Lymphocytes % 6.7 L Monocytes % 7.1 Eosinophils % 0.2 D Basophils % 0.1 Nucleated RBC % 0 Sodium 142 Potassium 4.3 Chloride 109 H Carbon Dioxide 29 Anion Gap 4 L BUN 23.0 H Creatinine 0.8 Est GFR (CKD-EPI)AfAm 77.92 Est GFR (CKD-EPI)NonAf 67.23 Random Glucose 147 H Calcium 9.0 Total Bilirubin 0.3 AST 17 ALT 18 Alkaline Phosphatase 103 Total Protein 5.4 L Albumin 1.8 L Current Medications Generic Name Dose Route Start Last Admin Trade Name Freq PRN Reason Stop Dose Admin Acetaminophen 650 mg 01/17/20 06:54 01/21/20 09:45 Tylenol - PO 650 mg Q6H PRN Administration PAIN LEVEL 6-10 Albuterol Sulfate 1 amp 01/17/20 08:00 01/22/20 14:12 Ventolin 0.083% Nebulizer Soln - NEB 1 amp RTID EFRAÍN Administration Ascorbic Acid 1,000 mg 01/17/20 10:00 01/22/20 10:41 Vitamin C - PO 1,000 mg DAILY EF[facility]N Administration Atorvastatin Calcium 10 mg 01/17/20 22:00 01/21/20 21:30 Lipitor - PO 10 mg HS EFRAÍN Administration Calcium Carbonate/Cholecalciferol 1 tab 01/17/20 10:00 01/22/20 10:41 Os-Fuad 500+D - PO 1 tab DAILY [facility]N Administration Carvedilol 6.25 mg 01/20/20 10:00 01/22/20 10:41 Coreg - PO 6.25 mg BID EFRAÍN Administration Cholecalciferol 2,000 unit 01/17/20 10:00 01/22/20 10:41 Vitamin D3 - PO 2,000 unit DAILY [facility] Administration Escitalopram Oxalate 5 mg 01/17/20 10:00 01/22/20 10:42 Lexapro - PO 5 mg DAILY [facility] Administration Furosemide 20 mg 01/21/20 10:00 01/21/20 09:48 Lasix - PO 20 mg DAILY [facility] Administration Guaifenesin 10 ml 01/17/20 07:00 Robitussin Dm - PO Q6H PRN COUGH Piperacillin Sod/Tazobactam 50 mls @ 100 mls/hr 01/22/20 18:00 01/22/20 17:03 Sod 3.375 gm/ Dextrose IVPB 100 mls/hr Q8H-IV EFRAÍN Administration Protocol Ipratropium [place] 1 amp 01/17/20 08:00 01/22/20 15:57 Atrovent 0.02% Nebulizer - NEB 1 amp RQID [facility]RA[facility]N Administration Levothyroxine Sodium 150 mcg 01/17/20 08:45 01/22/20 06:38 Synthroid - PO 150 mcg DAILY@0700 [facility]N Administration Multivitamins/Minerals/Vitamin C 1 tab 01/17/20 10:00 01/22/20 10:41 Tab-A-Vit - PO 1 tab DAILY [facility]RA[facility]N Administration Nystatin 1 applic 01/17/20 10:00 01/22/20 10:42 Mycostatin Cream - TP 1 applic BID EFRAÍN Administration ASSESSMENT AND PLAN: 84 F h/o HTN, hyperlipidemia, recent onset Afib, HFpEF, hypothyroidism, dementia , remote h/o intracranial hemorrhage who was sent to the ED from [facility] for evaluation of worsening dyspnea. Recurrent left pleural effusion s/p thoracentesis - negative for malignancy, transudative on Empiric Zosyn for low grade fever spike Give 1 dose of IV Lasix 20mg now, place wheat to monitor output, obtain repeat CXR in AM Acute on chronic diastolic heart failure with Afib, recent onset rate controlle currently, be mindful of BP hold Coreg as needed in order to properly diurese (low BP at times) AC held due to h/o bleed Hypoalbuminemia with ?third spacing, difficult to diurese Renal consult: DR Negron HTN with lower BP at times 1 dose of IV Lasix 20mg, monitor output cont. Coreg if systolic >90 HLD COnt. statin Chronic anemia stable, monitor CBC Hypothyroidism cont. synthroid History of ICH off AC if mental status cont. to decline, obtain CT-head to rule out recurrent ICH Cont. tele minitoring prognosis poor DNR but wants trial of intubation if needed DVT ppx: SCD/TEDs
[2020-01-22] MEDS: ATORVASTATIN CA 10 MG TABLET (FP) PO SCH (21:18)
[2020-01-23] MEDS ORDERED: PIPERACILLIN/TAZOBACTAM 3.375 GM VIAL IVPB ONE ×3 (03:15→17:39)
[2020-01-23] MEDS ORDERED: DEXTROSE 5%-WATER - 50 ML IVPB ONE ×3 (03:15→17:39)
[2020-01-23] MEDS: PIPERACILLIN/TAZOB 3.375 GM 3.375 GM in DEXTROSE 5%-WATER - 50 ML IVPB SCH ×3 (03:17→18:23)
[2020-01-23] MEDS: LEVOTHYROXINE NA 150 MCG TABLET PO SCH (06:25)
[2020-01-23 07:16] LABS: BASO % 0.2 % (0-2.0); EOS % 0.5 % (0-4.5); HEMATOCRIT 25.4 % (32.4-45.2); LYMPH % 8.2 % (8-40); MCH 29.2 pg (25.7-33.7); MCHC 31.5 g/dl (32.0-36.0); MEAN CELL VOLUME 92.6 fl (80-96); MEAN PLT VOLUME 8.4 fl (7.5-11.1); MONO % 8.7 % (3.8-10.2); NEUT % 82.4 % (42.8-82.8); PLATELET COUNT 226 K/MM3 (134-434); RBC 2.75 M/mm3 (3.60-5.2); RDW 20.7 % (11.6-15.6); WHITE BLOOD COUNT 11.4 K/mm3 (4.0-10.0)
[2020-01-23] MEDS: IPRATROPIUM BR 0.02% 0.5 MG/2.5 ML VIAL.NEB. NEB SCH ×4 (08:00→20:00)
[2020-01-23] MEDS: ALBUTEROL SO4 0.083% IH SOL 2.5 MG/3 ML VIAL.NEB. NEB SCH ×3 (08:00→20:00)
[2020-01-23 08:42] LABS: ALBUMIN 1.8 g/dl (3.4-5.0); BILIRUBIN,TOTAL 0.3 mg/dL (0.2-1); BLOOD UREA NITROGEN 23.7 mg/dL (7-18); CALCIUM 8.9 mg/dL (8.5-10.1); TOT PROT 5.3 g/dl (6.4-8.2)
[2020-01-23] MEDS: CALCIUM 500MG/VIT-D 200 UNITS COMBO TABLET (FP) PO SCH (09:04)
[2020-01-23] MEDS: ESCITALOPRAM OXALATE 10 MG TABLET PO SCH (09:04)
[2020-01-23] MEDS: ASCORBIC ACID 500 MG TABLET (FP) PO SCH (09:05)
[2020-01-23] MEDS: MULTIVITAMINS (DAILY MVI) TABLET (FP) PO SCH (09:05)
[2020-01-23] MEDS: CHOLECALCIFEROL (VIT D3) 1,000 UNIT (25 MCG) TABLET PO SCH (09:06)
[2020-01-23] MEDS: FUROSEMIDE 20 MG TABLET (FP) PO SCH (12:19)
[2020-01-23] MEDS: NYSTATIN 100,000 UNIT/GM TOPICAL CREAM 15 GM TUBE TP SCH ×2 (12:19→22:41)
--- NOTE | 2020-01-23 13:22 | CONSULT ---
Consult Consult Specialty:: Nephrology Reason for Consultation:: fluid overload - History of Present Illness Chief Complaint: shortness of breath History of Present Illness: Pt is an 84 year old female with pmhx of dementia, hypothyroidism, pleural effusion, htn, ICH, and a-fib who presents with shortness of breath. I was called to evaluate her for fluid management. She is a poor historian and unable to give much history. SHe denies shortness of breath at rest. She was given lasix yesterday. Her bp had been low. SHe appears comfortable. SHe was found to have an increase in her pleural effusion. 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 - Allergies Allergies/Adverse Reactions: Allergies Allergy/AdvReac Type Severity Reaction Status Date / Time Sulfa (Sulfonamide Allergy Hives Verified 01/16/20 17:52 Antibiotics) - Home Medications Home Medications: Ambulatory Orders Acetaminophen [Tylenol .Regular Strength -] 650 mg PO Q6H PRN 12/13/19 Albuterol 0.083% Nebulizer Debra [Ventolin 0.083% Nebulizer Soln -] 1 neb NEB TID 12/13/19 Ascorbic Acid [Vitamin C] 1,000 mg PO DAILY 12/13/19 Atorvastatin Ca [Lipitor] 10 mg PO HS 12/13/19 Calcium Carb/Vitamin D3/Vit K1 [Calcium + D Soft Chewable Tab] 1 each PO DAILY 12/13/19 Carvedilol [Coreg -] 6.25 mg PO BID 12/13/19 Cholecalciferol (Vitamin D3) [Vitamin D -] 2,000 unit PO DAILY 12/13/19 Escitalopram Oxalate [Lexapro -] 5 mg PO DAILY 12/13/19 Hydrochlorothiazide 12.5 mg PO ASDIR 12/13/19 Ipratropium 0.02% Nebulizer [Atrovent 0.02% Nebulizer -] 1 neb NEB QID 12/13/19 Levothyroxine [Synthroid -] 100 mcg PO DAILY 12/13/19 Multivitamin [Multiple Vitamins] 1 each PO DAILY 12/13/19 Nystatin 1 applic TP BID 12/13/19 Guaifenesin/Dextromethorphan [Robitussin Cough-Chest Dm Liq] 10 ml PO QID Saccharomyces Boulardii [Florastor] 250 mg PO BID 12/23/19 Family Medical History Family History: Denies Review of Systems Unable to obtain ROS, reason: dementia, limited - Review of Systems Constitutional: reports: Malaise Eyes: reports: No Symptoms HENT: reports: No Symptoms Neck: reports: No Symptoms Respiratory: reports: SOB on Exertion Musculoskeletal: reports: Muscle Weakness Physical Exam Vital Signs: Vital Signs Temperature 97.9 F 01/23/20 10:00 Pulse Rate 78 01/23/20 10:00 Respiratory Rate 18 01/23/20 10:00 Blood Pressure 108/62 01/23/20 10:00 O2 Sat by Pulse Oximetry (%) 96 01/23/20 08:34 Constitutional: Yes: Calm Eyes: Yes: Conjunctiva Clear Neck: Yes: Other (jvd) Cardiovascular: Yes: JVD, S1, S2 Respiratory: Yes: On Nasal O2, Rhonchi Gastrointestinal: Yes: Soft Renal/: Yes: Incontinence Musculoskeletal: Yes: Muscle Weakness Edema: Yes Edema: LLE: Trace, RLE: Trace Neurological: Yes: Confusion Labs: CBC, BMP 01/23/20 06:15 01/23/20 06:15 Imaging - Results Chest X-ray: Report Reviewed Problem List - Problems (1) Atrial flutter Code(s): I48.92 - UNSPECIFIED ATRIAL FLUTTER Qualifiers: Atrial flutter type: unspecified Qualified Code(s): I48.92 - Unspecified atrial flutter (2) COPD (chronic obstructive pulmonary disease) Code(s): J44.9 - CHRONIC OBSTRUCTIVE PULMONARY DISEASE, UNSPECIFIED (3) Pleural effusion Code(s): J90 - PLEURAL EFFUSION, NOT ELSEWHERE CLASSIFIED Assessment/Plan Current Medications Generic Name Dose Route Start Last Admin Trade Name Freq PRN Reason Stop Dose Admin Acetaminophen 650 mg 01/17/20 06:54 01/21/20 09:45 Tylenol - PO 650 mg Q6H PRN Administration PAIN LEVEL 6-10 Albuterol Sulfate 1 amp 01/17/20 08:00 01/23/20 08:00 Ventolin 0.083% Nebulizer Soln - NEB 1 amp RTID EFRAÍN Administration Ascorbic Acid 1,000 mg 01/17/20 10:00 01/23/20 09:05 Vitamin C - PO 1,000 mg DAILY EFRAÍN Administration Atorvastatin Calcium 10 mg 01/17/20 22:00 01/22/20 21:18 Lipitor - PO 10 mg HS EFRAÍN Administration Calcium Carbonate/Cholecalciferol 1 tab 01/17/20 10:00 01/23/20 09:04 Os-Fuad 500+D - PO 1 tab DAILY [facility]N Administration Carvedilol 6.25 mg 01/20/20 10:00 01/22/20 10:41 Coreg - PO 6.25 mg BID EFRAÍN Administration Cholecalciferol 2,000 unit 01/17/20 10:00 01/23/20 09:06 Vitamin D3 - PO 2,000 unit DAILY EFRAÍN Administration Escitalopram Oxalate 5 mg 01/17/20 10:00 01/23/20 09:04 Lexapro - PO 5 mg DAILY EFRAÍN Administration Furosemide 20 mg 01/21/20 10:00 01/23/20 12:19 Lasix - PO 20 mg DAILY EFRA[facility]N Administration Guaifenesin 10 ml 01/17/20 07:00 Robitussin Dm - PO Q6H PRN COUGH Piperacillin Sod/Tazobactam 50 mls @ 100 mls/hr 01/22/20 18:00 01/23/20 09:07 Sod 3.375 gm/ Dextrose IVPB 100 mls/hr Q8H-IV EFRAÍN Administration Protocol Ipratropium [place] 1 amp 01/17/20 08:00 01/23/20 08:00 Atrovent 0.02% Nebulizer - NEB 1 amp RQID EFRAÍN Administration Levothyroxine Sodium 150 mcg 01/17/20 08:45 01/23/20 06:25 Synthroid - PO 150 mcg DAILY@0700 EFRA[facility]N Administration Multivitamins/Minerals/Vitamin C 1 tab 01/17/20 10:00 01/23/20 09:05 Tab-A-Vit - PO 1 tab DAILY [facility]N Administration Nystatin 1 applic 01/17/20 10:00 01/23/20 12:19 Mycostatin Cream - TP 1 applic BID EFRAÍN Administration Impression 1. fluid overload 2. pleural effusion 3. chf 4. a-fib 5. dementia 6. hx htn 7. hypothyroidism Plan - cont with lasix - can increase dose to 40 mg - monitor lytes and urine output - repeat cxr in am - pulm follow up
--- NOTE | 2020-01-23 13:23 | PN ---
Progress Note (short form) - Note Progress Note: PULMONARY More awake, alert today. Denies shortness of breath. Vital Signs Period Temp Pulse Resp BP Sys/Magana Pulse Ox Last 24 Hr 97.5 F-99.2 F 78-94 16-18 94-108/61-75 96-96 Gen: mildly tachypneic at rest Heart: irregular Lung: decreased breath sounds at the bases Abd: soft, nontender Ext: no edema CBC, BMP 01/23/20 06:15 01/23/20 06:15 Active Medications Acetaminophen (Tylenol -) 650 mg PO Q6H PRN PRN Reason: PAIN LEVEL 6-10 Last Admin: 01/21/20 09:45 Dose: 650 mg Albuterol Sulfate (Ventolin 0.083% Nebulizer Soln -) 1 amp NEB RTID [facility] Last Admin: 01/23/20 08:00 Dose: 1 amp Ascorbic Acid (Vitamin C -) 1,000 mg PO DAILY [facility] Last Admin: 01/23/20 09:05 Dose: 1,000 mg Atorvastatin Calcium (Lipitor -) 10 mg PO HS [facility] Last Admin: 01/22/20 21:18 Dose: 10 mg Calcium Carbonate/Cholecalciferol (Os-Fuad 500+D -) 1 tab PO DAILY [facility] Last Admin: 01/23/20 09:04 Dose: 1 tab Carvedilol (Coreg -) 6.25 mg PO BID [facility] Last Admin: 01/22/20 10:41 Dose: 6.25 mg Cholecalciferol (Vitamin D3 -) 2,000 unit PO DAILY [facility] Last Admin: 01/23/20 09:06 Dose: 2,000 unit Escitalopram Oxalate (Lexapro -) 5 mg PO DAILY [facility] Last Admin: 01/23/20 09:04 Dose: 5 mg Furosemide (Lasix -) 20 mg PO DAILY [facility] Last Admin: 01/23/20 12:19 Dose: 20 mg Guaifenesin (Robitussin Dm -) 10 ml PO Q6H PRN PRN Reason: COUGH Piperacillin Sod/Tazobactam (Sod 3.375 gm/ Dextrose) 50 mls @ 100 mls/hr IVPB Q8H-IV EFRAÍN; Protocol Last Admin: 01/23/20 09:07 Dose: 100 mls/hr Ipratropium [place] (Atrovent 0.02% Nebulizer -) 1 amp NEB RQID [facility] Last Admin: 01/23/20 08:00 Dose: 1 amp Levothyroxine Sodium (Synthroid -) 150 mcg PO DAILY@0700 [facility] Last Admin: 01/23/20 06:25 Dose: 150 mcg Multivitamins/Minerals/Vitamin C (Tab-A-Vit -) 1 tab PO DAILY [facility] Last Admin: 01/23/20 09:05 Dose: 1 tab Nystatin (Mycostatin Cream -) 1 applic TP BID [facility] Last Admin: 01/23/20 12:19 Dose: 1 applic A/P Acute on Chronic Diastolic Heart Failure Atrial Fibrillation Recurrent Left Pleural Effusion s/p Thoracentesis Hypothyroidism Dementia Anemia - continue - monitor urine output, creatinine - O2 to keep Spo2 >90% - rate control - DVT prophylaxis - if pleural effusion recurs, can consider pleur-x catheter
--- NOTE | 2020-01-23 17:27 | PN ---
Physical Exam: SUBJECTIVE: Patient seen and examined at bedside, tired appearing, lethargic, getting daily diuresis with CXR's no gross improvement of effusion, will likely need [id number]. VS otherwise stable. OBJECTIVE: GA AAox1, opens eyes to voice, tired appearing HEENT nC/AT, EOMI, dry MM, no JVD Chest poor inspiratory effort, decreased BS L side, adequate air entry R side CVS Irregularly irregular, normal rate, DUKE+ Abd Soft, NT, ND, BS+ Ext No LE edema, no calf tenderness, thin extremities Vital Signs - 24 hr 01/22/20 01/22/20 01/22/20 18:00 21:00 22:00 Temperature 97.5 F L 97.6 F Pulse Rate 85 92 H Respiratory 18 18 18 Rate Blood Pressure 105/61 94/62 O2 Sat by Pulse 96 Oximetry (%) 01/23/20 01/23/20 01/23/20 01:49 06:00 08:34 Temperature 97.8 F 97.6 F Pulse Rate 81 94 H Respiratory 18 18 18 Rate Blood Pressure 106/72 98/66 O2 Sat by Pulse 96 Oximetry (%) 01/23/20 01/23/20 10:00 14:00 Temperature 97.9 F 96.4 F L Pulse Rate 78 89 Respiratory 18 20 Rate Blood Pressure 108/62 94/50 L O2 Sat by Pulse Oximetry (%) Microbiology 01/21/20 12:00 Blood - Peripheral Venous Blood Culture - Preliminary NO GROWTH OBTAINED AFTER 48 HOURS, INCUBATION TO CONTINUE FOR 3 DAYS. 01/21/20 11:55 Blood - Peripheral Venous Blood Culture - Preliminary NO GROWTH OBTAINED AFTER 48 HOURS, INCUBATION TO CONTINUE FOR 3 DAYS. 01/21/20 11:21 Urine - Urine - Catheterized Urine Culture - Final NO GROWTH OBTAINED 01/16/20 17:05 Blood - Peripheral Venous Blood Culture - Final NO GROWTH AFTER 5 DAYS INCUBATION 01/16/20 17:05 Blood - Peripheral Venous Blood Culture - Final NO GROWTH AFTER 5 DAYS INCUBATION 01/21/20 11:21 Urine For Antigen Detection Legionella Antigen - Final 01/21/20 11:21 Urine For Antigen Detection Streptococcus pneumoniae Antigen (M - Final Laboratory Results - last 24 hr 01/23/20 01/23/20 06:15 06:15 WBC 11.4 H RBC 2.75 L Hgb 8.0 L Hct 25.4 L MCV 92.6 MCH 29.2 MCHC 31.5 L RDW 20.7 H Plt Count 226 MPV 8.4 Absolute Neuts (auto) 9.4 H Neutrophils % 82.4 Lymphocytes % 8.2 D Monocytes % 8.7 Eosinophils % 0.5 D Basophils % 0.2 Nucleated RBC % 0 Sodium 143 Potassium 4.0 Chloride 109 H Carbon Dioxide 25 Anion Gap 9 BUN 23.7 H Creatinine 1.0 Est GFR (CKD-EPI)AfAm 59.49 Est GFR (CKD-EPI)NonAf 51.33 Random Glucose 94 Calcium 8.9 Total Bilirubin 0.3 AST 32 ALT 27 Alkaline Phosphatase 139 H Total Protein 5.3 L Albumin 1.8 L Current Medications Generic Name Dose Route Start Last Admin Trade Name Freq PRN Reason Stop Dose Admin Acetaminophen 650 mg 01/17/20 06:54 01/21/20 09:45 Tylenol - PO 650 mg Q6H PRN Administration PAIN LEVEL 6-10 Albuterol Sulfate 1 amp 01/17/20 08:00 01/23/20 13:44 Ventolin 0.083% Nebulizer Soln - NEB 1 amp RTID EFRAÍN Administration Ascorbic Acid 1,000 mg 01/17/20 10:00 01/23/20 09:05 Vitamin C - PO 1,000 mg DAILY EFRAÍN Administration Atorvastatin Calcium 10 mg 01/17/20 22:00 01/22/20 21:18 Lipitor - PO 10 mg HS EFRAÍN Administration Calcium Carbonate/Cholecalciferol 1 tab 01/17/20 10:00 01/23/20 09:04 Os-Fuad 500+D - PO 1 tab DAILY EFRAÍN Administration Carvedilol 6.25 mg 01/20/20 10:00 01/22/20 10:41 Coreg - PO 6.25 mg BID EFRAÍN Administration Cholecalciferol 2,000 unit 01/17/20 10:00 01/23/20 09:06 Vitamin D3 - PO 2,000 unit DAILY EFRAÍN Administration Escitalopram Oxalate 5 mg 01/17/20 10:00 01/23/20 09:04 Lexapro - PO 5 mg DAILY EFRAÍN Administration Furosemide 40 mg 01/24/20 10:00 Lasix Injection - IVPUSH DAILY EFRAÍN Guaifenesin 10 ml 01/17/20 07:00 Robitussin Dm - PO Q6H PRN COUGH Piperacillin Sod/Tazobactam 50 mls @ 100 mls/hr 01/22/20 18:00 01/23/20 09:07 Sod 3.375 gm/ Dextrose IVPB 100 mls/hr Q8H-IV EFRAÍN Administration Protocol Ipratropium [place] 1 amp 01/17/20 08:00 01/23/20 12:00 Atrovent 0.02% Nebulizer - NEB 1 amp RQID EFRAÍN Administration Levothyroxine Sodium 150 mcg 01/17/20 08:45 01/23/20 06:25 Synthroid - PO 150 mcg DAILY@0700 EFRAÍN Administration Multivitamins/Minerals/Vitamin C 1 tab 01/17/20 10:00 01/23/20 09:05 Tab-A-Vit - PO 1 tab DAILY EFRAÍN Administration Nystatin 1 applic 01/17/20 10:00 01/23/20 12:19 Mycostatin Cream - TP 1 applic BID EFRAÍN Administration ASSESSMENT AND PLAN: 84 F h/o HTN, hyperlipidemia, recent onset Afib, HFpEF, hypothyroidism, dementia , remote h/o intracranial hemorrhage who was sent to the ED from [facility] a[facility]r Freyson for evaluation of worsening dyspnea. Recurrent left pleural effusion s/p thoracentesis - negative for malignancy, transudative on Empiric Zosyn for low grade fever spike Increase IV Lasix to 40mg daily, place wheat to monitor output, obtain repeat CXR in AM, ?may need [id number] as no gross improvement w/ diuresis Acute on chronic diastolic heart failure Lasix 40mg IVP daily hold BB in view of controlled HR, and low BPs Afib, recent onset rate controlled currently, cont. to hold Coreg restart if needed AC held due to h/o bleed Hypoalbuminemia malnourished, encourage PO intake Palliative consult Renal consult: DR Negron HTN running low, ?low cardiac output IV Lasix 40mg daily for effusion, restart Coreg if BP allows HLD COnt. statin Chronic anemia stable, monitor CBC Hypothyroidism cont. synthroid History of ICH off AC if mental status cont. to decline, obtain CT-head to rule out recurrent ICH Cont. tele monitoring prognosis poor DNR but wants trial of intubation if needed DVT ppx: SCD/TEDs Visit type - Emergency Visit Emergency Visit: Yes ED Registration Date: 01/16/20 Care time: The patient presented to the Emergency Department on the above date and was hospitalized for further evaluation of their emergent condition. - New Patient This patient is new to me today: No - Critical Care Critical Care patient: No - Discharge Referral Referred to [facility] Med P.C.: No
--- NOTE | 2020-01-23 17:34 | PN ---
Progress Note, Physician History of Present Illness: pt seen and examined today. resting comfortably in nad. remains minimally responsive. - Current Medication List Current Medications: Active Medications Acetaminophen (Tylenol -) 650 mg PO Q6H PRN PRN Reason: PAIN LEVEL 6-10 Last Admin: 01/21/20 09:45 Dose: 650 mg Albuterol Sulfate (Ventolin 0.083% Nebulizer Soln -) 1 amp NEB RTID [facility] Last Admin: 01/23/20 13:44 Dose: 1 amp Ascorbic Acid (Vitamin C -) 1,000 mg PO DAILY [facility] Last Admin: 01/23/20 09:05 Dose: 1,000 mg Atorvastatin Calcium (Lipitor -) 10 mg PO HS [facility] Last Admin: 01/22/20 21:18 Dose: 10 mg Calcium Carbonate/Cholecalciferol (Os-Fuad 500+D -) 1 tab PO DAILY [facility] Last Admin: 01/23/20 09:04 Dose: 1 tab Carvedilol (Coreg -) 6.25 mg PO BID [facility] Last Admin: 01/22/20 10:41 Dose: 6.25 mg Cholecalciferol (Vitamin D3 -) 2,000 unit PO DAILY [facility] Last Admin: 01/23/20 09:06 Dose: 2,000 unit Escitalopram Oxalate (Lexapro -) 5 mg PO DAILY [facility] Last Admin: 01/23/20 09:04 Dose: 5 mg Furosemide (Lasix Injection -) 40 mg IVPUSH DAILY [facility] Guaifenesin (Robitussin Dm -) 10 ml PO Q6H PRN PRN Reason: COUGH Piperacillin Sod/Tazobactam (Sod 3.375 gm/ Dextrose) 50 mls @ 100 mls/hr IVPB Q8H-IV EFRAÍN; Protocol Last Admin: 01/23/20 09:07 Dose: 100 mls/hr Ipratropium [place] (Atrovent 0.02% Nebulizer -) 1 amp NEB RQID [facility] Last Admin: 01/23/20 16:00 Dose: 1 amp Levothyroxine Sodium (Synthroid -) 150 mcg PO DAILY@0700 [facility] Last Admin: 01/23/20 06:25 Dose: 150 mcg Multivitamins/Minerals/Vitamin C (Tab-A-Vit -) 1 tab PO DAILY [facility] Last Admin: 01/23/20 09:05 Dose: 1 tab Nystatin (Mycostatin Cream -) 1 applic TP BID [facility] Last Admin: 01/23/20 12:19 Dose: 1 applic - Objective Vital Signs: Vital Signs Temperature 96.4 F L 01/23/20 14:00 Pulse Rate 89 01/23/20 14:00 Respiratory Rate 01/23/20 14:00 Blood Pressure 94/50 L 01/23/20 14:00 O2 Sat by Pulse Oximetry (%) 96 01/23/20 08:34 Constitutional: Yes: No Distress, Calm Cardiovascular: Yes: Pulse Irregular, S1, S2. No: Regular Rate and Rhythm, Bradycardia, Tachycardia, Bruit, JVD, Gallop, Murmur, Rub, S3, S4, Varicosities Respiratory: Yes: Regular, Diminished, On Nasal O2. No: Rales, Rhonchi, SOB, Wheezes Gastrointestinal: Yes: Normal Bowel Sounds, Soft Extremities: Yes: WNL Edema: No Peripheral Pulses WNL: Yes Neurological: No: Alert, Oriented Psychiatric: No: Alert, Oriented Labs: CBC, BMP 01/23/20 06:15 01/23/20 06:15 INR, PTT INR 1.12 (0.83-1.09) H 01/16/20 17:05 - ....Imaging Chest X-ray: Report Reviewed, Image Reviewed EKG: Report Reviewed, Image Reviewed Other: Report Reviewed, Image Reviewed (tele-afib, hr adequately controlled) Assessment/Plan The patient is an 84-year-old female with dementia, hypertension, hypothyroidism , intracranial hemorrhage 2013, multiple falls, atrial fibrillation, not anticoagulated because of falls and prior intracranial bleed, now being readmitted from the skilled nursing with shortness of breath and lethargy. Recurrent pleural effusion -s/p thoracentesis with re-accumulation -hypoalbuminemia -suspect third spacing secondary to low oncotic pressure -receiving Lasix 40mg IV daily now -Blood pressures running low and labs c/w intravascular depletion likely secondary to above -cont gentle diuresis as bp tolerates -repeat thoracentesis if needed -can consider Albumin infusion to support oncotic pressure and BP to allow more aggressive diuresis if does not tolerate IV lasix Afib -HR adequately controlled -not on AC due to risk > benefit -cont coreg at current dose for now -ok to dc tele
[2020-01-23] MEDS: CARVEDILOL 6.25 MG TABLET (FP) PO SCH (22:31)
[2020-01-23] MEDS: ATORVASTATIN CA 10 MG TABLET (FP) PO SCH (22:41)
[2020-01-24] MEDS ORDERED: DEXTROSE 5%-WATER - 50 ML IVPB ONE (02:01)
[2020-01-24] MEDS ORDERED: PIPERACILLIN/TAZOBACTAM 3.375 GM VIAL IVPB ONE (02:01)
[2020-01-24] MEDS: PIPERACILLIN/TAZOB 3.375 GM 3.375 GM in DEXTROSE 5%-WATER - 50 ML IVPB SCH (02:30)
[2020-01-24 02:39] VITALS: TEMP 97.1
--- NOTE | 2020-01-24 03:06 | RAPID ---
Physical Examination Vital Signs: Vital Signs Temperature 97.1 F L 01/24/20 02:00 Pulse Rate 91 H 01/24/20 02:00 Respiratory Rate 18 01/24/20 02:00 Blood Pressure 90/48 L 01/24/20 02:00 O2 Sat by Pulse Oximetry (%) 98 01/23/20 21:00 48/29 Map:32 HR: 80 Findings/Remarks: Rapid Response was called on . Patient vitals were taken and found to have decreasing heart rate; was bradycardic. Patient was given 1 mg of atropine x2. She was not responding to medications. Anesthesia was called and evaluated however patient was far too bradycardic to benefit from intubation. Patient was found to have absent heart sounds, breath sounds, absent bilateral radial, femoral, and carotid pulses, and absent pupillary reflexes. Patient was pronounced at 3:03 and family was notified. Labs: CBC, BMP 01/23/20 06:15 01/23/20 06:15
--- NOTE | 2020-01-24 03:21 | PN ---
Progress Note (short form) - Note Progress Note: Rapid response called overhead please see rapid response note for details. Patient became unresponsive even to noxious stimuli. Pupils fixed & non- reactive. Patient had no spontaneous breathing, no heart or lung sounds. No carotid or femoral pulses prsent. Time of pronounced at 3:03 AM on 2019. Patient's notified. Emotional support offered. Nursing staff to contact Shanice
[2020-01-24 04:18] VITALS: BP 110/50; PULSE 40
[2020-01-24] MEDS ORDERED: FUROSEMIDE 40 MG/4 ML INJECTABLE VIAL IVPUSH SCH (10:00)
== END 2020-01-24 03:05 | disposition expired | DRG 291 ==
LOC: JER 16:54 → JERBED 18:25 → J4W 21:42
PROVIDERS: ADMIT Internal Medicine
PROC: 0W9B3ZZ Drainage of Left Pleural Cavity, Percutaneous Approach (ICD-10-PCS; principal; 2020-01-17)
DX: I11.0 Hypertensive heart disease with heart failure (principal); E43 Unspecified severe protein-calorie malnutrition; J90 Pleural effusion, not elsewhere classified; I48.92 Unspecified atrial flutter; R64 Cachexia; I24.8 Other forms of acute ischemic heart disease; I50.33 Acute on chronic diastolic (congestive) heart failure; E03.9 Hypothyroidism, unspecified; F03.90 Unspecified dementia, unspecified severity, without behavioral disturbance, psychotic disturbance, mood disturbance, and anxiety; Z66 Do not resuscitate; D64.9 Anemia, unspecified; E88.09 Other disorders of plasma-protein metabolism, not elsewhere classified; R00.1 Bradycardia, unspecified; R29.6 Repeated falls; F32.9 Major depressive disorder, single episode, unspecified; J44.9 Chronic obstructive pulmonary disease, unspecified; I95.9 Hypotension, unspecified; E87.5 Hyperkalemia; Z68.20 Body mass index [BMI] 20.0-20.9, adult
CPT/HCPCS: 36415; 71045-TC-FY; 76942; 80048; 80053; 81003; 82272; 82607; 82728; 82746; 82803; 83540; 83550; 83605; 83735; 83880; 84100; 84436; 84443; 84466; 84484; 85025; 85044; 85610; 85730; 87040; 87086; 87804; 87899; 93005; 93010; 94640; 99285-25; J1756